=== PATIENT | female | born 1950 | race Caucasian/White ===

== ENCOUNTER 2017-09-17 13:44 | Emergency (ER) | payer MEDICARE, SELFPAY ==
[2017-09-17 14:49] VITALS: BMI 22.1
--- NOTE | 2017-09-17 14:55 | XR_ITS ---
XR ankle LT min 3V, XR foot LT min 3V LEFT ANKLE 3 VIEWS LEFT FOOT 3 VIEWS Ordering Physician: Adryan Boone MD Patient Age: 67 years: Female HISTORY: ITS.REASON: twisted foot on step last night Twisted ankle. Swelling and bruising top of foot and lateral ankle. TECHNIQUE: 3 views left foot COMPARISON :No previous studies. ====== LEFT ANKLE 3 VIEWS No fracture evident at the ankle. The dome of talus is intact. Minor soft tissue swelling is seen overlying the lateral malleolus and extending towards the lateral aspect of the foot ======= sent for LEFT FOOT 3 VIEWS No fracture nor dislocation. Metatarsals and toes intact. The tarsal bones appear intact.Normal osseous relationships Soft tissue swelling is most pronounced at the dorsal aspect of the foot. Base of the fifth metatarsal appears intact with no fracture here. There is a small longitudinally oriented accessory ossification and this site at the lateral view ankle IMPRESSION: No acute fracture evident at the left foot or left ankle.
[2017-09-17 15:21] VITALS: BP 125/63; PULSE 77; RESP 20; TEMP 36.9; O2SAT 98
--- NOTE | 2017-09-17 16:26 | HMH.EDLOEX ---
ED Disposition Clinical Impression: Ankle sprain and strain Disposition: Home, Self-Care Condition on Discharge: Good Instructions: Sprain Referrals: Provider,Referral, [Primary Care Provider] - - Critical Care Critical Care Time: No Attestation: On 09/17/17, the high probability of a clinically significant, sudden or life threatening deterioration of the following system(s) required my full and direct attention, intervention and personal management. The time I documented below is in addition to time spent performing reported procedures but includes the following listed in this critical care notation. Medical Decision Making Vital Signs: 09/17/17 15:21 Temperature 98.4 F Temperature Source Oral Pulse Rate [Right Radial] 77 Respiratory Rate 20 Blood Pressure [Left Arm] 125/63 Blood Pressure Mean [Left Arm] 83 Blood Pressure Source [Left Arm] Automatic Cuff Blood Pressure Position [Left Arm] Sitting 02 Sat by Pulse Oximetry 98 Oxygen Delivery Method Room Air Orders (Tests/Meds): ORDERS Category Date Time Status XR ankle LT min 3V Stat Exams 09/17/17 14:57 Taken XR foot LT min 3V Stat Exams 09/17/17 14:55 Taken - Radiology Data #1 Image(s): Ankle, Foot/Toes Image Reviewed: Yes I reviewed the patient's radiology results Preliminary Findings: Normal/NAD - Morales Inquiry Pt receiving controlled substance: No Morales was queried for this patient: No Lower Extremity Injury HPI - General Chief Complaint: Extremity Injury, Lower Stated Complaint: AO [id number] hurt left ft Time Seen by Provider: 09/17/17 16:26 Mode of Arrival: Ambulatory Source of Information: Patient Limitations: No Limitations - History of Present Illness complaint: ankle injury, foot injury Onset (ago): hour(s) (12) Injury: Left: ankle, foot Type of Injury: inversion Place: home Severity: moderate Severity scale (1-10): 5 Relieving factors: nothing Exacerbating factors: weight bearing Context: fall - Related Data Allergies Allergy/AdvReac Type Severity Reaction Status Date / Time codeine AdvReac Intermediate Verified 09/17/17 14:51 ROS Obtained: Yes All systems reviewed & no additional complaints except - Musculoskeletal Reports joint swelling (edema and decreased range of motion to left foot and ankle), Reports limited joint movement Physical Exam - General General appearance: alert, in no apparent distress - Head Head exam: atraumatic, normocephalic, normal inspection - Eye Eye exam: Present: normal appearance, PERRL, EOMI - ENT ENT exam: Present: normal exam, normal oropharynx, mucous membranes moist, TM's normal bilaterally, normal external ear exam - Neck Neck exam: Present: normal inspection, full ROM, trachea midline - Chest Chest inspection: Present: normal inspection, symmetric chest wall rise. Absent: tenderness - Respiratory Respiratory exam: Present: normal lung sounds bilaterally. Absent: respiratory distress - Cardiovascular Cardiovascular exam: Present: regular rate, normal rhythm. Absent: JVD - Abdominal Exam Abdominal exam: Present: soft, normal bowel sounds. Absent: distention, tenderness, guarding - Extremities Exam Extremities exam: Present: normal inspection, full ROM, normal capillary refill. Absent: calf tenderness - Expanded Lower Extremity Exam Left Lower leg exam: Present: normal inspection Ankle exam: Present: tenderness, swelling - Back Exam Back exam: Present: normal inspection. Absent: tenderness - Neurological Exam Neurological exam: Present: alert, oriented X3 - Psychiatric Psychiatric exam: Present: normal affect, normal mood - Skin Skin exam: Present: warm, dry, intact, normal color - Other Other exam information: pain and edema over lateral foot and ankle without deformity and stable joint
--- NOTE | 2017-09-17 16:29 | ED_ITS ---
ED Disposition Clinical Impression: Ankle sprain and strain Disposition: Home, Self-Care Condition on Discharge: Good Instructions: Sprain Referrals: Provider,Referral, [Primary Care Provider] - - Critical Care Critical Care Time: No Attestation: On 09/17/17, the high probability of a clinically significant, sudden or life threatening deterioration of the following system(s) required my full and direct attention, intervention and personal management. The time I documented below is in addition to time spent performing reported procedures but includes the following listed in this critical care notation. Medical Decision Making Vital Signs: 09/17/17 15:21 Temperature 98.4 F Temperature Source Oral Pulse Rate [Right Radial] 77 Respiratory Rate 20 Blood Pressure [Left Arm] 125/63 Blood Pressure Mean [Left Arm] 83 Blood Pressure Source [Left Arm] Automatic Cuff Blood Pressure Position [Left Arm] Sitting 02 Sat by Pulse Oximetry 98 Oxygen Delivery Method Room Air Orders (Tests/Meds): ORDERS Category Date Time Status XR ankle LT min 3V Stat Exams 09/17/17 14:57 Taken XR foot LT min 3V Stat Exams 09/17/17 14:55 Taken - Radiology Data #1 Image(s): Ankle, Foot/Toes Image Reviewed: Yes I reviewed the patient's radiology results Preliminary Findings: Normal/NAD - Morales Inquiry Pt receiving controlled substance: No Morales was queried for this patient: No Lower Extremity Injury HPI - General Chief Complaint: Extremity Injury, Lower Stated Complaint: AO [id number] hurt left ft Time Seen by Provider: 09/17/17 16:26 Mode of Arrival: Ambulatory Source of Information: Patient Limitations: No Limitations - History of Present Illness complaint: ankle injury, foot injury Onset (ago): hour(s) (12) Injury: Left: ankle, foot Type of Injury: inversion Place: home Severity: moderate Severity scale (1-10): 5 Relieving factors: nothing Exacerbating factors: weight bearing Context: fall - Related Data Allergies Allergy/AdvReac Type Severity Reaction Status Date / Time codeine AdvReac Intermediate Verified 09/17/17 14:51 ROS Obtained: Yes All systems reviewed & no additional complaints except - Musculoskeletal Reports joint swelling (edema and decreased range of motion to left foot and ankle), Reports limited joint movement Physical Exam - General General appearance: alert, in no apparent distress - Head Head exam: atraumatic, normocephalic, normal inspection - Eye Eye exam: Present: normal appearance, PERRL, EOMI - ENT ENT exam: Present: normal exam, normal oropharynx, mucous membranes moist, TM's normal bilaterally, normal external ear exam - Neck Neck exam: Present: normal inspection, full ROM, trachea midline - Chest Chest inspection: Present: normal inspection, symmetric chest wall rise. Absent : tenderness - Respiratory Respiratory exam: Present: normal lung sounds bilaterally. Absent: respiratory distress - Cardiovascular Cardiovascular exam: Present: regular rate, normal rhythm. Absent: JVD - Abdominal Exam Abdominal exam: Present: soft, normal bowel sounds. Absent: distention, tenderness, guarding - Extremities Exam Extremities exam: Present: normal inspection, full ROM, normal capillary refill. A
[2017-09-17 16:58] VITALS: BP 128/62; PULSE 60; RESP 12; TEMP 36.8; O2SAT 98
== END 2017-09-17 17:00 | disposition home or self-care (01) ==
PROVIDERS: Emergency Provider Family Medicine
DX: S93.402A Sprain of unspecified ligament of left ankle, initial encounter (principal)
CPT/HCPCS: 73610; 73630; 99203; 99283

== ENCOUNTER → 2018-05-21 08:31 | Outpatient (CLI) | payer MEDICARE, SELFPAY ==
[2018-05-21 10:26] LABS: Alanine Aminotransferase 25 U/L (12-78); Albumin Level 3.7 gm/dL (3.4-5.0); Albumin/Globulin Ratio 1.2 (1.1-1.8); Alkaline Phosphatase 88 U/L (46-116); Anion Gap 12.7 mEq/L (5-15); Aspartate Amino Transferase 17 U/L (15-37); Bilirubin,Total 0.8 mg/dL (0.2-1.0); Blood Urea Nitrogen 12 mg/dL (7-18); Calcium 8.7 mg/dL (8.5-10.1); Carbon Dioxide 29 mmol/L (21.0-32.0); Chloride 111 mmol/L (98-107); Chol/HDL Ratio 2.1 (1-3.5); Cholesterol 157 mg/dL (140-200); Creatinine,Serum 0.81 mg/dL (0.55-1.02); Estimated Glomerular Filt Rate 70 ml/min (>60); GFR (African American) 85 ML/MIN (>60); Globulin 3.2 gm/dl (1.3-3.2); Glucose 83 mg/dL (74-106); HDL Cholesterol 76 mg/dL (29-89); LDL Cholesterol 71 mg/dL (0-130); Potassium 5.7 mmoL/L (3.5-5.1); Sodium 147 mmol/L (136-145); Thyroid Stimulating Hormone 2.88 uIU/ml (0.358-3.740); Total Protein,Serum 6.9 gm/dL (6.4-8.2); Triglycerides 52 mg/dL (30-200); VLDL Cholesterol 10 mg/dL (0-40)
== END ==
PROVIDERS: PCP Family Medicine; Visit Provider Family Medicine
DX: E78.00 Pure hypercholesterolemia, unspecified (principal)
CPT/HCPCS: 36415; 80053; 80061; 84443

== ENCOUNTER → 2019-06-20 10:44 | Outpatient (CLI) | payer MEDICARE, SELFPAY ==
--- NOTE | 2019-06-20 10:48 | CA_ITS ---
APPROVED REPORT EXAM: Comprehensive 2D, Doppler, and color-flow Echocardiogram Client Services Analyst: Lor Choi CRT Ht: 5 ft 8 in Wt: 150lbs BSA: 1.81 BP: 118/69 mmHg Indications: CVA, HTN, PALP, HLD 2D Dimensions LVOT 1.80 cm (M/F) 1.5-2.5 M-Mode Dimensions RVDd 2.50 cm (0.9-2.6) LA Diam 2.80 cm (1.9-4.0) LVDd 4.00 cm (3.5-5.7) Ao Diam 3.20 cm (2.0-3.7) LVDs 2.40 cm (3.5-5.7) AV Cusp 2.10 cm (1.5-2.6) IVSd 1.10 cm (0.6-1.1) PWd 0.90 cm (0.6-1.1) EF (Teich) 71.10% FS 40.00% EDV (Teich) 70.00 mL ESV (Teich) 20.20 mL LV Diastology E/A Ratio 1.20 MED E' 7.51 (< 7 cm/sec) E'/MED E' Ratio 11.00 (>14) LAT E' 6.34 (<10 cm/sec) E/LAT E' Ratio 13.00 (>14) Aortic Valve AoV Peak Young. 123.00 (50-130 cm/s) AO Peak GR. 6.00 mmHg Mitral Valve MV E Max Young. 82.40 (40-130 cm/s) MV A Velocity 68.10 (40-130 cm/s) E/A Ratio 1.20 Pulmonary Valve AR End VMAX 96.10 cm/s PA Accel Time 176.00 (>120 msec) Tricuspid Valve TR P. Velocity 278.50 cm/s RAP Estimate 10.00 mmHg RVSP 43.00 mmHg Left Ventricle Left atrium is normal size, left ventricle is normal size, there is no concentric left ventricular hypertrophy, visually estimated ejection fraction 55% with no regional wall motion abnormality. Diastolic parameters are within normal range. Right Ventricle Right atrium and right ventricular normal size and contractility. Aortic Valve Aortic valve is minimally thickened and fibrosed, there is no aortic stenosis aortic insufficiency. Mitral Valve Mitral valve is grossly normal, there is no mitral stenosis, there is mild mitral regurgitation. Tricuspid Valve Tricuspid valve is grossly normal, there is mild tricuspid regurgitation. Tricuspid regurgitation jet velocity is inadequate for calculation of the right ventricular systolic pressure. Pulmonic Valve Pulmonic valve is poorly visualized. Great Vessels Aortic root is normal size. Pericardium No significant pericardial effusion noted. Conclusion 1. Normal left ventricular size, preserved left ventricular systolic function, visually estimated ejection fraction 55% with no regional wall motion abnormality. Diastolic parameters are within normal range. 2. Mild mitral and tricuspid regurgitation 3. No significant pericardial effusion noted. Electronically signed by : Fabrice Metzger, 06/20/2019 14:26:09
== END ==
PROVIDERS: PCP Family Medicine; Visit Provider Urology
DX: I27.20 Pulmonary hypertension, unspecified (principal); Z86.73 Personal history of transient ischemic attack (TIA), and cerebral infarction without residual deficits
CPT/HCPCS: 93306

== ENCOUNTER → 2019-07-17 14:16 | Outpatient (CLI) | payer MEDICARE, SELFPAY ==
--- NOTE | 2019-07-17 14:22 | XR_ITS ---
PROCEDURE: XR CHEST 2V CLINICAL HISTORY: BRONCHITIS Cough, pneumonia COMPARISON: CXR CHEST(2 VIEWS-NOT PORTABLE) from 12/20/2012 CXR CHEST(2 VIEWS-NOT PORTABLE) from 02/19/2016 CXR1 CHEST-PORTABLE from 03/12/2017 FINDINGS: The cardiomediastinal silhouette and pulmonary vascularity are within normal limits. Increased markings are present along the right heart border. This is chronic and may be partly due to pectus deformity. There are increased markings in the right middle lobe and inferior aspect of the anterior clear space as seen on the lateral view. This was present on 02/19/2016. The left lung is clear. No acute bony findings IMPRESSION: Chronic changes in the right middle lobe. No change with no acute finding Dictated by: Braulio Odell MD 07/17/2019 15:17 Electronically signed by Braulio Odell MD in [place] 07/17/2019 15:17
== END ==
PROVIDERS: PCP Family Medicine; Visit Provider Physician Assistant
DX: J40 Bronchitis, not specified as acute or chronic (principal)
CPT/HCPCS: 71046

== ENCOUNTER → 2020-05-12 08:04 | Outpatient (CLI) | payer MEDICARE, SELFPAY ==
--- NOTE | 2020-05-12 08:09 | CT_ITS ---
PROCEDURE: CT LUNG SCREENING CLINICAL INDICATION: H/O NICOTINE DEPENDENCE Current smoker 33 pack year smoking history COMPARISON: CT CHW CT CHEST W/ CONTRAST from 02/24/2016 TECHNIQUE: The exam was performed on a GE Light Speed [address] scanner using 2.90 mGy CTDI. A low dose helical CT CHEST was performed on a multi-detector scanner. All CT scans at the facility use one or more dose reduction, viz: automated exposure control, ma/kV adjustment per patient size (including targeted exams where dose is matched to indication, i.e. head), or iterative reconstruction technique. The LDCT was performed in a facility that meets the criteria for the screening program. Data regarding this exam was submitted to ACR which is an approved registry. The order for this exam indicates that it came as a result of a lung cancer screening counseling shard decision-making visit that included all the elements required of such a visit including smoking cessation. The radiologist interpreting this exam meets the CMS criteria for the LDCT lung cancer screening program. The exam is reported using the Lung-RADS classification scale and reported to the ACR registry. NOTE: This study was performed for the specific purposes of lung cancer screening and is not an alternative to diagnostic chest CT. RADIATION DOSE: CTDI vol(CT dose Index-volume) = 2.90mG DLP (Dose Length Product) = 112.29 mGcm FINDINGS: COPD with scattered areas of scarring/fibrotic change similar to the previous exam of 02/24/2016. No new nodules or areas of parenchymal opacity noted. There are old fractures of the right 6th and 7th ribs laterally. OTHER FINDINGS: Coronary artery calcifications IMPRESSION: Lung rads category 2, benign Recommend annual LD CT. Dictated by: Braulio Odell MD 05/24/2020 09:55 Braulio Odell MD in [place] 05/24/2020 09:55
== END ==
PROVIDERS: PCP Family Medicine; Visit Provider Family Medicine
DX: Z87.891 Personal history of nicotine dependence (principal); Z12.2 Encounter for screening for malignant neoplasm of respiratory organs

== ENCOUNTER → 2020-10-05 16:04 | Outpatient (POV) | payer MEDICARE, SELFPAY | PROVIDERS: Visit Provider Dermatology | DX: Z00.00 Encounter for general adult medical examination without abnormal findings (principal) ==

== ENCOUNTER → 2020-11-30 08:13 | Outpatient (POV) | payer MEDICARE, SELFPAY | PROVIDERS: Visit Provider Dermatology | DX: Z00.00 Encounter for general adult medical examination without abnormal findings (principal) ==

== ENCOUNTER → 2021-05-20 07:46 | Outpatient (CLI) | payer MEDICARE, SELFPAY ==
--- NOTE | 2021-05-20 07:49 | MM_ITS ---
PROCEDURE: MM DIG SCREENING MAMM BI W/CAD Digital Breast Tomosynthesis Included CLINICAL INDICATION: SCREENING COMPARISON: [facility] DIG MAMM-SCREEN DAVID from 07/31/2013 [facility] DIG MAMM-SCREEN DAVID from 09/08/2014 [facility] DIG MAMM-SCREEN DAVID from 10/21/2015 TECHNIQUE: Standard CC and MLO images and 3D Tomosynthesis was obtained. R2 CAD reviewed. FINDINGS: The breasts are heterogeneously dense which may obscure small masses. No malignant appearing mass or malignant-appearing microcalcification. Benign-appearing calcification noted on the left. No significant change with no evidence of malignancy IMPRESSION: No change with no evidence of malignancy BI-RAD Category: 2 Benign Finding FOLLOW-UP: 1 YR 1 Year Follow-up (A letter has been sent to the patient regarding results of the study.) Dictated by: Braulio Odell MD 06/01/2021 09:03 Braulio Odell MD in [place] 06/01/2021 09:03
--- NOTE | 2021-05-20 07:49 | CT_ITS ---
PROCEDURE: CT LUNG SCREENING CLINICAL INDICATION: HX OF NICOTINE DEPENDENCE COMPARISON: CT CT LUNG SCREENING from 05/12/2020 TECHNIQUE: The exam was performed on a GE Light Speed [address] scanner using 2.90 mGy CTDI. A low dose helical CT CHEST was performed on a multi-detector scanner. All CT scans at the facility use one or more dose reduction, viz: automated exposure control, ma/kV adjustment per patient size (including targeted exams where dose is matched to indication, i.e. head), or iterative reconstruction technique. The LDCT was performed in a facility that meets the criteria for the screening program. Data regarding this exam was submitted to ACR which is an approved registry. The order for this exam indicates that it came as a result of a lung cancer screening counseling shard decision-making visit that included all the elements required of such a visit including smoking cessation. The radiologist interpreting this exam meets the CMS criteria for the LDCT lung cancer screening program. The exam is reported using the Lung-RADS classification scale and reported to the ACR registry. NOTE: This study was performed for the specific purposes of lung cancer screening and is not an alternative to diagnostic chest CT. RADIATION DOSE: CTDI vol(CT dose Index-volume) = 2.90mG DLP (Dose Length Product) = 116.98 mGcm FINDINGS: COPD with scattered areas of scarring. Stable scattered subpleural opacities. A new small endobronchial opacity is present in the left lower lobe measuring 4 mm and may be due to partial volume averaging artifact. Six-month follow-up suggested. Scarring is present in the left upper lobe medially. There are a few scattered faint areas of ground-glass opacities not readily apparent on the previous exam which could be inflammatory/infectious in nature. Please correlate with patient's clinical parameters. Has the patient had recent Covid19? There is a stable 6 mm nodular opacity in the right upper lobe posteriorly 01/10 There are scattered OTHER FINDINGS: Old right-sided rib fractures. IMPRESSION: Lung-RADS Category 3 Probably Benign Follow-up: [address] Chest without contrast. Scattered small ground-glass opacities nonspecific but could be inflammatory/infectious. Please correlate with clinical parameters. Dictated by: Braulio Odell MD 05/23/2021 08:35 Braulio Odell MD in [place] 05/23/2021 08:35
== END ==
PROVIDERS: PCP Family Medicine; Visit Provider Family Medicine
DX: Z87.891 Personal history of nicotine dependence (principal); Z12.2 Encounter for screening for malignant neoplasm of respiratory organs; Z12.31 Encounter for screening mammogram for malignant neoplasm of breast
CPT/HCPCS: 71271; 77063; 77067

== ENCOUNTER → 2021-05-24 10:50 | Outpatient (CLI) | payer MEDICARE, SELFPAY | PROVIDERS: PCP Family Medicine; Visit Provider Family Medicine | DX: Z20.822 Contact with and (suspected) exposure to COVID-19 (principal); U07.1 COVID-19 | CPT/HCPCS: U0003 ==

== ENCOUNTER 2021-05-27 07:54 | Outpatient (CLI) | payer MEDICARE, SELFPAY ==
[2021-05-27] VITALS (7 sets, daily range): BP systolic 129–151; BP diastolic 72–88; PULSE 63–69; RESP 18; TEMP 36.8–36.9; O2SAT 92–98
== END 2021-05-27 10:00 | disposition home or self-care (01) ==
LOC: INF 07:57
PROVIDERS: PCP Family Medicine; Visit Provider Family Medicine
DX: U07.1 COVID-19 (principal)
CPT/HCPCS: 96365

== ENCOUNTER → 2021-10-12 08:09 | Outpatient (CLI) | payer MEDICARE, SELFPAY | PROVIDERS: PCP Family Medicine; Visit Provider Surgery | DX: Z01.812 Encounter for preprocedural laboratory examination (principal); Z11.52 Encounter for screening for COVID-19; K62.5 Hemorrhage of anus and rectum | CPT/HCPCS: C9803; U0003; U0005 ==

== ENCOUNTER 2021-10-14 09:06 | Day surgery (SDC) | payer MEDICARE, SELFPAY ==
[2021-10-11 13:37] VITALS: BMI 22.1
[2021-10-14 09:22] VITALS: BP 139/64; PULSE 91; RESP 18; TEMP 36.7; O2SAT 97
--- NOTE | 2021-10-14 09:42 | P.PN_ITS ---
[facility] Anesthesia Checklist - Patient Identification Patient Identification: Arm Band - Structural Data Admitted From: Home Planned Operative Procedure/s: Colonoscopy Consent for Planned Operative Procedure(s) Verified: Yes Verified Documents: Surgical Consent, History and Physical - NPO Status Verified Time NPO: 00:00 - Additional verifications Anesthesia Reactions: No - Airway Assessment C-Spine Mobility Assessed: Yes (mp2) TMJ Mobility Assessed: Yes Dentition: Good Dentition - Neurological Assessment Level of Consciousness: Awake, Alert - Anesthesia Plan Anesthesia Risk discussed: Yes Anesthesia Plan: Verified ASA Class: II Anesthesia Type: MAC [facility] History I have reviewed the patient's past medical history: Yes Medical History: Reports:: Cerebrovascular Accident, Hyperlipidemia, Hypertension, Palpitations Denies:: Cancer, Diabetes Mellitus Type 2, Internal Pacemaker, MRSA, Seizures *Have you ever received a pneumonia vaccine?: No *Have you received a flu vaccine this season?: Yes Anesthesia experience/problems:: nac Laterality Cases: Bilateral: Carpal Tunnel Release Other Surgeries: Yes: Cholecystectomy. No: Pacemaker Amputation: No Fractures: No - *Social History Last grade of school completed: High school graduate Smoking Status: Current every day smoker Tobacco Type: cigarettes # Packs/Day (cigarettes): 1 Alcohol Intake: current Alcohol Intake Frequency:: holidays/special occasions only Substance Use Type: denies use *Occupational Status:: employed *Travel in the last 8 weeks: None Family Hx:: No significant family history
[2021-10-14 10:43] VITALS: O2SAT 97
--- NOTE | 2021-10-14 11:23 | HMH.SCOPE ---
- Procedure: Date: 10/14/21 Patient Date of :: 1950 Procedure Performed:: Total colonoscopy to terminal ileum with polypectomy using biopsy forceps Indications:: Patient is a 71-year-old female referred by Dr. Samayoa for colonoscopy. She had a colonoscopy in October [address] Alberto Mcmillan revealing diverticulosis. I had performed colonoscopy 07/06/2015 which revealed diverticulosis, melanosis coli, and a polyp. Recommended 5-year follow-up colonoscopy. Patient states that recently she had a diverticulitis attack . This was at the end of August 2021. This is characterized by abdominal cramping and vomiting. She then had some fecal urgency and had bloody bowel movement for several days. She was treated with antibiotics for diverticulitis. Her symptoms have resolved. Performing Provider:: Darryl Venegas MD Referring Provider:: Prosper Samayoa MD Sedation:: MAC sedation Procedure:: Patient was taken to endoscopy procedure room. She was positioned in lateral decubitus position. Adequate intravenous sedation was achieved with anesthesia titration of propofol. Variable stiffness Olympus colonoscope was inserted via the anus. It was advanced to the cecum without significant difficulty. She did have some floppiness redundancy of the sigmoid colon. The ileocecal valve and appendiceal orifice were clearly identified. Colonoscope was advanced a short distance into the terminal ileum which appeared grossly normal. Colonoscope was slowly withdrawn through the colon with careful surveillance. There was a tiny diminutive subtle polyp in the transverse colon which was removed with cold biopsy forceps. In the descending colon she had moderately large mouth diverticuli. There is no evidence of any acute inflammation. There is minor patchy erythema in the sigmoid colon possibly from resolved diverticulitis. Retroflexion within the rectum revealed no evidence of any pathologic hemorrhoids. Colonoscope was withdrawn. Findings:: Moderate left-sided diverticulosis Diminutive transverse polyp Recommendations:: Likely repeat colonoscopy 5 years Complications:: None immediately apparent Estimated blood obtained (mL): 2
[2021-10-14 11:25] VITALS: BP 93/53; PULSE 84; RESP 16; TEMP 36.2; O2SAT 96
[2021-10-14 11:35] VITALS: BP 92/57; PULSE 88; RESP 16; O2SAT 96
[2021-10-14 11:45] VITALS: BP 97/57; PULSE 86; RESP 16; O2SAT 98
[2021-10-14 11:55] VITALS: BP 110/67; PULSE 82; RESP 16; O2SAT 98
== END 2021-10-14 11:58 | disposition home or self-care (01) ==
LOC: OUTP 09:08
PROVIDERS: PCP Family Medicine; Visit Provider Surgery
PROC: 0DJD8ZZ Inspection of Lower Intestinal Tract, Via Natural or Artificial Opening Endoscopic (ICD-10-PCS; principal; 2021-10-14 11:30)
DX: Z87.19 Personal history of other diseases of the digestive system (principal); K57.30 Diverticulosis of large intestine without perforation or abscess without bleeding; K63.5 Polyp of colon; E78.5 Hyperlipidemia, unspecified; I10 Essential (primary) hypertension; R00.2 Palpitations; Z86.73 Personal history of transient ischemic attack (TIA), and cerebral infarction without residual deficits; Z72.0 Tobacco use; Z88.4 Allergy status to anesthetic agent; Z79.82 Long term (current) use of aspirin; Z79.899 Other long term (current) drug therapy
CPT/HCPCS: 45380; 88305

== ENCOUNTER → 2022-01-30 13:19 | Outpatient (CLI) | payer MEDICARE, SELFPAY ==
--- NOTE | 2022-01-30 13:22 | CT_ITS ---
FINAL REPORT TECHNIQUE: Axial CT images were performed from the lung apices through the upper abdomen. Coronal reformats were submitted. This study was performed with techniques to keep radiation doses as low as reasonably achievable (ALARA). Individualized dose reduction techniques using automated exposure control or adjustment of mA and/or kV according to the patient's size were employed. CLINICAL HISTORY: ABN LOW DOSE LUNG SCREENING COMPARISON: May 20, 2021 FINDINGS: There is no axillary adenopathy. There is no hilar or mediastinal mass or adenopathy. Heart size is normal. There is no pericardial or pleural effusion. Limited images of the upper abdomen are unremarkable. Mild scarring is identified. There is a 4 mm nodular opacity in the posterior right upper lobe, stable, best seen on image 21. The left lower lobe endobronchial nodular opacity is not seen and may have resolved. There is a stable 4 mm pleural based right lower lobe nodule, image 50. There are several calcified granulomas. No new mass or nodule is identified. IMPRESSION: Stable lung nodules as above. Recommend additional follow-up CT scan in 12 months to evaluate for continued stability. Reviewed, Interpreted and Dictated by Darryl Gutierrez III, MD Transcribed by Kavitha Trujillo Authenticated by Darryl Gutierrez III, MD on 01/30/2022 03:00:10 PM [facility]
== END ==
PROVIDERS: PCP Family Medicine; Visit Provider Nurse Practitioner Family
DX: R91.8 Other nonspecific abnormal finding of lung field (principal)
CPT/HCPCS: 71250

== ENCOUNTER → 2022-02-14 08:04 | Outpatient (POV) | payer MEDICARE, SELFPAY | PROVIDERS: Visit Provider Dermatology | DX: Z00.00 Encounter for general adult medical examination without abnormal findings (principal) ==

== ENCOUNTER → 2022-02-23 11:53 | Outpatient (CLI) | payer MEDICARE, SELFPAY ==
[2022-02-23 12:18] LABS: Basophils # 0.1 K/mm3 (0-0.2); Eosinophils % 0.4 % (0.1-12.0); Hematocrit 33.4 % (37.0-47.0); Hemoglobin 11.3 g/dL (12.2-16.2); Lymphocytes # 1.8 K/mm3 (0.7-4.5); Lymphocytes % 37.7 % (10-50); Mean Corpuscular HGB Conc 33.8 g/dL (31.8-35.4); Mean Corpuscular Hemoglobin 31.2 pg (27.0-31.2); Mean Corpuscular Volume 92.3 fl (81-99); Mean Platelet Volume 11.7 fl (7.4-10.4); Monocytes # 0.3 K/mm3 (0.1-1.0); Monocytes % 5.9 % (1.7-9.3); Neutrophils # 2.6 K/mm3 (1.8-7.8); Platelet Count 57 K/mm3 (142-424); Red Blood Count 3.62 M/mm3 (4.20-5.40); Red Cell Distribution Width 19.4 % (11.5-17.5); White Blood Count 4.7 K/mm3 (4.8-10.8)
[2022-02-23 14:17] LABS: Alanine Aminotransferase 16 U/L (12-78); Albumin Level 4.1 g/dl (3.5-5.0); Albumin/Globulin Ratio 1.6 (1.1-1.8); Alkaline Phosphatase 79 U/L (38-126); Anion Gap 11.9 mEq/L (5-15); Aspartate Amino Transferase 26 U/L (14-36); Blood Urea Nitrogen 8 mg/dl (7-17); Calcium 9.5 mg/dl (8.4-10.2); Carbon Dioxide 27 mmol/L (22.0-30.0); Chloride 110 mmol/L (98-107); Estimated Glomerular Filt Rate 98 ml/min (>60); GFR (African American) 119 ML/MIN (>60); Globulin 2.6 g/dL (1.3-3.2); Glucose 97 mg/dl (74-100); Potassium 4.9 mmoL/L (3.5-5.1); Sodium 144 mmol/L (136-145); Total Protein,Serum 6.7 g/dl (6.3-8.2)
[2022-02-25 12:01] LABS: Peripheral Smear Review Scanned Result
== END ==
PROVIDERS: PCP Family Medicine; Visit Provider Internal Medicine Medical Oncology
DX: D69.6 Thrombocytopenia, unspecified (principal)
CPT/HCPCS: 36415; 80053; 85025

== ENCOUNTER → 2022-02-28 09:07 | Outpatient (CLI) | payer MEDICARE, SELFPAY ==
--- NOTE | 2022-02-28 09:14 | CT_ITS ---
FINAL REPORT TECHNIQUE: CT axial images of the abdomen were performed before and after IV contrast administration. This study was performed with techniques to keep radiation doses as low as reasonably achievable (ALARA). Individualized dose reduction techniques using automated exposure control or adjustment of mA and/or kV according to the patient's size were employed. CLINICAL HISTORY: THROMBOCYTOPENI FINDINGS: The lung bases are clear. There is a less than probable 1 cm hepatic cyst. The gallbladder is surgically absent. The spleen is normal measuring about 10 cm in length. The adrenals are normal. The pancreas is unremarkable. There is a less than 1 cm anterior left renal cyst. No renal stones or hydronephrosis is identified. There is a small hiatal hernia. There are moderate vascular calcifications. The appendix is partially visualized and normal. IMPRESSION: No acute intra-abdominal process. Probable less than 1 cm hepatic cyst. Less than 1 cm left renal cyst. Small hiatal hernia. Reviewed, Interpreted and Dictated by Darryl Gutierrez III, MD Transcribed by Betty Barfield Authenticated and [facility]
== END ==
PROVIDERS: PCP Family Medicine; Visit Provider Internal Medicine Medical Oncology
DX: D69.6 Thrombocytopenia, unspecified (principal)
CPT/HCPCS: 74170; Q9967

== ENCOUNTER → 2022-03-02 15:11 | Outpatient (CLI) | payer MEDICARE, SELFPAY | PROVIDERS: PCP Family Medicine; Visit Provider Internal Medicine Medical Oncology | DX: D69.6 Thrombocytopenia, unspecified (principal) | CPT/HCPCS: 36415 ==

== ENCOUNTER → 2022-03-25 10:01 | Outpatient (CLI) | payer MEDICARE, SELFPAY ==
[2022-03-25 10:58] LABS: Basophils % 0.7 % (0.1-2.0); Eosinophils % 0.8 % (0.1-12.0); Hematocrit 31.4 % (37.0-47.0); Lymphocytes % 38.7 % (10-50); Mean Corpuscular HGB Conc 35.1 g/dL (31.8-35.4); Mean Corpuscular Hemoglobin 31.6 pg (27.0-31.2); Mean Corpuscular Volume 90.2 fl (81-99); Mean Platelet Volume 10.6 fl (7.4-10.4); Monocytes # 0.3 K/mm3 (0.1-1.0); Monocytes % 6.1 % (1.7-9.3); Neutrophils # 2.8 K/mm3 (1.8-7.8); Neutrophils % 53.7 % (37.0-80.0); Platelet Count 54 K/mm3 (142-424); Red Blood Count 3.48 M/mm3 (4.20-5.40); Red Cell Distribution Width 18.9 % (11.5-17.5); White Blood Count 5.1 K/mm3 (4.8-10.8)
== END ==
PROVIDERS: PCP Family Medicine; Visit Provider Internal Medicine Medical Oncology
DX: D69.49 Other primary thrombocytopenia (principal)
CPT/HCPCS: 36415; 85025

== ENCOUNTER 2022-06-15 08:12 | Outpatient (CLI) | payer MEDICARE, SELFPAY ==
[2022-06-15 08:16] VITALS: BMI 20.9
--- NOTE | 2022-06-15 08:30 | PC.NURSE ---
CBC and CMP drawn at 0824, pt to oncology appt at this time.
[2022-06-15 08:41] LABS: Basophils # 0.1 K/mm3 (0-0.2); Basophils % 2.6 % (0.1-2.0); Eosinophils % 0.6 % (0.1-12.0); Hematocrit 34.5 % (37.0-47.0); Hemoglobin 11.7 g/dL (12.2-16.2); Lymphocytes # 1.7 K/mm3 (0.7-4.5); Lymphocytes % 36.7 % (10-50); Mean Corpuscular HGB Conc 33.8 g/dL (31.8-35.4); Mean Corpuscular Hemoglobin 32.4 pg (27.0-31.2); Mean Corpuscular Volume 95.9 fl (81-99); Mean Platelet Volume 12.2 fl (7.4-10.4); Monocytes # 0.4 K/mm3 (0.1-1.0); Monocytes % 7.9 % (1.7-9.3); Neutrophils # 2.4 K/mm3 (1.8-7.8); Neutrophils % 52.3 % (37.0-80.0); Red Cell Distribution Width 18.4 % (11.5-17.5); White Blood Count 4.6 K/mm3 (4.8-10.8)
[2022-06-15 08:46] LABS: Chloride 107 mmol/L (98-107)
[2022-06-15 08:47] LABS: Potassium 5.3 mmoL/L (3.5-5.1); Sodium 147 mmol/L (136-145)
[2022-06-15 08:49] LABS: Alanine Aminotransferase 16 U/L (12-78); Alkaline Phosphatase 69 U/L (38-126); Anion Gap 16.3 mEq/L (5-15); Aspartate Amino Transferase 27 U/L (14-36); Bilirubin,Total 1.6 mg/dl (0.2-1.3); Blood Urea Nitrogen 10 mg/dl (7-17); Carbon Dioxide 29 mmol/L (22.0-30.0); Creatinine Clearance Estimated 50 mL/min (50-200); Estimated Glomerular Filt Rate 82 ml/min (>60); GFR (African American) 100 ML/MIN (>60)
[2022-06-15 08:50] LABS: Albumin Level 4.4 g/dl (3.5-5.0); Albumin/Globulin Ratio 1.6 (1.1-1.8); Globulin 2.8 g/dL (1.3-3.2); Glucose 92 mg/dl (74-100); Total Protein,Serum 7.2 g/dl (6.3-8.2)
[2022-06-15 09:03] LABS: Platelet Count 44 K/mm3 (142-424)
--- NOTE | 2022-06-15 09:10 | PC.NURSE ---
06/15/22 0903 Yaritza Whittington called Elicia Gibson RN to report platelet level 44. RN repeated and verified pt name, , and lab value. Result called to Anne Weaver RN for Dr. Simpson, no new orders noted. Pt currently in clinic to see for appt.
--- NOTE | 2022-06-15 09:23 | PC.NURSE ---
Yaritza Chicas from lab called critical lab result of Plt 44. name, , and lab result verified. MD Calvin notified and no new orders at this time.
== END 2022-06-15 08:30 | disposition home or self-care (01) ==
LOC: INF 08:13
PROVIDERS: PCP Family Medicine; Visit Provider Internal Medicine Medical Oncology
DX: D46.9 Myelodysplastic syndrome, unspecified (principal)
CPT/HCPCS: 36415; 80053; 85025

== ENCOUNTER 2022-06-29 08:03 | Outpatient (CLI) | payer MEDICARE, SELFPAY ==
[2022-06-29 08:14] VITALS: BMI 20.9
[2022-06-29 08:35] LABS: Basophils % 0.8 % (0.1-2.0); Eosinophils % 0.8 % (0.1-12.0); Hematocrit 31.9 % (37.0-47.0); Hemoglobin 10.7 g/dL (12.2-16.2); Lymphocytes # 0.8 K/mm3 (0.7-4.5); Lymphocytes % 22.8 % (10-50); Mean Corpuscular HGB Conc 33.4 g/dL (31.8-35.4); Mean Corpuscular Hemoglobin 31.3 pg (27.0-31.2); Mean Corpuscular Volume 93.9 fl (81-99); Mean Platelet Volume 11.3 fl (7.4-10.4); Monocytes # 0.3 K/mm3 (0.1-1.0); Monocytes % 8.1 % (1.7-9.3); Neutrophils # 2.4 K/mm3 (1.8-7.8); Neutrophils % 67.5 % (37.0-80.0); Platelet Count 39 K/mm3 (142-424); Red Cell Distribution Width 18.4 % (11.5-17.5); White Blood Count 3.5 K/mm3 (4.8-10.8)
--- NOTE | 2022-06-29 08:55 | PC.NURSE ---
0820 Patient here for lab draw. CBC collected via R AC x 1 stick with butterfly needle/no problems noted.
== END 2022-06-29 08:25 | disposition home or self-care (01) ==
LOC: INF 08:06
PROVIDERS: PCP Family Medicine; Visit Provider Internal Medicine Medical Oncology
DX: D46.9 Myelodysplastic syndrome, unspecified (principal)
CPT/HCPCS: 36415; 85025

== ENCOUNTER 2022-07-06 08:05 | Outpatient (CLI) | payer MEDICARE, SELFPAY ==
[2022-07-06 08:12] VITALS: BMI 20.9
--- NOTE | 2022-07-06 08:15 | PC.NURSE ---
pt presents this am for labs to be drawn. pt accessed per venipuncture with a butterfly needle by Brandy Louise RN to pt's lt ac. After blood was withdrawn and needle was withdrawn, site secured with 2x2 gauze and coban.
[2022-07-06 08:29] LABS: Basophils % 0.9 % (0.1-2.0); Eosinophils % 0.5 % (0.1-12.0); Hematocrit 30.6 % (37.0-47.0); Hemoglobin 10.6 g/dL (12.2-16.2); Lymphocytes # 1.8 K/mm3 (0.7-4.5); Lymphocytes % 47.5 % (10-50); Mean Corpuscular HGB Conc 34.5 g/dL (31.8-35.4); Mean Corpuscular Hemoglobin 32.6 pg (27.0-31.2); Mean Corpuscular Volume 94.3 fl (81-99); Mean Platelet Volume 12.8 fl (7.4-10.4); Monocytes # 0.2 K/mm3 (0.1-1.0); Monocytes % 5.9 % (1.7-9.3); Neutrophils # 1.7 K/mm3 (1.8-7.8); Neutrophils % 45.2 % (37.0-80.0); Red Blood Count 3.24 M/mm3 (4.20-5.40); Red Cell Distribution Width 18.4 % (11.5-17.5); White Blood Count 3.7 K/mm3 (4.8-10.8)
[2022-07-06 08:53] LABS: Platelet Count 48 K/mm3 (142-424)
--- NOTE | 2022-07-06 08:55 | PC.NURSE ---
kaitlyn encarnacion from lab called critical lab result of plt of 48. Lab result, and name verified. notified, no new orders at this time.
== END 2022-07-06 08:22 | disposition home or self-care (01) ==
LOC: INF 08:06
PROVIDERS: PCP Family Medicine; Visit Provider Internal Medicine Medical Oncology
DX: D46.9 Myelodysplastic syndrome, unspecified (principal)
CPT/HCPCS: 36415; 85025

== ENCOUNTER 2022-07-20 08:09 | Outpatient (CLI) | payer MEDICARE, SELFPAY ==
[2022-07-20 08:15] VITALS: BMI 20.9
[2022-07-20 08:29] LABS: Basophils % 0.9 % (0.1-2.0); Eosinophils # 0.1 K/mm3 (0.0-0.4); Eosinophils % 1.4 % (0.1-12.0); Hematocrit 31.6 % (37.0-47.0); Hemoglobin 10.7 g/dL (12.2-16.2); Lymphocytes # 2.3 K/mm3 (0.7-4.5); Mean Corpuscular HGB Conc 33.9 g/dL (31.8-35.4); Mean Corpuscular Volume 94.6 fl (81-99); Mean Platelet Volume 11.6 fl (7.4-10.4); Monocytes # 0.3 K/mm3 (0.1-1.0); Monocytes % 7.5 % (1.7-9.3); Neutrophils # 1.6 K/mm3 (1.8-7.8); Neutrophils % 36.3 % (37.0-80.0); Platelet Count 51 K/mm3 (142-424); Red Blood Count 3.34 M/mm3 (4.20-5.40); Red Cell Distribution Width 19.8 % (11.5-17.5); White Blood Count 4.3 K/mm3 (4.8-10.8)
[2022-07-20 08:32] LABS: MANUAL DIFFERENTIAL MANUAL DIFFERENTIAL (MANUAL DIFF)
[2022-07-20 08:51] LABS: Lymphocytes % 54 % (10-50); Monocytes % 7 % (2-9); Neutrophils % 39 % (42-76); Nucleated Red Blood Cells 1; Platelet Estimate Marked Decrease; RBC Morphology Normal; Total Cells Counted 100
== END 2022-07-20 08:20 | disposition home or self-care (01) ==
LOC: INF 08:10
PROVIDERS: PCP Family Medicine; Visit Provider Internal Medicine Medical Oncology
DX: D46.9 Myelodysplastic syndrome, unspecified (principal)
CPT/HCPCS: 36415; 85007; 85025

== ENCOUNTER 2022-08-03 08:06 | Outpatient (CLI) | payer MEDICARE, SELFPAY ==
[2022-08-03 08:11] VITALS: BMI 20.8
[2022-08-03 08:39] LABS: Basophils % 0.8 % (0.1-2.0); Eosinophils % 0.5 % (0.1-12.0); Hematocrit 30.1 % (37.0-47.0); Hemoglobin 10.3 g/dL (12.2-16.2); Lymphocytes # 2.1 K/mm3 (0.7-4.5); Lymphocytes % 41.6 % (10-50); Mean Corpuscular HGB Conc 34.1 g/dL (31.8-35.4); Mean Corpuscular Hemoglobin 32.9 pg (27.0-31.2); Mean Corpuscular Volume 96.6 fl (81-99); Mean Platelet Volume 12.1 fl (7.4-10.4); Monocytes # 0.5 K/mm3 (0.1-1.0); Monocytes % 10.3 % (1.7-9.3); Neutrophils # 2.4 K/mm3 (1.8-7.8); Neutrophils % 46.8 % (37.0-80.0); Red Blood Count 3.12 M/mm3 (4.20-5.40); Red Cell Distribution Width 20.6 % (11.5-17.5); White Blood Count 5.1 K/mm3 (4.8-10.8)
[2022-08-03 08:40] LABS: Platelet Count 34 K/mm3 (142-424)
--- NOTE | 2022-08-03 10:16 | PC.NURSE ---
Susana Rivero from lab called critical lab results. Plt of 34. Lab results, name and verified and repeated. Calvin MD notified. no new orders at this time.
== END 2022-08-03 08:20 | disposition home or self-care (01) ==
LOC: INF 08:07
PROVIDERS: PCP Family Medicine; Visit Provider Internal Medicine Medical Oncology
DX: D46.9 Myelodysplastic syndrome, unspecified (principal)
CPT/HCPCS: 36415; 85025

== ENCOUNTER 2022-08-08 08:18 | Outpatient (CLI) | payer MEDICARE, SELFPAY ==
[2022-08-08 08:21] VITALS: BMI 20.8
--- NOTE | 2022-08-08 08:24 | PC.NURSE ---
0824-pt here for lab draw for weekly cbc;collected labs via peripheral stick; will notify pt of labs.
[2022-08-08 08:44] LABS: Basophils % 0.8 % (0.1-2.0); Eosinophils % 0.9 % (0.1-12.0); Hematocrit 31.4 % (37.0-47.0); Hemoglobin 10.7 g/dL (12.2-16.2); Lymphocytes # 2.5 K/mm3 (0.7-4.5); Lymphocytes % 50.6 % (10-50); Mean Corpuscular Hemoglobin 32.5 pg (27.0-31.2); Mean Corpuscular Volume 95.6 fl (81-99); Mean Platelet Volume 11.7 fl (7.4-10.4); Monocytes # 0.5 K/mm3 (0.1-1.0); Monocytes % 9.5 % (1.7-9.3); Neutrophils # 1.9 K/mm3 (1.8-7.8); Neutrophils % 38.1 % (37.0-80.0); Red Blood Count 3.29 M/mm3 (4.20-5.40); Red Cell Distribution Width 19.8 % (11.5-17.5); White Blood Count 4.9 K/mm3 (4.8-10.8)
[2022-08-08 08:49] LABS: Platelet Count 45 K/mm3 (142-424)
[2022-08-08 08:50] LABS: MANUAL DIFFERENTIAL MANUAL DIFFERENTIAL (MANUAL DIFF)
--- NOTE | 2022-08-08 08:50 | PC.NURSE ---
0850-kaitlyn encarnacion called rn at 0850 to report platelet count of 45. rn repeated and verified pt name, , and lab value. result called to and no new orders received.
[2022-08-08 09:33] LABS: Eosinophils % 1 % (0-3); Lymphocytes % 49 % (10-50); Monocytes % 8 % (2-9); Neutrophils % 42 % (42-76); Nucleated Red Blood Cells 2; Ovalocytes 1+; Platelet Estimate Marked Decrease; Total Cells Counted 100
== END 2022-08-08 08:26 | disposition home or self-care (01) ==
LOC: INF 08:19
PROVIDERS: PCP Family Medicine; Visit Provider Internal Medicine Medical Oncology
DX: D46.9 Myelodysplastic syndrome, unspecified (principal)
CPT/HCPCS: 36415; 85007; 85025

== ENCOUNTER 2022-08-17 08:04 | Outpatient (CLI) | payer MEDICARE, SELFPAY ==
[2022-08-17 08:12] VITALS: BMI 20.8
--- NOTE | 2022-08-17 08:14 | PC.NURSE ---
0814-collected cbc via peripheral stick; pt to hematology appointment.
[2022-08-17 08:35] LABS: Basophils # 0.2 K/mm3 (0-0.2); Basophils % 4.1 % (0.1-2.0); Eosinophils % 0.6 % (0.1-12.0); Hematocrit 29.7 % (37.0-47.0); Hemoglobin 9.7 g/dL (12.2-16.2); Lymphocytes % 43.2 % (10-50); Mean Corpuscular HGB Conc 32.6 g/dL (31.8-35.4); Mean Corpuscular Hemoglobin 32.8 pg (27.0-31.2); Mean Corpuscular Volume 100.8 fl (81-99); Mean Platelet Volume 12.5 fl (7.4-10.4); Monocytes # 0.4 K/mm3 (0.1-1.0); Monocytes % 8.7 % (1.7-9.3); Neutrophils % 43.4 % (37.0-80.0); Red Blood Count 2.95 M/mm3 (4.20-5.40); Red Cell Distribution Width 19.9 % (11.5-17.5); White Blood Count 4.6 K/mm3 (4.8-10.8)
--- NOTE | 2022-08-17 08:36 | PC.NURSE ---
0836-Susana Rivero called rn at 0836 to report platelet count 46. Rn repeated and verified pt name, , and lab value. Result called to and no new orders received.
[2022-08-17 08:37] LABS: Platelet Count 46 K/mm3 (142-424)
== END 2022-08-17 08:20 | disposition home or self-care (01) ==
LOC: INF 08:05
PROVIDERS: PCP Family Medicine; Visit Provider Internal Medicine Medical Oncology
DX: D46.9 Myelodysplastic syndrome, unspecified (principal)
CPT/HCPCS: 36415; 85025

== ENCOUNTER 2022-08-31 08:16 | Outpatient (CLI) | payer MEDICARE, SELFPAY ==
[2022-08-31 08:21] VITALS: BMI 20.9
[2022-08-31 08:50] LABS: Basophils % 0.9 % (0.1-2.0); Eosinophils % 0.4 % (0.1-12.0); Hemoglobin 8.8 g/dL (12.2-16.2); Lymphocytes % 51.1 % (10-50); Mean Corpuscular HGB Conc 33.9 g/dL (31.8-35.4); Mean Corpuscular Hemoglobin 32.5 pg (27.0-31.2); Mean Corpuscular Volume 95.8 fl (81-99); Mean Platelet Volume 13.4 fl (7.4-10.4); Monocytes # 0.3 K/mm3 (0.1-1.0); Monocytes % 6.9 % (1.7-9.3); Neutrophils # 1.6 K/mm3 (1.8-7.8); Neutrophils % 40.7 % (37.0-80.0); Red Blood Count 2.72 M/mm3 (4.20-5.40); Red Cell Distribution Width 19.8 % (11.5-17.5); White Blood Count 3.9 K/mm3 (4.8-10.8)
[2022-08-31 08:52] LABS: MANUAL DIFFERENTIAL MANUAL DIFFERENTIAL (MANUAL DIFF); Platelet Count 38 K/mm3 (142-424)
[2022-08-31 09:25] LABS: Lymphocytes % 46 % (10-50); Monocytes % 8 % (2-9); Neutrophils % 46 % (42-76); Nucleated Red Blood Cells 1; Platelet Estimate Marked Decrease; Total Cells Counted 50
[2022-08-31 09:27] LABS: Poikilocytosis 1+; Tear Drop Cells 1+
[2022-08-31 09:29] LABS: Ovalocytes 1+
--- NOTE | 2022-08-31 09:39 | PC.NURSE ---
Ruth Ann Ramey from lab called critical platelet count of 38. pt name, , and lab value repeated and verified. Dr hernandez notified and no new orders given at this time.
== END 2022-08-31 08:25 | disposition home or self-care (01) ==
LOC: INF 08:17
PROVIDERS: PCP Family Medicine; Visit Provider Internal Medicine Medical Oncology
DX: D46.9 Myelodysplastic syndrome, unspecified (principal)
CPT/HCPCS: 36415; 85007; 85025

== ENCOUNTER 2022-09-07 08:17 | Outpatient (CLI) | payer MEDICARE, SELFPAY ==
[2022-09-07 08:25] VITALS: BMI 20.9
--- NOTE | 2022-09-07 08:25 | PC.NURSE ---
0825-collected labs via peripheral stick;pt d/c home
[2022-09-07 08:42] LABS: Basophils % 0.4 % (0.1-2.0); Eosinophils % 0.3 % (0.1-12.0); Hematocrit 25.3 % (37.0-47.0); Hemoglobin 8.3 g/dL (12.2-16.2); Lymphocytes % 48.8 % (10-50); Mean Corpuscular HGB Conc 32.9 g/dL (31.8-35.4); Mean Corpuscular Volume 97.3 fl (81-99); Mean Platelet Volume 12.1 fl (7.4-10.4); Monocytes # 0.3 K/mm3 (0.1-1.0); Monocytes % 6.9 % (1.7-9.3); Neutrophils # 1.8 K/mm3 (1.8-7.8); Neutrophils % 43.5 % (37.0-80.0); Red Cell Distribution Width 20.2 % (11.5-17.5); White Blood Count 4.1 K/mm3 (4.8-10.8)
--- NOTE | 2022-09-07 08:56 | PC.NURSE ---
0856-faby villegas called rn at 0856 to report platelet level 40. rn repeated and verified pt name, , and lab value.result called to shirin monsalve with and no new orders at this time.
[2022-09-07 08:57] LABS: Platelet Count 40 K/mm3 (142-424)
--- NOTE | 2022-09-07 09:04 | PC.NURSE ---
faby villegas from the lab called a critical platelet count of 40. Name, and lab result verified and repeated. Dr Simpson was notified and no new orders given at this time.
== END 2022-09-07 08:30 | disposition home or self-care (01) ==
LOC: INF 08:19
PROVIDERS: PCP Family Medicine; Visit Provider Internal Medicine Medical Oncology
DX: D46.9 Myelodysplastic syndrome, unspecified (principal)
CPT/HCPCS: 36415; 85025

== ENCOUNTER 2022-09-12 16:54 | Inpatient (IN) | payer MEDICARE, SELFPAY ==
--- NOTE | 2022-09-12 17:24 | EXP.UTC ---
Discharge Plan Disposition Patient Disposition: Admitted As Inpatient Condition: Fair Clinical Impressions Clinical Impression: Myelodysplastic syndrome, Community acquired pneumonia, Anemia, Thrombocytopenia Discharge ED Provider: Calos Demarco [facility] General Chief complaint: Shortness of Breath/Dyspnea Stated complaint: SOA Time Seen by Provider: 09/12/22 17:24 Related Data Home Medications Medication Instructions Recorded Confirmed amlodipine 2.5 mg tablet (Norvasc) 2.5 mg PO DAILY Hypertension 05/06/18 09/13/22 aspirin 81 mg tablet,delayed 81 mg PO DAILY HEART HEALTH 05/06/18 09/13/22 release metoprolol tartrate 25 mg tablet 25 mg PO BID Hypertension 05/06/18 09/13/22 pravastatin 40 mg tablet 40 mg PO DAILY Cholesterol 05/06/18 09/13/22 gabapentin 600 mg tablet 1,200 mg PO BID Pain 06/16/19 09/13/22 albuterol sulfate 90 mcg/actuation 1 - 2 puff inhalation Q6HP PRN 09/13/22 09/13/22 aerosol inhaler Shortness Of Breath Allergies Allergy/AdvReac Type Severity Reaction Status Date / Time codeine AdvReac Intermediate Verified 09/13/22 13:04 [facility] Disclaimer: The information contained in this section may have been updated after the patient was seen, as this information can be updated by other users. Medical History COPD (chronic obstructive pulmonary disease) Degenerative disc disease History of CVA (cerebrovascular accident) History of palpitations Hyperlipidemia Hypertensive disorder Myelodysplastic syndrome Raynauds disease Surgical History History of carpal tunnel release History of cholecystectomy History of colonoscopy History of laparoscopy Family History Other No significant family history Social History Smoking Status: Current every day smoker tobacco type: cigarettes packs per day: 1 alcohol intake: current substance use type: denies use current occupational status: employed Travel in the last 8 weeks: None caffeine: Yes ROS Obtained: Yes All systems reviewed & no additional complaints except as documented Constitutional Constitutional: Reports chills and Reports fever(s) Eyes Eyes: Denies eye discharge ENT Ears, Nose, Mouth, and Throat: Reports as per HPI Cardiovascular Cardiovascular: Denies chest pain Respiratory Respiratory: Denies chest congestion and Reports cough Gastrointestinal Gastrointestingal: Reports nausea; Denies abdominal pain, constipation, cramping, diarrhea or vomiting Musculoskeletal Musculoskeletal: Denies arthralgias Integumentary/Breasts Skin/Breast: Denies rash Neurologic Neurologic: Denies paresthesias Physical Exam General General appearance: alert and in no apparent distress Head Head exam: atraumatic, normocephalic and normal inspection Eye Eye exam: Present normal appearance, PERRL and EOMI ENT ENT exam: Present normal exam, normal oropharynx, mucous membranes moist, TM's normal bilaterally and normal external ear exam Neck Neck exam: Present normal inspection, full ROM and trachea midline; Absent meningismus or lymphadenopathy Chest Chest inspection: Present normal inspection and symmetric chest wall rise; Absent tenderness Respiratory Respiratory exam: Present normal lung sounds bilaterally; Absent respiratory distress Cardiovascular Cardiovascular exam: Present regular rate and normal rhythm; Absent JVD Abdominal Exam Abdominal exam: Present soft and normal bowel sounds; Absent distention, tenderness or guarding Extremities Exam Extremities exam: Present normal inspection, full ROM and normal capillary refill; Absent calf tenderness Back Exam Back exam: Present normal inspection; Absent tenderness Neurological Exam Neurological exam: Present alert and oriented X3 Psychiatric Psychiatric exam: Present normal af
--- NOTE | 2022-09-12 17:26 | XR_ITS ---
PROCEDURE INFORMATION: Exam: XR Chest Exam date and time: 09/12/2022 5:33 PM Age: 72 years old Clinical indication: Cough and shortness of breath; Additional info: Cough, congestion, SOA TECHNIQUE: Imaging protocol: Radiologic exam of the chest. Views: 2 views. COMPARISON: CT CHEST WO CON 01/30/2022 1:30 PM FINDINGS: Lungs: Left upper lobe airspace opacity likely representing pneumonia. Pleural spaces: No pneumothorax. No sizable pleural effusion. Heart/Mediastinum: No cardiomegaly. Bones/joints: Unremarkable. IMPRESSION: Left upper lobe airspace opacity likely representing pneumonia. However, to exclude a possible malignancy, recommend a repeat chest radiograph in 6-8 weeks after appropriate therapy.
[2022-09-12 17:28] VITALS: BP 127/65; PULSE 75; RESP 22; TEMP 37.3; O2SAT 89; BMI 18.5
[2022-09-12 17:35] VITALS: O2SAT 89
[2022-09-12 18:16] LABS: Basophils # 0.1 K/mm3 (0-0.2); Basophils % 1.6 % (0.1-2.0); Lymphocytes % 16.5 % (10-50); Mean Corpuscular HGB Conc 34.5 g/dL (31.8-35.4); Mean Corpuscular Hemoglobin 33.4 pg (27.0-31.2); Mean Corpuscular Volume 96.9 fl (81-99); Mean Platelet Volume 14.5 fl (7.4-10.4); Monocytes # 0.3 K/mm3 (0.1-1.0); Monocytes % 5.1 % (1.7-9.3); Neutrophils # 4.8 K/mm3 (1.8-7.8); Neutrophils % 78.5 % (37.0-80.0); Red Blood Count 2.09 M/mm3 (4.20-5.40); White Blood Count 6.1 K/mm3 (4.8-10.8)
[2022-09-12 18:17] LABS: Chloride 97 mmol/L (98-107); Potassium 3.7 mmoL/L (3.5-5.1); Sodium 130 mmol/L (136-145)
[2022-09-12 18:20] LABS: Alanine Aminotransferase 25 U/L (12-78); Albumin Level 3.7 g/dl (3.5-5.0); Albumin/Globulin Ratio 1.1 (1.1-1.8); Alkaline Phosphatase 46 U/L (38-126); Anion Gap 18.7 mEq/L (5-15); Aspartate Amino Transferase 36 U/L (14-36); Bilirubin,Total 5.3 mg/dl (0.2-1.3); Blood Urea Nitrogen 35 mg/dl (7-17); Calcium 9.1 mg/dl (8.4-10.2); Carbon Dioxide 18 mmol/L (22.0-30.0); Creatinine Clearance Estimated 37 mL/min (50-200); Estimated Glomerular Filt Rate 44 ml/min (>60); GFR (African American) 53 ML/MIN (>60); Globulin 3.5 g/dL (1.3-3.2); Glucose 142 mg/dl (74-100); Total Protein,Serum 7.2 g/dl (6.3-8.2)
[2022-09-12 18:31] LABS: Hematocrit 20.2 % (37.0-47.0); Platelet Count 11 K/mm3 (142-424)
--- NOTE | 2022-09-12 18:47 | ECG_ITS ---
APPROVED REPORT Exam: Resting ECG HR:142 bpm ECG Measurements Heart Rate 142 AXES ND 141 P 75 QRSd 79 QRS 70 QT 297 T 64 QTc 379 Conclusion SINUS TACHYCARDIA O/w NORMAL ECG UNCONFIRMED REPORT Electronically signed by : Taco Earl MD 09/12/2022 20:08:05
[2022-09-12 19:00] VITALS: BP 117/54; PULSE 137; RESP 22; TEMP 37; O2SAT 93
--- NOTE | 2022-09-12 19:00 | PC.NURSE ---
PT FROM [facility] AT THIS TIME
--- NOTE | 2022-09-12 19:03 | PC.NURSE ---
RESP NOTIIFED OF JUAN JOSE NEB
[2022-09-12 19:08] LABS: Troponin I < 0.01 ng/ml (0.00-0.034)
[2022-09-12 19:11] LABS: Lactic Acid 3.6 mmol/L (0.7-2.1)
--- NOTE | 2022-09-12 19:12 | PC.NURSE ---
RESP HERE FOR JUAN JOSE PEREZ
--- NOTE | 2022-09-12 19:16 | PC.NURSE ---
RESPIRATORY AT BEDSIDE
[2022-09-12 19:23] LABS: ABG Base Excess -5.8 mmol/L (-2.4-2.3); ABG HCO3 17.1 mmhg (22.0-26.0); ABG Oxygen Saturation 96 % (90-100); ABG PCO2 21.6 mmhg (35.0-45.0); ABG PH 7.52 mmol/L (7.35-7.45); ABG PO2 75.7 mmhg (80-100); ABG TCO2 17.8 mmhg (23-27)
[2022-09-12 19:24] LABS: Allen's Test Acceptable; Oxygen 2LPM %; Source Right Radial
[2022-09-12 19:33] VITALS: PULSE 86
--- NOTE | 2022-09-12 21:00 | HMH.EDSOB ---
Discharge Plan Disposition Patient Disposition: Admitted As Inpatient Chief Complaint: Shortness of Breath/Dyspnea Prescriptions Prescriptions: No Action amlodipine [Norvasc] 2.5 mg tablet 2.5 mg PO DAILY aspirin 81 mg tablet,delayed release (DR/EC) 81 mg PO DAILY metoprolol tartrate 25 mg tablet 50 mg PO BID pravastatin 40 mg tablet 40 mg PO DAILY gabapentin 600 mg tablet 1,200 mg PO BID vitamin B complex Capsule 1 cap PO DAILY Referrals Follow up/Referrals: Prosper Samayoa MD [Primary Care Provider] - See instructions Jeaneth Simpson MD [Staff Physician] - See instructions Clinical Impressions Clinical Impression: Myelodysplastic syndrome, Community acquired pneumonia, Anemia, Thrombocytopenia Discharge ED Provider: Calos Demarco Resp/SOB HPI General Chief Complaint: Shortness of Breath/Dyspnea Stated Complaint: SOA Time Seen by Provider: 09/12/22 17:24 Mode of Arrival: Wheelchair Source of Information: Patient and Medical Record Limitations: No Limitations Description of Symptoms (Recalled from ER Triage Doc. by RN): PT SENT FROM [facility] FOR FURTHER EVALUATION OF SHORTNESS OF BREATH. PT REPORTS TREATED FOR BRONCHITIS. C/O SHORTNESS OF BREATH X 2 WEEKS. REPORTS COUGH. DENIES FEVER OR PAIN History of Present Illness pt with cough with yellow sputum - no blood over the last week - has hx of tob use - pt was seen at [facility] and sent to ed for eval -pt was treated with ceftin a few weeks ago - pt has hx of myelodysplastic syndrome Complaint: shortness of breath and cough Onset (ago): day(s) Severity: moderate Consistency/Duration: intermittent Known history of: COPD Related Data Home oxygen amount: none Home Medications Medication Instructions Recorded Confirmed amlodipine 2.5 mg tablet (Norvasc) 2.5 mg PO DAILY bp 05/06/18 08/17/22 aspirin 81 mg tablet,delayed 81 mg PO DAILY Blood thinner 05/06/18 08/17/22 release metoprolol tartrate 25 mg tablet 50 mg PO BID heart rate 05/06/18 08/17/22 pravastatin 40 mg tablet 40 mg PO DAILY Cholesterol 05/06/18 08/17/22 gabapentin 600 mg tablet 1,200 mg PO BID Pain 06/16/19 08/17/22 vitamin B complex 1 cap PO DAILY 07/20/22 08/17/22 Allergies Allergy/AdvReac Type Severity Reaction Status Date / Time codeine AdvReac Intermediate Verified 09/12/22 17:49 [facility] Disclaimer: The information contained in this section may have been updated after the patient was seen, as this information can be updated by other users. Medical History (Updated 09/12/22 @ 22:31 by Calos Demarco MD) COPD (chronic obstructive pulmonary disease) History of CVA (cerebrovascular accident) History of palpitations Hyperlipidemia Hypertensive disorder Surgical History History of carpal tunnel release History of colonoscopy Family History Other No significant family history Social History (Updated 09/12/22 @ 19:18 by Nadya Menezes RN) Smoking Status: Current every day smoker tobacco type: cigarettes packs per day: 1 alcohol intake: current substance use type: denies use current occupational status: employed Travel in the last 8 weeks: None caffeine: Yes ROS Obtained: Yes All systems reviewed & no additional complaints except as documented Physical Exam General General appearance: alert Head Head exam: normocephalic Eye Eye exam: Present PERRL and EOMI ENT ENT exam: Present mucous membranes moist Neck Neck exam: Present trachea midline Respiratory Respiratory exam: Present other (bilat rhonchi ); Absent respiratory distress Cardiovascular Cardiovascular exam: Present regular rate and systolic murmur Abdominal Exam Abdominal exam: Present soft Extremities Exam Extremities exam: Present full ROM; Absent calf tenderness Neurological Exam Neurological exam: Present alert, oriented X3 and CN II-XII inta
--- NOTE | 2022-09-12 21:09 | CT_ITS ---
PROCEDURE INFORMATION: Exam: CT Chest Without Contrast; Diagnostic Exam date and time: 09/12/2022 9:26 PM Age: 72 years old Clinical indication: Abnormal findings; Abnormal radiologic exam of lung or chest; Additional info: Abn cxr TECHNIQUE: Imaging protocol: Diagnostic computed tomography of the chest without contrast. Radiation optimization: All CT scans at this facility use at least one of these dose optimization techniques: automated exposure control; mA and/or kV adjustment per patient size (includes targeted exams where dose is matched to clinical indication); or iterative reconstruction. COMPARISON: CT CHEST WO CON 01/30/2022 1:30 PM FINDINGS: Lungs: Left upper lobe consolidated pneumonia. Pleural spaces: Unremarkable. No pneumothorax. No pleural effusion. Heart: Unremarkable. No cardiomegaly. No pericardial effusion. Lymph nodes: Unremarkable. No enlarged lymph nodes. Vasculature: Unremarkable. No aortic aneurysm. Bones/joints: Unremarkable. No acute fracture. Soft tissues: Unremarkable. IMPRESSION: Left upper lobe consolidated pneumonia.
--- NOTE | 2022-09-12 22:08 | PC.NURSE ---
Dr. Demarco s/balbina Gottlieb
--- NOTE | 2022-09-12 22:16 | PC.NURSE ---
spoke with regarding patients care. Per , patient is being type and crossed from 3 units.
[2022-09-12 22:31] LABS: Coronavirus 19, PCR Not Detected (NotDetected); Influenza A, PCR Not Detected (NotDetected); Influenza B, PCR Not Detected (NotDetected)
[2022-09-12 22:55] LABS: Reflex Lactic Add Lactic Reflex
[2022-09-12 23:16] LABS: Lactic Acid Follow Up (RFLX 1) 2.7 mmol/L (0.7-2.1)
--- NOTE | 2022-09-12 23:49 | PC.NURSE ---
Patients sister requested patients temperature to be rechecked. Patients temp is 98.9 orally. Patient was given a blanket and states she is comfortable right now.
[2022-09-13] VITALS (46 sets, daily range): BP systolic 101–138; BP diastolic 5–69; PULSE 94–117; RESP 16–20; TEMP 36.7–37.9; O2SAT 90–98; BMI 20.1
[2022-09-13 01:05] LABS: Reflex Lactic (2 hrs) Add Lactic Reflex
--- NOTE | 2022-09-13 01:48 | PC.NURSE ---
PLACED ON BEDPAN, GIVEN CALL LIGHT TO NOTIFY WHEN COMPLETE
[2022-09-13 02:04] LABS: Lactic Acid Follow up (RFLX 2) 1.6 mmol/L (0.7-2.1)
--- NOTE | 2022-09-13 03:45 | PC.NURSE ---
placed on bedpan, pt voided 500ml dark urine. Also placed 20g PIV to RAC d/t pt accidentally pulling out her LAC PIV. Pt tolerated well.
[2022-09-13 05:28] LABS: Microscopic, Urine URINE MICROSCOPIC (MICROSCOPIC)
[2022-09-13 05:32] LABS: Appearance,Urine CLEAR (Clear); Bilirubin,Urine Negative (Negative); Blood, Urine TRACE-L (Negative); Color,Urine ORANGE (Yellow); Glucose,Urine (UA) Negative (Negative); Ketones,Urine Negative (Negative); Leukocyte Esterase,Urine Negative (Negative); Nitrate,Urine POSITIVE (Negative); PH,Urine 5.5 (5.0-8.5); Protein,Urine 1+ (Negative); Urobilinogen,Urine 0.2 EU/dl (0.2)
[2022-09-13 05:50] LABS: Bacteria,Urine 2+ /lpf; RBC,Urine Occasional #/hpf (0-3)
--- NOTE | 2022-09-13 07:01 | PC.NURSE ---
pt used bedpan. Also pulled AM labs
--- NOTE | 2022-09-13 07:47 | PC.NURSE ---
lab at bedside
[2022-09-13 07:58] LABS: Basophils % 0.9 % (0.1-2.0); Eosinophils % 0.1 % (0.1-12.0); Lymphocytes # 0.6 K/mm3 (0.7-4.5); Mean Corpuscular HGB Conc 34.4 g/dL (31.8-35.4); Mean Corpuscular Hemoglobin 33.2 pg (27.0-31.2); Mean Corpuscular Volume 96.6 fl (81-99); Mean Platelet Volume 19.6 fl (7.4-10.4); Monocytes # 0.1 K/mm3 (0.1-1.0); Monocytes % 4.3 % (1.7-9.3); Neutrophils # 1.5 K/mm3 (1.8-7.8); Neutrophils % 68.6 % (37.0-80.0); Red Blood Count 1.44 M/mm3 (4.20-5.40); Red Cell Distribution Width 19.8 % (11.5-17.5); White Blood Count 2.1 K/mm3 (4.8-10.8)
[2022-09-13 08:04] LABS: Hematocrit 13.9 % (37.0-47.0); Platelet Count 6 K/mm3 (142-424)
[2022-09-13 08:12] LABS: Chloride 105 mmol/L (98-107); Potassium 3.5 mmoL/L (3.5-5.1); Sodium 133 mmol/L (136-145)
--- NOTE | 2022-09-13 08:14 | PC.NURSE ---
0804 CRITICAL LABS RECEIVED FROM [facility] IN LAB [facility]&H 4.8/13.9, PLATELETS 6. PT NAME AND R/V. 0810 DR. QUAN NOTIFIED, ORDERS RECEIVED TO TRANSFUSE 3 UNITS PRBCS AND PLATELETS
[2022-09-13 08:15] LABS: Anion Gap 10.5 mEq/L (5-15); Blood Urea Nitrogen 35 mg/dl (7-17); Calcium 7.2 mg/dl (8.4-10.2); Carbon Dioxide 21 mmol/L (22.0-30.0); Creatinine Clearance Estimated 48 mL/min (50-200); Estimated Glomerular Filt Rate 82 ml/min (>60); GFR (African American) 100 ML/MIN (>60); Glucose 105 mg/dl (74-100)
--- NOTE | 2022-09-13 08:20 | PC.NURSE ---
Dr. Samayoa at
--- NOTE | 2022-09-13 08:27 | PC.NURSE ---
0820 CONSENT SIGNED FOR BLOOD 0825 DR. QUAN AT BEDSIDE
--- NOTE | 2022-09-13 08:43 | PC.NURSE ---
ELIE Newby at BS
[2022-09-13 09:27] LABS: Hemoglobin 4.8 g/dL (12.2-16.2)
--- NOTE | 2022-09-13 11:06 | PC.NURSE ---
pt on bedpan at this time
--- NOTE | 2022-09-13 11:15 | PC.NURSE ---
pt off of bedpan, and voided. no other needs at this time
--- NOTE | 2022-09-13 11:16 | PC.NURSE ---
REPORT GIVEN TO Dominguez SHEPARD RN
--- NOTE | 2022-09-13 11:23 | HMH.PHAINT1 ---
Pharmacy Intervention Comments: MEDICATION RECONCILIATION COMPLETED ON PATIENT USING EXTERNAL FILL HISTORY FROM PHARMACY. -KRISTEN AVILA, OJD
--- NOTE | 2022-09-13 12:05 | PC.NURSE ---
Pt being transported to floor for admission. CR
--- NOTE | 2022-09-13 12:08 | PC.NURSE ---
patient arrived by stretcher from ED
--- NOTE | 2022-09-13 12:34 | EXP.HP ---
History of Present Illness *Admission Date: 09/13/22 *Reason for visit:: shortness of breath, cough *History of present illness: Ms. Demarco is a 72-year-old female with a history of myelodysplastic syndrome. This is followed by Dr. Simpson and she last saw her in the office at the beginning of August. She had had a bone marrow biopsy and they were following her CBC every 2 weeks with the plan of repeating a bone marrow biopsy again in 6 months. Ms. Demarco did begin feeling poorly the first part of August with cough and congestion. She was seen in the office and diagnosed with a viral infection and given an inhaler and some cough medicine. She followed up a few days later not feeling better and was given some Ceftin and Tessalon. She states she did begin to get a little bit better after that visit, but then, this past , began feeling poorly again with cough congestion and shortness of breath. She presented to the urgent treatment center and was sent to the ER. Her chest x-ray showed a left upper lobe pneumonia versus mass. She then had a CT which confirmed a left upper lobe consolidated pneumonia. Her lactic acid was elevated. Her hemoglobin initially was 7 and her platelets were 11. She was admitted for further evaluation and treatment. [facility] Disclaimer: The information contained in this section may have been updated after the patient was seen, as this information can be updated by other users. Medical History (Updated 09/13/22 @ 12:51 by ELIE Newby) COPD (chronic obstructive pulmonary disease) Degenerative disc disease History of CVA (cerebrovascular accident) History of palpitations Hyperlipidemia Hypertensive disorder Myelodysplastic syndrome Raynauds disease Surgical History (Updated 09/13/22 @ 12:51 by ELIE Newby) History of carpal tunnel release History of cholecystectomy History of colonoscopy History of laparoscopy Family History No significant family history Social History Smoking Status: Current every day smoker tobacco type: cigarettes packs per day: 1 alcohol intake: current substance use type: denies use current occupational status: employed Travel in the last 8 weeks: None caffeine: Yes Review of Systems Constitutional Constitutional: Denies body ache(s), Denies chills, Reports fatigue, Denies fever(s), Denies headache(s) and Reports weakness Eyes Eyes: Denies blurry vision and Denies diplopia ENT Ears, Nose, Mouth, and Throat: Denies headache(s), Reports nasal congestion, Denies sore throat and Denies vertigo *Cardiovascular Cardiovascular: Denies chest pain and Reports dyspnea *Respiratory Respiratory: Reports cough, Reports dyspnea and Reports wheezing *Gastrointestinal Gastrointestinal: Denies abdominal pain, Denies nausea and Denies vomiting *Genitourinary Genitourinary: Denies difficulty voiding and Denies dysuria *Musculoskeletal Musculoskeletal: Denies arthralgias and Denies myalgias *Neurologic Neurologic: Denies headache(s), Denies vertigo and Reports weakness Endocrine Endocrine: Reports fatigue Allergic/Immunologic Allergic/Immunologic: Reports wheezing Meds Home Medications and Allergies Home Medications Medication Instructions Recorded Confirmed Type amlodipine 2.5 mg tablet (Norvasc) 2.5 mg PO DAILY Hypertension 05/06/18 09/13/22 History aspirin 81 mg tablet,delayed 81 mg PO DAILY HEART HEALTH 05/06/18 09/13/22 History release metoprolol tartrate 25 mg tablet 25 mg PO BID Hypertension 05/06/18 09/13/22 History pravastatin 40 mg tablet 40 mg PO DAILY Cholesterol 05/06/18 09/13/22 History gabapentin 600 mg tablet 1,200 mg PO BID Pain 06/16/19 09/13/22 History albuterol sulfate 90 mcg/actuation 1 - 2 puff inhalation Q6HP PRN 09/13/22 09/13/22 History aerosol inhaler Shortness Of Breath New Prescriptions to Start Prescriptions:
--- NOTE | 2022-09-13 14:00 | PC.NURSE ---
Told Rt about needing sputum on pt
--- NOTE | 2022-09-13 17:30 | PC.NURSE ---
Spoke with Dr. Samayoa he stated that he wanted the pt to get 2 bags of blood and then post one hour cbc on pt
--- NOTE | 2022-09-13 21:07 | PC.NURSE ---
Pt is A/Ox4. She has received platelets, and 2 units of blood during my shift. She has tolerated them well. She has tolerated her diet well. She has been between 1-2 L NC. She has had a few diarrhea episodes in a brief due to coughing. Sent down a sputum on pt. She has no complaints or needs at this time
[2022-09-14] VITALS (15 sets, daily range): BP systolic 121–135; BP diastolic 50–76; PULSE 94–116; RESP 18–22; TEMP 36.4–37.2; O2SAT 91–100; BMI 19.7
[2022-09-14 03:08] LABS: Hematocrit 25.8 % (37.0-47.0)
[2022-09-14 03:18] LABS: Hemoglobin 9.1 g/dL (12.2-16.2)
--- NOTE | 2022-09-14 04:09 | PC.NURSE ---
Pt remains on 2L NC, O2 sats remain >90%. H&H now stable. Sclera appear jaundice. Abdomen slightly firm, non-tender. Pt has had no complaints this shift. She is A&OX4. 20GIV in RAC patent with NS infusing @100 ml/hr. Pt had 1 light brown incontinent loose stool and 2 incontinent voids this shift.
[2022-09-14 07:24] LABS: Chloride 109 mmol/L (98-107); Potassium 3.1 mmoL/L (3.5-5.1); Sodium 138 mmol/L (136-145)
[2022-09-14 07:27] LABS: Anion Gap 8.1 mEq/L (5-15); Blood Urea Nitrogen 22 mg/dl (7-17); Calcium 7.7 mg/dl (8.4-10.2); Carbon Dioxide 24 mmol/L (22.0-30.0); Creatinine Clearance Estimated 47 mL/min (50-200); Estimated Glomerular Filt Rate 121 ml/min (>60); GFR (African American) 147 ML/MIN (>60); Glucose 116 mg/dl (74-100)
[2022-09-14 07:30] LABS: Eosinophils % 0.1 % (0.1-12.0); Hematocrit 24.8 % (37.0-47.0); Hemoglobin 8.7 g/dL (12.2-16.2); Lymphocytes # 0.5 K/mm3 (0.7-4.5); Lymphocytes % 34.8 % (10-50); Mean Corpuscular HGB Conc 35.2 g/dL (31.8-35.4); Mean Corpuscular Hemoglobin 32.1 pg (27.0-31.2); Mean Corpuscular Volume 91.2 fl (81-99); Mean Platelet Volume 11.4 fl (7.4-10.4); Monocytes % 2.8 % (1.7-9.3); Neutrophils # 0.8 K/mm3 (1.8-7.8); Neutrophils % 62.3 % (37.0-80.0); Red Blood Count 2.72 M/mm3 (4.20-5.40); Red Cell Distribution Width 17.2 % (11.5-17.5); White Blood Count 1.3 K/mm3 (4.8-10.8)
[2022-09-14 07:43] LABS: Platelet Count 8 K/mm3 (142-424)
--- NOTE | 2022-09-14 08:13 | EXP.ACUTE.PN ---
Subjective *Date: 09/14/22 *Time: 08:30 Interval history: Patient is feeling better this morning. She states her cough is still present, but has improved. She still has some pain in the left side of her chest. She remains very weak. She is trying to eat this morning and tried to rest last night. Medical Exam Vital signs and Labs for Last 24 Hours: Vital Signs Temp Pulse Pulse Pulse Resp BP BP 09/14/22 05:20 100 H 09/14/22 05:20 102 H 09/14/22 05:20 09/14/22 03:48 98.7 F 105 H 18 132/62 09/14/22 02:09 98.3 F 105 H 18 121/61 09/13/22 22:40 99 H 09/13/22 22:40 99 H 09/13/22 22:45 100.3 F H 104 H 20 129/59 L 09/13/22 21:55 99 F 105 H 18 123/58 L 09/13/22 20:55 98.1 F 113 H 18 132/64 09/13/22 20:51 98.6 F 111 H 18 132/60 09/13/22 20:30 98.5 F 111 H 18 138/65 09/13/22 20:15 98.7 F 110 H 19 131/65 09/13/22 20:10 98.9 F 117 H 19 122/69 09/13/22 20:00 98.7 F 116 H 18 127/52 L 09/13/22 20:40 98.5 F 111 H 18 138/64 09/13/22 20:25 98.7 F 110 H 18 131/65 09/13/22 20:10 98.9 F 117 H 18 122/69 09/13/22 20:05 98.7 F 116 H 18 127/52 L 09/13/22 19:55 98.5 F 115 H 18 129/62 09/13/22 18:22 98.9 F 110 H 18 132/54 L 09/13/22 17:22 98.5 F 106 H 18 124/64 09/13/22 16:50 98.4 F 105 H 18 114/60 09/13/22 19:50 98.3 F 114 H 18 129/60 09/13/22 18:05 106 H 09/13/22 18:05 107 H 09/13/22 18:05 09/13/22 15:50 98.6 F 107 H 18 110/55 L 09/13/22 15:35 98.8 F 108 H 18 122/60 09/13/22 15:20 98.9 F 109 H 18 113/52 L 09/13/22 15:05 99.2 F 107 H 18 107/5 L 09/13/22 15:00 99.0 F 107 H 18 106/54 L 09/13/22 14:55 99.1 F 103 H 19 107/58 L 09/13/22 14:00 105 H 09/13/22 13:14 98.9 F 103 H 20 119/60 09/13/22 13:10 99.4 F 107 H 18 115/52 L 09/13/22 13:05 99.2 F 105 H 18 106/57 L 09/13/22 13:00 99.8 F H 107 H 20 110/51 L 09/13/22 14:50 107 H 18 110/52 L 09/13/22 14:40 99.2 F 110 H 18 110/55 L 09/13/22 12:55 98.8 F 94 H 20 111/52 L 09/13/22 12:45 98.4 F 109 H 20 124/58 L 09/13/22 12:54 98.8 F 110 H 20 124/58 L 09/13/22 12:37 116 H 09/13/22 12:37 112 H 09/13/22 12:37 09/13/22 12:05 98.6 F 110 H 18 126/64 09/13/22 11:50 98.6 F 109 H 16 126/64 09/13/22 10:50 98.5 F 111 H 17 109/54 L 09/13/22 10:35 98.6 F 110 H 17 110/53 L 09/13/22 10:20 98.5 F 112 H 17 115/56 L 09/13/22 10:05 98.6 F 109 H 16 103/53 L 09/13/22 10:00 98.5 F 110 H 18 102/50 L 09/13/22 09:55 98.5 F 114 H 17 101/54 L 09/13/22 09:50 98.6 F 112 H 17 111/58 L 09/13/22 09:45 98.6 F 113 H 18 103/54 L Pulse Ox 09/14/22 05:20 09/14/22 05:20 09/14/22 05:20 97 09/14/22 03:48 94 L 09/14/22 02:09 96 09/13/22 22:40 09/13/22 22:40 09/13/22 22:45 96 09/13/22 21:55 95 09/13/22 20:55 90 L 09/13/22 20:51 93 L 09/13/22 20:30 94 L 09/13/22 20:15 92 L 09/13/22 20:10 91 L 09/13/22 20:00 92 L 09/13/22 20:40 94 L 09/13/22 20:25 92 L 09/13/22 20:10 91 L 09/13/22 20:05 92 L 09/13/22 19:55 92 L 09/13/22 18:22 93 L 09/13/22 17:22 94 L 09/13/22 16:50 95 09/13/22 19:50 92 L 09/13/22 18:05 09/13/22 18:05 09/13/22 18:05 94 L 09/13/22 15:50 97 09/13/22 15:35 96 09/13/22 15:20 96 09/13/22 15:05 97 09/13/22 15:00 96 09/13/22 14:55 95 09/13/22 14:00 95 09/13/22 13:14 95 09/13/22 13:10 95 09/13/22 13:05 94 L 09/13/22 13:00 94 L 09/13/22 14:50 96 09/13/22 14:40 96 09/13/22 12:55 96 09/13/22 12:45 96 09/13/22 12:54 94 L 09/13/22 12:37 09/13/22 12:37 09/13/22 12:37 92 L 09/13/22 12:05 09/13/22 11:50 97 09/13/22 10:50 98 09/13/22 10:35 97 09/13/22 10:20 95 09/13/22 10:05 98 09/13/22
--- NOTE | 2022-09-14 15:54 | PC.NURSE ---
spoke with [facility]. they stated they could not give and exact estimate or place patient was on on the wait list, but that they did have a high volume waiting
--- NOTE | 2022-09-14 16:57 | PC.NURSE ---
Platelets given. Patient tolerated well. VS stable and patient on room air. Patient up to chair for most of shift. Pt alert and oriented but some speech inappropriate at random times. Speech is clear but phrases are sometimes inappropriate. No other changes noted.
[2022-09-14 17:56] LABS: Basophils % 1.1 % (0.1-2.0); Eosinophils % 0.6 % (0.1-12.0); Hematocrit 24.5 % (37.0-47.0); Hemoglobin 8.3 g/dL (12.2-16.2); Lymphocytes # 0.4 K/mm3 (0.7-4.5); Lymphocytes % 40.8 % (10-50); Mean Corpuscular HGB Conc 34.1 g/dL (31.8-35.4); Mean Corpuscular Hemoglobin 31.5 pg (27.0-31.2); Mean Corpuscular Volume 92.5 fl (81-99); Mean Platelet Volume 8.3 fl (7.4-10.4); Monocytes % 3.5 % (1.7-9.3); Neutrophils # 0.5 K/mm3 (1.8-7.8); Neutrophils % 55.1 % (37.0-80.0); Red Blood Count 2.65 M/mm3 (4.20-5.40); Red Cell Distribution Width 16.7 % (11.5-17.5)
[2022-09-14 18:06] LABS: White Blood Count 0.9 K/mm3 (4.8-10.8)
[2022-09-14 18:07] LABS: Platelet Count 15 K/mm3 (142-424)
[2022-09-14 18:08] LABS: MANUAL DIFFERENTIAL MANUAL DIFFERENTIAL (MANUAL DIFF)
--- NOTE | 2022-09-14 19:00 | PC.NURSE ---
Spoke to Dr. Montiel about critical lab values WBC 0.9 and platelets 15. No new orders
[2022-09-14 19:09] LABS: Lymphocytes % 65 % (10-50); Neutrophils % 35 % (42-76); Platelet Estimate Marked Decrease; RBC Morphology Normal; Total Cells Counted 20
--- NOTE | 2022-09-14 23:56 | PC.NURSE ---
pt left floor at this time with ems staff
--- NOTE | 2022-09-18 22:12 | EXP.DC.SUM ---
General Admission date:: 09/12/22 Discharge date: 09/14/22 HPI HPI HPI: Ms. Demarco is a 72-year-old female with a history of myelodysplastic syndrome. This is followed by Dr. Simpson and she last saw her in the office at the beginning of August. She had had a bone marrow biopsy and they were following her CBC every 2 weeks with the plan of repeating a bone marrow biopsy again in 6 months. Ms. Demarco did begin feeling poorly the first part of August with cough and congestion. She was seen in the office and diagnosed with a viral infection and given an inhaler and some cough medicine. She followed up a few days later not feeling better and was given some Ceftin and Tessalon. She states she did begin to get a little bit better after that visit, but then, this past , began feeling poorly again with cough congestion and shortness of breath. She presented to the urgent treatment center and was sent to the ER. Her chest x-ray showed a left upper lobe pneumonia versus mass. She then had a CT which confirmed a left upper lobe consolidated pneumonia. Her lactic acid was elevated. Her hemoglobin initially was 7 and her platelets were 11. She was admitted for further evaluation and treatment. Hospital Course Hospital Course Hospital Course: The patient was admitted and started on Zithromax and Rocephin for community-acquired pneumonia. Her hemoglobin decreased to 4.8 and her platelet count decreased to 6. She had a blood transfusion as well as a platelet infusion. Dr. Samayoa spoke to heme-onc at and they accepted the patient on transfer once they have a bed available. By 09/14/2022 she was feeling slightly better. She still remained weak. Her H&H improved but her platelets improved very little. She was given another platelet infusion. A bed was found for her at and she was transferred for further evaluation and treatment. Exam Data for Last 24 hours Vital signs and Labs for Last 24 Hours: Temp Pulse Resp BP Pulse Ox 98.0 F 110 H 22 133/76 95 09/14/22 16:48 09/14/22 17:40 09/14/22 16:48 09/14/22 16:48 09/14/22 17:40 Microbiology Reports for the Last 24 Hours: Microbiology 09/12/22 18:51 Blood Blood Culture - Final NO GROWTH AFTER 5 DAYS 09/12/22 18:51 Blood Blood Culture - Final NO GROWTH AFTER 5 DAYS Narrative: Constitutional Constitutional: no acute distress *Routine HEENT Exam Head: Present normocephalic and atraumatic Eye: Present EOMI and PERRL ENT: Present mucous membranes dry *Routine Neck Exam Neck: Present supple and full ROM *Routine Respiratory Exam Respiratory: Present rales and wheezes *Routine Cardiovascular Exam Cardiovascular: Present RRR *Routine Abdominal Exam Abdominal: Present soft and normoactive bowel sounds; Absent tenderness *Routine Rectal Exam Rectal:: deferred *Routine Genitalia Exam Genitalia:: deferred *Routine Extremities Exam Extremities: Absent cyanosis, clubbing or edema *Routine Skin Exam Skin: Present intact; Absent erythema *Routine Neurological Exam Neurological: Present alert and oriented X3 DS: Diagnosis Discharge Diagnosis (1) Community acquired pneumonia: Status: Acute (2) Anemia: Status: Acute (3) Thrombocytopenia: Status: Acute (4) History of CVA (cerebrovascular accident): Status: Chronic (5) Hyperlipidemia: Status: Chronic (6) Hypertensive disorder: Status: Chronic (7) Myelodysplastic syndrome: Status: Acute (8) Tobacco dependence syndrome: Status: Chronic Meds Home Medications and Allergies Home Medications Medication Instructions Recorded Confirmed Type amlodipine 2.5 mg tablet (Norvasc) 2.5 mg PO DAILY Hypertension 05/06/18 09/13/22 History aspirin 81 mg tablet,delayed 81 mg PO DAILY HEART HEALTH 05/06/18 09/13/22 History release metoprolol tartrate 25 mg tablet 25 mg PO BID Hypertension 05/06/18
== END 2022-09-14 23:56 | disposition short-term general hospital (02) | DRG 195 ==
LOC: UTC 16:56 → ER 18:56 → 2ND 22:50
PROVIDERS: Emergency Medicine; Nurse Practitioner Family; Admitting Provider Family Medicine; Emergency Provider Emergency Medicine; PCP Family Medicine; Visit Provider Family Medicine
DX: J18.9 Pneumonia, unspecified organism (principal); Z86.73 Personal history of transient ischemic attack (TIA), and cerebral infarction without residual deficits; E78.5 Hyperlipidemia, unspecified; I10 Essential (primary) hypertension; D46.9 Myelodysplastic syndrome, unspecified; J44.9 Chronic obstructive pulmonary disease, unspecified; F17.210 Nicotine dependence, cigarettes, uncomplicated
CPT/HCPCS: 36415; 36430; 71046; 71250; 80048; 80053; 81001; 82803; 83605; 84484; 85007; 85014; 85018; 85025; 86850; 87040; 87070; 87086; 87205; 93005; 94640; 99285; C9803; J0456; J0696; P9016; P9034; U0003; U0005

== ENCOUNTER 2022-09-25 08:22 | Outpatient (CLI) | payer MEDICARE, SELFPAY ==
[2022-09-25 08:30] VITALS: BMI 20.9
--- NOTE | 2022-09-25 08:52 | PC.NURSE ---
0852-sara,religious activities director here to collect labs will wait for results.
[2022-09-25 09:03] LABS: Basophils % 0.5 % (0.1-2.0); Eosinophils % 0.2 % (0.1-12.0); Hematocrit 27.9 % (37.0-47.0); Hemoglobin 9.4 g/dL (12.2-16.2); Lymphocytes # 1.3 K/mm3 (0.7-4.5); Lymphocytes % 84.9 % (10-50); Mean Corpuscular HGB Conc 33.7 g/dL (31.8-35.4); Mean Corpuscular Hemoglobin 30.8 pg (27.0-31.2); Mean Corpuscular Volume 91.2 fl (81-99); Mean Platelet Volume 11.6 fl (7.4-10.4); Monocytes # 0.1 K/mm3 (0.1-1.0); Monocytes % 3.9 % (1.7-9.3); Neutrophils # 0.2 K/mm3 (1.8-7.8); Red Blood Count 3.06 M/mm3 (4.20-5.40); White Blood Count 1.6 K/mm3 (4.8-10.8)
[2022-09-25 09:06] LABS: Neutrophils % 10.4 % (37.0-80.0)
--- NOTE | 2022-09-25 09:06 | PC.NURSE ---
905-Yaritza Whittington mlt called rn at 09 to report platelet level 11. Rn repeated and verified pt name, , and lab value. Result called to rn in BMT clinic no new orders at this time just follow standing orders for transfusion is plt <10
[2022-09-25 09:10] LABS: Platelet Count 11 K/mm3 (142-424)
[2022-09-25 09:11] LABS: MANUAL DIFFERENTIAL MANUAL DIFFERENTIAL (MANUAL DIFF)
[2022-09-25 09:13] LABS: Chloride 105 mmol/L (98-107); Potassium 4.7 mmoL/L (3.5-5.1); Sodium 138 mmol/L (136-145)
[2022-09-25 09:16] LABS: Alanine Aminotransferase 18 U/L (12-78); Albumin Level 3.6 g/dl (3.5-5.0); Albumin/Globulin Ratio 0.9 (1.1-1.8); Alkaline Phosphatase 64 U/L (38-126); Anion Gap 10.7 mEq/L (5-15); Aspartate Amino Transferase 28 U/L (14-36); Bilirubin,Total 1.4 mg/dl (0.2-1.3); Blood Urea Nitrogen 12 mg/dl (7-17); Carbon Dioxide 27 mmol/L (22.0-30.0); Creatinine Clearance Estimated 50 mL/min (50-200); Estimated Glomerular Filt Rate 98 ml/min (>60); GFR (African American) 119 ML/MIN (>60); Globulin 3.9 g/dL (1.3-3.2); Total Protein,Serum 7.5 g/dl (6.3-8.2)
[2022-09-25 09:17] LABS: Calcium 8.6 mg/dl (8.4-10.2); Glucose 82 mg/dl (74-100)
[2022-09-25 09:39] LABS: Lymphocytes % 77 % (10-50); Monocytes % 7 % (2-9); Neutrophils % 12 % (42-76); Platelet Estimate Marked Decrease; Total Cells Counted 100
[2022-09-25 09:40] LABS: RBC Morphology Normal
== END 2022-09-25 09:30 | disposition home or self-care (01) ==
LOC: INF 08:23
PROVIDERS: PCP Family Medicine
DX: D46.9 Myelodysplastic syndrome, unspecified (principal)
CPT/HCPCS: 36415; 80053; 85007; 85025

== ENCOUNTER 2022-09-27 08:42 | Outpatient (CLI) | payer MEDICARE, SELFPAY ==
[2022-09-27] VITALS (8 sets, daily range): BP systolic 85–97; BP diastolic 41–58; PULSE 81–91; RESP 18; TEMP 36.3–36.5; O2SAT 95–98; BMI 20.9
--- NOTE | 2022-09-27 09:08 | PC.NURSE ---
0908-sara virtual reality specialist is here to collected labs
[2022-09-27 09:21] LABS: Basophils % 0.8 % (0.1-2.0); Eosinophils % 0.1 % (0.1-12.0); Hemoglobin 9.3 g/dL (12.2-16.2); Lymphocytes # 1.4 K/mm3 (0.7-4.5); Lymphocytes % 83.2 % (10-50); Mean Corpuscular HGB Conc 33.2 g/dL (31.8-35.4); Mean Corpuscular Hemoglobin 30.6 pg (27.0-31.2); Mean Corpuscular Volume 92.2 fl (81-99); Mean Platelet Volume 10.5 fl (7.4-10.4); Monocytes # 0.1 K/mm3 (0.1-1.0); Neutrophils # 0.2 K/mm3 (1.8-7.8); Red Blood Count 3.04 M/mm3 (4.20-5.40); White Blood Count 1.7 K/mm3 (4.8-10.8)
[2022-09-27 09:23] LABS: Neutrophils % 11.9 % (37.0-80.0)
[2022-09-27 09:24] LABS: MANUAL DIFFERENTIAL MANUAL DIFFERENTIAL (MANUAL DIFF); Platelet Count 8 K/mm3 (142-424)
--- NOTE | 2022-09-27 09:25 | PC.NURSE ---
Yaritza Whittington called RN at 0923 to report platelet level 8. RN repeated and verified pt name, , and lab value. Result called to [facility], standing orders noted for platelet transfusion.
[2022-09-27 09:28] LABS: Alanine Aminotransferase 14 U/L (12-78); Albumin Level 3.7 g/dl (3.5-5.0); Albumin/Globulin Ratio 1.1 (1.1-1.8); Alkaline Phosphatase 60 U/L (38-126); Aspartate Amino Transferase 21 U/L (14-36); Bilirubin,Total 1.1 mg/dl (0.2-1.3); Blood Urea Nitrogen 14 mg/dl (7-17); Calcium 8.3 mg/dl (8.4-10.2); Carbon Dioxide 26 mmol/L (22.0-30.0); Chloride 106 mmol/L (98-107); Creatinine Clearance Estimated 50 mL/min (50-200); Estimated Glomerular Filt Rate 82 ml/min (>60); GFR (African American) 100 ML/MIN (>60); Globulin 3.5 g/dL (1.3-3.2); Glucose 113 mg/dl (74-100); Sodium 138 mmol/L (136-145); Total Protein,Serum 7.2 g/dl (6.3-8.2)
[2022-09-27 09:56] LABS: Lymphocytes % 84 % (10-50); Monocytes % 4 % (2-9); Neutrophils % 12 % (42-76); Platelet Estimate Marked Decrease; RBC Morphology Normal; Total Cells Counted 100
--- NOTE | 2022-09-27 14:37 | PC.NURSE ---
1437-during platelet transfusion pt begins to have pain in right upper arm iv site;stop transfusion and flush with ns, iv site is painful and hard;iv infiltrated and d/c; called rosana carpio for ultrasound guided iv.
--- NOTE | 2022-09-27 14:42 | PC.NURSE ---
1442-still trying to achieve iv access;platelets on hole
--- NOTE | 2022-09-27 14:53 | PC.NURSE ---
1453-c.shirin somers started left upper arm 20g iv with ultrasound;platelets restarted
== END 2022-09-27 16:00 | disposition home or self-care (01) ==
LOC: INF 08:46
PROVIDERS: PCP Family Medicine; Visit Provider Internal Medicine Medical Oncology
DX: D46.9 Myelodysplastic syndrome, unspecified (principal)
CPT/HCPCS: 36415; 36430; 80053; 85007; 85025; 86900; 86901; P9034

== ENCOUNTER 2022-09-28 08:53 | Outpatient (CLI) | payer MEDICARE, SELFPAY ==
[2022-09-28] VITALS (8 sets, daily range): BP systolic 96–111; BP diastolic 49–68; PULSE 88–101; RESP 18–19; TEMP 36.5–36.8; O2SAT 95–99; BMI 20.9
--- NOTE | 2022-09-28 09:06 | PC.NURSE ---
0906-r,morris parts analyst here to collect labs;pt to oncology appointment
[2022-09-28 09:28] LABS: Basophils % 0.8 % (0.1-2.0); Eosinophils % 0.2 % (0.1-12.0); Hemoglobin 8.6 g/dL (12.2-16.2); Lymphocytes # 1.3 K/mm3 (0.7-4.5); Lymphocytes % 79.2 % (10-50); Mean Corpuscular HGB Conc 33.2 g/dL (31.8-35.4); Mean Corpuscular Hemoglobin 31.3 pg (27.0-31.2); Mean Corpuscular Volume 94.4 fl (81-99); Mean Platelet Volume 14.1 fl (7.4-10.4); Monocytes # 0.1 K/mm3 (0.1-1.0); Monocytes % 4.2 % (1.7-9.3); Neutrophils # 0.3 K/mm3 (1.8-7.8); Neutrophils % 15.6 % (37.0-80.0); Red Blood Count 2.75 M/mm3 (4.20-5.40); Red Cell Distribution Width 15.4 % (11.5-17.5); White Blood Count 1.6 K/mm3 (4.8-10.8)
[2022-09-28 09:30] LABS: MANUAL DIFFERENTIAL MANUAL DIFFERENTIAL (MANUAL DIFF); Platelet Count 12 K/mm3 (142-424)
--- NOTE | 2022-09-28 09:34 | PC.NURSE ---
jose mckeon from lab called critical lab result of plt 12. name, , and lab value read back and verified. MD Calvin notified, no new order at this time.
--- NOTE | 2022-09-28 10:04 | PC.NURSE ---
1004-called lab to order 1 unit of platelets from [facility].
[2022-09-28 10:30] LABS: Eosinophils % 1 % (0-3); Lymphocytes % 71 % (10-50); Monocytes % 9 % (2-9); Neutrophils % 19 % (42-76); Total Cells Counted 100
[2022-09-28 10:31] LABS: Platelet Estimate Marked Decrease; RBC Morphology Normal
== END 2022-09-28 15:15 | disposition home or self-care (01) ==
LOC: INF 08:56
PROVIDERS: Internal Medicine Medical Oncology; PCP Family Medicine; Visit Provider Family Medicine
DX: D46.9 Myelodysplastic syndrome, unspecified (principal)
CPT/HCPCS: 36415; 36430; 85007; 85025; P9034

== ENCOUNTER 2022-10-02 08:20 | Outpatient (CLI) | payer MEDICARE, SELFPAY ==
[2022-10-02 08:26] VITALS: BMI 20.1
[2022-10-02 09:02] LABS: Basophils % 0.8 % (0.1-2.0); Eosinophils % 0.3 % (0.1-12.0); Hematocrit 22.3 % (37.0-47.0); Hemoglobin 7.7 g/dL (12.2-16.2); Lymphocytes % 79.5 % (10-50); Mean Corpuscular HGB Conc 34.7 g/dL (31.8-35.4); Mean Corpuscular Volume 89.3 fl (81-99); Mean Platelet Volume 11.5 fl (7.4-10.4); Monocytes # 0.1 K/mm3 (0.1-1.0); Monocytes % 5.8 % (1.7-9.3); Neutrophils # 0.2 K/mm3 (1.8-7.8); Red Blood Count 2.49 M/mm3 (4.20-5.40); Red Cell Distribution Width 15.8 % (11.5-17.5); White Blood Count 1.3 K/mm3 (4.8-10.8)
[2022-10-02 09:05] LABS: Neutrophils % 13.7 % (37.0-80.0)
[2022-10-02 09:06] LABS: Platelet Count 19 K/mm3 (142-424)
[2022-10-02 09:07] LABS: MANUAL DIFFERENTIAL MANUAL DIFFERENTIAL (MANUAL DIFF)
[2022-10-02 09:08] LABS: Chloride 107 mmol/L (98-107); Sodium 140 mmol/L (136-145)
[2022-10-02 09:09] LABS: Potassium 3.8 mmoL/L (3.5-5.1)
[2022-10-02 09:11] LABS: Alanine Aminotransferase 12 U/L (12-78); Albumin Level 3.4 g/dl (3.5-5.0); Alkaline Phosphatase 53 U/L (38-126); Anion Gap 10.8 mEq/L (5-15); Aspartate Amino Transferase 19 U/L (14-36); Bilirubin,Total 0.9 mg/dl (0.2-1.3); Blood Urea Nitrogen 11 mg/dl (7-17); Calcium 8.2 mg/dl (8.4-10.2); Carbon Dioxide 26 mmol/L (22.0-30.0); Creatinine Clearance Estimated 48 mL/min (50-200); Estimated Glomerular Filt Rate 98 ml/min (>60); GFR (African American) 119 ML/MIN (>60); Globulin 3.4 g/dL (1.3-3.2); Glucose 105 mg/dl (74-100); Total Protein,Serum 6.8 g/dl (6.3-8.2)
[2022-10-02 09:30] LABS: Anisocytosis 2+; Hypochromasia 2+; Lymphocytes % 80 % (10-50); Monocytes % 8 % (2-9); Neutrophils % 12 % (42-76); Total Cells Counted 25
[2022-10-02 09:31] LABS: Platelet Estimate Marked Decrease
--- NOTE | 2022-10-02 09:42 | PC.NURSE ---
10/02/22904 Dottie Elizabeth called [facility] at 0905 to report platelet count of 19. RN repeated and verified pt name, , and lab value. Result called to Dr. Jeaneth Simpson, order noted to proceed with picc line placement today and to start treatment infusion with decitabine. aware of all lab results.
--- NOTE | 2022-10-02 10:20 | XR_ITS ---
FINAL REPORT CLINICAL HISTORY: PICC line placement FINDINGS: A portable view of the chest was obtained. Comparison is made to a prior exam dated August 2022. A new right-sided PICC line terminates in the SVC. Cardiac and mediastinal silhouettes are within normal limits. There is worsening left upper lobe opacity. Central obstructing lesion cannot be excluded. The lungs are otherwise clear.. There is no pleural effusion or pneumothorax. IMPRESSION: Right-sided PICC line terminates in the SVC. Worsening left upper lobe opacity. Reviewed, Interpreted and Dictated by Frieda Rocha MD Transcribed by Willie Malin Authenticated and [facility]
--- NOTE | 2022-10-02 10:35 | PC.NURSE ---
pt returned from procedure room after having picc line successfully placed per Julia Soto. Awaiting final radiology report to determine proper placement.
[2022-10-02 11:10] VITALS: BP 91/49; PULSE 81; RESP 18; TEMP 36.4; O2SAT 98
[2022-10-02 12:05] VITALS: BP 95/51; PULSE 84; RESP 18; TEMP 36.3; O2SAT 98
[2022-10-02 12:35] VITALS: BP 90/52; PULSE 80; RESP 18; O2SAT 97
[2022-10-02 13:10] VITALS: BP 91/54; PULSE 78; RESP 18; O2SAT 97
== END 2022-10-02 13:30 | disposition home or self-care (01) ==
LOC: INF 08:21
PROVIDERS: PCP Family Medicine; Visit Provider Internal Medicine Medical Oncology
DX: Z45.2 Encounter for adjustment and management of vascular access device (principal); D46.9 Myelodysplastic syndrome, unspecified
CPT/HCPCS: 36569; 71045; 80053; 85007; 85025; 96413; C1751; J0894

== ENCOUNTER 2022-10-03 08:44 | Outpatient (CLI) | payer MEDICARE, SELFPAY ==
[2022-10-03 08:53] VITALS: BP 90/47; PULSE 81; RESP 18; TEMP 36.2; O2SAT 100
[2022-10-03 09:35] VITALS: BP 88/47; PULSE 76; RESP 18; O2SAT 99
[2022-10-03 10:00] VITALS: BP 81/41; PULSE 76; RESP 18; O2SAT 100
[2022-10-03 10:31] VITALS: BP 83/48; PULSE 73; RESP 18; TEMP 36.4; O2SAT 100
[2022-10-03 10:40] VITALS: BP 87/53; PULSE 74; RESP 18; O2SAT 100
[2022-10-03 11:45] VITALS: BP 85/48; PULSE 78; RESP 18; O2SAT 100
--- NOTE | 2022-10-03 11:57 | PC.NURSE ---
Anne RN spoke with MD Danita about pt hypotension. Pt reports taking metoprolol 25mg BID and amlodipine 2.5 daily. Danita ordered pt to stop taking BP meds for now and monitor and log daily BP. Pt verbalized understanding.
== END 2022-10-03 11:45 | disposition home or self-care (01) ==
LOC: INF 08:45
PROVIDERS: PCP Family Medicine; Visit Provider Internal Medicine Medical Oncology
DX: D46.9 Myelodysplastic syndrome, unspecified (principal)
CPT/HCPCS: 96360; 96413; J0894

== ENCOUNTER 2022-10-04 08:40 | Outpatient (CLI) | payer MEDICARE, SELFPAY ==
[2022-10-04 09:02] LABS: Basophils % 0.5 % (0.1-2.0); Eosinophils % 0.5 % (0.1-12.0); Hematocrit 21.1 % (37.0-47.0); Hemoglobin 7.3 g/dL (12.2-16.2); Lymphocytes % 80.4 % (10-50); Mean Corpuscular HGB Conc 34.4 g/dL (31.8-35.4); Mean Corpuscular Hemoglobin 30.3 pg (27.0-31.2); Mean Corpuscular Volume 88.1 fl (81-99); Mean Platelet Volume 11.8 fl (7.4-10.4); Monocytes # 0.1 K/mm3 (0.1-1.0); Monocytes % 4.6 % (1.7-9.3); Neutrophils # 0.2 K/mm3 (1.8-7.8); Red Cell Distribution Width 15.6 % (11.5-17.5); White Blood Count 1.2 K/mm3 (4.8-10.8)
[2022-10-04 09:04] LABS: Platelet Count 20 K/mm3 (142-424)
--- NOTE | 2022-10-04 09:04 | PC.NURSE ---
09-Susana Ellington called rn at 0904 to report platelet level 20. Rn repeated and verified pt name, , and lab value. result called to and no new orders received, follow standing orders.
[2022-10-04 09:05] LABS: MANUAL DIFFERENTIAL MANUAL DIFFERENTIAL (MANUAL DIFF)
[2022-10-04 09:08] LABS: Alanine Aminotransferase 11 U/L (12-78); Albumin Level 3.3 g/dl (3.5-5.0); Alkaline Phosphatase 50 U/L (38-126); Aspartate Amino Transferase 21 U/L (14-36); Bilirubin,Total 0.9 mg/dl (0.2-1.3); Blood Urea Nitrogen 10 mg/dl (7-17); Calcium 8.1 mg/dl (8.4-10.2); Carbon Dioxide 25 mmol/L (22.0-30.0); Chloride 109 mmol/L (98-107); Creatinine Clearance Estimated 48 mL/min (50-200); Estimated Glomerular Filt Rate 98 ml/min (>60); GFR (African American) 119 ML/MIN (>60); Globulin 3.2 g/dL (1.3-3.2); Glucose 103 mg/dl (74-100); Sodium 138 mmol/L (136-145); Total Protein,Serum 6.5 g/dl (6.3-8.2)
[2022-10-04 09:43] VITALS: BP 92/53; PULSE 90; RESP 18; O2SAT 95
[2022-10-04 10:03] VITALS: BP 95/64; PULSE 90; RESP 18
[2022-10-04 10:26] LABS: Lymphocytes % 80 % (10-50); Monocytes % 5 % (2-9); Neutrophils % 15 % (42-76); Platelet Estimate Marked Decrease; RBC Morphology Normal; Total Cells Counted 100
[2022-10-04 11:00] VITALS: BP 93/46; PULSE 90; RESP 18; TEMP 36.6; O2SAT 95
== END 2022-10-04 11:00 | disposition home or self-care (01) ==
LOC: INF 08:40
PROVIDERS: PCP Family Medicine; Visit Provider Internal Medicine Medical Oncology
DX: Z51.11 Encounter for antineoplastic chemotherapy (principal); D46.9 Myelodysplastic syndrome, unspecified
CPT/HCPCS: 80053; 85007; 85025; 96413; J0894

== ENCOUNTER 2022-10-05 08:51 | Outpatient (CLI) | payer MEDICARE, SELFPAY ==
[2022-10-05 09:00] VITALS: BP 88/58; PULSE 79; RESP 18; TEMP 36.1; O2SAT 100
[2022-10-05 09:29] VITALS: BP 89/50; PULSE 70; RESP 18; O2SAT 99
[2022-10-05 09:59] VITALS: BP 88/49; PULSE 74; RESP 18; O2SAT 99
[2022-10-05 10:35] VITALS: BP 88/56; PULSE 72; RESP 18; O2SAT 100
== END 2022-10-05 10:40 | disposition home or self-care (01) ==
LOC: INF 08:52
PROVIDERS: PCP Family Medicine; Visit Provider Internal Medicine Medical Oncology
DX: D46.9 Myelodysplastic syndrome, unspecified (principal)
CPT/HCPCS: 96413; J0894

== ENCOUNTER 2022-10-06 08:39 | Outpatient (CLI) | payer MEDICARE, SELFPAY ==
[2022-10-06] VITALS (16 sets, daily range): BP systolic 96–112; BP diastolic 43–70; PULSE 68–88; RESP 18; TEMP 36–36.1; O2SAT 98–100
[2022-10-06 09:15] LABS: Basophils % 0.3 % (0.1-2.0); Lymphocytes % 86.8 % (10-50); Mean Corpuscular HGB Conc 35.1 g/dL (31.8-35.4); Mean Corpuscular Hemoglobin 30.8 pg (27.0-31.2); Mean Corpuscular Volume 87.6 fl (81-99); Mean Platelet Volume 11.3 fl (7.4-10.4); Neutrophils # 0.1 K/mm3 (1.8-7.8); Red Blood Count 2.24 M/mm3 (4.20-5.40); Red Cell Distribution Width 15.5 % (11.5-17.5); White Blood Count 1.1 K/mm3 (4.8-10.8)
[2022-10-06 09:19] LABS: Chloride 107 mmol/L (98-107); Potassium 3.9 mmoL/L (3.5-5.1); Sodium 137 mmol/L (136-145)
[2022-10-06 09:21] LABS: Alanine Aminotransferase 14 U/L (12-78); Aspartate Amino Transferase 19 U/L (14-36); Blood Urea Nitrogen 12 mg/dl (7-17); Creatinine Clearance Estimated 48 mL/min (50-200); Estimated Glomerular Filt Rate 82 ml/min (>60); GFR (African American) 100 ML/MIN (>60)
[2022-10-06 09:22] LABS: Albumin Level 3.4 g/dl (3.5-5.0); Albumin/Globulin Ratio 1.1 (1.1-1.8); Alkaline Phosphatase 53 U/L (38-126); Anion Gap 9.9 mEq/L (5-15); Bilirubin,Total 0.9 mg/dl (0.2-1.3); Calcium 8.1 mg/dl (8.4-10.2); Carbon Dioxide 24 mmol/L (22.0-30.0); Globulin 3.2 g/dL (1.3-3.2); Glucose 102 mg/dl (74-100); Total Protein,Serum 6.6 g/dl (6.3-8.2)
[2022-10-06 09:32] LABS: Hematocrit 19.6 % (37.0-47.0); Hemoglobin 6.9 g/dL (12.2-16.2); Neutrophils % 10.8 % (37.0-80.0); Platelet Count 20 K/mm3 (142-424)
--- NOTE | 2022-10-06 09:32 | PC.NURSE ---
0932-Susana Ellington called rn at 0932 to report hgb 6.9,hct 19.6, and plt 20. Rn repeated and verified pt name, , and lab value.Result called to and no new orders, follow standing orders for blood products.
[2022-10-06 09:34] LABS: MANUAL DIFFERENTIAL MANUAL DIFFERENTIAL (MANUAL DIFF)
[2022-10-06 10:36] LABS: Lymphocytes % 83 % (10-50); Monocytes % 4 % (2-9); Neutrophils % 13 % (42-76); Total Cells Counted 100
[2022-10-06 10:37] LABS: Platelet Estimate Marked Decrease; RBC Morphology Normal
== END 2022-10-06 15:06 | disposition home or self-care (01) ==
LOC: INF 08:40
PROVIDERS: PCP Family Medicine; Visit Provider Internal Medicine Medical Oncology
DX: D46.9 Myelodysplastic syndrome, unspecified (principal)
CPT/HCPCS: 36430; 80053; 85007; 85025; 86850; 96413; J0894; P9016

== ENCOUNTER 2022-10-09 08:37 | Outpatient (CLI) | payer MEDICARE, SELFPAY ==
[2022-10-09 08:52] LABS: Basophils % 0.3 % (0.1-2.0); Eosinophils % 0.1 % (0.1-12.0); Hematocrit 21.7 % (37.0-47.0); Hemoglobin 7.7 g/dL (12.2-16.2); Lymphocytes # 0.9 K/mm3 (0.7-4.5); Lymphocytes % 85.8 % (10-50); Mean Corpuscular HGB Conc 35.5 g/dL (31.8-35.4); Mean Corpuscular Hemoglobin 30.4 pg (27.0-31.2); Mean Corpuscular Volume 85.7 fl (81-99); Mean Platelet Volume 12.2 fl (7.4-10.4); Monocytes % 2.5 % (1.7-9.3); Neutrophils # 0.1 K/mm3 (1.8-7.8); Red Blood Count 2.53 M/mm3 (4.20-5.40); Red Cell Distribution Width 15.1 % (11.5-17.5); White Blood Count 1.1 K/mm3 (4.8-10.8)
[2022-10-09 08:54] LABS: Neutrophils % 11.3 % (37.0-80.0)
[2022-10-09 08:55] LABS: Chloride 108 mmol/L (98-107); Platelet Count 12 K/mm3 (142-424)
[2022-10-09 08:56] LABS: MANUAL DIFFERENTIAL MANUAL DIFFERENTIAL (MANUAL DIFF); Potassium 4.2 mmoL/L (3.5-5.1); Sodium 140 mmol/L (136-145)
[2022-10-09 08:58] LABS: Alanine Aminotransferase 12 U/L (12-78); Alkaline Phosphatase 52 U/L (38-126); Anion Gap 11.2 mEq/L (5-15); Aspartate Amino Transferase 17 U/L (14-36); Bilirubin,Total 0.7 mg/dl (0.2-1.3); Blood Urea Nitrogen 13 mg/dl (7-17); Carbon Dioxide 25 mmol/L (22.0-30.0); Creatinine Clearance Estimated 48 mL/min (50-200); Estimated Glomerular Filt Rate 98 ml/min (>60); GFR (African American) 119 ML/MIN (>60)
[2022-10-09 08:59] LABS: Albumin Level 3.3 g/dl (3.5-5.0); Globulin 3.2 g/dL (1.3-3.2); Glucose 123 mg/dl (74-100); Total Protein,Serum 6.5 g/dl (6.3-8.2)
--- NOTE | 2022-10-09 09:01 | PC.NURSE ---
jose mckeon from lab called critical lab results of plt 12. lab, name, and read back and verified. pt has standing orders in place for transfusion. pt does not meet criteria at this time. MD Calvin notified, no new orders at this time.
[2022-10-09 09:49] LABS: Lymphocytes % 84 % (10-50); Monocytes % 4 % (2-9); Neutrophils % 12 % (42-76); Platelet Estimate Marked Decrease; RBC Morphology Normal; Total Cells Counted 25
== END 2022-10-09 08:59 | disposition home or self-care (01) ==
LOC: INF 08:38
PROVIDERS: PCP Family Medicine; Visit Provider Internal Medicine Medical Oncology
DX: D46.9 Myelodysplastic syndrome, unspecified (principal)
CPT/HCPCS: 36592; 80053; 85007; 85025

== ENCOUNTER 2022-10-11 08:46 | Outpatient (CLI) | payer MEDICARE, SELFPAY ==
[2022-10-11] VITALS (8 sets, daily range): BP systolic 95–108; BP diastolic 52–82; PULSE 72–84; RESP 18; TEMP 36.2–36.7; O2SAT 100
[2022-10-11 09:02] LABS: Basophils % 0.3 % (0.1-2.0); Eosinophils % 0.2 % (0.1-12.0); Hemoglobin 7.3 g/dL (12.2-16.2); Lymphocytes # 1.1 K/mm3 (0.7-4.5); Lymphocytes % 90.9 % (10-50); Mean Corpuscular HGB Conc 35.5 g/dL (31.8-35.4); Mean Corpuscular Hemoglobin 30.5 pg (27.0-31.2); Mean Platelet Volume 11.1 fl (7.4-10.4); Monocytes % 1.7 % (1.7-9.3); Neutrophils # 0.1 K/mm3 (1.8-7.8); Red Blood Count 2.38 M/mm3 (4.20-5.40); Red Cell Distribution Width 14.9 % (11.5-17.5); White Blood Count 1.2 K/mm3 (4.8-10.8)
[2022-10-11 09:03] LABS: Hematocrit 20.5 % (37.0-47.0); Platelet Count 7 K/mm3 (142-424)
[2022-10-11 09:04] LABS: MANUAL DIFFERENTIAL MANUAL DIFFERENTIAL (MANUAL DIFF)
[2022-10-11 09:12] LABS: Alanine Aminotransferase 12 U/L (12-78); Albumin Level 3.4 g/dl (3.5-5.0); Albumin/Globulin Ratio 1.1 (1.1-1.8); Alkaline Phosphatase 54 U/L (38-126); Anion Gap 9.1 mEq/L (5-15); Aspartate Amino Transferase 18 U/L (14-36); Bilirubin,Total 0.7 mg/dl (0.2-1.3); Blood Urea Nitrogen 14 mg/dl (7-17); Carbon Dioxide 26 mmol/L (22.0-30.0); Chloride 108 mmol/L (98-107); Creatinine Clearance Estimated 48 mL/min (50-200); Estimated Glomerular Filt Rate 98 ml/min (>60); GFR (African American) 119 ML/MIN (>60); Globulin 3.1 g/dL (1.3-3.2); Glucose 118 mg/dl (74-100); Potassium 4.1 mmoL/L (3.5-5.1); Sodium 139 mmol/L (136-145); Total Protein,Serum 6.5 g/dl (6.3-8.2)
--- NOTE | 2022-10-11 09:23 | PC.NURSE ---
jose mckeon from lab called critical lab results of plt 7, Hct 20.5 to this RN. Lab result, name and read back and verified. PT has standing orders to infuse platelets for a value less than 10. MD Calvin notified, no new orders at this time.
--- NOTE | 2022-10-11 09:27 | PC.NURSE ---
pt was typed and crossed and will return once platelets have arrived to [facility].
[2022-10-11 09:44] LABS: Lymphocytes % 92 % (10-50); Monocytes % 4 % (2-9); Neutrophils % 4 % (42-76); Platelet Estimate Marked Decrease; RBC Morphology Normal; Total Cells Counted 25
[2022-10-11 10:04] LABS: Neutrophils % 6.9 % (37.0-80.0)
== END 2022-10-11 13:10 | disposition home or self-care (01) ==
LOC: INF 08:47
PROVIDERS: PCP Family Medicine; Visit Provider Internal Medicine Medical Oncology
DX: D46.9 Myelodysplastic syndrome, unspecified (principal)
CPT/HCPCS: 36430; 80053; 85007; 85025; 86850; 86900; 86901; P9034

== ENCOUNTER 2022-10-13 09:05 | Outpatient (CLI) | payer MEDICARE, SELFPAY ==
[2022-10-13] VITALS (11 sets, daily range): BP systolic 95–130; BP diastolic 53–66; PULSE 76–82; RESP 18; TEMP 35.9–36.4; O2SAT 99–100
--- NOTE | 2022-10-13 09:26 | PC.NURSE ---
0926-pt to receive 1 unit prbcs today for hgb 6.8
[2022-10-13 09:28] LABS: Basophils % 0.8 % (0.1-2.0); Eosinophils % 0.3 % (0.1-12.0); Lymphocytes % 87.3 % (10-50); Mean Corpuscular HGB Conc 35.5 g/dL (31.8-35.4); Mean Corpuscular Volume 87.3 fl (81-99); Mean Platelet Volume 9.8 fl (7.4-10.4); Monocytes % 2.7 % (1.7-9.3); Neutrophils # 0.1 K/mm3 (1.8-7.8); Red Blood Count 2.19 M/mm3 (4.20-5.40); Red Cell Distribution Width 15.2 % (11.5-17.5); White Blood Count 1.1 K/mm3 (4.8-10.8)
[2022-10-13 09:29] LABS: Neutrophils % 8.9 % (37.0-80.0)
--- NOTE | 2022-10-13 09:29 | PC.NURSE ---
0929-Susana Ellington called rn at 0929 to report hgb level 6.8. rn repeated and verified pt name,,and lab value. report called to shirin monsalve for no new orders at this time; follow standing order.
[2022-10-13 09:30] LABS: Hematocrit 19.1 % (37.0-47.0); Hemoglobin 6.8 g/dL (12.2-16.2); Platelet Count 11 K/mm3 (142-424)
[2022-10-13 09:31] LABS: MANUAL DIFFERENTIAL MANUAL DIFFERENTIAL (MANUAL DIFF)
[2022-10-13 09:36] LABS: Alanine Aminotransferase 15 U/L (12-78); Albumin Level 3.5 g/dl (3.5-5.0); Albumin/Globulin Ratio 1.1 (1.1-1.8); Alkaline Phosphatase 55 U/L (38-126); Aspartate Amino Transferase 18 U/L (14-36); Bilirubin,Total 0.7 mg/dl (0.2-1.3); Blood Urea Nitrogen 11 mg/dl (7-17); Carbon Dioxide 24 mmol/L (22.0-30.0); Chloride 108 mmol/L (98-107); Creatinine Clearance Estimated 2 mL/min (50-200); Estimated Glomerular Filt Rate 82 ml/min (>60); GFR (African American) 100 ML/MIN (>60); Globulin 3.1 g/dL (1.3-3.2); Glucose 128 mg/dl (74-100); Sodium 138 mmol/L (136-145); Total Protein,Serum 6.6 g/dl (6.3-8.2)
[2022-10-13 09:44] LABS: Anisocytosis 1+; Lymphocytes % 92 % (10-50); Neutrophils % 8 % (42-76); Ovalocytes 1+; Platelet Estimate Marked Decrease; Total Cells Counted 25
[2022-10-13 09:56] LABS: Anion Gap 9.8 mEq/L (5-15); Potassium 3.8 mmoL/L (3.5-5.1)
== END 2022-10-13 13:30 | disposition home or self-care (01) ==
LOC: INF 09:06
PROVIDERS: PCP Family Medicine; Visit Provider Internal Medicine Medical Oncology
DX: D46.9 Myelodysplastic syndrome, unspecified (principal)
CPT/HCPCS: 36430; 80053; 85007; 85025; P9016

== ENCOUNTER 2022-10-16 08:50 | Outpatient (CLI) | payer MEDICARE, SELFPAY ==
[2022-10-16] VITALS (16 sets, daily range): BP systolic 91–116; BP diastolic 35–64; PULSE 76–82; RESP 18; TEMP 36.3–36.6; O2SAT 98–100
[2022-10-16 09:16] LABS: Basophils % 0.5 % (0.1-2.0); Chloride 109 mmol/L (98-107); Lymphocytes # 0.8 K/mm3 (0.7-4.5); Lymphocytes % 81.6 % (10-50); Mean Corpuscular Hemoglobin 29.3 pg (27.0-31.2); Mean Corpuscular Volume 83.8 fl (81-99); Mean Platelet Volume 9.2 fl (7.4-10.4); Monocytes # 0.1 K/mm3 (0.1-1.0); Monocytes % 5.3 % (1.7-9.3); Neutrophils # 0.1 K/mm3 (1.8-7.8); Potassium 3.6 mmoL/L (3.5-5.1); Red Blood Count 2.37 M/mm3 (4.20-5.40); Red Cell Distribution Width 15.2 % (11.5-17.5); Sodium 139 mmol/L (136-145)
[2022-10-16 09:18] LABS: Alanine Aminotransferase 14 U/L (12-78); Alkaline Phosphatase 59 U/L (38-126); Aspartate Amino Transferase 19 U/L (14-36); Blood Urea Nitrogen 9 mg/dl (7-17); Creatinine Clearance Estimated 48 mL/min (50-200); Estimated Glomerular Filt Rate 121 ml/min (>60); GFR (African American) 147 ML/MIN (>60)
[2022-10-16 09:19] LABS: Albumin Level 3.3 g/dl (3.5-5.0); Albumin/Globulin Ratio 1.1 (1.1-1.8); Anion Gap 9.6 mEq/L (5-15); Carbon Dioxide 24 mmol/L (22.0-30.0); Globulin 3.1 g/dL (1.3-3.2); Glucose 120 mg/dl (74-100); Total Protein,Serum 6.4 g/dl (6.3-8.2)
[2022-10-16 09:21] LABS: Neutrophils % 12.6 % (37.0-80.0)
[2022-10-16 09:30] LABS: Hematocrit 19.8 % (37.0-47.0); Hemoglobin 6.9 g/dL (12.2-16.2); Platelet Count 3 K/mm3 (142-424)
[2022-10-16 09:32] LABS: MANUAL DIFFERENTIAL MANUAL DIFFERENTIAL (MANUAL DIFF)
[2022-10-16 10:38] LABS: Lymphocytes % 88 % (10-50); Monocytes % 8 % (2-9); Neutrophils % 4 % (42-76); Total Cells Counted 25
[2022-10-16 10:39] LABS: Platelet Estimate Marked Decrease; RBC Morphology Normal
--- NOTE | 2022-10-16 12:50 | PC.NURSE ---
Yaritza Chicas from lab called critical labs to this Rn at 0920. WBC 1.0, Hgb 6.9, Hct 19.8, plt 3. name, and lab results read back and verified. Pt has standing orders in place to transfuse Plt and PRBC. Calvin MD notified and no new orders at this time.
--- NOTE | 2022-10-16 15:15 | PC.NURSE ---
when pt arrived this AM, she had complaints of blisters throughout her mouth that she explained popped up overnight. Upon inspection, pt had what appeared to be blood blisters on her cheeks and one spot on her tongue. she stated that they were not painful but she was concerned. Dr. Simpson was contacted and instructed pt to use biotene mouth rinse.
== END 2022-10-16 14:30 | disposition home or self-care (01) ==
LOC: INF 08:51
PROVIDERS: PCP Family Medicine; Visit Provider Internal Medicine Medical Oncology
DX: D46.9 Myelodysplastic syndrome, unspecified (principal)
CPT/HCPCS: 36430; 80053; 85007; 85025; 86850; P9016; P9034

== ENCOUNTER 2022-10-18 08:57 | Outpatient (CLI) | payer MEDICARE, SELFPAY ==
[2022-10-18] VITALS (8 sets, daily range): BP systolic 100–122; BP diastolic 47–68; PULSE 81–91; RESP 18–20; TEMP 35.9–36.3; O2SAT 97–100
--- NOTE | 2022-10-18 09:06 | PC.NURSE ---
09-collected labs via [facility] line
[2022-10-18 09:16] LABS: Basophils % 0.9 % (0.1-2.0); Eosinophils % 0.2 % (0.1-12.0); Hematocrit 24.4 % (37.0-47.0); Hemoglobin 8.4 g/dL (12.2-16.2); Lymphocytes # 1.1 K/mm3 (0.7-4.5); Lymphocytes % 84.3 % (10-50); Mean Corpuscular HGB Conc 34.2 g/dL (31.8-35.4); Mean Corpuscular Hemoglobin 29.5 pg (27.0-31.2); Mean Corpuscular Volume 86.2 fl (81-99); Mean Platelet Volume 12.6 fl (7.4-10.4); Monocytes # 0.1 K/mm3 (0.1-1.0); Monocytes % 4.1 % (1.7-9.3); Neutrophils # 0.1 K/mm3 (1.8-7.8); Red Blood Count 2.83 M/mm3 (4.20-5.40); Red Cell Distribution Width 14.9 % (11.5-17.5); White Blood Count 1.3 K/mm3 (4.8-10.8)
[2022-10-18 09:18] LABS: MANUAL DIFFERENTIAL MANUAL DIFFERENTIAL (MANUAL DIFF); Neutrophils % 10.4 % (37.0-80.0); Platelet Count 5 K/mm3 (142-424)
--- NOTE | 2022-10-18 09:18 | PC.NURSE ---
0918-Susana Frances called rn at 0918 to report platelet level 5.rn repeated and verifed pt name,,and lab value. result called to ; follow standing orders for platelet transfusion of 1 unit.
[2022-10-18 09:23] LABS: Alanine Aminotransferase 13 U/L (12-78); Albumin Level 3.6 g/dl (3.5-5.0); Albumin/Globulin Ratio 1.1 (1.1-1.8); Alkaline Phosphatase 61 U/L (38-126); Anion Gap 10.6 mEq/L (5-15); Aspartate Amino Transferase 20 U/L (14-36); Bilirubin,Total 1.1 mg/dl (0.2-1.3); Blood Urea Nitrogen 10 mg/dl (7-17); Calcium 8.2 mg/dl (8.4-10.2); Carbon Dioxide 24 mmol/L (22.0-30.0); Chloride 109 mmol/L (98-107); Creatinine Clearance Estimated 48 mL/min (50-200); Estimated Glomerular Filt Rate 98 ml/min (>60); GFR (African American) 119 ML/MIN (>60); Globulin 3.2 g/dL (1.3-3.2); Glucose 95 mg/dl (74-100); Potassium 3.6 mmoL/L (3.5-5.1); Sodium 140 mmol/L (136-145); Total Protein,Serum 6.8 g/dl (6.3-8.2)
--- NOTE | 2022-10-18 09:55 | PC.NURSE ---
0955-pt to come back to infusion department when platelets arrive for transfusion
[2022-10-18 09:58] LABS: Lymphocytes % 88 % (10-50); Monocytes % 1 % (2-9); Neutrophils % 11 % (42-76); Total Cells Counted 100
[2022-10-18 09:59] LABS: Platelet Estimate Marked Decrease; RBC Morphology Normal
--- NOTE | 2022-10-18 12:15 | PC.NURSE ---
1215-pt return to unit for platelet transfusion
== END 2022-10-18 13:41 | disposition home or self-care (01) ==
LOC: INF 08:58
PROVIDERS: PCP Family Medicine; Visit Provider Internal Medicine Medical Oncology
DX: D46.9 Myelodysplastic syndrome, unspecified (principal)
CPT/HCPCS: 36430; 80053; 85007; 85025; P9034

== ENCOUNTER 2022-10-19 15:45 | Observation (INO) | payer MEDICARE, SELFPAY ==
[2022-10-19] VITALS (7 sets, daily range): BP systolic 105–122; BP diastolic 48–64; PULSE 84–172; RESP 16–20; TEMP 36.4–36.6; O2SAT 100; BMI 20.2
--- NOTE | 2022-10-19 15:55 | HMH.PHAINT1 ---
Pharmacy Intervention Comments: MEDICATION RECONCILIATION COMPLETED ON PATIENT USING EXTERNAL FILL HISTORY FROM PHARMACY. -KRISTEN AVILA, OJD
--- NOTE | 2022-10-19 16:21 | ECG_ITS ---
APPROVED REPORT Exam: Resting ECG HR:168 bpm ECG Measurements Heart Rate 168 AXES QRSd 82 QRS 60 QT 236 T 57 QTc 328 Conclusion SUPRAVENTRICULAR TACHYCARDIA NONSPECIFIC ST & T-WAVE ABNORMALITY CRITICAL TEST RESULT UNCONFIRMED REPORT Electronically signed by : Taco Earl MD 10/20/2022 20:57:02
--- NOTE | 2022-10-19 16:26 | EXP.HP ---
History of Present Illness *Admission Date: 10/19/22 *Reason for visit:: tachycardia *History of present illness: Ms. Demarco is a 72-year-old female with myelodysplastic syndrome followed by Dr. Simpson who was recently discharged from after an admission for low hemoglobin and platelets. She has been getting platelet transfusions at [facility] and was actually scheduled for one tomorrow. She states for the past 2 weeks she has had increased lower extremity edema and, this is why she presented to the office today. When she got to the office, she felt like her heart was racing and upon exam, she had a heart rate of 167 bpm. She states she used to take metoprolol, but this was discontinued after her admission and discharge at . She was therefore directly admitted for further evaluation and treatment of her tachycardia. [facility] Disclaimer: The information contained in this section may have been updated after the patient was seen, as this information can be updated by other users. Medical History Ankle sprain and strain COPD (chronic obstructive pulmonary disease) Degenerative disc disease History of CVA (cerebrovascular accident) History of palpitations Hyperlipidemia Hypertensive disorder Myelodysplastic syndrome Raynauds disease Surgical History History of carpal tunnel release History of cholecystectomy History of colonoscopy History of laparoscopy Family History No significant family history Social History (Updated 10/19/22 @ 18:11 by Uma Beck RN) Smoking Status: Current every day smoker tobacco type: cigarettes packs per day: 1 alcohol intake: current substance use type: denies use current occupational status: employed Travel in the last 8 weeks: None caffeine: Yes Review of Systems Constitutional Constitutional: Denies fatigue, Denies headache(s) and Denies weakness Eyes Eyes: Denies blurry vision and Denies diplopia ENT Ears, Nose, Mouth, and Throat: Denies headache(s), Denies nasal congestion, Denies sore throat and Denies vertigo *Cardiovascular Cardiovascular: Denies chest pain, Denies dyspnea, Reports leg edema and Reports palpitations *Respiratory Respiratory: Denies cough and Denies dyspnea *Gastrointestinal Gastrointestinal: Denies abdominal pain, Denies loose stools, Denies nausea and Denies vomiting *Genitourinary Genitourinary: Denies dysuria *Musculoskeletal Musculoskeletal: Denies arthralgias and Denies myalgias *Neurologic Neurologic: Denies headache(s), Denies vertigo and Denies weakness Endocrine Endocrine: Denies fatigue and Reports palpitations Meds Home Medications and Allergies Home Medications Medication Instructions Recorded Confirmed Type amlodipine 2.5 mg tablet (Norvasc) 2.5 mg PO DAILY Hypertension 05/06/18 10/19/22 History aspirin 81 mg tablet,delayed 81 mg PO DAILY HEART HEALTH 05/06/18 10/19/22 History release metoprolol tartrate 25 mg tablet 25 mg PO BID Hypertension 05/06/18 10/19/22 History pravastatin 40 mg tablet 40 mg PO HS Cholesterol 05/06/18 10/19/22 History gabapentin 600 mg tablet 1,200 mg PO BID Pain 06/16/19 10/19/22 History albuterol sulfate 90 mcg/actuation 1 - 2 puff inhalation Q6HP PRN 09/13/22 10/19/22 History aerosol inhaler Shortness Of Breath acyclovir 800 mg tablet 800 mg PO BID viral 09/28/22 10/19/22 History infection/preventative levofloxacin 500 mg tablet 500 mg PO DAILY Infection 09/28/22 10/19/22 History melatonin 5 mg capsule 10 mg PO HS sleep 09/28/22 10/19/22 History ondansetron HCl 8 mg tablet 8 mg PO Q6HP PRN Nausea And 10/19/22 10/19/22 History Vomiting New Prescriptions to Start Prescriptions: Allergies Allergy/AdvReac Type Severity Reaction Status Date / Time codeine AdvReac Intermediate Verified 10/19/22 16:05 Exam Cons
[2022-10-19 16:58] LABS: Basophils % 1.7 % (0.1-2.0); Chloride 109 mmol/L (98-107); Eosinophils % 0.1 % (0.1-12.0); Hematocrit 21.6 % (37.0-47.0); Hemoglobin 7.5 g/dL (12.2-16.2); Lymphocytes # 0.9 K/mm3 (0.7-4.5); Lymphocytes % 82.5 % (10-50); Mean Corpuscular HGB Conc 34.6 g/dL (31.8-35.4); Mean Corpuscular Hemoglobin 29.7 pg (27.0-31.2); Mean Corpuscular Volume 85.9 fl (81-99); Mean Platelet Volume 8.7 fl (7.4-10.4); Monocytes % 3.6 % (1.7-9.3); Neutrophils # 0.1 K/mm3 (1.8-7.8); Red Blood Count 2.51 M/mm3 (4.20-5.40); Red Cell Distribution Width 15.1 % (11.5-17.5); White Blood Count 1.1 K/mm3 (4.8-10.8)
[2022-10-19 16:59] LABS: Neutrophils % 12.1 % (37.0-80.0); Potassium 3.6 mmoL/L (3.5-5.1); Sodium 141 mmol/L (136-145)
[2022-10-19 17:01] LABS: Blood Urea Nitrogen 12 mg/dl (7-17); Creatinine Clearance Estimated 48 mL/min (50-200); Estimated Glomerular Filt Rate 98 ml/min (>60); GFR (African American) 119 ML/MIN (>60); Platelet Count 8 K/mm3 (142-424)
[2022-10-19 17:02] LABS: Anion Gap 12.6 mEq/L (5-15); Calcium 8.2 mg/dl (8.4-10.2); Carbon Dioxide 23 mmol/L (22.0-30.0); Glucose 192 mg/dl (74-100); MANUAL DIFFERENTIAL MANUAL DIFFERENTIAL (MANUAL DIFF); Magnesium 1.7 mg/dl (1.6-2.3); Phosphorous 3.8 mg/dl (2.5-4.5)
[2022-10-19 17:54] LABS: Coronavirus 19, PCR Not Detected (NotDetected); Influenza A, PCR Not Detected (NotDetected); Influenza B, PCR Not Detected (NotDetected)
[2022-10-19 19:14] LABS: Troponin I < 0.01 ng/ml (0.00-0.034)
[2022-10-19 20:21] LABS: Lymphocytes % 96 % (10-50); Neutrophils % 4 % (42-76); Total Cells Counted 25
[2022-10-19 20:23] LABS: Anisocytosis 1+; Platelet Estimate Marked Decrease
[2022-10-19 23:23] LABS: Troponin I < 0.01 ng/ml (0.00-0.034)
[2022-10-20] VITALS (26 sets, daily range): BP systolic 100–131; BP diastolic 45–68; PULSE 76–94; RESP 14–24; TEMP 36.4–37.4; O2SAT 91–100; BMI 20.9
[2022-10-20 03:37] LABS: Basophils % 0.6 % (0.1-2.0); Eosinophils % 0.1 % (0.1-12.0); Lymphocytes # 0.9 K/mm3 (0.7-4.5); Mean Corpuscular HGB Conc 33.6 g/dL (31.8-35.4); Mean Corpuscular Hemoglobin 29.7 pg (27.0-31.2); Mean Corpuscular Volume 88.5 fl (81-99); Mean Platelet Volume 9.8 fl (7.4-10.4); Monocytes % 2.3 % (1.7-9.3); Neutrophils # 0.1 K/mm3 (1.8-7.8); Red Blood Count 2.18 M/mm3 (4.20-5.40); Red Cell Distribution Width 15.4 % (11.5-17.5); White Blood Count 1.1 K/mm3 (4.8-10.8)
[2022-10-20 03:40] LABS: Neutrophils % 13.1 % (37.0-80.0)
[2022-10-20 03:41] LABS: Hemoglobin 6.5 g/dL (12.2-16.2)
[2022-10-20 03:42] LABS: Hematocrit 19.3 % (37.0-47.0); MANUAL DIFFERENTIAL MANUAL DIFFERENTIAL (MANUAL DIFF); Platelet Count 11 K/mm3 (142-424)
[2022-10-20 05:40] LABS: Lymphocytes % 100 % (10-50); Total Cells Counted 25
[2022-10-20 05:43] LABS: Anisocytosis 1+; Platelet Estimate Marked Decrease
--- NOTE | 2022-10-20 07:33 | PC.NURSE ---
Pt tolerated platelets well. No c/o voiced to staff t/o night. Call light within reach.
--- NOTE | 2022-10-20 08:42 | EXP.ACUTE.PN ---
Subjective *Date: 10/20/22 *Time: 09:03 Interval history: Patient is feeling much better today. Has stayed in NSR. Denies any pain. Slept well. Got platelets last night and getting blood now. Medical Exam Vital signs and Labs for Last 24 Hours: Vital Signs Temp Pulse Pulse Pulse Resp BP BP 10/20/22 08:00 97.5 F L 76 24 111/60 10/20/22 08:30 98.2 F 89 16 111/55 L 10/20/22 08:25 99.2 F 90 16 108/57 L 10/20/22 08:20 99.4 F 87 18 108/58 L 10/20/22 08:15 99.0 F 90 18 113/59 L 10/20/22 08:08 98.1 F 84 18 108/65 L 10/20/22 06:00 84 24 113/58 L 10/20/22 04:00 90 10/20/22 00:00 80 10/19/22 20:00 90 10/20/22 04:00 98.0 F 24 113/68 10/20/22 03:10 98.1 F 83 22 113/64 10/20/22 02:10 97.9 F 83 20 106/56 L 10/20/22 02:05 97.7 F 84 22 111/62 10/20/22 01:50 97.9 F 80 22 107/59 L 10/20/22 01:35 97.7 F 81 22 123/45 L 10/20/22 01:30 98.2 F 83 16 119/62 10/20/22 01:25 98.6 F 82 16 104/64 L 10/20/22 01:21 98.6 F 82 16 104/60 L 10/20/22 01:15 98.8 F 84 14 100/55 L 10/20/22 00:00 98.8 F 87 24 102/47 L 10/19/22 22:00 84 16 117/48 L 10/19/22 20:00 97.8 F 98 H 20 107/48 L 10/19/22 20:00 10/19/22 16:24 170 H 10/19/22 18:00 94 H 18 105/60 L 10/19/22 16:40 96 H 20 122/64 10/19/22 16:30 172 H 10/19/22 16:29 97.6 F 172 H 20 112/64 Pulse Ox 10/20/22 08:00 100 10/20/22 08:30 100 10/20/22 08:25 100 10/20/22 08:20 100 10/20/22 08:15 100 10/20/22 08:08 96 10/20/22 06:00 91 L 10/20/22 04:00 10/20/22 00:00 10/19/22 20:00 10/20/22 04:00 99 10/20/22 03:10 100 10/20/22 02:10 100 10/20/22 02:05 100 10/20/22 01:50 100 10/20/22 01:35 100 10/20/22 01:30 100 10/20/22 01:25 100 10/20/22 01:21 100 10/20/22 01:15 100 10/20/22 00:00 100 10/19/22 22:00 100 10/19/22 20:00 100 10/19/22 20:00 100 10/19/22 16:24 10/19/22 18:00 100 10/19/22 16:40 100 10/19/22 16:30 100 10/19/22 16:29 100 Intake and Output 10/19/22 10/20/22 10/20/22 19:59 03:59 11:59 Intake Total 480 / 1175 215 / 1175 480 / 1175 Output Total 0 / 300 0 / 300 300 / 300 Balance 480 / 875 215 / 875 180 / 875 Intake: Intake, Oral Amount 480 / 960 480 / 960 Intake (Blood Product) Amt 215 / 215 0 / 215 Pheresis Platelets Unit 215 / 215 [id number] Red Blood Cells Unit 0 / 0 [id number] Output: Output, Urine Amount 0 / 300 0 / 300 300 / 300 Other: Number of Unmeasured Voids 1 1 1 Weight 133 lb 3 oz 138 lb 1.6 oz Patient Weight 10/20/22 11:59 Weight 138 lb 1.6 oz Laboratory Results - last 24 hr 10/19/22 16:30: WBC 1.1 L*, RBC 2.51 L, Hgb 7.5 L, Hct 21.6 L, MCV 85.9, MCH 29.7, MCHC 34.6, RDW 15.1, Plt Count 8 L* D, MPV 8.7, Neut % (Auto) 12.1 L, Lymph % (Auto) 82.5 H, [place] % (Auto) 3.6, Eos % (Auto) 0.1, Baso % (Auto) 1.7, Neut # (Auto) 0.1 L*, Lymph # (Auto) 0.9, [place] # (Auto) 0.0 L, Eos # (Auto) 0.0, Baso # (Auto) 0.0, Total Counted 25, Neutrophils % (Manual) 4 L, Lymphocytes % (Manual) 96 H, Platelet Estimate Marked decrease, Anisocytosis 1+ 10/19/22 16:30: Sodium 141, Potassium 3.6, Chloride 109 H, Carbon Dioxide 23, Anion Gap 12.6, BUN 12, Creatinine 0.60, Estimated Creat Clear 48, Estimated GFR 98, Est GFR ( Amer) 119, Glucose 192 H, Calcium 8.2 L, Phosphorus 3.8, Magnesium 1.7 10/19/22 16:30: Troponin I < 0.01 10/19/22 16:30: SARS-CoV-2 (PCR) Not detected, Influenza A Untype (PCR) Not detected, Influenza Type B (PCR) Not detected 10/19/22 18:50: Blood Type O Positive, Antibody Screen Negative, Crossmatch (AHG) See Detail 10/19/22 22:50: Troponin I < 0.01 10/20/22 03:22: WBC 1.1 L*, RBC 2.18 L, Hgb 6.5 L*, Hct 19.3 L*, MCV 88.5, MCH 29.7, MCHC 33.6, RDW 15.4, Plt Count 11 L* D, MPV 9.8, Neut % (Auto) 13.1 L, Lymph % (Auto) 84.0 H, [place] % (Auto) 2.
--- NOTE | 2022-10-20 09:13 | EXP.CARD.CON ---
History of Present Illness History of Present Illness Consult date: 10/20/22 Requesting physician: Prosper Samayoa Chief complaint: SVT Additional Medical History:: 1. Myelodysplastic syndrome, diagnosed 2021, recurrent blood transfusions and platelet infusions 2. Ex-smoker 3. SVT, 10/19/2022 converted due to vagal maneuver after having COVID swab nasally 4. Remote history of CVA with right upper extremity discomfort and mild cognitive impairment 5. Hyperlipidemia History of present illness: Ms. Demarco is a 72-year-old female with myelodysplastic syndrome followed by Dr. Simpson who was recently discharged from after an admission for low hemoglobin and platelets.? She has been getting platelet transfusions at [facility] and was actually scheduled for one tomorrow.? She states for the past 2 weeks she has had increased lower extremity edema and, this is why she presented to the office today.? When she got to the office, she felt like her heart was racing and upon exam, she had a heart rate of 167 bpm.? She states she used to take metoprolol, but this was discontinued after her admission and discharge at .? She was therefore directly admitted for further evaluation and treatment of her tachycardia. The above per Yanet Young PA-C for Dr. Samayoa. After admission to the hospital yesterday and EKG confirming SVT, patient did have a COVID swab performed which prompted the patient to vagal down due to cough and subsequently converted her back to a sinus rhythm. She has had some intermittent palpitations over the last couple of weeks. No prior history of coronary artery disease. Patient was restarted on low-dose metoprolol last evening and has maintained sinus rhythm overnight. Hemoglobin noted to be 6.5 and patient is receiving a unit of blood this morning with platelet count of 8000 last evening for which she received a platelet transfusion up to 11,000 this morning. Patient is seen 2-3 times per week for follow-up and for transfusions as needed. Troponins this admission are normal. Echocardiogram has been performed with results pending cardiology consulted for evaluation [facility] Disclaimer: The information contained in this section may have been updated after the patient was seen, as this information can be updated by other users. Medical History Ankle sprain and strain COPD (chronic obstructive pulmonary disease) Degenerative disc disease History of CVA (cerebrovascular accident) History of palpitations Hyperlipidemia Hypertensive disorder Myelodysplastic syndrome Raynauds disease Surgical History History of carpal tunnel release History of cholecystectomy History of colonoscopy History of laparoscopy Family History No significant family history Social History (Updated 10/19/22 @ 18:11 by Uma Beck RN) Smoking Status: Current every day smoker tobacco type: cigarettes packs per day: 1 alcohol intake: current substance use type: denies use current occupational status: employed Travel in the last 8 weeks: None caffeine: Yes Review of Systems Constitutional Constitutional: Denies headache(s) and Denies weakness ENT Ears, Nose, Mouth, and Throat: Denies headache(s) and Denies vertigo *Neurologic Neurologic: Denies headache(s), Denies vertigo and Denies weakness Exam Data for Last 24 hours Vital signs and Labs for Last 24 Hours: Temp Pulse Resp BP Pulse Ox 98.2 F 89 16 111/55 L 100 10/20/22 08:30 10/20/22 08:30 10/20/22 08:30 10/20/22 08:30 10/20/22 08:30 Laboratory Results - last 24 hr 10/19/22 16:30: WBC 1.1 L*, RBC 2.51 L, Hgb 7.5 L, Hct 21.6 L, MCV 85.9, MCH 29.7, MCHC 34.6, RDW 15.1, Plt Count 8 L* D, MPV 8.7, Neut % (Auto) 12.1 L, Lymph % (Auto) 82.5 H, [place] % (Auto) 3.6, Eos % (Auto) 0.1, Baso % (Auto
--- NOTE | 2022-10-20 09:48 | ECG_ITS ---
APPROVED REPORT Exam: Resting ECG HR:87 bpm ECG Measurements Heart Rate 87 AXES [place] 135 P 46 QRSd 86 QRS 65 QT 366 T 68 QTc 411 Conclusion SINUS RHYTHM NORMAL ECG UNCONFIRMED REPORT Electronically signed by : Taco Earl MD 10/20/2022 20:54:12
[2022-10-20 12:00] LABS: Hematocrit 24.3 % (37.0-47.0)
[2022-10-20 12:28] LABS: Hemoglobin 8.5 g/dL (12.2-16.2)
[2022-10-20 12:53] LABS: Platelet Count 9 K/mm3 (142-424)
--- NOTE | 2022-10-20 18:16 | CA_ITS ---
APPROVED REPORT EXAM: Comprehensive 2D, Doppler, and color-flow Echocardiogram Director Of Development: Lor Choi CRT Ht: 5 ft 8 in Wt: 133lbs BSA: 1.72 BP: 113/68 mmHg Indications: Chest Pain, Palpitations, Hyperlipidemia, anemia, myelodysplastic syndrome, smoker, covid 2020, cva 2D Dimensions LVOT 1.93 cm (M/F) 1.5-2.5 LA Volume 27.40 mL LA Volume Index 15.60 mL/m2 (M/F) 16-34 M-Mode Dimensions RVDd 2.48 cm (0.9-2.6) LA Diam 2.77 cm (1.9-4.0) LVDd 3.65 cm (3.5-5.7) Ao Diam 3.72 cm (2.0-3.7) LVDs 2.21 cm (3.5-5.7) IVSd 1.51 cm (0.6-1.1) PWd 1.21 cm (0.6-1.1) EF (Teich) 70.90% FS 39.50% EDV (Teich) 56.30 mL TAPSE 2.29 (<1.7) ESV (Teich) 16.40 mL LV Diastology E Decel Time 150.00 (160-240 msec) E/A Ratio 1.14 MED E' 9.30 (< 7 cm/sec) MED A' 12.70 cm/s E'/MED E' Ratio 9.05 (>14) LAT E' 14.00 (<10 cm/sec) LAT A' 18.00 cm/s E/LAT E' Ratio 6.01 (>14) Aortic Valve AO Peak GR. 5.90 mmHg Mitral Valve MV E Max Young. 84.00 (40-130 cm/s) MV A Velocity 74.00 (40-130 cm/s) E/A Ratio 1.14 MV Decel. Time 150.00 (160-240 ms) MV PHT 44.00 ms Pulmonary Valve PV Peak Velocity 148.00 (50-150 cm/s) Tricuspid Valve TR P. Velocity 249.00 cm/s RAP Estimate 10.00 mmHg RVSP 34.80 mmHg Left Ventricle Left atrium normal size left ventricle is normal size, estimated ejection fraction 55% with no regional wall motion abnormality, diastolic parameters are within normal range. Right Ventricle Right atrium and right ventricle are normal size and contractility. Aortic Valve Aortic valve is minimally thickened and fibrosed there is no aortic stenosis aortic insufficiency. Mitral Valve Mitral valve is grossly normal, there is trace mitral regurgitation. Tricuspid Valve Tricuspid grossly normal, there is trace tricuspid regurgitation, tricuspid regurgitation jet velocity is inadequate for calculation of the right ventricular systolic pressure. Pulmonic Valve Pulmonic valve is poorly visualized. Great Vessels Aortic root is normal size. Inferior vena cava is poorly visualized. Pericardium No significant pericardial effusion noted. Conclusion 1. Normal left ventricular size, estimated ejection fraction 55% with no regional wall motion abnormality, diastolic parameters are within normal range. 2. Trace mitral and tricuspid regurgitation. 3. No significant pericardial failure. 4. Inferior vena cava is poorly visualized. Electronically signed by : Fabrice Metzger MD 10/20/2022 16:05:46
--- NOTE | 2022-10-23 13:41 | CARE MANAGER ---
Spoke with patient who states she feels better, but just wants to know why her feet are swelling. Patient states cardiology saw her while in the hospital, but she didn't have a follow up appointment with them. Spoke with respiratory they didn't have order for holter monitor, so I left message for ELIE Saleem regarding this. Transferred patient to cardiology so she could make follow up appointment. CHUN Lopez
--- NOTE | 2022-10-23 15:20 | EXP.DC.SUM ---
General Admission date:: 10/19/22 Discharge date: 10/20/22 HPI HPI HPI: Ms. Demarco is a 72-year-old female with myelodysplastic syndrome followed by Dr. Simpson who was recently discharged from after an admission for low hemoglobin and platelets. She has been getting platelet transfusions at [facility] and was actually scheduled for one tomorrow. She states for the past 2 weeks she has had increased lower extremity edema and, this is why she presented to the office today. When she got to the office, she felt like her heart was racing and upon exam, she had a heart rate of 167 bpm. She states she used to take metoprolol, but this was discontinued after her admission and discharge at . She was therefore directly admitted for further evaluation and treatment of her tachycardia. Hospital Course Hospital Course Hospital Course: On admission EKG showed SVT with a rate of 170 which converted to sinus rhythm with a rate of 90 after a vagal maneuver. She was seen by cardiology with the following plan: Plan 1.? SVT converted to sinus rhythm after vagal maneuver.? Resume and continue low-dose metoprolol as blood pressure allows.? Echocardiogram pending.? Last thyroid panel was in 2018.? We will repeat prior to discharge.? Recommend 48-hour Holter monitor at discharge.? Follow-up in our office in 2 weeks.? Consider referral to electrophysiology for SVT ablation if medical therapy unable to control. 2.? Hypertension, controlled 3.? Hyperlipidemia continue lovastatin 4.? MDS with pancytopenia, followed by Dr. Simpson Clinically stable for discharge home from cardiology standpoint. 48-hour Holter monitor discharge Follow-up in our office in 2 weeks Home medication recommendations Metoprolol tartrate 25 mg twice daily if blood pressure allows or 1/2 tablet twice daily Pravastatin 40 mg daily Aspirin 81 mg daily The following day patient did feel much better. She has stayed in normal sinus rhythm. She denied any pain. She received both platelets and blood After which Hemoglobin improved from 6.5 to 8.5 with hematocrit of 24.3. Platelet count remained low at 11 and then the following day was 9. On 10/20/2022 after infusion of packed red blood cells patient was discharged home.She was to follow-up with Dr. Samayoa on 10/26/2022. Exam Data for Last 24 hours Vital signs and Labs for Last 24 Hours: Temp Pulse Resp BP Pulse Ox 97.7 F 94 H 18 103/60 L 97 10/20/22 12:00 10/20/22 12:00 10/20/22 12:00 10/20/22 12:00 10/20/22 12:00 I & O for Last 24 hours: Intake & Output 10/21/22 10/22/22 10/23/22 10/24/22 11:59 11:59 11:59 11:59 Intake Total 600 / 600 Output Total 800 / 800 Balance -200 / -200 Weight 138 lb 1.561 oz Narrative: Medical Exam Vital signs and Labs for Last 24 Hours: Vital Signs ? Temp Pulse Pulse Pulse Resp BP BP ?10/20/22 08:00 ?97.5 F L ? ?76 ? ?24 ? ?111/60 ?10/20/22 08:30 ?98.2 F ?89 ? ? ?16 ?111/55 L ? ?10/20/22 08:25 ?99.2 F ?90 ? ? ?16 ?108/57 L ? ?10/20/22 08:20 ?99.4 F ?87 ? ? ?18 ?108/58 L ? ?10/20/22 08:15 ?99.0 F ?90 ? ? ?18 ?113/59 L ? ?10/20/22 08:08 ?98.1 F ?84 ? ? ?18 ?108/65 L ? ?10/20/22 06:00 ? ? ?84 ? ?24 ? ?113/58 L ?10/20/22 04:00 ? ?90 ?10/20/22 00:00 ? ?80 ?10/19/22 20:00 ? ?90 ?10/20/22 04:00 ?98.0 F ?24 ? ?113/68 ?10/20/22 03:10 ?98.1 F ?83 ? ? ?22 ?113/64 ? ?10/20/22 02:10 ?97.9 F ?83 ? ? ?20 ?106/56 L ? ?10/20/22 02:05 ?97.7 F ?84 ? ? ?22 ?111/62 ? ?10/20/22 01:50 ?97.9 F ?80 ? ? ?22 ?107/59 L ? ?02/03/23 01:35 ?97.7 F ?81 ? ? ?22 ?123/45 L ? ?10/20/22 01:30 ?98.2 F ?83 ? ? ?16 ?119/62 ? ?10/20/22 01:25 ?98.6 F ?82 ? ? ?16 ?104/64 L ? ?10/20/22 01:21 ?98.6 F ?82 ? ? ?16 ?104/60 L ? ?10/20/22 01:15 ?98.8 F ?84 ? ? ?14 ?100/55 L ? ?10/20/22 00:00 ?98.8 F ? ?87 ? ?24 ? ?102/47 L ?10/19/22 22:00 ? ? ?84 ? ?16 ? ?117/48 L ?10/19/22 20:00 ?97.8 F ? ?98 H ? ?20 ? ?107/48 L ?10/19/22 20:00 ?10/19/22 16:24 ? ?170
== END 2022-10-20 16:11 | disposition home or self-care (01) ==
PROVIDERS: Admitting Provider Family Medicine; PCP Family Medicine; Visit Provider Family Medicine
DX: I47.1 Supraventricular tachycardia; D46.9 Myelodysplastic syndrome, unspecified; E78.2 Mixed hyperlipidemia; I10 Essential (primary) hypertension; F17.210 Nicotine dependence, cigarettes, uncomplicated; Z79.899 Other long term (current) drug therapy; I69.351 Hemiplegia and hemiparesis following cerebral infarction affecting right dominant side; I69.319 Unspecified symptoms and signs involving cognitive functions following cerebral infarction
CPT/HCPCS: G0378; 36430; 80048; 80053; 83735; 84100; 84484; 85007; 85014; 85018; 85025; 85049; 86850; 86900; 86901; 93005; 93306; C9803; P9016; P9034; U0003; U0005

== ENCOUNTER 2022-10-23 08:58 | Outpatient (CLI) | payer MEDICARE, SELFPAY ==
[2022-10-23] VITALS (7 sets, daily range): BP systolic 110–151; BP diastolic 42–76; PULSE 85–93; RESP 18–20; TEMP 36.2–36.4; O2SAT 97
--- NOTE | 2022-10-23 09:17 | PC.NURSE ---
picc line accessed and blood drawn for labs as ordered per md, specimen sent to lab for analysis. will await results of labs to determine poc.
[2022-10-23 09:20] LABS: Basophils % 0.6 % (0.1-2.0); Eosinophils % 0.3 % (0.1-12.0); Hematocrit 22.4 % (37.0-47.0); Hemoglobin 7.6 g/dL (12.2-16.2); Lymphocytes # 0.9 K/mm3 (0.7-4.5); Lymphocytes % 83.2 % (10-50); Mean Corpuscular Hemoglobin 30.1 pg (27.0-31.2); Mean Corpuscular Volume 88.6 fl (81-99); Mean Platelet Volume 7.6 fl (7.4-10.4); Monocytes % 2.6 % (1.7-9.3); Neutrophils # 0.2 K/mm3 (1.8-7.8); Neutrophils % 13.3 % (37.0-80.0); Red Blood Count 2.52 M/mm3 (4.20-5.40); Red Cell Distribution Width 15.3 % (11.5-17.5); White Blood Count 1.1 K/mm3 (4.8-10.8)
[2022-10-23 09:21] LABS: Platelet Count 4 K/mm3 (142-424)
[2022-10-23 09:22] LABS: MANUAL DIFFERENTIAL MANUAL DIFFERENTIAL (MANUAL DIFF)
--- NOTE | 2022-10-23 09:27 | PC.NURSE ---
Susana Frances called RN at 1150 to report platelet level of 4. RN repeated and verified pt name, and lab value. Result called to Dr. Simpson and no new orders noted. Pt has standing order to transfuse platelets.
[2022-10-23 09:28] LABS: Chloride 110 mmol/L (98-107); Sodium 141 mmol/L (136-145)
[2022-10-23 09:29] LABS: Potassium 3.9 mmoL/L (3.5-5.1)
[2022-10-23 09:31] LABS: Alanine Aminotransferase 13 U/L (12-78); Albumin Level 3.5 g/dl (3.5-5.0); Albumin/Globulin Ratio 1.1 (1.1-1.8); Alkaline Phosphatase 52 U/L (38-126); Anion Gap 10.9 mEq/L (5-15); Aspartate Amino Transferase 17 U/L (14-36); Bilirubin,Total 1.3 mg/dl (0.2-1.3); Blood Urea Nitrogen 12 mg/dl (7-17); Carbon Dioxide 24 mmol/L (22.0-30.0); Creatinine Clearance Estimated 48 mL/min (50-200); Estimated Glomerular Filt Rate 98 ml/min (>60); GFR (African American) 119 ML/MIN (>60); Globulin 3.1 g/dL (1.3-3.2); Total Protein,Serum 6.6 g/dl (6.3-8.2)
[2022-10-23 09:32] LABS: Calcium 8.2 mg/dl (8.4-10.2); Glucose 108 mg/dl (74-100)
--- NOTE | 2022-10-23 09:36 | PC.NURSE ---
lab staff here to witness blood draw for type and crossmatch from pts picc for platelet transfusion. pt ok to d/c at this time and will call pt to return once platelets are ready for transfusion. platelets have to be delivered from [facility] in [place].
[2022-10-23 09:55] LABS: Lymphocytes % 92 % (10-50); Neutrophils % 8 % (42-76); Platelet Estimate Marked Decrease; RBC Morphology Normal; Total Cells Counted 25
== END 2022-10-23 15:15 | disposition home or self-care (01) ==
LOC: INF 08:59
PROVIDERS: PCP Family Medicine; Visit Provider Internal Medicine Medical Oncology
DX: Z45.2 Encounter for adjustment and management of vascular access device (principal); D46.9 Myelodysplastic syndrome, unspecified; I47.1 Supraventricular tachycardia
CPT/HCPCS: 36430; 80053; 85007; 85025; 86900; 86901; 93225; P9034

== ENCOUNTER 2022-10-25 09:19 | Outpatient (CLI) | payer MEDICARE, SELFPAY ==
[2022-10-25 09:40] LABS: Basophils % 0.8 % (0.1-2.0); Eosinophils % 0.1 % (0.1-12.0); Hemoglobin 7.2 g/dL (12.2-16.2); Mean Corpuscular HGB Conc 34.7 g/dL (31.8-35.4); Mean Corpuscular Hemoglobin 30.9 pg (27.0-31.2); Mean Corpuscular Volume 88.9 fl (81-99); Mean Platelet Volume 12.6 fl (7.4-10.4); Monocytes % 2.7 % (1.7-9.3); Neutrophils # 0.1 K/mm3 (1.8-7.8); Red Blood Count 2.33 M/mm3 (4.20-5.40); Red Cell Distribution Width 15.6 % (11.5-17.5); White Blood Count 1.2 K/mm3 (4.8-10.8)
[2022-10-25 09:45] LABS: Neutrophils % 11.4 % (37.0-80.0)
--- NOTE | 2022-10-25 09:45 | PC.NURSE ---
0945-Susana Ellington called rn at 0945 to report plt level 15 and hct 20.7. RN repeated and verified pt namen, , and lab value. Result called to and no new orders today; Follow standing orders.
[2022-10-25 09:46] LABS: Hematocrit 20.7 % (37.0-47.0); Platelet Count 15 K/mm3 (142-424)
[2022-10-25 09:47] LABS: MANUAL DIFFERENTIAL MANUAL DIFFERENTIAL (MANUAL DIFF)
[2022-10-25 09:48] LABS: Alanine Aminotransferase 11 U/L (12-78); Albumin Level 3.6 g/dl (3.5-5.0); Albumin/Globulin Ratio 1.2 (1.1-1.8); Alkaline Phosphatase 55 U/L (38-126); Anion Gap 9.8 mEq/L (5-15); Aspartate Amino Transferase 17 U/L (14-36); Bilirubin,Total 1.1 mg/dl (0.2-1.3); Blood Urea Nitrogen 8 mg/dl (7-17); Calcium 8.2 mg/dl (8.4-10.2); Carbon Dioxide 25 mmol/L (22.0-30.0); Chloride 109 mmol/L (98-107); Creatinine Clearance Estimated 48 mL/min (50-200); Estimated Glomerular Filt Rate 98 ml/min (>60); GFR (African American) 119 ML/MIN (>60); Glucose 99 mg/dl (74-100); Potassium 3.8 mmoL/L (3.5-5.1); Sodium 140 mmol/L (136-145); Total Protein,Serum 6.6 g/dl (6.3-8.2)
--- NOTE | 2022-10-25 10:29 | PC.NURSE ---
jose mckeon from lab called critical lab results to this RN at 0945. Plt 15, Hct 20.7. labs, name and verified and read back. Pt has standing orders to infuse blood products prn. pt does not meet criteria at this time. MD Calvin notified and no new orders.
[2022-10-25 11:22] LABS: Lymphocytes % 76 % (10-50); Monocytes % 4 % (2-9); Neutrophils % 16 % (42-76); RBC Morphology Normal; Total Cells Counted 25
[2022-10-25 11:23] LABS: Platelet Estimate Marked Decrease
== END 2022-10-25 09:48 | disposition home or self-care (01) ==
LOC: INF 09:20
PROVIDERS: PCP Family Medicine; Visit Provider Internal Medicine Medical Oncology
DX: D46.9 Myelodysplastic syndrome, unspecified (principal)
CPT/HCPCS: 36592; 80053; 85007; 85025

== ENCOUNTER → 2022-10-26 11:16 | Outpatient (CLI) | payer MEDICARE, SELFPAY ==
--- NOTE | 2022-10-26 11:21 | XR_ITS ---
FINAL REPORT CLINICAL HISTORY: FAST HEART RYTHEM,SWELLING FEET,? FLUID ON HEART COMPARISON: 10/02/2022 FINDINGS: 2 views of the chest were obtained . The heart is normal in size. There is a right PICC with the tip in the SVC. The mediastinum is within normal limits. Abnormal opacity seen in the left upper lobe has improved. There is left upper lobe consolidation. There are mild chronic changes at the lung bases. There is no pneumothorax. Osseous structures are unremarkable. IMPRESSION: Interval improvement of left upper lobe opacity likely due to resolving pneumonia. Recommend follow-up. Reviewed, Interpreted and Dictated by Harrison Burton MD Transcribed by Liz Hoang Authenticated and [facility]
== END ==
PROVIDERS: PCP Family Medicine; Visit Provider Internal Medicine Medical Oncology
DX: D46.9 Myelodysplastic syndrome, unspecified (principal)
CPT/HCPCS: 71046

== ENCOUNTER 2022-10-27 09:23 | Outpatient (CLI) | payer MEDICARE, SELFPAY ==
[2022-10-27] VITALS (10 sets, daily range): BP systolic 108–131; BP diastolic 56–75; PULSE 73–80; RESP 18; TEMP 36.3–36.6; O2SAT 95–96; BMI 20.1
[2022-10-27 09:51] LABS: Basophils % 0.5 % (0.1-2.0); Eosinophils % 0.5 % (0.1-12.0); Hematocrit 21.5 % (37.0-47.0); Hemoglobin 7.3 g/dL (12.2-16.2); Lymphocytes # 1.1 K/mm3 (0.7-4.5); Lymphocytes % 78.9 % (10-50); Mean Corpuscular HGB Conc 33.9 g/dL (31.8-35.4); Mean Corpuscular Volume 88.5 fl (81-99); Mean Platelet Volume 12.5 fl (7.4-10.4); Monocytes # 0.1 K/mm3 (0.1-1.0); Monocytes % 4.7 % (1.7-9.3); Neutrophils # 0.2 K/mm3 (1.8-7.8); Neutrophils % 15.4 % (37.0-80.0); Red Blood Count 2.43 M/mm3 (4.20-5.40); Red Cell Distribution Width 15.9 % (11.5-17.5); White Blood Count 1.3 K/mm3 (4.8-10.8)
[2022-10-27 09:52] LABS: Platelet Count 27 K/mm3 (142-424)
[2022-10-27 09:54] LABS: MANUAL DIFFERENTIAL MANUAL DIFFERENTIAL (MANUAL DIFF)
[2022-10-27 09:58] LABS: Alanine Aminotransferase 11 U/L (12-78); Albumin Level 3.6 g/dl (3.5-5.0); Albumin/Globulin Ratio 1.1 (1.1-1.8); Alkaline Phosphatase 60 U/L (38-126); Aspartate Amino Transferase 17 U/L (14-36); Bilirubin,Total 1.4 mg/dl (0.2-1.3); Blood Urea Nitrogen 9 mg/dl (7-17); Calcium 8.5 mg/dl (8.4-10.2); Carbon Dioxide 25 mmol/L (22.0-30.0); Chloride 110 mmol/L (98-107); Creatinine Clearance Estimated 48 mL/min (50-200); Estimated Glomerular Filt Rate 98 ml/min (>60); GFR (African American) 119 ML/MIN (>60); Globulin 3.2 g/dL (1.3-3.2); Glucose 92 mg/dl (74-100); Sodium 141 mmol/L (136-145); Total Protein,Serum 6.8 g/dl (6.3-8.2)
[2022-10-27 10:02] LABS: Anion Gap 9.8 mEq/L (5-15); Potassium 3.8 mmoL/L (3.5-5.1)
[2022-10-27 10:10] LABS: Lymphocytes % 84 % (10-50); Monocytes % 16 % (2-9); Total Cells Counted 25
[2022-10-27 10:11] LABS: Anisocytosis 1+; Ovalocytes 1+; Platelet Estimate Marked Decrease
--- NOTE | 2022-10-27 10:37 | PC.NURSE ---
Susana mckeon from lab called critical lab results at 0952 to this RN. Plt of 27. pt has standing orders to infuse platelets for level <10. pt does not meet criteria at this time. MD Calvin notified, no new orders at this time.
== END 2022-10-27 13:50 | disposition home or self-care (01) ==
LOC: INF 09:26
PROVIDERS: PCP Family Medicine; Visit Provider Internal Medicine Medical Oncology
DX: D46.9 Myelodysplastic syndrome, unspecified (principal); Z45.2 Encounter for adjustment and management of vascular access device
CPT/HCPCS: 36430; 80053; 85007; 85025; 86850; P9016

== ENCOUNTER 2022-10-30 08:48 | Outpatient (CLI) | payer MEDICARE, SELFPAY ==
[2022-10-30 09:34] LABS: Alanine Aminotransferase 11 U/L (12-78); Albumin Level 3.5 g/dl (3.5-5.0); Albumin/Globulin Ratio 1.2 (1.1-1.8); Alkaline Phosphatase 55 U/L (38-126); Anion Gap 8.7 mEq/L (5-15); Aspartate Amino Transferase 16 U/L (14-36); Bilirubin,Total 1.1 mg/dl (0.2-1.3); Blood Urea Nitrogen 7 mg/dl (7-17); Calcium 8.3 mg/dl (8.4-10.2); Carbon Dioxide 26 mmol/L (22.0-30.0); Chloride 109 mmol/L (98-107); Creatinine Clearance Estimated 48 mL/min (50-200); Estimated Glomerular Filt Rate 98 ml/min (>60); GFR (African American) 119 ML/MIN (>60); Glucose 109 mg/dl (74-100); Potassium 3.7 mmoL/L (3.5-5.1); Sodium 140 mmol/L (136-145); Total Protein,Serum 6.5 g/dl (6.3-8.2)
[2022-10-30 09:37] LABS: Basophils % 0.7 % (0.1-2.0); Eosinophils % 0.3 % (0.1-12.0); Hematocrit 24.9 % (37.0-47.0); Hemoglobin 8.4 g/dL (12.2-16.2); Lymphocytes # 0.9 K/mm3 (0.7-4.5); Lymphocytes % 80.9 % (10-50); Mean Corpuscular HGB Conc 33.8 g/dL (31.8-35.4); Mean Corpuscular Hemoglobin 29.9 pg (27.0-31.2); Mean Corpuscular Volume 88.3 fl (81-99); Mean Platelet Volume 11.8 fl (7.4-10.4); Monocytes # 0.1 K/mm3 (0.1-1.0); Monocytes % 4.6 % (1.7-9.3); Neutrophils # 0.2 K/mm3 (1.8-7.8); Red Blood Count 2.82 M/mm3 (4.20-5.40); Red Cell Distribution Width 15.7 % (11.5-17.5); White Blood Count 1.1 K/mm3 (4.8-10.8)
[2022-10-30 09:39] LABS: Platelet Count 37 K/mm3 (142-424)
[2022-10-30 09:41] LABS: MANUAL DIFFERENTIAL MANUAL DIFFERENTIAL (MANUAL DIFF)
[2022-10-30 09:44] VITALS: BP 103/67; PULSE 88; RESP 18; TEMP 36.3; O2SAT 96
--- NOTE | 2022-10-30 10:02 | PC.NURSE ---
Yaritza Whittington called RN at 0938 to report platelet count 37. RN repeated and verified pt name, , and lab value. Result called to Dr. Simpson, no new orders noted.
[2022-10-30 10:13] VITALS: BP 116/62; PULSE 81; RESP 18; O2SAT 97
[2022-10-30 10:28] LABS: Eosinophils % 4 % (0-3); Lymphocytes % 76 % (10-50); Monocytes % 8 % (2-9); Neutrophils % 12 % (42-76); Platelet Estimate Marked Decrease; RBC Morphology Normal; Total Cells Counted 25
[2022-10-30 10:31] LABS: Neutrophils % 13.6 % (37.0-80.0)
[2022-10-30 10:43] VITALS: BP 113/70; PULSE 80; RESP 18; O2SAT 97
[2022-10-30 11:20] VITALS: BP 111/61; PULSE 80; RESP 18; O2SAT 98
== END 2022-10-30 11:26 | disposition home or self-care (01) ==
LOC: INF 08:49
PROVIDERS: PCP Family Medicine; Visit Provider Internal Medicine Medical Oncology
DX: D46.9 Myelodysplastic syndrome, unspecified (principal)
CPT/HCPCS: 80053; 85007; 85025; 96413; J0894

== ENCOUNTER 2022-10-31 09:11 | Outpatient (CLI) | payer MEDICARE, SELFPAY ==
[2022-10-31 09:18] VITALS: BP 103/55; PULSE 95; RESP 18; TEMP 36.2; O2SAT 97
[2022-10-31 09:48] VITALS: BP 104/66; PULSE 86; RESP 18; O2SAT 97
[2022-10-31 10:18] VITALS: BP 122/67; PULSE 81; RESP 18; O2SAT 98
[2022-10-31 11:06] VITALS: BP 122/67; PULSE 81; RESP 18; O2SAT 97
== END 2022-10-31 11:05 | disposition home or self-care (01) ==
LOC: INF 09:12
PROVIDERS: PCP Family Medicine; Visit Provider Internal Medicine Medical Oncology
DX: D46.9 Myelodysplastic syndrome, unspecified (principal)
CPT/HCPCS: 96413; J0894

== ENCOUNTER 2022-11-01 09:19 | Outpatient (CLI) | payer MEDICARE, SELFPAY ==
[2022-11-01 09:37] LABS: Basophils % 0.5 % (0.1-2.0); Hematocrit 24.1 % (37.0-47.0); Hemoglobin 8.1 g/dL (12.2-16.2); Lymphocytes # 0.8 K/mm3 (0.7-4.5); Lymphocytes % 79.8 % (10-50); Mean Corpuscular HGB Conc 33.4 g/dL (31.8-35.4); Mean Corpuscular Hemoglobin 29.5 pg (27.0-31.2); Mean Corpuscular Volume 88.3 fl (81-99); Mean Platelet Volume 11.7 fl (7.4-10.4); Monocytes % 3.6 % (1.7-9.3); Neutrophils # 0.2 K/mm3 (1.8-7.8); Neutrophils % 16.1 % (37.0-80.0); Red Blood Count 2.73 M/mm3 (4.20-5.40); Red Cell Distribution Width 15.9 % (11.5-17.5)
[2022-11-01 09:39] LABS: Chloride 111 mmol/L (98-107); Platelet Count 27 K/mm3 (142-424); Potassium 3.6 mmoL/L (3.5-5.1); Sodium 140 mmol/L (136-145)
[2022-11-01 09:40] LABS: MANUAL DIFFERENTIAL MANUAL DIFFERENTIAL (MANUAL DIFF)
[2022-11-01 09:42] LABS: Alanine Aminotransferase 9 U/L (12-78); Albumin Level 3.4 g/dl (3.5-5.0); Albumin/Globulin Ratio 1.1 (1.1-1.8); Alkaline Phosphatase 56 U/L (38-126); Anion Gap 8.6 mEq/L (5-15); Aspartate Amino Transferase 15 U/L (14-36); Bilirubin,Total 1.2 mg/dl (0.2-1.3); Blood Urea Nitrogen 12 mg/dl (7-17); Carbon Dioxide 24 mmol/L (22.0-30.0); Creatinine Clearance Estimated 48 mL/min (50-200); Estimated Glomerular Filt Rate 82 ml/min (>60); GFR (African American) 100 ML/MIN (>60); Globulin 3.1 g/dL (1.3-3.2); Glucose 116 mg/dl (74-100); Total Protein,Serum 6.5 g/dl (6.3-8.2)
--- NOTE | 2022-11-01 10:11 | PC.NURSE ---
Yaritza Chicas from lab called critical lab results of plt 27, WBC 1.0 at 0938. Lab results, name and read back and verified. Pt has standing orders for transfusions. pt does not meet criteria at this time. MD Calvin notified, no new orders.
[2022-11-01 10:28] LABS: Lymphocytes % 88 % (10-50); Neutrophils % 12 % (42-76); Platelet Estimate Marked Decrease; RBC Morphology Normal; Total Cells Counted 25
[2022-11-01 10:30] VITALS: BP 97/55; PULSE 68; RESP 18; TEMP 36.3; O2SAT 99
[2022-11-01 11:00] VITALS: BP 110/62; PULSE 76; RESP 18; O2SAT 99
[2022-11-01 11:30] VITALS: BP 111/56; PULSE 72; RESP 18; O2SAT 99
[2022-11-01 11:45] VITALS: BP 102/56; PULSE 70; O2SAT 99
== END 2022-11-01 11:45 | disposition home or self-care (01) ==
LOC: INF 09:20
PROVIDERS: PCP Family Medicine; Visit Provider Internal Medicine Medical Oncology
DX: D46.9 Myelodysplastic syndrome, unspecified (principal)
CPT/HCPCS: 80053; 85007; 85025; 96413; J0894

== ENCOUNTER 2022-11-02 08:58 | Outpatient (CLI) | payer MEDICARE, SELFPAY ==
[2022-11-02 09:37] VITALS: BP 106/69; PULSE 89; RESP 18; O2SAT 95
[2022-11-02 10:00] VITALS: BP 106/60; PULSE 86; RESP 18
[2022-11-02 10:49] VITALS: BP 108/59; PULSE 85; RESP 18
== END 2022-11-02 10:49 | disposition home or self-care (01) ==
LOC: INF 09:00
PROVIDERS: PCP Family Medicine; Visit Provider Internal Medicine Medical Oncology
DX: D46.9 Myelodysplastic syndrome, unspecified (principal)
CPT/HCPCS: 96413; J0894

== ENCOUNTER 2022-11-03 09:01 | Outpatient (CLI) | payer MEDICARE, SELFPAY ==
[2022-11-03] VITALS (13 sets, daily range): BP systolic 95–121; BP diastolic 42–68; PULSE 74–85; RESP 18; TEMP 36.4–36.6; O2SAT 98–99
[2022-11-03 09:20] LABS: Basophils % 0.4 % (0.1-2.0); Eosinophils % 1.2 % (0.1-12.0); Hematocrit 22.6 % (37.0-47.0); Hemoglobin 7.5 g/dL (12.2-16.2); Lymphocytes # 0.7 K/mm3 (0.7-4.5); Mean Corpuscular HGB Conc 33.3 g/dL (31.8-35.4); Mean Corpuscular Hemoglobin 29.1 pg (27.0-31.2); Mean Corpuscular Volume 87.4 fl (81-99); Mean Platelet Volume 12.3 fl (7.4-10.4); Monocytes % 2.8 % (1.7-9.3); Neutrophils # 0.1 K/mm3 (1.8-7.8); Neutrophils % 16.7 % (37.0-80.0); Red Blood Count 2.59 M/mm3 (4.20-5.40); Red Cell Distribution Width 15.8 % (11.5-17.5)
[2022-11-03 09:24] LABS: Chloride 111 mmol/L (98-107); Potassium 3.9 mmoL/L (3.5-5.1); Sodium 140 mmol/L (136-145)
[2022-11-03 09:26] LABS: Alanine Aminotransferase 11 U/L (12-78); Aspartate Amino Transferase 15 U/L (14-36); Blood Urea Nitrogen 12 mg/dl (7-17); Creatinine Clearance Estimated 48 mL/min (50-200); Estimated Glomerular Filt Rate 98 ml/min (>60); GFR (African American) 119 ML/MIN (>60)
[2022-11-03 09:27] LABS: Albumin Level 3.4 g/dl (3.5-5.0); Albumin/Globulin Ratio 1.1 (1.1-1.8); Alkaline Phosphatase 56 U/L (38-126); Anion Gap 7.9 mEq/L (5-15); Bilirubin,Total 1.1 mg/dl (0.2-1.3); Calcium 7.9 mg/dl (8.4-10.2); Carbon Dioxide 25 mmol/L (22.0-30.0); Globulin 3.2 g/dL (1.3-3.2); Glucose 92 mg/dl (74-100); Total Protein,Serum 6.6 g/dl (6.3-8.2)
[2022-11-03 09:29] LABS: Platelet Count 35 K/mm3 (142-424); White Blood Count 0.8 K/mm3 (4.8-10.8)
[2022-11-03 09:31] LABS: MANUAL DIFFERENTIAL MANUAL DIFFERENTIAL (MANUAL DIFF)
[2022-11-03 09:48] LABS: Eosinophils % 4 % (0-3); Lymphocytes % 84 % (10-50); Monocytes % 4 % (2-9); Neutrophils % 8 % (42-76); Platelet Estimate Marked Decrease; Total Cells Counted 25
[2022-11-03 09:49] LABS: RBC Morphology Normal
--- NOTE | 2022-11-03 14:46 | PC.NURSE ---
at 0928, yamil nava from lab called critical lab results of WBC 0.8, plt 35. lab results, name and read back and verified. pt has standing orders to transfuse blood products. pt will recieve 1 unit PRBC per MD orders. MD Calvin notified and no new orders.
== END 2022-11-03 14:31 | disposition home or self-care (01) ==
LOC: INF 09:03
PROVIDERS: PCP Family Medicine; Visit Provider Internal Medicine Medical Oncology
DX: D46.9 Myelodysplastic syndrome, unspecified (principal)
CPT/HCPCS: 36430; 80053; 85007; 85025; 86850; 96413; J0894; P9016

== ENCOUNTER 2022-11-06 09:00 | Outpatient (CLI) | payer MEDICARE, SELFPAY ==
--- NOTE | 2022-11-06 09:10 | PC.NURSE ---
0910-yamil bateman called rn at 0910 to report wbc 0.5 and platelet count 25. Rn repeated and verified pt name, , and lab value. Result called to and no new orders received at this time.
[2022-11-06 09:24] LABS: Chloride 111 mmol/L (98-107); Potassium 3.9 mmoL/L (3.5-5.1); Sodium 139 mmol/L (136-145)
[2022-11-06 09:27] LABS: Alanine Aminotransferase 10 U/L (12-78); Albumin Level 3.4 g/dl (3.5-5.0); Albumin/Globulin Ratio 1.1 (1.1-1.8); Alkaline Phosphatase 60 U/L (38-126); Anion Gap 7.9 mEq/L (5-15); Aspartate Amino Transferase 16 U/L (14-36); Bilirubin,Total 1.1 mg/dl (0.2-1.3); Blood Urea Nitrogen 13 mg/dl (7-17); Carbon Dioxide 24 mmol/L (22.0-30.0); Creatinine Clearance Estimated 48 mL/min (50-200); Estimated Glomerular Filt Rate 98 ml/min (>60); GFR (African American) 119 ML/MIN (>60); Globulin 3.1 g/dL (1.3-3.2); Total Protein,Serum 6.5 g/dl (6.3-8.2)
[2022-11-06 09:28] LABS: Glucose 98 mg/dl (74-100)
[2022-11-06 09:35] LABS: Basophils % 0.5 % (0.1-2.0); Eosinophils % 1.7 % (0.1-12.0); Hematocrit 23.2 % (37.0-47.0); Lymphocytes # 0.4 K/mm3 (0.7-4.5); Lymphocytes % 78.7 % (10-50); Mean Corpuscular HGB Conc 34.6 g/dL (31.8-35.4); Mean Corpuscular Hemoglobin 29.4 pg (27.0-31.2); Mean Platelet Volume 12.6 fl (7.4-10.4); Monocytes % 1.3 % (1.7-9.3); Neutrophils # 0.1 K/mm3 (1.8-7.8); Neutrophils % 17.8 % (37.0-80.0); Red Blood Count 2.73 M/mm3 (4.20-5.40); Red Cell Distribution Width 15.6 % (11.5-17.5)
[2022-11-06 09:39] LABS: White Blood Count 0.5 K/mm3 (4.8-10.8)
[2022-11-06 09:41] LABS: MANUAL DIFFERENTIAL MANUAL DIFFERENTIAL (MANUAL DIFF)
--- NOTE | 2022-11-06 09:47 | PC.NURSE ---
0938-Yaritza bateman called rn at 0938 to report wbc 0.5 and platelet count 25. RN repeated and verified pt name, , and lab values.result called to , no new orders received.
[2022-11-06 11:03] LABS: Lymphocytes % 84 % (10-50); Monocytes % 8 % (2-9); Neutrophils % 8 % (42-76); Platelet Estimate Marked Decrease; Total Cells Counted 25
[2022-11-06 11:04] LABS: RBC Morphology Normal
[2022-11-06 11:05] LABS: Platelet Count 25 K/mm3 (142-424)
== END 2022-11-06 09:41 | disposition home or self-care (01) ==
LOC: INF 09:01
PROVIDERS: PCP Family Medicine; Visit Provider Internal Medicine Medical Oncology
DX: D46.9 Myelodysplastic syndrome, unspecified (principal)
CPT/HCPCS: 36592; 80053; 85007; 85025

== ENCOUNTER 2022-11-08 08:35 | Outpatient (CLI) | payer MEDICARE, SELFPAY ==
[2022-11-08] VITALS (10 sets, daily range): BP systolic 103–119; BP diastolic 47–64; PULSE 80–87; RESP 16; TEMP 36.7–37.1; O2SAT 98
[2022-11-08 09:01] LABS: Hematocrit 21.6 % (37.0-47.0); Hemoglobin 7.1 g/dL (12.2-16.2); Lymphocytes # 0.4 K/mm3 (0.7-4.5); Lymphocytes % 90.7 % (10-50); Mean Corpuscular Hemoglobin 28.5 pg (27.0-31.2); Mean Corpuscular Volume 86.5 fl (81-99); Mean Platelet Volume 11.6 fl (7.4-10.4); Red Blood Count 2.49 M/mm3 (4.20-5.40); Red Cell Distribution Width 15.8 % (11.5-17.5)
[2022-11-08 09:03] LABS: Chloride 108 mmol/L (98-107)
[2022-11-08 09:04] LABS: Potassium 3.8 mmoL/L (3.5-5.1); Sodium 136 mmol/L (136-145)
[2022-11-08 09:06] LABS: Alanine Aminotransferase 10 U/L (12-78); Alkaline Phosphatase 57 U/L (38-126); Anion Gap 6.8 mEq/L (5-15); Aspartate Amino Transferase 16 U/L (14-36); Bilirubin,Total 0.8 mg/dl (0.2-1.3); Blood Urea Nitrogen 10 mg/dl (7-17); Carbon Dioxide 25 mmol/L (22.0-30.0); Creatinine Clearance Estimated 48 mL/min (50-200); Estimated Glomerular Filt Rate 121 ml/min (>60); GFR (African American) 147 ML/MIN (>60); Neutrophils % 7.3 % (37.0-80.0)
[2022-11-08 09:07] LABS: Albumin Level 3.2 g/dl (3.5-5.0); Albumin/Globulin Ratio 1.1 (1.1-1.8); Calcium 7.6 mg/dl (8.4-10.2); Glucose 112 mg/dl (74-100); Platelet Count 11 K/mm3 (142-424); Total Protein,Serum 6.2 g/dl (6.3-8.2); White Blood Count 0.4 K/mm3 (4.8-10.8)
[2022-11-08 09:08] LABS: MANUAL DIFFERENTIAL MANUAL DIFFERENTIAL (MANUAL DIFF)
--- NOTE | 2022-11-08 10:06 | PC.NURSE ---
0930-BLOOD DRAWN FROM PICC LINE TO TYPE AND CROSSMATCH FOR 1 UNIT PRBC'SLeo VALDERRAMA FROM LAB PRESENT.
--- NOTE | 2022-11-08 11:22 | PC.NURSE ---
1116-BLOOD TRANSFUSING AT 100 ML/HR AT THIS TIME.
--- NOTE | 2022-11-08 11:54 | PC.NURSE ---
1146-INCREASED RATE TO 150ML/HR AT THIS TIME.
[2022-11-08 11:58] LABS: Lymphocytes % 88 % (10-50); Monocytes % 4 % (2-9); Neutrophils % 8 % (42-76); Platelet Estimate Marked Decrease; RBC Morphology Normal; Total Cells Counted 25
--- NOTE | 2022-11-08 12:18 | PC.NURSE ---
1216-INCREASED RATE TO 200 ML/HR AT THIS TIME.
== END 2022-11-08 14:10 | disposition home or self-care (01) ==
LOC: INF 08:36
PROVIDERS: PCP Family Medicine; Visit Provider Internal Medicine Medical Oncology
DX: D46.9 Myelodysplastic syndrome, unspecified (principal)
CPT/HCPCS: 36430; 80053; 85007; 85025; 86850; P9016

== ENCOUNTER 2022-11-10 09:24 | Outpatient (CLI) | payer MEDICARE, SELFPAY ==
[2022-11-10] VITALS (8 sets, daily range): BP systolic 110–127; BP diastolic 60–83; PULSE 88–95; RESP 18; TEMP 36.6–36.8; O2SAT 98–99
[2022-11-10 09:42] LABS: Basophils % 0.2 % (0.1-2.0); Eosinophils % 0.2 % (0.1-12.0); Hematocrit 23.9 % (37.0-47.0); Lymphocytes # 0.7 K/mm3 (0.7-4.5); Lymphocytes % 93.5 % (10-50); Mean Corpuscular HGB Conc 33.3 g/dL (31.8-35.4); Mean Corpuscular Hemoglobin 28.9 pg (27.0-31.2); Mean Corpuscular Volume 86.8 fl (81-99); Monocytes % 1.1 % (1.7-9.3); Red Blood Count 2.75 M/mm3 (4.20-5.40); Red Cell Distribution Width 15.7 % (11.5-17.5)
[2022-11-10 09:51] LABS: Alanine Aminotransferase 11 U/L (12-78); Albumin Level 3.4 g/dl (3.5-5.0); Albumin/Globulin Ratio 1.1 (1.1-1.8); Alkaline Phosphatase 64 U/L (38-126); Anion Gap 4.9 mEq/L (5-15); Aspartate Amino Transferase 16 U/L (14-36); Blood Urea Nitrogen 11 mg/dl (7-17); Calcium 8.1 mg/dl (8.4-10.2); Carbon Dioxide 25 mmol/L (22.0-30.0); Chloride 110 mmol/L (98-107); Creatinine Clearance Estimated 48 mL/min (50-200); Estimated Glomerular Filt Rate 98 ml/min (>60); GFR (African American) 119 ML/MIN (>60); Globulin 3.2 g/dL (1.3-3.2); Glucose 103 mg/dl (74-100); Potassium 3.9 mmoL/L (3.5-5.1); Sodium 136 mmol/L (136-145); Total Protein,Serum 6.6 g/dl (6.3-8.2)
[2022-11-10 09:52] LABS: MANUAL DIFFERENTIAL MANUAL DIFFERENTIAL (MANUAL DIFF); Platelet Count 4 K/mm3 (142-424); White Blood Count 0.7 K/mm3 (4.8-10.8)
--- NOTE | 2022-11-10 10:37 | PC.NURSE ---
at 0950, yamil nava called critical lab results of WBC 0.7, plt 4. name, and lab result verified and read back. pt has standing orders for transfusions. pt will recieve 1 unit of platelets. notified, no new orders at this time.
[2022-11-10 11:04] LABS: Lymphocytes % 100 % (10-50); Total Cells Counted 25
[2022-11-10 11:05] LABS: Platelet Estimate Marked Decrease; RBC Morphology Normal
== END 2022-11-10 15:53 | disposition home or self-care (01) ==
LOC: INF 09:25
PROVIDERS: PCP Family Medicine; Visit Provider Internal Medicine Medical Oncology
DX: D46.9 Myelodysplastic syndrome, unspecified (principal)
CPT/HCPCS: 36430; 80053; 85007; 85025; 86900; 86901; P9034

== ENCOUNTER 2022-11-13 09:20 | Outpatient (CLI) | payer MEDICARE, SELFPAY ==
[2022-11-13] VITALS (16 sets, daily range): BP systolic 94–133; BP diastolic 43–70; PULSE 80–90; RESP 18–19; TEMP 35.8–36.7; O2SAT 96–98
--- NOTE | 2022-11-13 09:55 | PC.NURSE ---
0955-notified shirin monsalve for about pt feeling very dizzy and like she is going to pass out; have pt call pcp
[2022-11-13 09:56] LABS: Basophils % 0.1 % (0.1-2.0); Chloride 108 mmol/L (98-107); Eosinophils % 0.2 % (0.1-12.0); Lymphocytes # 0.9 K/mm3 (0.7-4.5); Lymphocytes % 92.4 % (10-50); Mean Corpuscular HGB Conc 34.7 g/dL (31.8-35.4); Mean Corpuscular Hemoglobin 29.2 pg (27.0-31.2); Mean Corpuscular Volume 84.2 fl (81-99); Mean Platelet Volume 9.5 fl (7.4-10.4); Monocytes % 3.1 % (1.7-9.3); Neutrophils % 4.1 % (37.0-80.0); Red Blood Count 2.39 M/mm3 (4.20-5.40); Red Cell Distribution Width 15.4 % (11.5-17.5)
[2022-11-13 09:57] LABS: Hematocrit 20.1 % (37.0-47.0); Platelet Count 8 K/mm3 (142-424); Sodium 138 mmol/L (136-145)
[2022-11-13 09:59] LABS: Alanine Aminotransferase 13 U/L (12-78); Aspartate Amino Transferase 17 U/L (14-36); Blood Urea Nitrogen 16 mg/dl (7-17); Creatinine Clearance Estimated 48 mL/min (50-200); Estimated Glomerular Filt Rate 98 ml/min (>60); GFR (African American) 119 ML/MIN (>60); MANUAL DIFFERENTIAL MANUAL DIFFERENTIAL (MANUAL DIFF)
[2022-11-13 10:00] LABS: Albumin Level 3.5 g/dl (3.5-5.0); Albumin/Globulin Ratio 1.1 (1.1-1.8); Alkaline Phosphatase 67 U/L (38-126); Calcium 8.2 mg/dl (8.4-10.2); Carbon Dioxide 23 mmol/L (22.0-30.0); Globulin 3.2 g/dL (1.3-3.2); Glucose 107 mg/dl (74-100); Total Protein,Serum 6.7 g/dl (6.3-8.2)
--- NOTE | 2022-11-13 10:10 | PC.NURSE ---
1010-alla from lab here to witness type and screen to be drawn from picc line.
--- NOTE | 2022-11-13 10:17 | PC.NURSE ---
at 0956, Susana mckeon from lab called critical lab results of WBC 1.0, Plt 8, Hct 20.1. name, and lab results verified and read back by this RN. Pt has standing orders in place to transfuse plt and PRBC. MD Calvin notified and no new orders given.
[2022-11-13 10:22] LABS: Lymphocytes % 96 % (10-50); Neutrophils % 4 % (42-76); Platelet Estimate Marked Decrease; RBC Morphology Normal; Total Cells Counted 25
--- NOTE | 2022-11-13 12:00 | PC.NURSE ---
1200-notifed of pt dizziness and feeling as she was going to pass out;notified of labs; no new orders at this time; give pt blood products see how she feels;notify md if pt still feels bad; half metoprolol to 12.5mg bid
--- NOTE | 2022-11-13 14:01 | PC.NURSE ---
1401-pt tolerated prbc and platelet transfusion well; states she is not dizzy any more or feeling like she is going to pass out; pt states she will call pcp tomorrow if she starts to feel bad
== END 2022-11-13 14:01 | disposition home or self-care (01) ==
LOC: INF 09:23
PROVIDERS: PCP Family Medicine; Visit Provider Internal Medicine Medical Oncology
DX: Z45.2 Encounter for adjustment and management of vascular access device (principal); D46.9 Myelodysplastic syndrome, unspecified
CPT/HCPCS: 36430; 36592; 80053; 85007; 85025; 86850; P9016; P9034

== ENCOUNTER 2022-11-15 09:24 | Outpatient (CLI) | payer MEDICARE, SELFPAY ==
[2022-11-15] VITALS (17 sets, daily range): BP systolic 93–115; BP diastolic 51–75; PULSE 72–88; RESP 18; TEMP 36.4–36.5; O2SAT 97–98; BMI 18.8
[2022-11-15 09:59] LABS: Basophils % 0.4 % (0.1-2.0); Eosinophils % 0.1 % (0.1-12.0); Hemoglobin 7.1 g/dL (12.2-16.2); Lymphocytes # 0.8 K/mm3 (0.7-4.5); Lymphocytes % 93.3 % (10-50); Mean Corpuscular HGB Conc 34.5 g/dL (31.8-35.4); Mean Corpuscular Hemoglobin 29.3 pg (27.0-31.2); Mean Platelet Volume 9.7 fl (7.4-10.4); Monocytes % 2.4 % (1.7-9.3); Red Blood Count 2.44 M/mm3 (4.20-5.40); Red Cell Distribution Width 15.5 % (11.5-17.5)
[2022-11-15 10:00] LABS: Chloride 107 mmol/L (98-107); Potassium 4.2 mmoL/L (3.5-5.1); Sodium 137 mmol/L (136-145)
[2022-11-15 10:03] LABS: Alanine Aminotransferase 12 U/L (12-78); Albumin Level 3.5 g/dl (3.5-5.0); Albumin/Globulin Ratio 1.1 (1.1-1.8); Alkaline Phosphatase 70 U/L (38-126); Anion Gap 11.2 mEq/L (5-15); Aspartate Amino Transferase 17 U/L (14-36); Bilirubin,Total 0.9 mg/dl (0.2-1.3); Blood Urea Nitrogen 13 mg/dl (7-17); Carbon Dioxide 23 mmol/L (22.0-30.0); Creatinine Clearance Estimated 45 mL/min (50-200); Estimated Glomerular Filt Rate 98 ml/min (>60); GFR (African American) 119 ML/MIN (>60); Globulin 3.2 g/dL (1.3-3.2); Total Protein,Serum 6.7 g/dl (6.3-8.2)
[2022-11-15 10:04] LABS: Calcium 7.8 mg/dl (8.4-10.2); Glucose 108 mg/dl (74-100)
[2022-11-15 10:10] LABS: Hematocrit 20.7 % (37.0-47.0); Neutrophils % 3.7 % (37.0-80.0); Platelet Count 4 K/mm3 (142-424); White Blood Count 0.9 K/mm3 (4.8-10.8)
[2022-11-15 10:12] LABS: MANUAL DIFFERENTIAL MANUAL DIFFERENTIAL (MANUAL DIFF)
[2022-11-15 10:39] LABS: Lymphocytes % 80 % (10-50); Monocytes % 13 % (2-9); Neutrophils % 7 % (42-76); Total Cells Counted 15
[2022-11-15 10:40] LABS: Platelet Estimate Marked Decrease; RBC Morphology Normal
--- NOTE | 2022-11-15 12:03 | PC.NURSE ---
at 1010, jose mckeon from lab called critical lab results of plt 4, wbc 0.9, hct 20.7. name, and lab results were verified and read back by RN. pt has standing orders in place to transfuse PRBC and Plt. Calvin MD notified and no new order given.
== END 2022-11-15 15:04 | disposition home or self-care (01) ==
LOC: INF 09:26
PROVIDERS: PCP Family Medicine; Visit Provider Internal Medicine Medical Oncology
DX: D46.9 Myelodysplastic syndrome, unspecified (principal)
CPT/HCPCS: 36430; 80053; 85007; 85025; P9016; P9034

== ENCOUNTER 2022-11-17 09:14 | Outpatient (CLI) | payer MEDICARE, SELFPAY ==
[2022-11-17] VITALS (8 sets, daily range): BP systolic 102–122; BP diastolic 58–67; PULSE 81–90; RESP 18; TEMP 36.2–36.3; O2SAT 98–99; BMI 19.3
[2022-11-17 09:43] LABS: Alanine Aminotransferase 12 U/L (12-78); Albumin Level 3.6 g/dl (3.5-5.0); Albumin/Globulin Ratio 1.1 (1.1-1.8); Alkaline Phosphatase 70 U/L (38-126); Anion Gap 9.8 mEq/L (5-15); Aspartate Amino Transferase 17 U/L (14-36); Bilirubin,Total 1.2 mg/dl (0.2-1.3); Blood Urea Nitrogen 13 mg/dl (7-17); Calcium 8.1 mg/dl (8.4-10.2); Carbon Dioxide 23 mmol/L (22.0-30.0); Chloride 107 mmol/L (98-107); Creatinine Clearance Estimated 46 mL/min (50-200); Estimated Glomerular Filt Rate 98 ml/min (>60); GFR (African American) 119 ML/MIN (>60); Globulin 3.2 g/dL (1.3-3.2); Glucose 109 mg/dl (74-100); Potassium 3.8 mmoL/L (3.5-5.1); Sodium 136 mmol/L (136-145); Total Protein,Serum 6.8 g/dl (6.3-8.2)
[2022-11-17 09:45] LABS: Basophils % 0.1 % (0.1-2.0); Eosinophils % 0.4 % (0.1-12.0); Hematocrit 22.6 % (37.0-47.0); Hemoglobin 7.9 g/dL (12.2-16.2); Lymphocytes # 0.9 K/mm3 (0.7-4.5); Lymphocytes % 92.9 % (10-50); Mean Corpuscular HGB Conc 34.9 g/dL (31.8-35.4); Mean Corpuscular Hemoglobin 29.3 pg (27.0-31.2); Mean Corpuscular Volume 84.1 fl (81-99); Mean Platelet Volume 9.2 fl (7.4-10.4); Monocytes % 1.8 % (1.7-9.3); Neutrophils # 0.1 K/mm3 (1.8-7.8); Red Blood Count 2.68 M/mm3 (4.20-5.40); Red Cell Distribution Width 15.7 % (11.5-17.5)
[2022-11-17 09:49] LABS: Neutrophils % 4.9 % (37.0-80.0)
[2022-11-17 09:50] LABS: MANUAL DIFFERENTIAL MANUAL DIFFERENTIAL (MANUAL DIFF); Platelet Count 4 K/mm3 (142-424); White Blood Count 0.9 K/mm3 (4.8-10.8)
[2022-11-17 10:30] LABS: Lymphocytes % 80 % (10-50); Monocytes % 8 % (2-9); Neutrophils % 12 % (42-76); Total Cells Counted 25
[2022-11-17 10:31] LABS: Anisocytosis 1+; Hypochromasia 1+; Microcytosis 1+; Platelet Estimate Marked Decrease
--- NOTE | 2022-11-17 11:28 | PC.NURSE ---
at 0948, Dottie Elizbaeth from lab called [facility] labs of WBC 0.9, Plt 4. name, and lab results verified and read back. Pt has standing orders for transfusions. Pt will receive 1 unit platelets today. Calvin TREVIÑO notified and no new orders given.
== END 2022-11-17 14:28 | disposition home or self-care (01) ==
LOC: INF 09:15
PROVIDERS: PCP Family Medicine; Visit Provider Internal Medicine Medical Oncology
DX: D46.9 Myelodysplastic syndrome, unspecified (principal)
CPT/HCPCS: 36430; 80053; 85007; 85025; 86900; 86901; P9034

== ENCOUNTER 2022-11-20 09:19 | Outpatient (CLI) | payer MEDICARE, SELFPAY ==
[2022-11-20] VITALS (16 sets, daily range): BP systolic 105–128; BP diastolic 56–68; PULSE 78–92; RESP 18–20; TEMP 36.4–36.7; O2SAT 97–99; BMI 19.3
[2022-11-20 09:44] LABS: Basophils % 0.4 % (0.1-2.0); Chloride 106 mmol/L (98-107); Eosinophils % 0.4 % (0.1-12.0); Lymphocytes # 0.9 K/mm3 (0.7-4.5); Lymphocytes % 94.8 % (10-50); Mean Corpuscular HGB Conc 34.2 g/dL (31.8-35.4); Mean Corpuscular Hemoglobin 28.4 pg (27.0-31.2); Mean Corpuscular Volume 83.2 fl (81-99); Mean Platelet Volume 9.6 fl (7.4-10.4); Red Blood Count 2.42 M/mm3 (4.20-5.40); Red Cell Distribution Width 15.8 % (11.5-17.5); Sodium 137 mmol/L (136-145)
[2022-11-20 09:47] LABS: Alanine Aminotransferase 12 U/L (12-78); Albumin Level 3.6 g/dl (3.5-5.0); Albumin/Globulin Ratio 1.2 (1.1-1.8); Alkaline Phosphatase 69 U/L (38-126); Aspartate Amino Transferase 16 U/L (14-36); Bilirubin,Total 1.1 mg/dl (0.2-1.3); Blood Urea Nitrogen 13 mg/dl (7-17); Calcium 7.9 mg/dl (8.4-10.2); Carbon Dioxide 25 mmol/L (22.0-30.0); Creatinine Clearance Estimated 46 mL/min (50-200); Estimated Glomerular Filt Rate 98 ml/min (>60); GFR (African American) 119 ML/MIN (>60); Globulin 3.1 g/dL (1.3-3.2); Glucose 104 mg/dl (74-100); Total Protein,Serum 6.7 g/dl (6.3-8.2)
[2022-11-20 09:51] LABS: Neutrophils % 3.4 % (37.0-80.0)
[2022-11-20 09:53] LABS: Hematocrit 20.1 % (37.0-47.0); Hemoglobin 6.9 g/dL (12.2-16.2); Platelet Count 4 K/mm3 (142-424)
[2022-11-20 09:54] LABS: MANUAL DIFFERENTIAL MANUAL DIFFERENTIAL (MANUAL DIFF)
--- NOTE | 2022-11-20 10:02 | PC.NURSE ---
Yaritza Whittington called RN at 0951 to report wbc-1.0, hgb-6.9, hct-20.1, plt-4. RN repeated and verified pt name, , and lab values. Results called to Dr. Jeaneth Simpson, no new orders noted. pt has standing orders for blood and platelet transfusion.
[2022-11-20 10:50] LABS: Lymphocytes % 100 % (10-50); Total Cells Counted 25
[2022-11-20 10:51] LABS: Platelet Estimate Marked Decrease; RBC Morphology Normal
== END 2022-11-20 15:18 | disposition home or self-care (01) ==
LOC: INF 09:20
PROVIDERS: PCP Family Medicine; Visit Provider Internal Medicine Medical Oncology
DX: D46.9 Myelodysplastic syndrome, unspecified (principal)
CPT/HCPCS: 36430; 80053; 85007; 85025; 86850; P9016; P9034

== ENCOUNTER 2022-11-22 09:22 | Outpatient (CLI) | payer MEDICARE, SELFPAY ==
[2022-11-22 09:30] VITALS: BMI 19.3
[2022-11-22 09:44] LABS: Basophils % 0.6 % (0.1-2.0); Eosinophils % 0.5 % (0.1-12.0); Hematocrit 23.8 % (37.0-47.0); Hemoglobin 7.9 g/dL (12.2-16.2); Lymphocytes # 0.8 K/mm3 (0.7-4.5); Lymphocytes % 90.3 % (10-50); Mean Corpuscular HGB Conc 33.3 g/dL (31.8-35.4); Mean Corpuscular Hemoglobin 29.4 pg (27.0-31.2); Mean Corpuscular Volume 88.2 fl (81-99); Mean Platelet Volume 15.3 fl (7.4-10.4); Monocytes % 3.2 % (1.7-9.3); Neutrophils # 0.1 K/mm3 (1.8-7.8); Red Cell Distribution Width 17.1 % (11.5-17.5)
[2022-11-22 09:48] LABS: Chloride 106 mmol/L (98-107); Potassium 3.8 mmoL/L (3.5-5.1); Sodium 138 mmol/L (136-145)
[2022-11-22 09:50] LABS: Alanine Aminotransferase 11 U/L (12-78); Aspartate Amino Transferase 17 U/L (14-36); Blood Urea Nitrogen 12 mg/dl (7-17); Creatinine Clearance Estimated 46 mL/min (50-200); Estimated Glomerular Filt Rate 98 ml/min (>60); GFR (African American) 119 ML/MIN (>60)
[2022-11-22 09:51] LABS: Albumin Level 3.4 g/dl (3.5-5.0); Albumin/Globulin Ratio 1.1 (1.1-1.8); Alkaline Phosphatase 63 U/L (38-126); Anion Gap 11.8 mEq/L (5-15); Bilirubin,Total 1.1 mg/dl (0.2-1.3); Calcium 7.9 mg/dl (8.4-10.2); Carbon Dioxide 24 mmol/L (22.0-30.0); Globulin 3.1 g/dL (1.3-3.2); Glucose 122 mg/dl (74-100); Total Protein,Serum 6.5 g/dl (6.3-8.2)
[2022-11-22 09:55] LABS: White Blood Count 0.9 K/mm3 (4.8-10.8)
[2022-11-22 09:56] LABS: MANUAL DIFFERENTIAL MANUAL DIFFERENTIAL (MANUAL DIFF); Platelet Count 11 K/mm3 (142-424)
--- NOTE | 2022-11-22 10:10 | PC.NURSE ---
at 0954, Yaritza Chicas from lab called RN with critical results. WBC 0.9, Plt 11. Pt has standing orders for transfusions and does not meet criteria at this time. MD Calvin notified and no new orders given.
[2022-11-22 10:52] LABS: Lymphocytes % 92 % (10-50); Monocytes % 4 % (2-9); Neutrophils % 4 % (42-76); Platelet Estimate Marked Decrease; RBC Morphology Normal; Total Cells Counted 25
[2022-11-22 11:16] LABS: Neutrophils % 5.5 % (37.0-80.0)
== END 2022-11-22 10:07 | disposition home or self-care (01) ==
LOC: INF 09:22
PROVIDERS: PCP Family Medicine; Visit Provider Internal Medicine Medical Oncology
DX: D46.9 Myelodysplastic syndrome, unspecified (principal)
CPT/HCPCS: 36592; 80053; 85007; 85025

== ENCOUNTER 2022-11-24 09:05 | Outpatient (CLI) | payer MEDICARE, SELFPAY ==
[2022-11-24] VITALS (17 sets, daily range): BP systolic 96–130; BP diastolic 50–70; PULSE 73–82; RESP 18; TEMP 36.7–36.9; O2SAT 96–98; BMI 19.4
[2022-11-24 09:33] LABS: Basophils % 0.7 % (0.1-2.0); Eosinophils % 0.3 % (0.1-12.0); Hemoglobin 7.7 g/dL (12.2-16.2); Lymphocytes # 0.8 K/mm3 (0.7-4.5); Lymphocytes % 89.9 % (10-50); Mean Corpuscular HGB Conc 33.3 g/dL (31.8-35.4); Mean Corpuscular Hemoglobin 29.1 pg (27.0-31.2); Mean Corpuscular Volume 87.5 fl (81-99); Mean Platelet Volume 8.2 fl (7.4-10.4); Monocytes % 2.6 % (1.7-9.3); Neutrophils # 0.1 K/mm3 (1.8-7.8); Red Blood Count 2.63 M/mm3 (4.20-5.40); Red Cell Distribution Width 15.9 % (11.5-17.5)
[2022-11-24 09:35] LABS: Neutrophils % 6.5 % (37.0-80.0)
[2022-11-24 09:46] LABS: White Blood Count 0.9 K/mm3 (4.8-10.8)
[2022-11-24 09:47] LABS: Chloride 107 mmol/L (98-107); Platelet Count 8 K/mm3 (142-424); Potassium 4.1 mmoL/L (3.5-5.1); Sodium 136 mmol/L (136-145)
[2022-11-24 09:48] LABS: MANUAL DIFFERENTIAL MANUAL DIFFERENTIAL (MANUAL DIFF)
[2022-11-24 09:49] LABS: Blood Urea Nitrogen 13 mg/dl (7-17); Creatinine Clearance Estimated 47 mL/min (50-200); Estimated Glomerular Filt Rate 82 ml/min (>60); GFR (African American) 100 ML/MIN (>60)
[2022-11-24 09:50] LABS: Alanine Aminotransferase 9 U/L (12-78); Albumin Level 3.5 g/dl (3.5-5.0); Albumin/Globulin Ratio 1.1 (1.1-1.8); Alkaline Phosphatase 68 U/L (38-126); Anion Gap 10.1 mEq/L (5-15); Aspartate Amino Transferase 15 U/L (14-36); Bilirubin,Total 1.2 mg/dl (0.2-1.3); Calcium 8.3 mg/dl (8.4-10.2); Carbon Dioxide 23 mmol/L (22.0-30.0); Globulin 3.2 g/dL (1.3-3.2); Glucose 83 mg/dl (74-100); Total Protein,Serum 6.7 g/dl (6.3-8.2)
[2022-11-24 10:16] LABS: Lymphocytes % 96 % (10-50); Neutrophils % 4 % (42-76); Total Cells Counted 25
[2022-11-24 10:17] LABS: Platelet Estimate Marked Decrease; RBC Morphology Normal
== END 2022-11-24 14:15 | disposition home or self-care (01) ==
LOC: INF 09:07
PROVIDERS: PCP Family Medicine; Visit Provider Internal Medicine Medical Oncology
DX: D46.9 Myelodysplastic syndrome, unspecified (principal)
CPT/HCPCS: 36430; 80053; 85007; 85025; 86850; P9016; P9034

== ENCOUNTER 2022-11-27 08:59 | Outpatient (CLI) | payer MEDICARE, SELFPAY ==
[2022-11-27 09:08] VITALS: BMI 19.3
[2022-11-27 09:23] LABS: Basophils % 0.7 % (0.1-2.0); Eosinophils % 0.3 % (0.1-12.0); Hematocrit 23.6 % (37.0-47.0); Lymphocytes # 0.8 K/mm3 (0.7-4.5); Lymphocytes % 85.3 % (10-50); Mean Corpuscular HGB Conc 33.9 g/dL (31.8-35.4); Mean Corpuscular Hemoglobin 28.7 pg (27.0-31.2); Mean Corpuscular Volume 84.7 fl (81-99); Mean Platelet Volume 9.2 fl (7.4-10.4); Monocytes # 0.1 K/mm3 (0.1-1.0); Monocytes % 5.2 % (1.7-9.3); Neutrophils # 0.1 K/mm3 (1.8-7.8); Red Blood Count 2.79 M/mm3 (4.20-5.40); Red Cell Distribution Width 15.8 % (11.5-17.5)
[2022-11-27 09:24] LABS: Neutrophils % 8.5 % (37.0-80.0)
--- NOTE | 2022-11-27 09:24 | PC.NURSE ---
923-Yaritza Whittington called rn at 09 to report platelet level 10 and wbc 0.9.Rn repeated and verified pt name, , and lab value. Result called to and no new orders received at this time.
[2022-11-27 09:25] LABS: Platelet Count 10 K/mm3 (142-424); White Blood Count 0.9 K/mm3 (4.8-10.8)
[2022-11-27 09:26] LABS: Chloride 107 mmol/L (98-107); Potassium 3.9 mmoL/L (3.5-5.1); Sodium 137 mmol/L (136-145)
[2022-11-27 09:27] LABS: MANUAL DIFFERENTIAL MANUAL DIFFERENTIAL (MANUAL DIFF)
[2022-11-27 09:28] LABS: Alanine Aminotransferase 9 U/L (12-78); Aspartate Amino Transferase 15 U/L (14-36); Blood Urea Nitrogen 11 mg/dl (7-17); Creatinine Clearance Estimated 46 mL/min (50-200); Estimated Glomerular Filt Rate 98 ml/min (>60); GFR (African American) 119 ML/MIN (>60)
[2022-11-27 09:29] LABS: Albumin Level 3.6 g/dl (3.5-5.0); Albumin/Globulin Ratio 1.2 (1.1-1.8); Alkaline Phosphatase 64 U/L (38-126); Anion Gap 9.9 mEq/L (5-15); Carbon Dioxide 24 mmol/L (22.0-30.0); Glucose 109 mg/dl (74-100); Total Protein,Serum 6.6 g/dl (6.3-8.2)
[2022-11-27 10:10] VITALS: BP 104/58; PULSE 78; RESP 18; TEMP 36.4; O2SAT 97
[2022-11-27 10:31] LABS: Lymphocytes % 96 % (10-50); Neutrophils % 4 % (42-76); Platelet Estimate Marked Decrease; RBC Morphology Normal; Total Cells Counted 25
[2022-11-27 11:40] VITALS: BP 97/53; PULSE 80; RESP 18
--- NOTE | 2022-11-27 13:38 | DIET.NUTRFU ---
RD saw patient today during infusion, consulted by Dr. Simpson for weight loss. She is down 10#, but feels she is now maintaining. Currently drinking ensure but not consistently. She gags over larger meals, encouraged her to practice 6 small meals/day. Carry couple snacks in purse to eat throughout day. Provided her with multiple handouts on increasing calorie intake, milkshake recipes, snack suggestions and enhancing her food for extra calories. Also provider contact information for any further concern.
== END 2022-11-27 11:40 | disposition home or self-care (01) ==
LOC: INF 09:03
PROVIDERS: PCP Family Medicine; Visit Provider Internal Medicine Medical Oncology
DX: Z45.2 Encounter for adjustment and management of vascular access device; D46.9 Myelodysplastic syndrome, unspecified
CPT/HCPCS: 80053; 85007; 85025; 96413; J0894

== ENCOUNTER 2022-11-28 09:11 | Outpatient (CLI) | payer MEDICARE, SELFPAY ==
[2022-11-28 09:14] VITALS: BMI 19.4
[2022-11-28 09:27] LABS: Basophils % 0.4 % (0.1-2.0); Eosinophils % 0.1 % (0.1-12.0); Hematocrit 23.1 % (37.0-47.0); Hemoglobin 7.6 g/dL (12.2-16.2); Lymphocytes # 0.7 K/mm3 (0.7-4.5); Lymphocytes % 84.8 % (10-50); Mean Corpuscular Hemoglobin 28.3 pg (27.0-31.2); Mean Corpuscular Volume 85.6 fl (81-99); Mean Platelet Volume 10.7 fl (7.4-10.4); Monocytes % 4.3 % (1.7-9.3); Neutrophils # 0.1 K/mm3 (1.8-7.8); Red Cell Distribution Width 16.1 % (11.5-17.5)
[2022-11-28 09:30] LABS: Neutrophils % 10.2 % (37.0-80.0)
[2022-11-28 09:31] LABS: White Blood Count 0.9 K/mm3 (4.8-10.8)
[2022-11-28 09:33] LABS: MANUAL DIFFERENTIAL MANUAL DIFFERENTIAL (MANUAL DIFF)
[2022-11-28 10:05] LABS: Lymphocytes % 88 % (10-50); Neutrophils % 12 % (42-76); Platelet Estimate Marked Decrease; RBC Morphology Normal; Total Cells Counted 25
[2022-11-28 10:07] LABS: Platelet Count 17 K/mm3 (142-424)
[2022-11-28 10:09] VITALS: BP 90/48; PULSE 86; RESP 18; O2SAT 95
[2022-11-28 10:40] VITALS: BP 99/58; PULSE 84; RESP 18; O2SAT 96
--- NOTE | 2022-11-28 10:49 | PC.NURSE ---
at 0911, yamil nava from lab called critical lab results to this RN. Plt 17, WBC 0.9. name, and lab result was verified and read back by RN. Pt has standing orders in place for transfusions. Pt does not meet criteria at this time. MD Calvin notified and no new orders.
[2022-11-28 11:10] VITALS: BP 103/54; PULSE 81; RESP 18; O2SAT 96
== END 2022-11-28 11:22 | disposition home or self-care (01) ==
LOC: INF 09:12
PROVIDERS: PCP Family Medicine; Visit Provider Internal Medicine Medical Oncology
DX: D46.9 Myelodysplastic syndrome, unspecified (principal)
CPT/HCPCS: 85007; 85025; 96413; J0894

== ENCOUNTER 2022-11-29 08:59 | Outpatient (CLI) | payer MEDICARE, SELFPAY ==
[2022-11-29] VITALS (14 sets, daily range): BP systolic 92–110; BP diastolic 48–63; PULSE 74–87; RESP 18; TEMP 36.2–36.6; O2SAT 97–98; BMI 19.3
[2022-11-29 09:20] LABS: Basophils % 0.3 % (0.1-2.0); Eosinophils % 0.5 % (0.1-12.0); Hemoglobin 7.2 g/dL (12.2-16.2); Lymphocytes # 0.7 K/mm3 (0.7-4.5); Lymphocytes % 84.9 % (10-50); Mean Corpuscular HGB Conc 32.9 g/dL (31.8-35.4); Mean Corpuscular Hemoglobin 27.9 pg (27.0-31.2); Mean Corpuscular Volume 84.9 fl (81-99); Mean Platelet Volume 12.9 fl (7.4-10.4); Monocytes % 4.2 % (1.7-9.3); Neutrophils # 0.1 K/mm3 (1.8-7.8); Red Blood Count 2.59 M/mm3 (4.20-5.40); Red Cell Distribution Width 15.9 % (11.5-17.5)
[2022-11-29 09:28] LABS: Alanine Aminotransferase 9 U/L (12-78); Albumin Level 3.4 g/dl (3.5-5.0); Albumin/Globulin Ratio 1.2 (1.1-1.8); Alkaline Phosphatase 59 U/L (38-126); Anion Gap 10.1 mEq/L (5-15); Aspartate Amino Transferase 14 U/L (14-36); Blood Urea Nitrogen 11 mg/dl (7-17); Calcium 7.9 mg/dl (8.4-10.2); Carbon Dioxide 24 mmol/L (22.0-30.0); Chloride 105 mmol/L (98-107); Creatinine Clearance Estimated 46 mL/min (50-200); Estimated Glomerular Filt Rate 98 ml/min (>60); GFR (African American) 119 ML/MIN (>60); Globulin 2.9 g/dL (1.3-3.2); Glucose 107 mg/dl (74-100); Potassium 4.1 mmoL/L (3.5-5.1); Sodium 135 mmol/L (136-145); Total Protein,Serum 6.3 g/dl (6.3-8.2)
[2022-11-29 09:30] LABS: Neutrophils % 10.1 % (37.0-80.0)
[2022-11-29 09:31] LABS: Platelet Count 16 K/mm3 (142-424); White Blood Count 0.8 K/mm3 (4.8-10.8)
[2022-11-29 09:32] LABS: MANUAL DIFFERENTIAL MANUAL DIFFERENTIAL (MANUAL DIFF)
[2022-11-29 11:27] LABS: Lymphocytes % 84 % (10-50); Neutrophils % 16 % (42-76); Platelet Estimate Marked Decrease; RBC Morphology Normal; Total Cells Counted 25
== END 2022-11-29 14:15 | disposition home or self-care (01) ==
LOC: INF 09:00
PROVIDERS: PCP Family Medicine; Visit Provider Internal Medicine Medical Oncology
DX: D46.9 Myelodysplastic syndrome, unspecified (principal)
CPT/HCPCS: 36430; 80053; 85007; 85025; 86850; 96413; J0894; P9016

== ENCOUNTER 2022-11-30 08:33 | Outpatient (CLI) | payer MEDICARE, SELFPAY ==
--- NOTE | 2022-11-30 08:38 | MM_ITS ---
PROCEDURE INFORMATION: Exam: MG Bilateral Screening 3D Mammography Exam date and time: 11/30/2022 8:47 AM Age: 72 years old Clinical indication: Screening mammogram TECHNIQUE: Imaging protocol: Bilateral Screening tomosynthesis and 2D mammography including computer-aided detection (CAD) when performed. COMPARISON: 1. MG MM DIG SCREENING MAMM BI W/CAD 05/20/2021 8:06 AM 2. MG DMSB DIG MAMM-SCREEN DAVID 10/21/2015 10:08 AM 3. MG DMSB DIG MAMM-SCREEN DAVID 09/08/2014 8:49 AM 4. MG DMSB DIG MAMM-SCREEN DAVID 07/31/2013 8:28 AM FINDINGS: MAMMOGRAPHY: Breast composition: The breast is heterogeneously dense, which may obscure small masses. Mass: None. Architectural distortion: No new or suspicious architectural distortion. Calcifications: No new or suspicious calcifications are present Asymmetric density: No new or suspicious asymmetric density is present Skin thickening: None. Axillary adenopathy: None. IMPRESSION: No mammographic evidence of malignancy. Recommend annual screening mammography unless otherwise clinically indicated. ASSESSMENT: BI-RADS category 1: Negative
--- NOTE | 2022-11-30 08:39 | XR_ITS ---
FINAL REPORT TECHNIQUE: Bone densitometry calculations of the lumbar spine and left hip were obtained. CLINICAL HISTORY: post menopausal FINDINGS: DEXA BONE DENSITY AXIAL SKELETON Using L1-4, the bone mineral density of the spine is 1.100 g/cm2, corresponding to T-score of 0.5. Please note these values may be falsely elevated secondary to hypertrophic change. Using the left hip, the bone mineral density of the femoral neck is 0.665 g/cm2, corresponding to a T-score of -1.7. NOTE: T-score: Standard deviation compared with peak bone mass of young adult mean. *Following the recommendations of the International Society of Bone densitometry, classification of hip BMD is based on the lower of two T-scores; total hip or femoral neck. IMPRESSION: Diminished bone mineral density of the lumbar spine and left hip consistent with osteopenia. FRAX 10 year fracture risk is 1.9% for a hip fracture and 9.4% for a major osteoporotic fracture. Reviewed, Interpreted and Dictated by Darryl Gutierrez III, MD Transcribed by Betty Barfield Authenticated and [facility]
[2022-11-30 09:17] VITALS: BMI 19.4
[2022-11-30 10:00] VITALS: BP 90/52; PULSE 88; RESP 18; O2SAT 99
[2022-11-30 10:30] VITALS: BP 95/58; PULSE 73; RESP 18; O2SAT 99
[2022-11-30 11:18] VITALS: BP 97/62; PULSE 86; RESP 18; TEMP 36.4; O2SAT 99
== END 2022-11-30 11:18 | disposition home or self-care (01) ==
LOC: RAD 08:33 → INF 09:15
PROVIDERS: PCP Family Medicine; Visit Provider Family Medicine
DX: Z12.31 Encounter for screening mammogram for malignant neoplasm of breast (principal); M81.0 Age-related osteoporosis without current pathological fracture
CPT/HCPCS: 77063; 77067; 77080; 96413; J0894

== ENCOUNTER → 2022-11-30 15:52 | Outpatient (CLI) | payer MEDICARE, SELFPAY ==
[2022-11-30 15:59] LABS: Adenovirus,PCR Not Detected (NotDetected); Bordetella Pertussis Not Detected (NotDetected); Chlamydophila Pneumoniae, PCR Not Detected (NotDetected); Coronavirus 19, PCR Not Detected (NotDetected); Coronavirus 229E Not Detected (NotDetected); Coronavirus NL63 Not Detected (NotDetected); Coronavirus OC43 Not Detected (NotDetected); Coronovirus HKU1,PCR Not Detected (NotDetected); Human Metapneumovirus Not Detected (NotDetected); Influenza A, PCR Not Detected (NotDetected); Influenza AH1, 2009 Not Detected (NotDetected); Influenza AH1, PCR Not Detected (NotDetected); Influenza AH3,PCR Not Detected (NotDetected); Influenza B, PCR Not Detected (NotDetected); Mycoplasma Pneumoniae, PCR Not Detected (NotDetected); Parainfluenza 1, PCR Not Detected (NotDetected); Parainfluenza 2, PCR Not Detected (NotDetected); Parainfluenza 3, PCR Not Detected (NotDetected); Parainfluenza 4, PCR Not Detected (NotDetected); Rhinovirus/Enterovirus Not Detected (NotDetected)
[2022-11-30 19:56] LABS: Respiratory Syncytial Virus Detected (NotDetected)
== END ==
PROVIDERS: PCP Family Medicine; Visit Provider Family Medicine
DX: R06.02 Shortness of breath (principal); B97.4 Respiratory syncytial virus as the cause of diseases classified elsewhere; D46.9 Myelodysplastic syndrome, unspecified; Z12.31 Encounter for screening mammogram for malignant neoplasm of breast; Z78.0 Asymptomatic menopausal state
CPT/HCPCS: 77063; 77067; 77080; 87581; 87632; 87798; 96413; C9803; J0894; U0003; U0005

== ENCOUNTER 2022-12-01 09:07 | Outpatient (CLI) | payer MEDICARE, SELFPAY ==
[2022-12-01 09:14] VITALS: BMI 19.4
[2022-12-01 09:38] LABS: Basophils % 0.8 % (0.1-2.0); Eosinophils % 0.4 % (0.1-12.0); Hematocrit 24.4 % (37.0-47.0); Hemoglobin 8.3 g/dL (12.2-16.2); Lymphocytes # 0.5 K/mm3 (0.7-4.5); Lymphocytes % 82.9 % (10-50); Mean Corpuscular HGB Conc 34.1 g/dL (31.8-35.4); Mean Corpuscular Hemoglobin 28.1 pg (27.0-31.2); Mean Corpuscular Volume 82.2 fl (81-99); Mean Platelet Volume 9.4 fl (7.4-10.4); Monocytes % 3.2 % (1.7-9.3); Neutrophils # 0.1 K/mm3 (1.8-7.8); Red Blood Count 2.97 M/mm3 (4.20-5.40); Red Cell Distribution Width 15.6 % (11.5-17.5)
[2022-12-01 09:42] LABS: Neutrophils % 12.7 % (37.0-80.0)
[2022-12-01 09:43] LABS: Alanine Aminotransferase 9 U/L (12-78); Albumin Level 3.5 g/dl (3.5-5.0); Albumin/Globulin Ratio 1.1 (1.1-1.8); Alkaline Phosphatase 64 U/L (38-126); Anion Gap 12.3 mEq/L (5-15); Aspartate Amino Transferase 16 U/L (14-36); Blood Urea Nitrogen 13 mg/dl (7-17); Carbon Dioxide 23 mmol/L (22.0-30.0); Chloride 103 mmol/L (98-107); Creatinine Clearance Estimated 47 mL/min (50-200); Estimated Glomerular Filt Rate 98 ml/min (>60); GFR (African American) 119 ML/MIN (>60); Globulin 3.1 g/dL (1.3-3.2); Glucose 98 mg/dl (74-100); Potassium 4.3 mmoL/L (3.5-5.1); Sodium 134 mmol/L (136-145); Total Protein,Serum 6.6 g/dl (6.3-8.2); White Blood Count 0.6 K/mm3 (4.8-10.8)
[2022-12-01 09:44] LABS: Platelet Count 12 K/mm3 (142-424)
[2022-12-01 09:45] LABS: MANUAL DIFFERENTIAL MANUAL DIFFERENTIAL (MANUAL DIFF)
[2022-12-01 10:08] VITALS: BP 99/54; PULSE 90; RESP 18; TEMP 36.1; O2SAT 95
[2022-12-01 10:09] LABS: Anisocytosis 1+; Lymphocytes % 87 % (10-50); Neutrophils % 13 % (42-76); Ovalocytes 1+; Platelet Estimate Marked Decrease; Total Cells Counted 15
--- NOTE | 2022-12-01 10:16 | PC.NURSE ---
at 0942, Susana Frances called critical lab results to RN of WBC 0.6, Plt 12. Lab results, name and read back and verified by RN. pt has standing orders for transfusions and does not meet criteria at this time. Calvin MD notified and no new orders.
[2022-12-01 10:30] VITALS: BP 94/55; PULSE 90; RESP 18; TEMP 36.1; O2SAT 96
[2022-12-01 11:15] VITALS: BP 101/59; PULSE 88; RESP 18; O2SAT 96
== END 2022-12-01 11:15 | disposition home or self-care (01) ==
LOC: INF 09:08
PROVIDERS: PCP Family Medicine; Visit Provider Internal Medicine Medical Oncology
DX: D46.9 Myelodysplastic syndrome, unspecified (principal)
CPT/HCPCS: 80053; 85007; 85025; 96413; J0894

== ENCOUNTER 2022-12-04 09:16 | Outpatient (CLI) | payer MEDICARE, SELFPAY ==
[2022-12-04] VITALS (16 sets, daily range): BP systolic 93–110; BP diastolic 42–64; PULSE 77–92; RESP 14–18; TEMP 36.8–37.7; O2SAT 95–97; BMI 18.5
[2022-12-04 09:40] LABS: Hematocrit 22.1 % (37.0-47.0); Hemoglobin 7.5 g/dL (12.2-16.2); Lymphocytes # 0.4 K/mm3 (0.7-4.5); Lymphocytes % 87.5 % (10-50); Mean Corpuscular HGB Conc 33.8 g/dL (31.8-35.4); Mean Corpuscular Hemoglobin 27.7 pg (27.0-31.2); Mean Platelet Volume 9.4 fl (7.4-10.4); Monocytes % 1.1 % (1.7-9.3); Neutrophils # 0.1 K/mm3 (1.8-7.8); Red Cell Distribution Width 15.5 % (11.5-17.5)
[2022-12-04 09:44] LABS: Chloride 100 mmol/L (98-107); Potassium 4.5 mmoL/L (3.5-5.1); Sodium 131 mmol/L (136-145)
[2022-12-04 09:47] LABS: Alanine Aminotransferase 11 U/L (12-78); Albumin Level 3.6 g/dl (3.5-5.0); Albumin/Globulin Ratio 1.1 (1.1-1.8); Alkaline Phosphatase 63 U/L (38-126); Anion Gap 14.5 mEq/L (5-15); Aspartate Amino Transferase 17 U/L (14-36); Blood Urea Nitrogen 17 mg/dl (7-17); Calcium 8.1 mg/dl (8.4-10.2); Carbon Dioxide 21 mmol/L (22.0-30.0); Creatinine Clearance Estimated 44 mL/min (50-200); Estimated Glomerular Filt Rate 82 ml/min (>60); GFR (African American) 100 ML/MIN (>60); Globulin 3.3 g/dL (1.3-3.2); Glucose 103 mg/dl (74-100); Total Protein,Serum 6.9 g/dl (6.3-8.2)
[2022-12-04 09:59] LABS: Neutrophils % 11.4 % (37.0-80.0)
[2022-12-04 10:00] LABS: White Blood Count 0.5 K/mm3 (4.8-10.8)
[2022-12-04 10:01] LABS: MANUAL DIFFERENTIAL MANUAL DIFFERENTIAL (MANUAL DIFF)
--- NOTE | 2022-12-04 10:38 | PC.NURSE ---
at 0959, Yaritza Chicas from lab called critical lab results to this RN. plt of 8, WBC 0.5. lab results, name, and read back and verified by RN. pt has standing orders for transfusion of platelets. Calvin TREVIÑO notified and no new orders.
--- NOTE | 2022-12-04 11:37 | PC.NURSE ---
1124 Patient medicated with Tylenol 650mg po for temp 99.8. Patient with congestion/low grade fever/reports has been taking tylenol all weekend/recently diagnosed with RSV. Chest congestion/nasal congestion noted. Scattered rhonchi throughout with some improvement with cough. Reports clear sputum at times. Also reports some N/V and diarrhea over past 2 days, none presently. Frequent cough. States MD aware of cough on prior visit but has worsened. Order obtained for chest xray/ patient has appt to see Dr. Samayoa at 1600 today. Will go ahead and obtain chest xray.
--- NOTE | 2022-12-04 11:41 | XR_ITS ---
FINAL REPORT CLINICAL HISTORY: increased cough/congestion/low grade fever COMPARISON: October 26, 2022 FINDINGS: A right-sided PICC line terminates in the SVC. The heart size is normal. The mediastinum is within normal limits. There is scarring in the right lung base. There is no acute cardiopulmonary process. There is no pleural effusion. There is no pneumothorax. The bony thorax is intact. IMPRESSION: No acute cardiopulmonary process. Reviewed, Interpreted and Dictated by Harrison Burton MD Transcribed by Willie Malin Authenticated and [facility]
[2022-12-04 11:46] LABS: Lymphocytes % 96 % (10-50); Neutrophils % 4 % (42-76); Platelet Estimate Marked Decrease; RBC Morphology Normal; Total Cells Counted 25
[2022-12-04 12:01] LABS: Platelet Count 8 K/mm3 (142-424)
== END 2022-12-04 15:38 | disposition home or self-care (01) ==
LOC: INF 09:17
PROVIDERS: PCP Family Medicine; Visit Provider Internal Medicine Medical Oncology
DX: D46.9 Myelodysplastic syndrome, unspecified (principal)
CPT/HCPCS: 36430; 71045; 80053; 85007; 85025; 86850; P9016; P9034

== ENCOUNTER 2022-12-06 09:35 | Outpatient (CLI) | payer MEDICARE, SELFPAY ==
[2022-12-06] VITALS (17 sets, daily range): BP systolic 99–125; BP diastolic 53–69; PULSE 83–97; RESP 18; TEMP 37.1–37.3; O2SAT 95–96; BMI 19.4
[2022-12-06 09:59] LABS: Basophils % 0.2 % (0.1-2.0); Eosinophils % 0.8 % (0.1-12.0); Hematocrit 21.4 % (37.0-47.0); Hemoglobin 7.4 g/dL (12.2-16.2); Lymphocytes # 0.5 K/mm3 (0.7-4.5); Lymphocytes % 92.7 % (10-50); Mean Corpuscular HGB Conc 34.4 g/dL (31.8-35.4); Mean Corpuscular Hemoglobin 28.2 pg (27.0-31.2); Mean Corpuscular Volume 81.8 fl (81-99); Mean Platelet Volume 10.3 fl (7.4-10.4); Monocytes % 0.5 % (1.7-9.3); Red Blood Count 2.62 M/mm3 (4.20-5.40); Red Cell Distribution Width 15.3 % (11.5-17.5)
[2022-12-06 10:00] LABS: Chloride 103 mmol/L (98-107); Neutrophils % 5.7 % (37.0-80.0); Platelet Count 3 K/mm3 (142-424); Potassium 4.4 mmoL/L (3.5-5.1); Sodium 133 mmol/L (136-145); White Blood Count 0.5 K/mm3 (4.8-10.8)
[2022-12-06 10:01] LABS: MANUAL DIFFERENTIAL MANUAL DIFFERENTIAL (MANUAL DIFF)
[2022-12-06 10:02] LABS: Alanine Aminotransferase 11 U/L (12-78); Alkaline Phosphatase 54 U/L (38-126); Aspartate Amino Transferase 17 U/L (14-36); Bilirubin,Total 0.8 mg/dl (0.2-1.3); Blood Urea Nitrogen 18 mg/dl (7-17); Creatinine Clearance Estimated 47 mL/min (50-200); Estimated Glomerular Filt Rate 98 ml/min (>60); GFR (African American) 119 ML/MIN (>60)
[2022-12-06 10:03] LABS: Albumin Level 3.4 g/dl (3.5-5.0); Albumin/Globulin Ratio 1.1 (1.1-1.8); Anion Gap 9.4 mEq/L (5-15); Calcium 7.9 mg/dl (8.4-10.2); Carbon Dioxide 25 mmol/L (22.0-30.0); Globulin 3.2 g/dL (1.3-3.2); Glucose 119 mg/dl (74-100); Total Protein,Serum 6.6 g/dl (6.3-8.2)
--- NOTE | 2022-12-06 10:08 | PC.NURSE ---
jose mckeon from lab called critical lab results of wbc 0.5, plt 3 to RN. name, and lab results verified and read back by RN. pt has standing orders in place for transfusion and will receive 1 unit platelets. MD Calvin notified and no new orders.
[2022-12-06 11:14] LABS: Lymphocytes % 100 % (10-50); Platelet Estimate Marked Decrease; RBC Morphology Normal; Total Cells Counted 25
== END 2022-12-06 15:54 | disposition home or self-care (01) ==
LOC: INF 09:35
PROVIDERS: PCP Family Medicine; Visit Provider Internal Medicine Medical Oncology
DX: D46.9 Myelodysplastic syndrome, unspecified (principal)
CPT/HCPCS: 36430; 80053; 85007; 85025; P9016; P9034

== ENCOUNTER 2022-12-08 08:54 | Outpatient (CLI) | payer MEDICARE, SELFPAY ==
[2022-12-08] VITALS (7 sets, daily range): BP systolic 87–106; BP diastolic 52–68; PULSE 74–91; RESP 20; TEMP 36.6–37; O2SAT 95–98; BMI 19.4
[2022-12-08 09:15] LABS: Basophils % 0.7 % (0.1-2.0); Eosinophils % 0.2 % (0.1-12.0); Hematocrit 24.8 % (37.0-47.0); Hemoglobin 8.6 g/dL (12.2-16.2); Lymphocytes # 0.7 K/mm3 (0.7-4.5); Lymphocytes % 96.8 % (10-50); Mean Corpuscular HGB Conc 34.6 g/dL (31.8-35.4); Mean Corpuscular Hemoglobin 28.5 pg (27.0-31.2); Mean Corpuscular Volume 82.4 fl (81-99); Mean Platelet Volume 7.4 fl (7.4-10.4); Monocytes % 0.8 % (1.7-9.3); Red Blood Count 3.01 M/mm3 (4.20-5.40); Red Cell Distribution Width 15.1 % (11.5-17.5)
[2022-12-08 09:22] LABS: Alanine Aminotransferase 13 U/L (12-78); Albumin Level 3.6 g/dl (3.5-5.0); Albumin/Globulin Ratio 1.1 (1.1-1.8); Alkaline Phosphatase 66 U/L (38-126); Anion Gap 12.5 mEq/L (5-15); Aspartate Amino Transferase 18 U/L (14-36); Bilirubin,Total 1.1 mg/dl (0.2-1.3); Blood Urea Nitrogen 17 mg/dl (7-17); Calcium 8.1 mg/dl (8.4-10.2); Carbon Dioxide 22 mmol/L (22.0-30.0); Chloride 100 mmol/L (98-107); Creatinine Clearance Estimated 47 mL/min (50-200); Estimated Glomerular Filt Rate 98 ml/min (>60); GFR (African American) 119 ML/MIN (>60); Globulin 3.3 g/dL (1.3-3.2); Glucose 100 mg/dl (74-100); Potassium 4.5 mmoL/L (3.5-5.1); Sodium 130 mmol/L (136-145); Total Protein,Serum 6.9 g/dl (6.3-8.2)
[2022-12-08 09:26] LABS: Neutrophils % 1.5 % (37.0-80.0)
[2022-12-08 09:27] LABS: Platelet Count 5 K/mm3 (142-424); White Blood Count 0.7 K/mm3 (4.8-10.8)
[2022-12-08 09:29] LABS: MANUAL DIFFERENTIAL MANUAL DIFFERENTIAL (MANUAL DIFF)
[2022-12-08 09:55] LABS: Lymphocytes % 96 % (10-50); Neutrophils % 4 % (42-76); Platelet Estimate Marked Decrease; RBC Morphology Normal; Total Cells Counted 25
--- NOTE | 2022-12-08 10:11 | PC.NURSE ---
Yaritza Whittington called RN at 0926 to report platelet count-5. RN repeated and verified pt name, , and lab value. Result called to Dr. Simpson, pt has standing orders.
--- NOTE | 2022-12-08 10:15 | PC.NURSE ---
0938-pt to get platelet infusion today, type and crossmatch drawn for lab with lab staff present to witness. platelets ordered by lab for infusion from [facility] in [place]
== END 2022-12-08 13:37 | disposition home or self-care (01) ==
LOC: INF 08:55
PROVIDERS: PCP Family Medicine; Visit Provider Internal Medicine Medical Oncology
DX: D46.9 Myelodysplastic syndrome, unspecified (principal)
CPT/HCPCS: 36430; 80053; 85007; 85025; 86900; 86901; P9034

== ENCOUNTER 2022-12-11 08:53 | Outpatient (CLI) | payer MEDICARE, SELFPAY ==
[2022-12-11] VITALS (18 sets, daily range): BP systolic 104–155; BP diastolic 49–73; PULSE 68–91; RESP 18–19; TEMP 36.9–37.3; O2SAT 95–96; BMI 19.1
--- NOTE | 2022-12-11 09:04 | PC.NURSE ---
0904- Kimberly bateman called rn 0904 to report wbc 0.8 and platelet 3. Rn repeated and verified pt name, , and lab value. Result called to dr. hernandez, no new orders at this time, follow standing order for blood products.
[2022-12-11 09:12] LABS: Basophils % 0.9 % (0.1-2.0); Eosinophils % 0.4 % (0.1-12.0); Hematocrit 21.8 % (37.0-47.0); Hemoglobin 7.6 g/dL (12.2-16.2); Lymphocytes # 0.7 K/mm3 (0.7-4.5); Lymphocytes % 93.9 % (10-50); Mean Corpuscular HGB Conc 34.9 g/dL (31.8-35.4); Mean Corpuscular Hemoglobin 28.7 pg (27.0-31.2); Mean Corpuscular Volume 82.3 fl (81-99); Mean Platelet Volume 9.6 fl (7.4-10.4); Monocytes % 1.5 % (1.7-9.3); Red Blood Count 2.65 M/mm3 (4.20-5.40); Red Cell Distribution Width 14.8 % (11.5-17.5)
[2022-12-11 09:24] LABS: Neutrophils % 3.2 % (37.0-80.0)
[2022-12-11 09:25] LABS: Platelet Count 3 K/mm3 (142-424); White Blood Count 0.8 K/mm3 (4.8-10.8)
[2022-12-11 09:27] LABS: MANUAL DIFFERENTIAL MANUAL DIFFERENTIAL (MANUAL DIFF)
[2022-12-11 09:30] LABS: Chloride 103 mmol/L (98-107); Sodium 134 mmol/L (136-145)
[2022-12-11 09:33] LABS: Alanine Aminotransferase 14 U/L (12-78); Albumin Level 3.4 g/dl (3.5-5.0); Alkaline Phosphatase 63 U/L (38-126); Aspartate Amino Transferase 22 U/L (14-36); Bilirubin,Total 0.8 mg/dl (0.2-1.3); Blood Urea Nitrogen 15 mg/dl (7-17); Carbon Dioxide 23 mmol/L (22.0-30.0); Creatinine Clearance Estimated 46 mL/min (50-200); Estimated Glomerular Filt Rate 98 ml/min (>60); GFR (African American) 119 ML/MIN (>60); Globulin 3.5 g/dL (1.3-3.2); Total Protein,Serum 6.9 g/dl (6.3-8.2)
[2022-12-11 09:34] LABS: Calcium 8.1 mg/dl (8.4-10.2); Glucose 127 mg/dl (74-100)
[2022-12-11 09:58] LABS: Lymphocytes % 96 % (10-50); Neutrophils % 4 % (42-76); Platelet Estimate Marked Decrease; RBC Morphology Normal; Total Cells Counted 25
== END 2022-12-11 15:52 | disposition home or self-care (01) ==
LOC: INF 08:54
PROVIDERS: PCP Family Medicine; Visit Provider Internal Medicine Medical Oncology
DX: D46.9 Myelodysplastic syndrome, unspecified (principal)
CPT/HCPCS: 36430; 80053; 85007; 85025; 86850; P9016; P9034

== ENCOUNTER 2022-12-13 08:59 | Outpatient (CLI) | payer MEDICARE, SELFPAY ==
[2022-12-13 09:02] VITALS: BMI 19.1
[2022-12-13 09:18] LABS: Basophils % 0.3 % (0.1-2.0); Eosinophils % 0.2 % (0.1-12.0); Hemoglobin 8.4 g/dL (12.2-16.2); Lymphocytes # 0.7 K/mm3 (0.7-4.5); Lymphocytes % 92.8 % (10-50); Mean Corpuscular HGB Conc 32.1 g/dL (31.8-35.4); Mean Corpuscular Hemoglobin 27.7 pg (27.0-31.2); Mean Corpuscular Volume 86.2 fl (81-99); Mean Platelet Volume 7.3 fl (7.4-10.4); Monocytes % 1.4 % (1.7-9.3); Red Blood Count 3.02 M/mm3 (4.20-5.40); Red Cell Distribution Width 14.6 % (11.5-17.5)
[2022-12-13 09:20] LABS: Neutrophils % 5.3 % (37.0-80.0); Platelet Count 5 K/mm3 (142-424); White Blood Count 0.8 K/mm3 (4.8-10.8)
[2022-12-13 09:21] LABS: MANUAL DIFFERENTIAL MANUAL DIFFERENTIAL (MANUAL DIFF)
[2022-12-13 09:27] LABS: Alanine Aminotransferase 15 U/L (12-78); Albumin Level 3.5 g/dl (3.5-5.0); Alkaline Phosphatase 63 U/L (38-126); Anion Gap 14.1 mEq/L (5-15); Aspartate Amino Transferase 18 U/L (14-36); Bilirubin,Total 0.9 mg/dl (0.2-1.3); Blood Urea Nitrogen 11 mg/dl (7-17); Calcium 7.9 mg/dl (8.4-10.2); Carbon Dioxide 21 mmol/L (22.0-30.0); Chloride 101 mmol/L (98-107); Creatinine Clearance Estimated 46 mL/min (50-200); Estimated Glomerular Filt Rate 98 ml/min (>60); GFR (African American) 119 ML/MIN (>60); Globulin 3.6 g/dL (1.3-3.2); Glucose 127 mg/dl (74-100); Potassium 4.1 mmoL/L (3.5-5.1); Sodium 132 mmol/L (136-145); Total Protein,Serum 7.1 g/dl (6.3-8.2)
[2022-12-13 09:47] LABS: Lymphocytes % 90 % (10-50); Neutrophils % 10 % (42-76); Ovalocytes 1+; Platelet Estimate Marked Decrease; Poikilocytosis 1+; Total Cells Counted 10
[2022-12-13 09:48] LABS: Hypochromasia 1+
[2022-12-13 11:55] VITALS: BP 118/65; PULSE 86; RESP 18; TEMP 37.3; O2SAT 98
[2022-12-13 11:57] VITALS: BP 94/65; PULSE 102; RESP 18; TEMP 37.3; O2SAT 98
[2022-12-13 12:02] VITALS: BP 113/65; PULSE 97; RESP 18; TEMP 37.5; O2SAT 97
[2022-12-13 12:07] VITALS: BP 112/65; PULSE 98; RESP 18; TEMP 37.6; O2SAT 97
[2022-12-13 12:12] VITALS: BP 112/58; PULSE 97; RESP 18; TEMP 37.5; O2SAT 97
[2022-12-13 12:15] VITALS: BP 109/57; PULSE 91; RESP 18; TEMP 37.6; O2SAT 97
--- NOTE | 2022-12-13 14:19 | PC.NURSE ---
Susana Ellington from lab called critical lab results at 0920 to RN. lab result, name and repeated and verified by RN. pt has standing orders in place for transfusion and will receive 1 unit platelets today. MD Calvin notified and no new orders.
== END 2022-12-13 12:20 | disposition home or self-care (01) ==
LOC: INF 08:59
PROVIDERS: PCP Family Medicine; Visit Provider Internal Medicine Medical Oncology
DX: D46.9 Myelodysplastic syndrome, unspecified (principal)
CPT/HCPCS: 36430; 80053; 85007; 85025; P9034

== ENCOUNTER 2022-12-15 09:19 | Outpatient (CLI) | payer MEDICARE, SELFPAY ==
[2022-12-15] VITALS (18 sets, daily range): BP systolic 83–137; BP diastolic 41–71; PULSE 86–99; RESP 18–19; TEMP 36.9–37.5; O2SAT 95–96; BMI 19.1
[2022-12-15 09:41] LABS: Basophils % 0.7 % (0.1-2.0); Eosinophils % 0.8 % (0.1-12.0); Hematocrit 21.3 % (37.0-47.0); Hemoglobin 7.1 g/dL (12.2-16.2); Lymphocytes # 0.5 K/mm3 (0.7-4.5); Lymphocytes % 92.9 % (10-50); Mean Corpuscular HGB Conc 33.3 g/dL (31.8-35.4); Mean Corpuscular Hemoglobin 29.2 pg (27.0-31.2); Mean Corpuscular Volume 87.6 fl (81-99); Mean Platelet Volume 8.6 fl (7.4-10.4); Monocytes % 0.8 % (1.7-9.3); Red Blood Count 2.44 M/mm3 (4.20-5.40); Red Cell Distribution Width 15.1 % (11.5-17.5)
[2022-12-15 09:42] LABS: Neutrophils % 4.8 % (37.0-80.0)
--- NOTE | 2022-12-15 09:42 | PC.NURSE ---
0942-Yaritza bateman called rn at 0910 to report wbc 0.5 and plt 9. Rn repeated and verified pt name, , lab value. result called to dr. hernandez no new orders at this time just follow standing orders for blood products.
[2022-12-15 09:44] LABS: Platelet Count 9 K/mm3 (142-424); White Blood Count 0.5 K/mm3 (4.8-10.8)
[2022-12-15 09:46] LABS: MANUAL DIFFERENTIAL MANUAL DIFFERENTIAL (MANUAL DIFF)
[2022-12-15 09:47] LABS: Chloride 103 mmol/L (98-107); Potassium 4.3 mmoL/L (3.5-5.1); Sodium 133 mmol/L (136-145)
[2022-12-15 09:49] LABS: Blood Urea Nitrogen 15 mg/dl (7-17); Creatinine Clearance Estimated 46 mL/min (50-200); Estimated Glomerular Filt Rate 98 ml/min (>60); GFR (African American) 119 ML/MIN (>60)
[2022-12-15 09:50] LABS: Alanine Aminotransferase 16 U/L (12-78); Albumin Level 3.4 g/dl (3.5-5.0); Alkaline Phosphatase 57 U/L (38-126); Anion Gap 13.3 mEq/L (5-15); Aspartate Amino Transferase 18 U/L (14-36); Bilirubin,Total 0.9 mg/dl (0.2-1.3); Carbon Dioxide 21 mmol/L (22.0-30.0); Globulin 3.4 g/dL (1.3-3.2); Total Protein,Serum 6.8 g/dl (6.3-8.2)
--- NOTE | 2022-12-15 09:50 | PC.NURSE ---
0950-collected blood via right upper arm picc line for type and screen with alyssa watch and clock maker and repairer here to witness the draw.
[2022-12-15 09:51] LABS: Glucose 147 mg/dl (74-100)
[2022-12-15 10:40] LABS: Lymphocytes % 100 % (10-50); Platelet Estimate Marked Decrease; RBC Morphology Normal; Total Cells Counted 25
== END 2022-12-15 15:40 | disposition home or self-care (01) ==
LOC: INF 09:19
PROVIDERS: PCP Family Medicine; Visit Provider Internal Medicine Medical Oncology
DX: D46.9 Myelodysplastic syndrome, unspecified (principal)
CPT/HCPCS: 36430; 80053; 85007; 85025; 86850; P9016; P9034

== ENCOUNTER 2022-12-18 09:37 | Outpatient (CLI) | payer MEDICARE, SELFPAY ==
[2022-12-18] VITALS (18 sets, daily range): BP systolic 97–127; BP diastolic 53–70; PULSE 87–96; RESP 18; TEMP 37.4–37.5; O2SAT 95–99; BMI 19.3
[2022-12-18 10:09] LABS: Basophils % 0.6 % (0.1-2.0); Eosinophils % 1.3 % (0.1-12.0); Hematocrit 22.9 % (37.0-47.0); Hemoglobin 7.7 g/dL (12.2-16.2); Lymphocytes # 0.4 K/mm3 (0.7-4.5); Lymphocytes % 89.7 % (10-50); Mean Corpuscular HGB Conc 33.5 g/dL (31.8-35.4); Mean Corpuscular Hemoglobin 28.6 pg (27.0-31.2); Mean Corpuscular Volume 85.5 fl (81-99); Monocytes % 1.9 % (1.7-9.3); Red Blood Count 2.68 M/mm3 (4.20-5.40); Red Cell Distribution Width 15.1 % (11.5-17.5)
[2022-12-18 10:11] LABS: Neutrophils % 6.5 % (37.0-80.0)
[2022-12-18 10:13] LABS: Platelet Count 5 K/mm3 (142-424); White Blood Count 0.4 K/mm3 (4.8-10.8)
[2022-12-18 10:15] LABS: MANUAL DIFFERENTIAL MANUAL DIFFERENTIAL (MANUAL DIFF)
[2022-12-18 10:18] LABS: Alanine Aminotransferase 15 U/L (12-78); Albumin Level 3.5 g/dl (3.5-5.0); Alkaline Phosphatase 60 U/L (38-126); Anion Gap 13.2 mEq/L (5-15); Aspartate Amino Transferase 18 U/L (14-36); Bilirubin,Total 1.3 mg/dl (0.2-1.3); Blood Urea Nitrogen 16 mg/dl (7-17); Carbon Dioxide 21 mmol/L (22.0-30.0); Chloride 100 mmol/L (98-107); Creatinine Clearance Estimated 46 mL/min (50-200); Estimated Glomerular Filt Rate 98 ml/min (>60); GFR (African American) 119 ML/MIN (>60); Globulin 3.5 g/dL (1.3-3.2); Glucose 109 mg/dl (74-100); Potassium 4.2 mmoL/L (3.5-5.1); Sodium 130 mmol/L (136-145)
--- NOTE | 2022-12-18 10:43 | PC.NURSE ---
Yaritza Whittington called critical labs at 1011 to RN. WBC 0.4, Plt 5, RN repeated and verified name, and lab values. Pt has standing orders for transfusions and will recieve 1 unit PRBC and platelets. MD Calvin notified and no new orders.
[2022-12-18 12:40] LABS: Lymphocytes % 96 % (10-50); Neutrophils % 4 % (42-76); Platelet Estimate Marked Decrease; RBC Morphology Normal; Total Cells Counted 25
== END 2022-12-18 14:54 | disposition home or self-care (01) ==
LOC: INF 09:38
PROVIDERS: PCP Family Medicine; Visit Provider Internal Medicine Medical Oncology
DX: D46.9 Myelodysplastic syndrome, unspecified (principal)
CPT/HCPCS: 36430; 80053; 85007; 85025; 86850; P9016; P9034

== ENCOUNTER 2022-12-20 09:50 | Outpatient (CLI) | payer MEDICARE, SELFPAY ==
[2022-12-20] VITALS (11 sets, daily range): BP systolic 106–115; BP diastolic 48–59; PULSE 92–98; RESP 18–20; TEMP 37.5–37.9; O2SAT 97–98; BMI 18.5
[2022-12-20 10:19] LABS: Eosinophils % 0.2 % (0.1-12.0); Hematocrit 23.8 % (37.0-47.0); Hemoglobin 8.2 g/dL (12.2-16.2); Lymphocytes # 0.5 K/mm3 (0.7-4.5); Lymphocytes % 92.2 % (10-50); Mean Corpuscular HGB Conc 34.3 g/dL (31.8-35.4); Mean Corpuscular Hemoglobin 28.6 pg (27.0-31.2); Mean Corpuscular Volume 83.4 fl (81-99); Mean Platelet Volume 8.4 fl (7.4-10.4); Monocytes % 1.5 % (1.7-9.3); Red Blood Count 2.85 M/mm3 (4.20-5.40); Red Cell Distribution Width 15.1 % (11.5-17.5)
[2022-12-20 10:22] LABS: Neutrophils % 5.1 % (37.0-80.0); Platelet Count 4 K/mm3 (142-424); White Blood Count 0.5 K/mm3 (4.8-10.8)
[2022-12-20 10:23] LABS: MANUAL DIFFERENTIAL MANUAL DIFFERENTIAL (MANUAL DIFF)
--- NOTE | 2022-12-20 10:27 | PC.NURSE ---
Susana Frances called RN at 1022 to report platelet count 4, wbc-0.5. RN repeated and verified pt name, , and lab value. Result called to Dr. Jeaneth Simpson, no new orders noted. pt has standing orders for platelet transfusion.
[2022-12-20 10:31] LABS: Chloride 99 mmol/L (98-107); Potassium 4.1 mmoL/L (3.5-5.1); Sodium 129 mmol/L (136-145)
[2022-12-20 10:33] LABS: Blood Urea Nitrogen 17 mg/dl (7-17); Creatinine Clearance Estimated 44 mL/min (50-200); Estimated Glomerular Filt Rate 98 ml/min (>60); GFR (African American) 119 ML/MIN (>60)
[2022-12-20 10:34] LABS: Alanine Aminotransferase 14 U/L (12-78); Albumin Level 3.3 g/dl (3.5-5.0); Alkaline Phosphatase 56 U/L (38-126); Anion Gap 10.1 mEq/L (5-15); Aspartate Amino Transferase 18 U/L (14-36); Bilirubin,Total 1.2 mg/dl (0.2-1.3); Calcium 8.1 mg/dl (8.4-10.2); Carbon Dioxide 24 mmol/L (22.0-30.0); Globulin 3.4 g/dL (1.3-3.2); Glucose 99 mg/dl (74-100); Total Protein,Serum 6.7 g/dl (6.3-8.2)
[2022-12-20 10:45] LABS: Hypochromasia 1+; Lymphocytes % 100 % (10-50); Ovalocytes 1+; Platelet Estimate Marked Decrease; Total Cells Counted 10
== END 2022-12-20 14:10 | disposition home or self-care (01) ==
LOC: INF 09:50
PROVIDERS: Visit Provider Internal Medicine Medical Oncology
DX: D46.9 Myelodysplastic syndrome, unspecified (principal); Z45.2 Encounter for adjustment and management of vascular access device
CPT/HCPCS: 36430; 80053; 85007; 85025; 96360; P9034

== ENCOUNTER 2022-12-22 10:21 | Outpatient (CLI) | payer MEDICARE, SELFPAY ==
[2022-12-22 10:21] VITALS: BMI 18.3
[2022-12-22 10:40] VITALS: BP 118/64; PULSE 63; RESP 24; TEMP 38.2; O2SAT 95
[2022-12-22 10:44] LABS: Basophils % 2.3 % (0.1-2.0); Eosinophils % 0.7 % (0.1-12.0); Hematocrit 21.3 % (37.0-47.0); Hemoglobin 7.4 g/dL (12.2-16.2); Lymphocytes # 0.3 K/mm3 (0.7-4.5); Lymphocytes % 80.8 % (10-50); Mean Corpuscular HGB Conc 34.8 g/dL (31.8-35.4); Mean Corpuscular Hemoglobin 28.9 pg (27.0-31.2); Mean Platelet Volume 8.3 fl (7.4-10.4); Neutrophils # 0.1 K/mm3 (1.8-7.8); Red Blood Count 2.56 M/mm3 (4.20-5.40); Red Cell Distribution Width 15.1 % (11.5-17.5)
[2022-12-22 10:47] LABS: Neutrophils % 14.3 % (37.0-80.0)
[2022-12-22 11:31] LABS: Platelet Count 7 K/mm3 (142-424); White Blood Count 0.4 K/mm3 (4.8-10.8)
[2022-12-22 11:32] LABS: MANUAL DIFFERENTIAL MANUAL DIFFERENTIAL (MANUAL DIFF)
[2022-12-22 13:25] VITALS: BP 124/63; PULSE 63; RESP 20; TEMP 38.2; O2SAT 95
[2022-12-22 13:25] LABS: Lymphocytes % 96 % (10-50); Neutrophils % 4 % (42-76); Platelet Estimate Marked Decrease; RBC Morphology Normal; Total Cells Counted 25
--- NOTE | 2022-12-22 14:30 | PC.NURSE ---
Addendum entered by Anne Weaver RN 12/22/22 15:09: DISCHARGED AT 1325 Original Note: PT ARRIVED AT 1025 TODAY FOR LAB CHECK; LABS WERE CHECKED AND BASED ON LABS PT NEEDED BOTH PLATELETS AND PRBC. PT WAS TYPED AND CROSSED AND WHILE BLOOD WAS BEING PREPARED VITALS WERE TAKEN AND PT HAS A LOW GRADE TEMP. SPOKE WITH MD AND GIVEN THE FACT THAT PT WBC IS 0.4 SHE THOUGHT IT WAS BEST FOR THE PATIENT TO GO TO ER AT . I HAD SPOKEN WITH EARLIER THIS AM ABOUT AN APPT ON 12/26 FOR THE PATIENT WITH HEMATOLOGY THERE AND THERE RECOMMENDATION WAS TO SEND HER TO ER WELL IF FOR ANY REASON PT BECAME UNSTABLE BEFORE THEN. PT EXTREMELY WEAK, MOUTH SORE PRESENT, AND HAVING DIARRHEA. PT NOT ABLE TO DRINK AND EAT MUCH DUE TO MOUTH SORE. PT WAS AGREEABLE TO GO TO ER TODAY.
--- NOTE | 2022-12-22 15:09 | PC.NURSE ---
London WYNN FROM LAB CALLED AND REPORT CRITICAL RESULTS AT 1046. WBC 0.4, PLT 7 AND HG 7.4. PT NAME, AND CRITICAL VALUES WERE REPEATED AND VERIFIED. STANDING ORDERS FOR TRANSFUSION; AWARE OF RESULTS
== END 2022-12-22 13:25 | disposition home or self-care (01) ==
LOC: INF 10:22
PROVIDERS: PCP Family Medicine; Visit Provider Internal Medicine Medical Oncology
DX: D46.9 Myelodysplastic syndrome, unspecified (principal)
CPT/HCPCS: 36592; 85007; 85025; 86850

== ENCOUNTER 2023-01-01 10:50 | Outpatient (CLI) | payer MEDICARE, SELFPAY ==
[2023-01-01] VITALS (7 sets, daily range): BP systolic 95–115; BP diastolic 51–57; PULSE 95–108; RESP 18–19; TEMP 37.1–37.4; O2SAT 95–96; BMI 19.4
--- NOTE | 2023-01-01 11:04 | PC.NURSE ---
1104-collected labs via right upper arm picc line
[2023-01-01 11:09] LABS: Basophils % 0.8 % (0.1-2.0); Eosinophils % 1.1 % (0.1-12.0); Hematocrit 23.7 % (37.0-47.0); Hemoglobin 8.2 g/dL (12.2-16.2); Lymphocytes # 0.4 K/mm3 (0.7-4.5); Lymphocytes % 82.1 % (10-50); Mean Corpuscular HGB Conc 34.7 g/dL (31.8-35.4); Mean Corpuscular Hemoglobin 28.4 pg (27.0-31.2); Mean Corpuscular Volume 81.8 fl (81-99); Mean Platelet Volume 16.8 fl (7.4-10.4); Monocytes % 3.6 % (1.7-9.3); Neutrophils # 0.1 K/mm3 (1.8-7.8); Red Blood Count 2.89 M/mm3 (4.20-5.40); Red Cell Distribution Width 15.5 % (11.5-17.5)
[2023-01-01 11:10] LABS: Neutrophils % 12.3 % (37.0-80.0)
[2023-01-01 11:13] LABS: White Blood Count 0.5 K/mm3 (4.8-10.8)
[2023-01-01 11:14] LABS: Chloride 101 mmol/L (98-107); Platelet Count 4 K/mm3 (142-424); Potassium 3.4 mmoL/L (3.5-5.1); Sodium 133 mmol/L (136-145)
--- NOTE | 2023-01-01 11:15 | PC.NURSE ---
at 1110, Aga Ac from lab called critical lab to this RN. WBC 0.5, Plt 4. name, and lab results verified and read back by RN. pt has standing orders in place for blood product transfusions and will receive one unit of platelets per MD order. MD Calvin notified and no new orders given.
[2023-01-01 11:16] LABS: Blood Urea Nitrogen 25 mg/dl (7-17); Creatinine Clearance Estimated 47 mL/min (50-200); Estimated Glomerular Filt Rate 121 ml/min (>60); GFR (African American) 147 ML/MIN (>60); MANUAL DIFFERENTIAL MANUAL DIFFERENTIAL (MANUAL DIFF)
--- NOTE | 2023-01-01 11:16 | PC.NURSE ---
1116-alyssa from lab here to witness type and screen.
[2023-01-01 11:17] LABS: Alanine Aminotransferase 20 U/L (12-78); Albumin Level 3.1 g/dl (3.5-5.0); Albumin/Globulin Ratio 0.9 (1.1-1.8); Alkaline Phosphatase 57 U/L (38-126); Anion Gap 12.4 mEq/L (5-15); Aspartate Amino Transferase 27 U/L (14-36); Bilirubin,Total 1.4 mg/dl (0.2-1.3); Carbon Dioxide 23 mmol/L (22.0-30.0); Globulin 3.5 g/dL (1.3-3.2); Glucose 111 mg/dl (74-100); Total Protein,Serum 6.6 g/dl (6.3-8.2)
[2023-01-01 11:36] LABS: Lymphocytes % 90 % (10-50); Neutrophils % 10 % (42-76); Platelet Estimate Marked Decrease; RBC Morphology Normal; Total Cells Counted 10
== END 2023-01-01 16:00 | disposition home or self-care (01) ==
LOC: INF 10:51
PROVIDERS: Visit Provider Internal Medicine Medical Oncology
DX: Z45.2 Encounter for adjustment and management of vascular access device (principal); D46.9 Myelodysplastic syndrome, unspecified
CPT/HCPCS: 36430; 80053; 85007; 85025; 86900; 86901; P9034

== ENCOUNTER 2023-01-03 10:45 | Outpatient (CLI) | payer MEDICARE, SELFPAY ==
[2023-01-03] VITALS (8 sets, daily range): BP systolic 103–122; BP diastolic 52–68; PULSE 85–99; RESP 16–18; TEMP 36.6–37; O2SAT 93–97; BMI 18.3
[2023-01-03 11:02] LABS: Basophils % 0.9 % (0.1-2.0); Hematocrit 24.4 % (37.0-47.0); Hemoglobin 8.5 g/dL (12.2-16.2); Lymphocytes # 0.4 K/mm3 (0.7-4.5); Lymphocytes % 87.1 % (10-50); Mean Corpuscular HGB Conc 34.8 g/dL (31.8-35.4); Mean Corpuscular Volume 80.4 fl (81-99); Mean Platelet Volume 7.9 fl (7.4-10.4); Red Blood Count 3.03 M/mm3 (4.20-5.40)
[2023-01-03 11:06] LABS: MANUAL DIFFERENTIAL MANUAL DIFFERENTIAL (MANUAL DIFF); White Blood Count 0.4 K/mm3 (4.8-10.8)
[2023-01-03 12:06] LABS: Lymphocytes % 92 % (10-50); Monocytes % 4 % (2-9); Neutrophils % 4 % (42-76); Platelet Estimate Marked Decrease; Total Cells Counted 25
[2023-01-03 12:57] LABS: Platelet Count 3 K/mm3 (142-424)
[2023-01-03 12:58] LABS: RBC Morphology Normal
== END 2023-01-03 14:45 | disposition home or self-care (01) ==
LOC: INF 10:46
PROVIDERS: Visit Provider Internal Medicine Medical Oncology
DX: D46.9 Myelodysplastic syndrome, unspecified (principal)
CPT/HCPCS: 36430; 85007; 85025; P9034

== ENCOUNTER 2023-01-05 08:46 | Outpatient (CLI) | payer MEDICARE, SELFPAY ==
[2023-01-05] VITALS (7 sets, daily range): BP systolic 99–106; BP diastolic 45–49; PULSE 90–94; RESP 16; TEMP 37.1–37.2; O2SAT 97–98; BMI 18.2
[2023-01-05 09:01] LABS: Basophils % 0.4 % (0.1-2.0); Eosinophils % 1.5 % (0.1-12.0); Hemoglobin 8.1 g/dL (12.2-16.2); Lymphocytes # 0.5 K/mm3 (0.7-4.5); Lymphocytes % 84.5 % (10-50); Mean Corpuscular HGB Conc 35.4 g/dL (31.8-35.4); Mean Corpuscular Hemoglobin 28.6 pg (27.0-31.2); Mean Corpuscular Volume 80.9 fl (81-99); Mean Platelet Volume 10.3 fl (7.4-10.4); Monocytes % 4.7 % (1.7-9.3); Neutrophils # 0.1 K/mm3 (1.8-7.8); Red Blood Count 2.85 M/mm3 (4.20-5.40); Red Cell Distribution Width 15.2 % (11.5-17.5)
[2023-01-05 09:03] LABS: Neutrophils % 8.9 % (37.0-80.0); White Blood Count 0.6 K/mm3 (4.8-10.8)
[2023-01-05 09:04] LABS: MANUAL DIFFERENTIAL MANUAL DIFFERENTIAL (MANUAL DIFF); Platelet Count 5 K/mm3 (142-424)
--- NOTE | 2023-01-05 09:24 | PC.NURSE ---
Susana Frances called RN at 0903 to report platelet level 5. RN repeated and verified pt name, , and lab value. Result called to Dr. [facility]. pt has standing order orders for platelets less than 10.
[2023-01-05 10:12] LABS: Lymphocytes % 90 % (10-50); Neutrophils % 10 % (42-76); Total Cells Counted 10
[2023-01-05 10:14] LABS: Platelet Estimate Marked Decrease; RBC Morphology Normal
== END 2023-01-05 13:20 | disposition home or self-care (01) ==
LOC: INF 08:48
PROVIDERS: PCP Family Medicine; Visit Provider Internal Medicine Medical Oncology
DX: D46.9 Myelodysplastic syndrome, unspecified (principal)
CPT/HCPCS: 36430; 85007; 85025; 86900; 86901; P9034

== ENCOUNTER 2023-01-08 09:23 | Outpatient (CLI) | payer MEDICARE, SELFPAY ==
[2023-01-08] VITALS (19 sets, daily range): BP systolic 96–114; BP diastolic 51–59; PULSE 73–94; RESP 20; TEMP 36.6–36.8; O2SAT 97–98; BMI 17.3
[2023-01-08 09:55] LABS: Basophils % 0.7 % (0.1-2.0); Eosinophils % 0.2 % (0.1-12.0); Lymphocytes # 0.4 K/mm3 (0.7-4.5); Lymphocytes % 87.2 % (10-50); Mean Corpuscular HGB Conc 35.3 g/dL (31.8-35.4); Mean Corpuscular Hemoglobin 28.7 pg (27.0-31.2); Mean Corpuscular Volume 81.5 fl (81-99); Mean Platelet Volume 12.9 fl (7.4-10.4); Monocytes % 1.6 % (1.7-9.3); Neutrophils # 0.1 K/mm3 (1.8-7.8); Red Blood Count 2.42 M/mm3 (4.20-5.40); Red Cell Distribution Width 15.1 % (11.5-17.5)
[2023-01-08 09:56] LABS: Hematocrit 19.7 % (37.0-47.0); Neutrophils % 10.3 % (37.0-80.0); Platelet Count 4 K/mm3 (142-424); White Blood Count 0.5 K/mm3 (4.8-10.8)
[2023-01-08 09:58] LABS: MANUAL DIFFERENTIAL MANUAL DIFFERENTIAL (MANUAL DIFF)
[2023-01-08 10:02] LABS: Chloride 101 mmol/L (98-107); Potassium 3.3 mmoL/L (3.5-5.1); Sodium 133 mmol/L (136-145)
[2023-01-08 10:05] LABS: Alanine Aminotransferase 13 U/L (12-78); Albumin/Globulin Ratio 0.9 (1.1-1.8); Alkaline Phosphatase 58 U/L (38-126); Anion Gap 10.3 mEq/L (5-15); Aspartate Amino Transferase 18 U/L (14-36); Bilirubin,Total 1.2 mg/dl (0.2-1.3); Blood Urea Nitrogen 16 mg/dl (7-17); Carbon Dioxide 25 mmol/L (22.0-30.0); Creatinine Clearance Estimated 42 mL/min (50-200); Estimated Glomerular Filt Rate 121 ml/min (>60); GFR (African American) 147 ML/MIN (>60); Globulin 3.4 g/dL (1.3-3.2); Total Protein,Serum 6.4 g/dl (6.3-8.2)
[2023-01-08 10:06] LABS: Calcium 7.9 mg/dl (8.4-10.2); Glucose 116 mg/dl (74-100)
[2023-01-08 10:14] LABS: Lymphocytes % 60 % (10-50); Monocytes % 20 % (2-9); Neutrophils % 20 % (42-76); Platelet Estimate Normal; RBC Morphology Normal; Total Cells Counted 10
--- NOTE | 2023-01-08 10:21 | PC.NURSE ---
Susana Frances called RN to report wbc-0.5, hgb-7.0, hct-19.7, plt-4. RN repeated and verified pt name, , and lab values. Result called to Dr. Jeaneth Simpson, standing orders in place for transfusion.
== END 2023-01-08 15:43 | disposition home or self-care (01) ==
LOC: INF 09:24
PROVIDERS: Visit Provider Internal Medicine Medical Oncology
DX: D46.9 Myelodysplastic syndrome, unspecified (principal); Z45.2 Encounter for adjustment and management of vascular access device
CPT/HCPCS: 36430; 80053; 85007; 85025; 86850; 96413; J9025; P9016; P9034

== ENCOUNTER 2023-01-09 09:42 | Outpatient (CLI) | payer MEDICARE, SELFPAY ==
[2023-01-09 10:36] VITALS: BP 102/45; PULSE 98; RESP 19; TEMP 37.3; O2SAT 98
[2023-01-09 11:35] VITALS: BP 102/46; PULSE 88; RESP 18; TEMP 37.2; O2SAT 98
--- NOTE | 2023-01-09 13:42 | SW/DCPLANNER ---
Patient information/order has been faxed to [facility] for home O2. Patient does qualify for home O2 after overnight pulse ox was completed on this patient.
== END 2023-01-09 11:35 | disposition home or self-care (01) ==
LOC: INF 09:43
PROVIDERS: Visit Provider Internal Medicine Medical Oncology
DX: D46.9 Myelodysplastic syndrome, unspecified (principal)
CPT/HCPCS: 96413; J9025

== ENCOUNTER 2023-01-10 09:02 | Outpatient (CLI) | payer MEDICARE, SELFPAY ==
[2023-01-10] VITALS (11 sets, daily range): BP systolic 97–107; BP diastolic 49–62; PULSE 92–109; RESP 18–20; TEMP 36.9–37; O2SAT 97–100; BMI 17.3
[2023-01-10 09:21] LABS: Basophils % 0.9 % (0.1-2.0); Eosinophils % 0.5 % (0.1-12.0); Hematocrit 21.3 % (37.0-47.0); Hemoglobin 7.4 g/dL (12.2-16.2); Lymphocytes # 0.3 K/mm3 (0.7-4.5); Lymphocytes % 77.3 % (10-50); Mean Corpuscular HGB Conc 34.5 g/dL (31.8-35.4); Mean Corpuscular Hemoglobin 28.7 pg (27.0-31.2); Mean Corpuscular Volume 83.3 fl (81-99); Mean Platelet Volume 8.8 fl (7.4-10.4); Monocytes % 3.4 % (1.7-9.3); Neutrophils # 0.1 K/mm3 (1.8-7.8); Neutrophils % 17.8 % (37.0-80.0); Red Blood Count 2.56 M/mm3 (4.20-5.40); Red Cell Distribution Width 15.3 % (11.5-17.5)
[2023-01-10 09:23] LABS: Platelet Count 2 K/mm3 (142-424); White Blood Count 0.4 K/mm3 (4.8-10.8)
[2023-01-10 09:24] LABS: MANUAL DIFFERENTIAL MANUAL DIFFERENTIAL (MANUAL DIFF)
--- NOTE | 2023-01-10 09:51 | PC.NURSE ---
01/10/23 0940 Susana Frances called RN at 0940 to report wbc-0.4, plt-2. RN repeated and verified pt name, , and lab value. Result called to Dr. Jeaneth Simpson- no new orders noted. pt has standing orders for platelet transfusion.
[2023-01-10 11:11] LABS: Lymphocytes % 70 % (10-50); Monocytes % 10 % (2-9); Neutrophils % 20 % (42-76); Total Cells Counted 10
[2023-01-10 11:12] LABS: Platelet Estimate Marked Decrease; RBC Morphology Normal
== END 2023-01-10 13:15 | disposition home or self-care (01) ==
LOC: INF 09:03
PROVIDERS: PCP Family Medicine; Visit Provider Internal Medicine Medical Oncology
DX: D46.9 Myelodysplastic syndrome, unspecified (principal)
CPT/HCPCS: 36430; 85007; 85025; 96413; J9025; P9034

== ENCOUNTER 2023-01-11 09:46 | Outpatient (CLI) | payer MEDICARE, SELFPAY ==
[2023-01-11 10:30] VITALS: BP 94/51; PULSE 101; RESP 16; O2SAT 95
[2023-01-11 10:45] VITALS: BP 89/55; PULSE 97; RESP 16
[2023-01-11 11:00] VITALS: BP 84/54; PULSE 99; RESP 16
[2023-01-11 11:15] VITALS: BP 85/52; PULSE 98; RESP 16
== END 2023-01-11 11:45 | disposition home or self-care (01) ==
LOC: INF 09:47
PROVIDERS: PCP Family Medicine; Visit Provider Internal Medicine Medical Oncology
DX: D46.9 Myelodysplastic syndrome, unspecified (principal)
CPT/HCPCS: 96413; J9025

== ENCOUNTER 2023-01-12 09:34 | Outpatient (CLI) | payer MEDICARE, SELFPAY ==
[2023-01-12] VITALS (20 sets, daily range): BP systolic 88–105; BP diastolic 39–59; PULSE 80–88; RESP 18; TEMP 36.8–37.2; O2SAT 96–98; BMI 17.3
[2023-01-12 10:05] LABS: Eosinophils % 0.7 % (0.1-12.0); Lymphocytes # 0.3 K/mm3 (0.7-4.5); Lymphocytes % 84.2 % (10-50); Mean Corpuscular HGB Conc 35.2 g/dL (31.8-35.4); Mean Corpuscular Hemoglobin 28.7 pg (27.0-31.2); Mean Corpuscular Volume 81.4 fl (81-99); Mean Platelet Volume 14.8 fl (7.4-10.4); Monocytes % 4.4 % (1.7-9.3); Red Blood Count 2.34 M/mm3 (4.20-5.40)
[2023-01-12 10:25] LABS: Neutrophils % 9.8 % (37.0-80.0)
[2023-01-12 10:26] LABS: Hematocrit 19.1 % (37.0-47.0); Hemoglobin 6.7 g/dL (12.2-16.2); White Blood Count 0.4 K/mm3 (4.8-10.8)
[2023-01-12 10:27] LABS: Platelet Count 5 K/mm3 (142-424)
[2023-01-12 10:29] LABS: MANUAL DIFFERENTIAL MANUAL DIFFERENTIAL (MANUAL DIFF)
--- NOTE | 2023-01-12 11:33 | PC.NURSE ---
Yaritza Chicas called Rn at 1024 to report critical lab results of WBC 0.4, Hgb 6.7, Hct 19.1, Plt 5. Lab results, name and and verified and repeated by RN. Pt has standing orders in place for transfusions and will receive 1 unit PRBC and 1 unit platelets. MD Calvin notified and no new orders received.
[2023-01-12 11:36] LABS: Lymphocytes % 100 % (10-50); Platelet Estimate Marked Decrease; RBC Morphology Normal; Total Cells Counted 15
== END 2023-01-12 15:34 | disposition home or self-care (01) ==
PROVIDERS: PCP Family Medicine; Visit Provider Internal Medicine Medical Oncology
DX: D46.9 Myelodysplastic syndrome, unspecified (principal)
CPT/HCPCS: 36430; 85007; 85025; 86850; 96413; J9025; P9016; P9034

== ENCOUNTER 2023-01-13 09:29 | Outpatient (CLI) | payer MEDICARE, SELFPAY ==
[2023-01-13 09:40] VITALS: BP 82/44; PULSE 87; RESP 20; TEMP 36.9; O2SAT 95
[2023-01-13 10:10] VITALS: BP 86/43; PULSE 88; RESP 20; TEMP 36.9; O2SAT 95
[2023-01-13 11:00] VITALS: BP 82/45; PULSE 88; RESP 20; O2SAT 96
== END 2023-01-13 11:09 | disposition home or self-care (01) ==
LOC: INF 09:30
PROVIDERS: PCP Family Medicine; Visit Provider Internal Medicine Medical Oncology
DX: D46.9 Myelodysplastic syndrome, unspecified (principal)
CPT/HCPCS: 96413; J9025

== ENCOUNTER 2023-01-14 09:25 | Outpatient (CLI) | payer MEDICARE, SELFPAY ==
[2023-01-14 09:45] VITALS: BP 91/56; PULSE 93; RESP 20; TEMP 37.1; O2SAT 97
[2023-01-14 10:15] VITALS: BP 86/46; PULSE 90; RESP 20; TEMP 36.9; O2SAT 95
[2023-01-14 10:51] VITALS: BP 92/48; PULSE 68; RESP 20; TEMP 36.9; O2SAT 95
== END 2023-01-14 11:12 | disposition home or self-care (01) ==
LOC: INF 09:25
PROVIDERS: PCP Family Medicine; Visit Provider Internal Medicine Medical Oncology
DX: D46.9 Myelodysplastic syndrome, unspecified (principal)
CPT/HCPCS: 96413; J9025

== ENCOUNTER 2023-01-15 09:45 | Outpatient (CLI) | payer MEDICARE, SELFPAY ==
[2023-01-15] VITALS (20 sets, daily range): BP systolic 90–132; BP diastolic 46–66; PULSE 73–89; RESP 18–19; TEMP 36.9–37.7; O2SAT 93–99; BMI 17.3
[2023-01-15 10:09] LABS: Basophils % 0.3 % (0.1-2.0); Eosinophils % 0.6 % (0.1-12.0); Lymphocytes # 0.3 K/mm3 (0.7-4.5); Lymphocytes % 85.3 % (10-50); Mean Corpuscular HGB Conc 35.7 g/dL (31.8-35.4); Mean Corpuscular Hemoglobin 28.6 pg (27.0-31.2); Mean Corpuscular Volume 79.9 fl (81-99); Mean Platelet Volume 9.8 fl (7.4-10.4); Monocytes % 1.2 % (1.7-9.3); Neutrophils # 0.1 K/mm3 (1.8-7.8); Red Blood Count 2.39 M/mm3 (4.20-5.40)
[2023-01-15 10:11] LABS: Neutrophils % 12.6 % (37.0-80.0)
--- NOTE | 2023-01-15 10:11 | PC.NURSE ---
1011-Yaritza Whittington mineralogy professor called rn at 1011 to report wbc 0.4, hgb 6.8, hct 19.1, plt 1. Rn repeated and verified pt name, , and lab value. Result called to no new orders today just follow standing orders for blood products
[2023-01-15 10:13] LABS: Chloride 99 mmol/L (98-107); Hematocrit 19.1 % (37.0-47.0); Hemoglobin 6.8 g/dL (12.2-16.2); Platelet Count 1 K/mm3 (142-424); Sodium 132 mmol/L (136-145); White Blood Count 0.4 K/mm3 (4.8-10.8)
[2023-01-15 10:15] LABS: MANUAL DIFFERENTIAL MANUAL DIFFERENTIAL (MANUAL DIFF)
[2023-01-15 10:16] LABS: Alanine Aminotransferase 12 U/L (12-78); Albumin Level 2.6 g/dl (3.5-5.0); Albumin/Globulin Ratio 0.9 (1.1-1.8); Alkaline Phosphatase 54 U/L (38-126); Anion Gap 6.9 mEq/L (5-15); Aspartate Amino Transferase 17 U/L (14-36); Blood Urea Nitrogen 12 mg/dl (7-17); Calcium 7.6 mg/dl (8.4-10.2); Carbon Dioxide 29 mmol/L (22.0-30.0); Creatinine Clearance Estimated 42 mL/min (50-200); Estimated Glomerular Filt Rate 121 ml/min (>60); GFR (African American) 147 ML/MIN (>60); Globulin 2.9 g/dL (1.3-3.2); Glucose 103 mg/dl (74-100); Total Protein,Serum 5.5 g/dl (6.3-8.2)
--- NOTE | 2023-01-15 10:20 | PC.NURSE ---
1020-Kellie brown, hole digger operator here to witness type and screen being drawn by pt's picc line per george sandsrn
[2023-01-15 10:21] LABS: Potassium 2.9 mmoL/L (3.5-5.1)
--- NOTE | 2023-01-15 10:21 | PC.NURSE ---
1021-Susana Ellington ict programmer, called rn at 1021 to report potassium 2.9. Rn repeated and verified pt name, , and lab, value.Result called to , new order for potassium chloride 20 mEq iv x one run.
--- NOTE | 2023-01-15 10:55 | PC.NURSE ---
1055-instilled cath raghu 2.2ml via picc line to increase blood return per .
--- NOTE | 2023-01-15 11:25 | PC.NURSE ---
1125-after 30mins checked picc line;pt picc not sluggish and gives positive blood return at this time.
[2023-01-15 12:36] LABS: Lymphocytes % 100 % (10-50); Total Cells Counted 10
[2023-01-15 12:38] LABS: Differential Comment 21
[2023-01-15 12:40] LABS: Hypochromasia 1+; Platelet Estimate Marked Decrease
[2023-01-15 12:41] LABS: Microcytosis 1+
== END 2023-01-15 15:48 | disposition home or self-care (01) ==
LOC: INF 09:45
PROVIDERS: PCP Family Medicine; Visit Provider Internal Medicine Medical Oncology
DX: D46.9 Myelodysplastic syndrome, unspecified (principal)
CPT/HCPCS: 36430; 36593; 80053; 85007; 85025; 86850; 96365; 96375; P9016; P9034

== ENCOUNTER 2023-01-17 09:42 | Outpatient (CLI) | payer MEDICARE, SELFPAY ==
[2023-01-17] VITALS (8 sets, daily range): BP systolic 97–111; BP diastolic 53–63; PULSE 78–87; RESP 18; TEMP 36.8–37.1; O2SAT 94–95; BMI 17.3
--- NOTE | 2023-01-17 09:55 | PC.NURSE ---
0955-collected labs via right upper arm picc line;will wait for results.
[2023-01-17 10:07] LABS: Basophils % 1.1 % (0.1-2.0); Hemoglobin 7.5 g/dL (12.2-16.2); Lymphocytes # 0.4 K/mm3 (0.7-4.5); Lymphocytes % 88.9 % (10-50); Mean Corpuscular HGB Conc 36.1 g/dL (31.8-35.4); Mean Corpuscular Hemoglobin 29.4 pg (27.0-31.2); Mean Corpuscular Volume 81.4 fl (81-99); Mean Platelet Volume 9.6 fl (7.4-10.4); Monocytes % 1.7 % (1.7-9.3); Red Blood Count 2.55 M/mm3 (4.20-5.40); Red Cell Distribution Width 15.2 % (11.5-17.5)
--- NOTE | 2023-01-17 10:12 | PC.NURSE ---
1012-Susana Ellington called rn at 1012 to report wbc 0.4, hct 20.8, hgb 7.5, plt 3. RN repeated and verified pt name, , and lab value. Result called to , no new orders at this time; only follow standing orders for blood products.
[2023-01-17 10:13] LABS: Hematocrit 20.8 % (37.0-47.0); Neutrophils % 8.2 % (37.0-80.0); Platelet Count 3 K/mm3 (142-424); White Blood Count 0.4 K/mm3 (4.8-10.8)
[2023-01-17 10:15] LABS: MANUAL DIFFERENTIAL MANUAL DIFFERENTIAL (MANUAL DIFF)
[2023-01-17 10:30] LABS: Lymphocytes % 90 % (10-50); Neutrophils % 10 % (42-76); Ovalocytes 1+; Platelet Estimate Marked Decrease; RBC Morphology Normal; Total Cells Counted 10
--- NOTE | 2023-01-17 13:50 | PC.NURSE ---
1350-K.Rakel nitroglycerin distributor called to notify rn that pt's platelets were ready.
== END 2023-01-17 14:50 | disposition home or self-care (01) ==
PROVIDERS: PCP Family Medicine; Visit Provider Internal Medicine Medical Oncology
DX: D46.9 Myelodysplastic syndrome, unspecified (principal)
CPT/HCPCS: 36430; 85007; 85025; P9034

== ENCOUNTER 2023-01-19 09:34 | Outpatient (CLI) | payer MEDICARE, SELFPAY ==
[2023-01-19] VITALS (16 sets, daily range): BP systolic 97–115; BP diastolic 48–69; PULSE 78–88; RESP 18; TEMP 36.7–36.8; O2SAT 96; BMI 17.4
--- NOTE | 2023-01-19 09:48 | PC.NURSE ---
0948-collected labs via right upper arm picc line;flushed with ns;will wait on labs'
[2023-01-19 10:06] LABS: Basophils % 0.6 % (0.1-2.0); Eosinophils % 0.2 % (0.1-12.0); Lymphocytes # 0.5 K/mm3 (0.7-4.5); Lymphocytes % 89.1 % (10-50); Mean Corpuscular HGB Conc 34.5 g/dL (31.8-35.4); Mean Corpuscular Hemoglobin 28.2 pg (27.0-31.2); Mean Corpuscular Volume 81.7 fl (81-99); Mean Platelet Volume 8.7 fl (7.4-10.4); Monocytes % 1.4 % (1.7-9.3); Red Blood Count 2.25 M/mm3 (4.20-5.40); Red Cell Distribution Width 14.6 % (11.5-17.5)
[2023-01-19 10:10] LABS: Neutrophils % 8.6 % (37.0-80.0)
--- NOTE | 2023-01-19 10:10 | PC.NURSE ---
1010-Yaritza bateman called rn at 1010 to report wbc 0.5, hgb 6.3,hct 18.4, plt 2. Rn repeated and verified pt name,, and lab value.Result called to , no new orders just follow standing orders for blood products.
[2023-01-19 10:11] LABS: White Blood Count 0.5 K/mm3 (4.8-10.8)
[2023-01-19 10:12] LABS: Hematocrit 18.4 % (37.0-47.0); Hemoglobin 6.3 g/dL (12.2-16.2); MANUAL DIFFERENTIAL MANUAL DIFFERENTIAL (MANUAL DIFF); Platelet Count 2 K/mm3 (142-424)
[2023-01-19 11:55] LABS: Lymphocytes % 100 % (10-50); Platelet Estimate Marked Decrease; RBC Morphology Normal; Total Cells Counted 10
== END 2023-01-19 15:50 | disposition home or self-care (01) ==
PROVIDERS: PCP Family Medicine; Visit Provider Internal Medicine Medical Oncology
DX: D46.9 Myelodysplastic syndrome, unspecified (principal)
CPT/HCPCS: 36430; 85007; 85025; 86850; P9016; P9034

== ENCOUNTER 2023-01-22 09:45 | Outpatient (CLI) | payer MEDICARE, SELFPAY ==
[2023-01-22] VITALS (7 sets, daily range): BP systolic 89–111; BP diastolic 39–59; PULSE 74–89; RESP 18–20; TEMP 36.7–37.2; O2SAT 96–97; BMI 17.3
[2023-01-22 10:29] LABS: Basophils % 0.3 % (0.1-2.0); Hematocrit 21.4 % (37.0-47.0); Hemoglobin 7.6 g/dL (12.2-16.2); Lymphocytes # 0.7 K/mm3 (0.7-4.5); Lymphocytes % 90.4 % (10-50); Mean Corpuscular HGB Conc 35.7 g/dL (31.8-35.4); Mean Corpuscular Hemoglobin 29.5 pg (27.0-31.2); Mean Corpuscular Volume 82.7 fl (81-99); Mean Platelet Volume 11.1 fl (7.4-10.4); Monocytes % 1.9 % (1.7-9.3); Neutrophils # 0.1 K/mm3 (1.8-7.8); Red Blood Count 2.59 M/mm3 (4.20-5.40); Red Cell Distribution Width 15.1 % (11.5-17.5)
[2023-01-22 10:36] LABS: Chloride 94 mmol/L (98-107); Potassium 3.1 mmoL/L (3.5-5.1); Sodium 134 mmol/L (136-145)
[2023-01-22 10:38] LABS: Alanine Aminotransferase 16 U/L (12-78); Aspartate Amino Transferase 18 U/L (14-36); Blood Urea Nitrogen 14 mg/dl (7-17); Creatinine Clearance Estimated 42 mL/min (50-200); Estimated Glomerular Filt Rate 121 ml/min (>60); GFR (African American) 147 ML/MIN (>60)
[2023-01-22 10:39] LABS: Albumin/Globulin Ratio 0.9 (1.1-1.8); Alkaline Phosphatase 62 U/L (38-126); Anion Gap 15.1 mEq/L (5-15); Bilirubin,Total 1.6 mg/dl (0.2-1.3); Carbon Dioxide 28 mmol/L (22.0-30.0); Globulin 3.3 g/dL (1.3-3.2); Glucose 90 mg/dl (74-100); Total Protein,Serum 6.3 g/dl (6.3-8.2)
[2023-01-22 10:40] LABS: Neutrophils % 7.4 % (37.0-80.0)
[2023-01-22 10:41] LABS: White Blood Count 0.8 K/mm3 (4.8-10.8)
[2023-01-22 10:42] LABS: Platelet Count 4 K/mm3 (142-424)
[2023-01-22 10:44] LABS: MANUAL DIFFERENTIAL MANUAL DIFFERENTIAL (MANUAL DIFF)
--- NOTE | 2023-01-22 10:57 | PC.NURSE ---
lab staff at bs to witness RN draw back blood from iv site for type and screen/platelets.
--- NOTE | 2023-01-22 10:59 | PC.NURSE ---
01/22/23 1040 Yaritza Whittington called Amirah Duncan RN to report pt wbc-0.8, plt-4. RN repeated and verified pt name, , and lab value. Result called to Dr. Simpson, no new orders noted. pt has standing md orders for platelet transfusion.
[2023-01-22 12:55] LABS: Lymphocytes % 90 % (10-50); Neutrophils % 10 % (42-76); Total Cells Counted 10
[2023-01-22 12:56] LABS: Platelet Estimate Marked Decrease; RBC Morphology Normal
--- NOTE | 2023-01-22 15:53 | XR_ITS ---
PROCEDURE INFORMATION: Exam: XR Chest Exam date and time: 01/22/2023 3:53 PM Age: 72 years old Clinical indication: Device placement; Picc; Additional info: Picc line placement TECHNIQUE: Imaging protocol: Radiologic exam of the chest. Views: 1 view. COMPARISON: CR XR CHEST PORTABLE 12/04/2022 11:40 AM FINDINGS: Tubes, catheters and devices: There is a left PICC line with its tip terminating in the cavoatrial junction. Lungs: Chronic prominence of the interstitial pulmonary markings noted. Pleural spaces: Unremarkable. No pleural effusion. No pneumothorax. Heart/Mediastinum: Unremarkable. No cardiomegaly. Bones/joints: Unremarkable. IMPRESSION: There is a left PICC line with its tip terminating in the cavoatrial junction.
--- NOTE | 2023-01-22 15:58 | PC.NURSE ---
assisted bs with picc line placement per Anne Ventura RN. picc line placement complete and rad staff at bs to perform cxr to confirm placement.
--- NOTE | 2023-01-22 16:13 | PC.NURSE ---
30 min completion v/s taken post platelet transfusion per protocol.
== END 2023-01-22 16:44 | disposition home or self-care (01) ==
LOC: INF 09:46
PROVIDERS: PCP Family Medicine; Visit Provider Internal Medicine Medical Oncology
DX: D46.9 Myelodysplastic syndrome, unspecified (principal)
CPT/HCPCS: 36410; 36430; 36569; 71045; 80053; 85007; 85025; 86850; 86900; 86901; C1751; P9034

== ENCOUNTER 2023-01-24 11:00 | Outpatient (CLI) | payer MEDICARE, SELFPAY ==
[2023-01-24 11:06] VITALS: BMI 17.3
[2023-01-24 11:37] LABS: Lymphocytes # 0.5 K/mm3 (0.7-4.5); Lymphocytes % 90.4 % (10-50); Mean Corpuscular HGB Conc 36.1 g/dL (31.8-35.4); Mean Corpuscular Hemoglobin 29.4 pg (27.0-31.2); Mean Corpuscular Volume 81.5 fl (81-99); Mean Platelet Volume 10.9 fl (7.4-10.4); Monocytes % 3.4 % (1.7-9.3); Red Blood Count 1.88 M/mm3 (4.20-5.40); Red Cell Distribution Width 14.8 % (11.5-17.5)
[2023-01-24 11:39] LABS: Neutrophils % 6.2 % (37.0-80.0)
[2023-01-24 11:40] LABS: Hematocrit 15.3 % (37.0-47.0); Platelet Count 3 K/mm3 (142-424); White Blood Count 0.5 K/mm3 (4.8-10.8)
[2023-01-24 11:41] LABS: MANUAL DIFFERENTIAL MANUAL DIFFERENTIAL (MANUAL DIFF)
[2023-01-24 12:20] VITALS: BP 103/46; PULSE 97; RESP 20; TEMP 36.7; O2SAT 97
[2023-01-24 12:34] VITALS: BP 122/47; PULSE 95; RESP 20; TEMP 36.7
[2023-01-24 12:39] VITALS: BP 97/52; PULSE 96; RESP 18; TEMP 37.2
[2023-01-24 12:44] VITALS: BP 95/49; PULSE 93; RESP 18; TEMP 37
[2023-01-24 12:49] VITALS: BP 73/59; PULSE 92; RESP 18; TEMP 36.5; O2SAT 96
[2023-01-24 12:56] LABS: Anisocytosis 1+; Lymphocytes % 90 % (10-50); Monocytes % 10 % (2-9); Ovalocytes 1+; Platelet Estimate Marked Decrease; Total Cells Counted 10
[2023-01-24 13:19] VITALS: BP 99/51; PULSE 90; RESP 18; TEMP 36.7
[2023-01-24 13:46] LABS: Hemoglobin 5.5 g/dL (12.2-16.2)
--- NOTE | 2023-01-24 14:23 | PC.NURSE ---
1145 - PT CAME IN TODAY STATING SHE HAD GOTTEN DIZZY AND FELL IN HER BEDROOM AROUND 0400 THIS MORNING. LACERATED AN AREA ABOVE LEFT EYE THAT SHE SAID BLED FOR QUITE SOME TIME AFTER SHE FELL AND HAD SKIN TEAR TO LEFT SHOULDER. PT STATED HER SHOULDER AND HEAD WERE SORE WHERE LACERATION AND SKIN TEAR WERE, BUT HAVING NO OTHER PAIN. DENIES VISION CHANGES, HEADACHES, NAUSEA, VOMITING. AREAS CLEANED WITH NS, APPLIED NEOSPORIN, AND PLACED BAND AID OVER SITES. NOTIFIED DR CASH OF PT'S FALL AND INJURIES. SHE STATED THAT PT SHOULD GO TO THE ED AND BE FURTHER EVALUATED. PLATELETS GIVEN IN INFUSION PER STANDING ORDER. REPORT CALLED TO KWASI PHAM RN IN ED. PT TAKEN TO ED AT 1340. PT TO RECEIVE 1 UNIT PRBC'S IN ED PER STANDING ORDER.
== END 2023-01-24 13:40 | disposition home or self-care (01) ==
LOC: INF 11:01
PROVIDERS: PCP Family Medicine; Visit Provider Internal Medicine Medical Oncology
DX: D46.9 Myelodysplastic syndrome, unspecified (principal)
CPT/HCPCS: 36430; 85007; 85025; P9034

== ENCOUNTER 2023-01-24 13:38 | Observation (INO) | payer MEDICARE, SELFPAY ==
[2023-01-24] VITALS (32 sets, daily range): BP systolic 91–121; BP diastolic 44–61; PULSE 71–94; RESP 16–28; TEMP 36.3–38.6; O2SAT 88–100; BMI 18.2; BMI 18.6
--- NOTE | 2023-01-24 13:53 | XR_ITS ---
FINAL REPORT CLINICAL HISTORY: acute left shoulder pain, fall COMPARISON: None FINDINGS: Two views show no evidence of acute displaced fracture or dislocation of the visualized bony architecture. There is mild AC joint arthrosis. Left upper extremity PICC line is in place. IMPRESSION: Unremarkable exam. Reviewed, Interpreted and Dictated by Brittany Ba MD Transcribed by Kavitha Trujillo Authenticated and [facility]
--- NOTE | 2023-01-24 13:53 | CT_ITS ---
FINAL REPORT TECHNIQUE: Noncontrast exam CLINICAL HISTORY: trauma fall COMPARISON: None FINDINGS: Moderate size area of encephalomalacia left frontal parietal lobe. Mild generalized atrophy. Ventricles are normal. There is no hemorrhage. No mass effect is seen. Bone windows show no evidence of fracture. IMPRESSION: No acute findings Reviewed, Interpreted and Dictated by Brittany Ba MD Transcribed by Kavitha Trujillo Authenticated and . [facility]
--- NOTE | 2023-01-24 13:53 | CT_ITS ---
FINAL REPORT TECHNIQUE: Thin section axial CT with sagittal reconstruction without contrast CLINICAL HISTORY: neck trauma fall COMPARISON: None FINDINGS: No fracture is seen. Alignment is normal. No obvious bony spinal canal stenosis is present. No gross disk abnormalities are seen. Advanced degenerative changes at C5-6. IMPRESSION: No fracture or malalignment Reviewed, Interpreted and Dictated by Brittany Ba MD Transcribed by Kavitha Trujillo Authenticated and [facility]
--- NOTE | 2023-01-24 14:13 | HMH.EDGENADL ---
Discharge Plan Disposition Patient Disposition: Admitted As Inpatient Chief Complaint: Fall Clinical Impressions Clinical Impression: Anemia, Myelodysplastic syndrome, Thrombocytopenia Discharge ED Provider: Akin Lopez General Adult HPI General Chief complaint: Fall Stated complaint: [id number] fell at home 4 am, hit head Time Seen by Provider: 01/24/23 14:00 History of Present Illness HPI narrative: 72-year-old female history of myelodysplastic syndrome presents after getting chemo today. She had fallen this morning and hit her forehead she has a laceration to the left side of her forehead. No dizziness currently. She had labs drawn in clinic and had a hemoglobin of 5.5 platelet 3 and was sent down for CT scan. No numbness weakness or tingling in arms or legs. No vision changes. Related Data Home Medications Medication Instructions Recorded Confirmed pravastatin 40 mg tablet 40 mg PO HS Cholesterol 05/06/18 01/24/23 gabapentin 600 mg tablet 1,200 mg PO BID Pain 06/16/19 01/24/23 albuterol sulfate 90 mcg/actuation 1 - 2 puff inhalation Q6HP PRN 09/13/22 01/24/23 aerosol inhaler Shortness Of Breath acyclovir 800 mg tablet 800 mg PO BID viral 09/28/22 01/24/23 infection/preventative melatonin 5 mg capsule 10 mg PO HS sleep 09/28/22 01/24/23 ondansetron HCl 8 mg tablet 8 mg PO Q6HP PRN Nausea And 10/19/22 01/24/23 Vomiting fluconazole 200 mg tablet 400 mg PO DAILY yeast 11/09/22 01/24/23 metoprolol tartrate 25 mg tablet 25 mg PO BID Hypertension 11/15/22 01/24/23 Allergies Allergy/AdvReac Type Severity Reaction Status Date / Time codeine AdvReac Intermediate Verified 01/05/23 09:07 [facility] Disclaimer: The information contained in this section may have been updated after the patient was seen, as this information can be updated by other users. Medical History Ankle sprain and strain COPD (chronic obstructive pulmonary disease) Degenerative disc disease History of CVA (cerebrovascular accident) History of palpitations Hyperlipidemia Hypertensive disorder Myelodysplastic syndrome Raynauds disease Surgical History History of carpal tunnel release History of cholecystectomy History of colonoscopy History of laparoscopy Family History Other No significant family history Social History Smoking Status: Never smoker alcohol intake: current substance use type: denies use current occupational status: employed Travel in the last 8 weeks: None caffeine: Yes ROS Obtained: Yes All systems reviewed & no additional complaints except as documented Constitutional Constitutional: Denies fatigue Eyes Eyes: Denies dry eyes ENT Ears, Nose, Mouth, and Throat: Denies dry mouth Cardiovascular Cardiovascular: Denies dyspnea Respiratory Respiratory: Denies dyspnea Gastrointestinal Gastrointestingal: Denies coffee ground emesis Genitourinary Female Genitourinary: Denies hematuria Musculoskeletal Musculoskeletal: Denies joint swelling Integumentary/Breasts Skin/Breast: Denies rash Neurologic Neurologic: Denies confusion Endocrine Endocrine: Denies fatigue Hematologic/Lymphatic Henatologic/Lymphatic: Denies easy bleeding Allergic/Immunologic Allergic/Immunologic: Denies urticaria Physical Exam General General appearance: alert and in no apparent distress Eye Eye exam: Present PERRL and EOMI ENT ENT exam: Present normal exam and normal oropharynx Neck Neck exam: Present normal inspection Chest Chest inspection: Present symmetric chest wall rise Respiratory Respiratory exam: Present normal lung sounds bilaterally; Absent respiratory distress Cardiovascular Cardiovascular exam: Present regular rate and normal rhythm Abdominal Exam Abdominal exam: Present soft; Absent diste
[2023-01-24 14:56] LABS: Alanine Aminotransferase 11 U/L (12-78); Albumin Level 2.5 g/dl (3.5-5.0); Albumin/Globulin Ratio 0.9 (1.1-1.8); Alkaline Phosphatase 54 U/L (38-126); Anion Gap 12.6 mEq/L (5-15); Aspartate Amino Transferase 15 U/L (14-36); Bilirubin,Total 1.4 mg/dl (0.2-1.3); Blood Urea Nitrogen 14 mg/dl (7-17); Calcium 7.2 mg/dl (8.4-10.2); Carbon Dioxide 27 mmol/L (22.0-30.0); Chloride 95 mmol/L (98-107); Creatinine Clearance Estimated 44 mL/min (50-200); Estimated Glomerular Filt Rate 121 ml/min (>60); GFR (African American) 147 ML/MIN (>60); Globulin 2.8 g/dL (1.3-3.2); Glucose 100 mg/dl (74-100); Sodium 132 mmol/L (136-145); Total Protein,Serum 5.3 g/dl (6.3-8.2)
[2023-01-24 14:58] LABS: Potassium 2.6 mmoL/L (3.5-5.1)
--- NOTE | 2023-01-24 15:28 | PC.NURSE ---
on 45min blood vital recheck, pt had a >2 degree increase with temperature. blood infused was stopped and disconnected from pt, vitals reassessed and blood blank was notified. NS infusing KVO and ER MD notified. lab to come to the bedside to reverify blood.
[2023-01-24 15:40] LABS: Magnesium 1.7 mg/dl (1.6-2.3)
[2023-01-24 16:02] LABS: Basophils % 0.7 % (0.1-2.0); Eosinophils % 0.2 % (0.1-12.0); Lymphocytes # 0.5 K/mm3 (0.7-4.5); Mean Corpuscular HGB Conc 35.7 g/dL (31.8-35.4); Mean Corpuscular Hemoglobin 29.5 pg (27.0-31.2); Mean Corpuscular Volume 82.7 fl (81-99); Monocytes % 3.5 % (1.7-9.3); Red Blood Count 1.63 M/mm3 (4.20-5.40); Red Cell Distribution Width 15.2 % (11.5-17.5)
[2023-01-24 16:05] LABS: Neutrophils % 7.5 % (37.0-80.0)
--- NOTE | 2023-01-24 16:05 | PC.NURSE ---
received critical results from pt CBC from lab at from blood drawn at 1430-prior to blood transfusion starting. Results given to PERLA TREVIÑO
--- NOTE | 2023-01-24 16:06 | PC.NURSE ---
pt moved to ED room 1 d/t needing to be placed on patient monitor. Sister at BS. Call button within reach. Temp re-checked again : 101.1, Madina MCCOLLUM aware
[2023-01-24 16:08] LABS: Hematocrit 13.5 % (37.0-47.0); Platelet Count 20 K/mm3 (142-424); White Blood Count 0.5 K/mm3 (4.8-10.8)
[2023-01-24 16:09] LABS: Hemoglobin 4.8 g/dL (12.2-16.2)
[2023-01-24 17:09] LABS: Hematocrit 14.6 % (37.0-47.0)
[2023-01-24 17:10] LABS: Hemoglobin 5.4 g/dL (12.2-16.2)
--- NOTE | 2023-01-24 17:15 | PC.NURSE ---
waiting restaurant crew person back from lab staff r/t questions about doing another transfusion on pt.
--- NOTE | 2023-01-24 17:22 | PC.NURSE ---
Dr modi spoke with Dr Samayoa
--- NOTE | 2023-01-24 17:23 | PC.NURSE ---
notified housekeeper home of admission
--- NOTE | 2023-01-24 17:32 | PC.NURSE ---
home medication reconciled and reordered by verbals orders by ER MD Dr. Lopez. All medication confirmed with him before reconcilled and reordered
[2023-01-24 18:08] LABS: Coronavirus 19, PCR Not Detected (NotDetected); Influenza A, PCR Not Detected (NotDetected); Influenza B, PCR Not Detected (NotDetected)
--- NOTE | 2023-01-24 18:27 | PC.NURSE ---
called report to prince alexandra rn
--- NOTE | 2023-01-24 18:45 | PC.NURSE ---
contacted rad to check on status of covid swab, states swab is going on analyzer now results should be back in approx 25 minutes
--- NOTE | 2023-01-24 19:21 | PC.NURSE ---
lab called to notify nursing staff that patients blood is ready. Called 2nd floor to let them know that the patients covid is back and they are ready to come upstairs. Also notified 2nd floor that the patients blood is ready.
--- NOTE | 2023-01-24 19:41 | PC.NURSE ---
pt arrived via pako @ 810
--- NOTE | 2023-01-24 20:03 | PC.NURSE ---
lab called to notify that blood was ready. this RN notified lab that i was not going to give blood at this time due to a documented transfusion reaction from blood given in the ER. spoke with charge nurse and laborer beam house. both told me to wait to give the blood at this time.
--- NOTE | 2023-01-24 20:25 | PC.NURSE ---
spoke with MD Samayoa to verify that we are still to give blood transfusion after transfusion reaction. MD Samayoa said that the blood that was to be given was going to be a special blood with special antibodies. called lab to verify that blood that was ready was the blood with special antibiotics. I was told by lab that the pt. did not have any antibodies to test and that the blood that was ready is the blood from the first type and cross. house speaking to lab now
--- NOTE | 2023-01-24 21:58 | PC.NURSE ---
Brandy Quinn from Lab came and discussed blood that was to be given to pt. Pt did not have any antibodies and Brandy explained that sending blood to [place] [facility] would be an unnecessary and costly decision. Brandy spoke with and there had seemed to be a miscommunication between ER MD, nursing staff, and lab staff pertaining to antibodies being present. New unit of blood was type and screened and cross matched x2 prior to being released. ordered to pre-medicate pt and to infuse 1 unit of PRBC.
--- NOTE | 2023-01-24 23:00 | PC.NURSE ---
MD Samayoa spoke with lab about blood transfusion and called and stated to give the unit of blood that was ready in lab and premedicate pt. with acetaminophen and benadryl
--- NOTE | 2023-01-24 23:24 | PC.NURSE ---
this RN ended blood in TAR that was ended in ER. unable to start new unit transfusion without ending the unit that was finished in ER
[2023-01-25] VITALS (16 sets, daily range): BP systolic 96–110; BP diastolic 47–59; PULSE 68–80; RESP 18–22; TEMP 36.3–36.8; O2SAT 94–99; BMI 18.6
[2023-01-25 03:03] LABS: Hematocrit 18.7 % (37.0-47.0); Hemoglobin 6.7 g/dL (12.2-16.2)
[2023-01-25 06:54] LABS: Lymphocytes # 0.4 K/mm3 (0.7-4.5); Lymphocytes % 84.7 % (10-50); Mean Corpuscular HGB Conc 35.1 g/dL (31.8-35.4); Mean Corpuscular Hemoglobin 28.7 pg (27.0-31.2); Mean Corpuscular Volume 81.9 fl (81-99); Monocytes % 3.8 % (1.7-9.3); Neutrophils # 0.1 K/mm3 (1.8-7.8); Red Blood Count 2.69 M/mm3 (4.20-5.40); Red Cell Distribution Width 14.7 % (11.5-17.5)
[2023-01-25 06:56] LABS: Neutrophils % 11.5 % (37.0-80.0); Platelet Count 10 K/mm3 (142-424)
[2023-01-25 06:58] LABS: White Blood Count 0.5 K/mm3 (4.8-10.8)
[2023-01-25 07:00] LABS: MANUAL DIFFERENTIAL MANUAL DIFFERENTIAL (MANUAL DIFF)
[2023-01-25 07:11] LABS: Anion Gap 11.1 mEq/L (5-15); Blood Urea Nitrogen 10 mg/dl (7-17); Calcium 7.2 mg/dl (8.4-10.2); Carbon Dioxide 27 mmol/L (22.0-30.0); Chloride 103 mmol/L (98-107); Creatinine Clearance Estimated 45 mL/min (50-200); Estimated Glomerular Filt Rate 157 ml/min (>60); GFR (African American) 190 ML/MIN (>60); Glucose 87 mg/dl (74-100); Potassium 3.1 mmoL/L (3.5-5.1); Sodium 138 mmol/L (136-145)
--- NOTE | 2023-01-25 07:28 | HMH.PHAINT1 ---
Pharmacy Intervention Comments: Verified home medication list using list from outside pharmacy
[2023-01-25 07:57] LABS: Lymphocytes % 100 % (10-50); Platelet Estimate Marked Decrease; RBC Morphology Normal; Total Cells Counted 10
[2023-01-25 08:08] LABS: Hemoglobin 7.7 g/dL (12.2-16.2)
--- NOTE | 2023-01-25 08:12 | EXP.HP ---
History of Present Illness *Admission Date: 01/24/23 *History of present illness: Ms. Demarco is a 72-year-old female with a history of myelodysplastic syndrome who fell yesterday around 4am. She states she hit the left side of her forehead and her left shoulder. She states she was unable to get up out of the floor by herself and had to call for her , who helped her up. She had some bleeding from her forehead. She presented to the infusion lab for platelets yesterday and labs revealed a hemoglobin of 5.5 and a platelet count of 3. She was sent down to the ER for a CT scan. She denies any headache or dizziness but states she just felt off all day yesterday and very weak. She states her last blood transfusion was on Sunday. She was admitted for further evaluation and treatment and was given more blood. She does feel better this am. Her head and left shoulder are sore. [facility] Disclaimer: The information contained in this section may have been updated after the patient was seen, as this information can be updated by other users. Medical History (Updated 01/25/23 @ 09:04 by Prosper Samayoa MD) Ankle sprain and strain COPD (chronic obstructive pulmonary disease) Degenerative disc disease History of CVA (cerebrovascular accident) History of palpitations Hyperlipidemia Hypertensive disorder Myelodysplastic syndrome Nocturnal hypoxia Raynauds disease Supraventricular tachycardia Surgical History History of carpal tunnel release History of cholecystectomy History of colonoscopy History of laparoscopy Family History No significant family history Social History Smoking Status: Never smoker alcohol intake: current substance use type: denies use current occupational status: employed Travel in the last 8 weeks: None caffeine: Yes Review of Systems Constitutional Constitutional: Reports fatigue, Denies headache(s) and Reports weakness Eyes Eyes: Denies blurry vision and Denies diplopia ENT Ears, Nose, Mouth, and Throat: Denies headache(s), Denies nasal congestion, Denies sore throat and Denies vertigo *Cardiovascular Cardiovascular: Denies chest pain, Denies dyspnea and Reports leg edema *Respiratory Respiratory: Denies cough and Denies dyspnea *Gastrointestinal Gastrointestinal: Denies abdominal pain, Denies loose stools, Denies nausea and Denies vomiting *Genitourinary Genitourinary: Denies dysuria *Musculoskeletal Musculoskeletal: Reports arthralgias (left shoulder) and Denies myalgias *Neurologic Neurologic: Denies confusion, Denies headache(s), Denies vertigo and Reports weakness Psychiatric Psychiatric: Denies confusion Endocrine Endocrine: Reports fatigue Meds Home Medications and Allergies Home Medications Medication Instructions Recorded Confirmed Type pravastatin 40 mg tablet 40 mg PO HS Cholesterol 05/06/18 01/24/23 History gabapentin 600 mg tablet 1,200 mg PO BID Pain 06/16/19 01/24/23 History albuterol sulfate 90 mcg/actuation 2 puff inhalation Q6HP PRN 09/13/22 01/25/23 History aerosol inhaler Shortness Of Breath acyclovir 800 mg tablet 800 mg PO BID viral 09/28/22 01/24/23 History infection/preventative melatonin 5 mg capsule 10 mg PO HS sleep 09/28/22 01/24/23 History ondansetron HCl 8 mg tablet 8 mg PO Q6HP PRN Nausea And 10/19/22 01/24/23 History Vomiting fluconazole 200 mg tablet 400 mg PO DAILY preventative 11/09/22 01/24/23 History metoprolol tartrate 25 mg tablet 12.5 mg PO BID High blood pressure 11/15/22 01/25/23 History levofloxacin 500 mg tablet 500 mg PO DAILY preventative 01/25/23 01/25/23 History New Prescriptions to Start Prescriptions: Allergies Allergy/AdvReac Type Severity Reaction Status Date / Time codeine AdvReac Intermediate Verified 01/05/23 09:07 Exam Data for Last 24 hours
--- NOTE | 2023-01-25 09:03 | DIET.NUTRFU ---
RD reviewed chart and interviewed patient, she has lost 14# since 11/28. She reports a 35# weight loss, she said she was able to gain some and then lost all of it again. She is receiving chemo tx and have sore on the roof of mouth. Uses a salt water rinse at home. Currently on diflucan for ABT tx. She denies any N/V or constipation/diarrhea. She is often not hungry. She drinks boost clear BID at home and tolerates cottage cheese. Took her lunch order and provided a boost clear at time of interview. Based on low BMI and wt loss with lack of appetite she triggers for severe PCM, provider aware
--- NOTE | 2023-01-25 10:45 | HMH.PTEV ---
Physical Therapy Evaluation Rehab PT IP Evaluation Start: 01/25/23 08:54 Freq: ONCE Status: Active Protocol: Document 01/25/23 10:00 PHOELLEN (Rec: 01/25/23 10:44 PHORNE [id number]) Subjective/History History History 72 yowf adm to [facility] with significant anemia and S/P ground level fall at home. She has myelodysplastic syndrome, COPD, prior CVA. She reports she lives with her , 1- 2 steps to enter the home, and she is generally independent with all mobility at baseline. Subjective Subjective She reports pain in her L SHLD after her fall with multiple contusions and skin tear. Agrees to mobility assessment. Rehab PT IP Eval Objective Appearance Patient Behavior Appropriate Patient Orientation Person,Place,Time Difficulty following instructions none Speech Pattern Clear Ambulation Patient Able to Ambulate Yes Ambulation Observation IP General Gait Pattern Observation No Deviations/Normal Ambulation Distance (feet) 50 Ambulation Assistive Device None Ambulation Ability Supervision/Stand by Balance Ability to Arise Able, uses arms to help Sitting Balance Steady, safe Standing Balance Steady, wide stance Dynamic Sitting Balance Ability Good Dynamic Standing Balance Ability Good Transfers Bed Transfer Ability Independent Chair Transfer Ability Supervision/Stand by Sit to Stand Bed Transfer Ability Supervision/Stand by Sit to Stand Chair Transfer Ability Supervision/Stand by ROM All Extremities PT ROM Status WFL MMT All Extremities PT MMT WFL Rehab PT IP prob,goals,plan Problems Date of Evaluation: 01/25/23 Discharge Plan PT Discharge Plan Pt is appropriate to return home once medically stable for d/c. No current needs for inpatient therapy and she was already under the care of home health prior to adm, recommend they continue. G -code Required No Eval Complexity Eval Charge Codes 69962 - Moderate Complexity PHYSICIAN CERTIFICATION: I certify the specified therapy services for Alice Demarco are required, authorized, and reviewed every 30 days.
--- NOTE | 2023-01-25 12:40 | SW/DCPLANNER ---
Patient is currently established / [facility]. Patient information will be faxed to [facility] to resume home health services at time of discharge.
--- NOTE | 2023-01-25 14:09 | HMH.PHAINT1 ---
Pharmacy Intervention Comments: DISCHARGE MEDICATION COUNSELING COMPLETED. PATIENT WAS NOT STARTING OR STOPPING ANY NEW MEDS AND HAD NO QUESTIONS.
--- NOTE | 2023-01-25 15:37 | EXP.DC.SUM ---
General Admission date:: 01/24/23 Discharge date: 01/25/23 HPI HPI HPI: Ms. Demarco is a 72-year-old female with a history of myelodysplastic syndrome who fell yesterday around 4am. She states she hit the left side of her forehead and her left shoulder. She states she was unable to get up out of the floor by herself and had to call for her , who helped her up. She had some bleeding from her forehead. She presented to the infusion lab for platelets yesterday and labs revealed a hemoglobin of 5.5 and a platelet count of 3. She was sent down to the ER for a CT scan. She denies any headache or dizziness but states she just felt off all day yesterday and very weak. She states her last blood transfusion was on Sunday. She was admitted for further evaluation and treatment and was given more blood. She does feel better this am. Her head and left shoulder are sore. Hospital Course Hospital Course Hospital Course: The patient was admitted and had a cervical spine CT, head CT, and shoulder x-ray. There was nothing acute on any of her images. She had a febrile, nonhemolytic transfusion reaction to red blood cells in the emergency room, but did fine with 2 subsequent units of packed red blood cells last night. Her hemoglobin improved. She was seen by PT and was able to walk in the hallway. She was stable to be discharged home and will follow up tomorrow morning for labs. She has an appointment with Dr. Simpson next week. Exam Data for Last 24 hours Vital signs and Labs for Last 24 Hours: Temp Pulse Resp BP Pulse Ox 97.6 F 76 18 109/57 L 99 01/25/23 08:00 01/25/23 08:00 01/25/23 08:00 01/25/23 08:00 01/25/23 08:00 Laboratory Results - last 24 hr 01/24/23 14:35: WBC 0.5 L*, RBC 1.63 L*, Hgb 4.8 L*, Hct 13.5 L*, MCV 82.7, MCH 29.5, MCHC 35.7 H, RDW 15.2, Plt Count 20 L* D, MPV 9.0, Neut % (Auto) 7.5 L, Lymph % (Auto) 88.0 H, Quay % (Auto) 3.5, Eos % (Auto) 0.2, Baso % (Auto) 0.7, Neut # (Auto) 0.0 L*, Lymph # (Auto) 0.5 L, Quay # (Auto) 0.0 L, Eos # (Auto) 0.0, Baso # (Auto) 0.0 01/24/23 14:35: Magnesium 1.7 01/24/23 15:38: Hgb 5.4 L*, Hct 14.6 L* 01/24/23 17:40: Blood Type O Positive, Antibody Screen Negative, Crossmatch (AHG) See Detail 01/24/23 18:02: SARS-CoV-2 (PCR) Not detected, Influenza A Untype (PCR) Not detected, Influenza Type B (PCR) Not detected 01/24/23 23:44: Direct Antiglob Test Negative, Hemolysis Bld Bag Check No, Pre-Trans Blood Type O positive, Pre-Trans Vis Hemolysis No, Pre-Trans Antibody Scrn Negative, Post-Trans Blood Type O positive, Post-Tx Visible Hemolys No, Post-Trans Antibody Scrn Negative, Reaction Path Interpret Other 01/25/23 02:47: Hgb 6.7 L* D, Hct 18.7 L* 01/25/23 06:28: WBC 0.5 L*, RBC 2.69 L D, Hgb 7.7 L D, Hct 22.0 L, MCV 81.9, MCH 28.7, MCHC 35.1, RDW 14.7, Plt Count 10 L* D, MPV 8.0, Neut % (Auto) 11.5 L, Lymph % (Auto) 84.7 H, Quay % (Auto) 3.8, Eos % (Auto) 0.0 L, Baso % (Auto) 0.0 L, Neut # (Auto) 0.1 L*, Lymph # (Auto) 0.4 L, Quay # (Auto) 0.0 L, Eos # (Auto) 0.0, Baso # (Auto) 0.0, Total Counted 10, Lymphocytes % (Manual) 100 H, Platelet Estimate Marked decrease, RBC Morphology Normal 01/25/23 06:28: Sodium 138, Potassium 3.1 L, Chloride 103, Carbon Dioxide 27, Anion Gap 11.1, BUN 10 D, Creatinine 0.40 L, Estimated Creat Clear 45, Estimated GFR 157, Est GFR ( Amer) 190 D, Glucose 87, Calcium 7.2 L I & O for Last 24 hours: Intake & Output 01/23/23 01/24/23 01/25/23 01/26/23 11:59 11:59 11:59 11:59 Intake Total 550 / 550 120 / 120 Output Total 100 / 100 Balance 450 / 450 120 / 120 Weight 123 lb 2.051 oz Narrative: Constitutional Constitutional: no acute distress *Routine HEENT Exam Head: Present other (laceration above the left eye, there is ecchymosis along the left forehead and around the left eye) Eye: Present EOMI and PERRL ENT: Present mucous membranes moist *Routine Neck Exam Neck: Present supple and full ROM *Routine Respiratory Exam Respirat
--- NOTE | 2023-01-26 12:27 | CARE MANAGER ---
Spoke with patient related to hospital discharge. Patient is doing well and denies any questions or concerns. She is aware of follow up appointment. CHUN Lopez
== END 2023-01-25 14:28 | disposition home health service (06) ==
LOC: ER 14:09 → 2ND 17:34
PROVIDERS: Admitting Provider Family Medicine; Emergency Provider Emergency Medicine; PCP Family Medicine; Visit Provider Family Medicine
DX: D46.9 Myelodysplastic syndrome, unspecified; I27.20 Pulmonary hypertension, unspecified; I10 Essential (primary) hypertension; E78.2 Mixed hyperlipidemia; E43 Unspecified severe protein-calorie malnutrition; E87.6 Hypokalemia; T80.92XA Unspecified transfusion reaction, initial encounter; D69.6 Thrombocytopenia, unspecified; Z20.822 Contact with and (suspected) exposure to COVID-19; Z68.1 Body mass index [BMI] 19.9 or less, adult; Z79.899 Other long term (current) drug therapy
CPT/HCPCS: G0378; 36410; 36430; 36569; 70450; 71045; 72125; 73030; 80048; 80053; 83735; 85007; 85014; 85018; 85025; 86078; 86850; 86900; 86901; 97162; 99285; C1751; C9803; P9016; P9034; U0003; U0005

== ENCOUNTER 2023-01-26 09:48 | Outpatient (CLI) | payer MEDICARE, SELFPAY ==
[2023-01-26] VITALS (8 sets, daily range): BP systolic 108–130; BP diastolic 58–72; PULSE 73–81; RESP 18; TEMP 36.4–36.8; O2SAT 97–98; BMI 17.3
--- NOTE | 2023-01-26 09:57 | PC.NURSE ---
0957-used left upper arm picc line to collect labs;flushed with ns;obtained blood return;collected labs;flushed with ns;will wait on results.
[2023-01-26 10:09] LABS: Basophils % 0.9 % (0.1-2.0); Eosinophils % 0.5 % (0.1-12.0); Hematocrit 25.2 % (37.0-47.0); Hemoglobin 8.9 g/dL (12.2-16.2); Lymphocytes # 0.6 K/mm3 (0.7-4.5); Lymphocytes % 79.8 % (10-50); Mean Corpuscular HGB Conc 35.4 g/dL (31.8-35.4); Mean Corpuscular Hemoglobin 29.2 pg (27.0-31.2); Mean Corpuscular Volume 82.4 fl (81-99); Mean Platelet Volume 10.3 fl (7.4-10.4); Monocytes % 5.1 % (1.7-9.3); Neutrophils # 0.1 K/mm3 (1.8-7.8); Red Blood Count 3.06 M/mm3 (4.20-5.40); Red Cell Distribution Width 15.1 % (11.5-17.5)
--- NOTE | 2023-01-26 10:12 | PC.NURSE ---
1012-Yaritza Whittington called rn at 1012 to report wbc 0.7 and plt count 3. Rn repeated and verified pt name,,and lab value. Result called to ;now new orders at this time;follow standing order for blood products.
[2023-01-26 10:13] LABS: Neutrophils % 13.7 % (37.0-80.0)
[2023-01-26 10:19] LABS: Platelet Count 3 K/mm3 (142-424); White Blood Count 0.7 K/mm3 (4.8-10.8)
[2023-01-26 10:21] LABS: MANUAL DIFFERENTIAL MANUAL DIFFERENTIAL (MANUAL DIFF)
--- NOTE | 2023-01-26 10:40 | PC.NURSE ---
1040-spoke with yamil in lab; she has called [email or web address] and they are going to garbage pick up man platelets from [facility].
[2023-01-26 11:55] LABS: Lymphocytes % 100 % (10-50); Platelet Estimate Marked Decrease; RBC Morphology Normal; Total Cells Counted 10
--- NOTE | 2023-01-26 12:05 | PC.NURSE ---
1205-rn notified by yamil in lab that platelets had arrived and will be ready in 15 mins.
== END 2023-01-26 13:45 | disposition home or self-care (01) ==
PROVIDERS: PCP Family Medicine; Visit Provider Internal Medicine Medical Oncology
DX: D46.9 Myelodysplastic syndrome, unspecified (principal)
CPT/HCPCS: 36430; 85007; 85025; P9034

== ENCOUNTER 2023-01-29 09:57 | Outpatient (CLI) | payer MEDICARE, SELFPAY ==
[2023-01-29] VITALS (22 sets, daily range): BP systolic 102–128; BP diastolic 56–75; PULSE 80–90; RESP 14–18; TEMP 36.6–37.7; O2SAT 98–100; BMI 17.3
[2023-01-29 10:28] LABS: Basophils % 0.6 % (0.1-2.0); Hemoglobin 7.1 g/dL (12.2-16.2); Lymphocytes # 0.5 K/mm3 (0.7-4.5); Lymphocytes % 82.2 % (10-50); Mean Corpuscular Hemoglobin 29.1 pg (27.0-31.2); Mean Corpuscular Volume 80.8 fl (81-99); Mean Platelet Volume 11.9 fl (7.4-10.4); Monocytes % 3.8 % (1.7-9.3); Neutrophils # 0.1 K/mm3 (1.8-7.8); Red Blood Count 2.45 M/mm3 (4.20-5.40); Red Cell Distribution Width 14.6 % (11.5-17.5)
[2023-01-29 10:29] LABS: Neutrophils % 13.5 % (37.0-80.0)
[2023-01-29 10:30] LABS: Hematocrit 19.8 % (37.0-47.0); Platelet Count 6 K/mm3 (142-424); White Blood Count 0.7 K/mm3 (4.8-10.8)
[2023-01-29 10:31] LABS: MANUAL DIFFERENTIAL MANUAL DIFFERENTIAL (MANUAL DIFF)
[2023-01-29 10:38] LABS: Chloride 98 mmol/L (98-107)
[2023-01-29 10:39] LABS: Sodium 135 mmol/L (136-145)
[2023-01-29 10:41] LABS: Alanine Aminotransferase 15 U/L (12-78); Albumin Level 2.7 g/dl (3.5-5.0); Alkaline Phosphatase 51 U/L (38-126); Aspartate Amino Transferase 21 U/L (14-36); Bilirubin,Total 1.2 mg/dl (0.2-1.3); Blood Urea Nitrogen 11 mg/dl (7-17); Creatinine Clearance Estimated 42 mL/min (50-200); Estimated Glomerular Filt Rate 121 ml/min (>60); GFR (African American) 147 ML/MIN (>60)
[2023-01-29 10:42] LABS: Albumin/Globulin Ratio 0.9 (1.1-1.8); Anion Gap 11.8 mEq/L (5-15); Calcium 7.6 mg/dl (8.4-10.2); Carbon Dioxide 28 mmol/L (22.0-30.0); Globulin 3.1 g/dL (1.3-3.2); Glucose 108 mg/dl (74-100); Total Protein,Serum 5.8 g/dl (6.3-8.2)
[2023-01-29 10:45] LABS: Potassium 2.8 mmoL/L (3.5-5.1)
[2023-01-29 12:00] LABS: Lymphocytes % 70 % (10-50); Microcytosis 1+; Monocytes % 10 % (2-9); Neutrophils % 20 % (42-76); Platelet Estimate Marked Decrease; Total Cells Counted 10
--- NOTE | 2023-01-29 12:04 | PC.NURSE ---
1035 Aga called Jesica Carson RN at 1030 to report Hgb 7.1, Hct 19.8, WBC 0.7, platelets 6. M. CHUN Carson repeated and verified patient name, date of brith and lab value. Results called to Dr. Simpson and order given to type and cross and transfuse one unit PRBC today for Hgb 7.1, Hct 19.8 with patient complaints of fatigue, weakness and shortness of breath.
--- NOTE | 2023-01-29 12:08 | PC.NURSE ---
1052 Susana Frances called Mike Bentley RN at 1045 to report potassium 2.8. RN repeated and verified patient name, date of , and lab value, Result called to Dr. Simpson and order obtained to give potassium 20meq po and 20meq IV x1.
--- NOTE | 2023-01-29 16:55 | PC.NURSE ---
Addendum entered by Jesica Carson RN 01/29/23 16:57: 30 minute post transfusion vital signs for platelets Original Note: 1620 30 minute post transfusion vital signs BP 118/68, pulse 84, resp 18, O2 sat 100%, temp 98.2. Patient discharged home with no s/s transfusion reaction or problems noted.
== END 2023-01-29 16:20 | disposition home or self-care (01) ==
LOC: INF 09:57
PROVIDERS: PCP Family Medicine; Visit Provider Internal Medicine Medical Oncology
DX: D46.9 Myelodysplastic syndrome, unspecified (principal)
CPT/HCPCS: 36430; 80053; 85007; 85025; 86850; 96367; P9016; P9034

== ENCOUNTER 2023-01-31 09:46 | Outpatient (CLI) | payer MEDICARE, SELFPAY ==
[2023-01-31 09:52] VITALS: BMI 17.3
[2023-01-31 10:08] LABS: Basophils % 0.2 % (0.1-2.0); Eosinophils % 0.3 % (0.1-12.0); Hematocrit 22.5 % (37.0-47.0); Hemoglobin 8.1 g/dL (12.2-16.2); Lymphocytes # 0.7 K/mm3 (0.7-4.5); Lymphocytes % 84.7 % (10-50); Mean Corpuscular HGB Conc 35.8 g/dL (31.8-35.4); Mean Corpuscular Volume 81.1 fl (81-99); Mean Platelet Volume 10.9 fl (7.4-10.4); Monocytes % 4.9 % (1.7-9.3); Neutrophils # 0.1 K/mm3 (1.8-7.8); Red Blood Count 2.78 M/mm3 (4.20-5.40); Red Cell Distribution Width 14.4 % (11.5-17.5)
[2023-01-31 10:24] LABS: White Blood Count 0.8 K/mm3 (4.8-10.8)
[2023-01-31 10:25] LABS: MANUAL DIFFERENTIAL MANUAL DIFFERENTIAL (MANUAL DIFF); Platelet Count 13 K/mm3 (142-424)
[2023-01-31 11:06] LABS: Lymphocytes % 80 % (10-50); Neutrophils % 20 % (42-76); Platelet Estimate Marked Decrease; RBC Morphology Normal; Total Cells Counted 10
== END 2023-01-31 10:45 | disposition home or self-care (01) ==
LOC: INF 09:47
PROVIDERS: PCP Family Medicine; Visit Provider Internal Medicine Medical Oncology
DX: D46.9 Myelodysplastic syndrome, unspecified (principal)
CPT/HCPCS: 36592; 85007; 85025

== ENCOUNTER 2023-02-01 12:17 | Outpatient (CLI) | payer MEDICARE, SELFPAY ==
[2023-02-01 12:30] VITALS: BP 83/50; PULSE 83; RESP 18; TEMP 36.8; O2SAT 99
[2023-02-01 13:00] VITALS: BP 100/51; PULSE 78; RESP 18; O2SAT 99
[2023-02-01 13:30] VITALS: BP 114/55; PULSE 70; RESP 18; O2SAT 99
== END 2023-02-01 13:40 | disposition home or self-care (01) ==
LOC: INF 12:17
PROVIDERS: PCP Family Medicine; Visit Provider Internal Medicine Medical Oncology
DX: D46.9 Myelodysplastic syndrome, unspecified (principal); E86.0 Dehydration
CPT/HCPCS: 96360

== ENCOUNTER 2023-02-02 09:39 | Outpatient (CLI) | payer MEDICARE, SELFPAY ==
[2023-02-02] VITALS (13 sets, daily range): BP systolic 89–134; BP diastolic 58–68; PULSE 80–151; RESP 18–20; TEMP 36.7–36.9; O2SAT 95–99; BMI 17.4
[2023-02-02 10:00] LABS: Basophils % 0.4 % (0.1-2.0); Eosinophils % 0.1 % (0.1-12.0); Hemoglobin 7.1 g/dL (12.2-16.2); Lymphocytes # 0.8 K/mm3 (0.7-4.5); Lymphocytes % 82.6 % (10-50); Mean Corpuscular HGB Conc 35.3 g/dL (31.8-35.4); Mean Corpuscular Hemoglobin 29.1 pg (27.0-31.2); Mean Corpuscular Volume 82.4 fl (81-99); Mean Platelet Volume 11.5 fl (7.4-10.4); Monocytes # 0.1 K/mm3 (0.1-1.0); Monocytes % 6.4 % (1.7-9.3); Neutrophils # 0.1 K/mm3 (1.8-7.8); Neutrophils % 10.4 % (37.0-80.0); Red Blood Count 2.44 M/mm3 (4.20-5.40); Red Cell Distribution Width 14.6 % (11.5-17.5)
--- NOTE | 2023-02-02 10:00 | PC.NURSE ---
Miah HENSON CALLED RN AT 1000 TO REPORT CRITICAL LABS; WBC 0.9, HCT 20.1 AND PLT 11. RN REPEATED AND VERIFIED PT NAME, AND LAB VALUES. RESULTS CALLED TO AND NEW ORDERS WERE WRITTEN TO TRANSFUSE A UNIT OF BLOOD FOR SYMPTOMATIC ANEMIA
[2023-02-02 10:01] LABS: Hematocrit 20.1 % (37.0-47.0); Platelet Count 11 K/mm3 (142-424); White Blood Count 0.9 K/mm3 (4.8-10.8)
[2023-02-02 10:03] LABS: MANUAL DIFFERENTIAL MANUAL DIFFERENTIAL (MANUAL DIFF)
--- NOTE | 2023-02-02 10:05 | PC.NURSE ---
MD CALLED PER PT HGB OF 7.1. PT HAS COMPLAINTS OF SEVERE WEAKNESS, LIGHTHEADED AND SHORTNESS OF BREATH; MD ORDERED ONE UNIT OF PRBC FOR SYMPTOMATIC ANEMIA
[2023-02-02 10:14] LABS: Chloride 101 mmol/L (98-107); Sodium 136 mmol/L (136-145)
[2023-02-02 10:16] LABS: Alanine Aminotransferase 15 U/L (12-78); Aspartate Amino Transferase 19 U/L (14-36); Blood Urea Nitrogen 10 mg/dl (7-17); Creatinine Clearance Estimated 42 mL/min (50-200); Estimated Glomerular Filt Rate 121 ml/min (>60); GFR (African American) 147 ML/MIN (>60)
[2023-02-02 10:17] LABS: Albumin Level 2.7 g/dl (3.5-5.0); Albumin/Globulin Ratio 0.9 (1.1-1.8); Alkaline Phosphatase 52 U/L (38-126); Anion Gap 13.7 mEq/L (5-15); Calcium 7.7 mg/dl (8.4-10.2); Carbon Dioxide 24 mmol/L (22.0-30.0); Globulin 3.1 g/dL (1.3-3.2); Glucose 87 mg/dl (74-100); Total Protein,Serum 5.8 g/dl (6.3-8.2)
[2023-02-02 10:19] LABS: Lymphocytes % 60 % (10-50); Monocytes % 10 % (2-9); Neutrophils % 30 % (42-76); Total Cells Counted 10
[2023-02-02 10:20] LABS: Anisocytosis 1+; Ovalocytes 1+; Platelet Estimate Marked Decrease; Potassium 2.7 mmoL/L (3.5-5.1)
--- NOTE | 2023-02-02 12:00 | PC.NURSE ---
WAS STARTING [facility] INFUSION; HOOKED PATIENT UP TO HEART MONITOR AND PT HR WAS 150. PT STATED THAT SHE FELT A LITTLE LIGHTHEADED BUT NO OTHER SYMPTOMS; MD WAS CALLED AT 1105 AND SUGGESTED TO TAKE PATIENT TO ER TO BE EVALUATED; ONCE IN THE ER THE PATIENT WAS ACCESSED BY THE ER MD AND PLACED ON THE MONITOR AND PT WAS IN NSR. MD STATED THAT HE FELT COMFORTABLY SENDING PT BACK TO INFUSION. HE STATED THAT HE WOULD BE DOING THE SAME COURSE OF TREATMENT FOR PATIENT THERE AND FELT SHE WOULD BE STABLE BACK IN INFUSION; HE SUGGESTED TO CHECK A MAG LEVEL ONCE BACK AND TO REPLACE IF LESS THAT 2. PT WAS TRANSFERRED BACK TO INFUSION; HR MONITOR REAPPLIED AND HR NSR AT 90. [facility] STILL INFUSING; PRBC ARE READY IN LAB AND WILL INFUSE WHEN K IS DONE.
--- NOTE | 2023-02-02 12:25 | PC.NURSE ---
London WYNN CALLED RN AT 1019 TO REPORT K OF 2.7; RN REPEATED AND VERIFIED PT NAME , , AND LAB VALUE; RESULTS CALLED TO MD AND NEW ORDERS FOR [facility] 20MEQ IV ORDERED
[2023-02-02 12:43] LABS: Magnesium 1.6 mg/dl (1.6-2.3)
== END 2023-02-02 15:29 | disposition home or self-care (01) ==
LOC: INF 09:39
PROVIDERS: PCP Family Medicine; Visit Provider Internal Medicine Medical Oncology
DX: D46.9 Myelodysplastic syndrome, unspecified (principal)
CPT/HCPCS: 36430; 80053; 83735; 85007; 85025; 86850; 96365; 96367; P9016

== ENCOUNTER 2023-02-02 11:22 | Emergency (ER) | payer MEDICARE, SELFPAY ==
[2023-02-02 11:23] VITALS: BP 94/53; PULSE 95; RESP 18; O2SAT 96; BMI 21.4
--- NOTE | 2023-02-02 11:26 | PC.NURSE ---
Dr. Lorenzo at BS
--- NOTE | 2023-02-02 11:30 | HMH.EDGENADL ---
Discharge Plan Disposition Patient Disposition: Home, Self-Care Prescriptions Prescriptions: No Action pravastatin 40 mg tablet 40 mg PO HS gabapentin 600 mg tablet 1,200 mg PO BID acyclovir 800 mg tablet 800 mg PO BID melatonin 5 mg capsule 10 mg PO HS fluconazole 200 mg tablet 400 mg PO DAILY Label Comments: TAKE 2 TABLETS BY MOUTH ONCE DAILY ondansetron HCl 8 mg tablet 8 mg PO Q6HP PRN (Reason: Nausea And Vomiting) Label Comments: TAKE 1 TABLET BY MOUTH EVERY 6 HOURS NEEDED FOR NAUSEA AND VOMITING albuterol sulfate 90 mcg/actuation HFA aerosol inhaler 2 puff INHALATION Q6HP PRN (Reason: Shortness Of Breath) Label Comments: INHALE 1 TO 2 PUFFS BY MOUTH EVERY 6 HOURS metoprolol tartrate 25 mg tablet 12.5 mg PO BID levofloxacin 500 mg tablet 500 mg PO DAILY Label Comments: TAKE ONE TABLET BY MOUTH ONCE DAILY Clinical Impressions Clinical Impression: Tachycardia, Anemia, Hypokalemia, Encounter for medical screening examination Discharge ED Provider: Larry Lorenzo General Adult HPI General Stated complaint: Weakness Time Seen by Provider: 02/02/23 11:30 History of Present Illness HPI narrative: Patient is a 72-year-old female brought down from infusion after she was found to be tachycardic. She has a history of AML is very well-known to the infusion services has standing orders from Dr. Simpson with oncology she had a hemoglobin of 7.1 and a potassium of 2.7 and they were prepared to replace these but when they went to check the patient's vital signs she was tachycardic at 150 they said they observe her for 30 minutes and that this was the case patient had no symptoms during this time before or after she has a history of atrial fibrillation says she not feeling palpitations that she felt good. She currently states she has no symptoms. No melena no chest pain no shortness of breath she feels good and at her baseline. Related Data Home Medications Medication Instructions Recorded Confirmed pravastatin 40 mg tablet 40 mg PO HS Cholesterol 05/06/18 02/01/23 gabapentin 600 mg tablet 1,200 mg PO BID Pain 06/16/19 02/01/23 albuterol sulfate 90 mcg/actuation 2 puff inhalation Q6HP PRN 09/13/22 02/01/23 aerosol inhaler Shortness Of Breath acyclovir 800 mg tablet 800 mg PO BID viral 09/28/22 02/01/23 infection/preventative melatonin 5 mg capsule 10 mg PO HS sleep 09/28/22 02/01/23 ondansetron HCl 8 mg tablet 8 mg PO Q6HP PRN Nausea And 10/19/22 02/01/23 Vomiting fluconazole 200 mg tablet 400 mg PO DAILY preventative 11/09/22 02/01/23 metoprolol tartrate 25 mg tablet 12.5 mg PO BID High blood pressure 11/15/22 02/01/23 levofloxacin 500 mg tablet 500 mg PO DAILY preventative 01/25/23 02/01/23 Allergies Allergy/AdvReac Type Severity Reaction Status Date / Time codeine AdvReac Intermediate Verified 02/01/23 11:31 [facility] Disclaimer: The information contained in this section may have been updated after the patient was seen, as this information can be updated by other users. Medical History Ankle sprain and strain COPD (chronic obstructive pulmonary disease) Degenerative disc disease History of CVA (cerebrovascular accident) History of palpitations Hyperlipidemia Hypertensive disorder Myelodysplastic syndrome Nocturnal hypoxia Raynauds disease Supraventricular tachycardia Surgical History History of carpal tunnel release History of cholecystectomy History of colonoscopy History of laparoscopy Family History Other No significant family history Social History (Updated 02/01/23 @ 12:34 by Taran Pérez RN) Smoking Status: Never smoker alcohol intake: current substance use type: denies use current occupational status: employed Travel in the [facility] [employer]
--- NOTE | 2023-02-02 11:35 | PC.NURSE ---
pt brought down from infusion clinic for high heart rate. assessed pt at bedside. pt has no complaints. upon assessment pt heart rate 95 and regular. pt sent back to infusion clinic to finish potassium replacement and blood administration.
[2023-02-02 12:02] VITALS: BP 94/53; PULSE 95; RESP 18; TEMP -17.7; TEMP 0; O2SAT 96
--- NOTE | 2023-02-02 12:07 | PC.NURSE ---
pt was assessed by at bs, richard franks MD is ok for pt to go back to infusion for her transfusion of blood and K+ that was ordered. Infusion nurse at bs and okay to take pt for further administration of blood and K+ with continued monitoring. Instructed to come back to the ER if pt condition changes.
== END 2023-02-02 12:09 | disposition home or self-care (01) ==
PROVIDERS: Emergency Provider Student in an Organized Health Care Education/Training Program
DX: R53.1 Weakness (principal); R00.0 Tachycardia, unspecified; E87.6 Hypokalemia; D46.9 Myelodysplastic syndrome, unspecified
CPT/HCPCS: 36430; 80053; 83735; 85007; 85025; 86850; 96365; 96367; 99283; P9016

== ENCOUNTER 2023-02-03 08:51 | Outpatient (CLI) | payer MEDICARE, SELFPAY ==
[2023-02-03 09:50] VITALS: BP 117/61; PULSE 75; RESP 16; TEMP 36.6; O2SAT 97
[2023-02-03 10:05] VITALS: BP 118/63; PULSE 74; RESP 16
[2023-02-03 10:20] VITALS: BP 120/60; PULSE 77; RESP 16
[2023-02-03 10:30] VITALS: BP 114/58; PULSE 80; RESP 16; TEMP 37; O2SAT 97
== END 2023-02-03 10:45 | disposition home or self-care (01) ==
PROVIDERS: PCP Family Medicine; Visit Provider Internal Medicine Medical Oncology
DX: D46.9 Myelodysplastic syndrome, unspecified (principal)
CPT/HCPCS: 96413; J9025

== ENCOUNTER 2023-02-04 09:38 | Outpatient (CLI) | payer MEDICARE, SELFPAY ==
[2023-02-04 09:45] VITALS: BP 90/47; PULSE 91; RESP 18; O2SAT 94
[2023-02-04 10:17] VITALS: BP 96/55; PULSE 90; RESP 18; TEMP 37.2; O2SAT 94
[2023-02-04 10:34] VITALS: BP 100/53; PULSE 90; RESP 18; TEMP 36.7; O2SAT 95
[2023-02-04 10:55] VITALS: BP 110/55; PULSE 90; RESP 18; O2SAT 94
== END 2023-02-04 11:08 | disposition home or self-care (01) ==
LOC: INF 09:40
PROVIDERS: PCP Family Medicine; Visit Provider Internal Medicine Medical Oncology
DX: D46.9 Myelodysplastic syndrome, unspecified (principal)
CPT/HCPCS: 96413; J9025

== ENCOUNTER 2023-02-05 09:39 | Outpatient (CLI) | payer MEDICARE, SELFPAY ==
[2023-02-05] VITALS (10 sets, daily range): BP systolic 90–116; BP diastolic 43–58; PULSE 88–95; RESP 18; TEMP 37.1–37.4; O2SAT 96–97; BMI 17.4
[2023-02-05 10:08] LABS: Eosinophils % 0.2 % (0.1-12.0); Hematocrit 21.1 % (37.0-47.0); Hemoglobin 7.4 g/dL (12.2-16.2); Lymphocytes # 0.5 K/mm3 (0.7-4.5); Lymphocytes % 75.8 % (10-50); Mean Corpuscular HGB Conc 34.8 g/dL (31.8-35.4); Mean Corpuscular Hemoglobin 28.5 pg (27.0-31.2); Mean Corpuscular Volume 81.8 fl (81-99); Mean Platelet Volume 8.4 fl (7.4-10.4); Monocytes % 7.4 % (1.7-9.3); Neutrophils # 0.1 K/mm3 (1.8-7.8); Neutrophils % 15.6 % (37.0-80.0); Red Blood Count 2.58 M/mm3 (4.20-5.40); Red Cell Distribution Width 14.9 % (11.5-17.5)
--- NOTE | 2023-02-05 10:08 | PC.NURSE ---
1008-kaitlyn encarnacion called rn at 1008 to report critical labs platelet 7 and wbc 0.6. Rn repeated and verified results. RN notified md and no new orders at this time;follow standing order for blood products.
[2023-02-05 10:09] LABS: Chloride 103 mmol/L (98-107); Potassium 3.2 mmoL/L (3.5-5.1); Sodium 134 mmol/L (136-145)
[2023-02-05 10:11] LABS: Platelet Count 7 K/mm3 (142-424); White Blood Count 0.6 K/mm3 (4.8-10.8)
[2023-02-05 10:12] LABS: Alanine Aminotransferase 14 U/L (12-78); Albumin Level 2.7 g/dl (3.5-5.0); Albumin/Globulin Ratio 0.9 (1.1-1.8); Alkaline Phosphatase 51 U/L (38-126); Anion Gap 8.2 mEq/L (5-15); Aspartate Amino Transferase 18 U/L (14-36); Bilirubin,Total 1.4 mg/dl (0.2-1.3); Blood Urea Nitrogen 16 mg/dl (7-17); Calcium 8.1 mg/dl (8.4-10.2); Carbon Dioxide 26 mmol/L (22.0-30.0); Creatinine Clearance Estimated 42 mL/min (50-200); Estimated Glomerular Filt Rate 98 ml/min (>60); GFR (African American) 119 ML/MIN (>60); Globulin 3.1 g/dL (1.3-3.2); Glucose 96 mg/dl (74-100); MANUAL DIFFERENTIAL MANUAL DIFFERENTIAL (MANUAL DIFF); Total Protein,Serum 5.8 g/dl (6.3-8.2)
[2023-02-05 10:41] LABS: Lymphocytes % 70 % (10-50); Monocytes % 10 % (2-9); Neutrophils % 20 % (42-76); Platelet Estimate Marked Decrease; Total Cells Counted 10
[2023-02-05 10:42] LABS: RBC Morphology Normal
--- NOTE | 2023-02-05 15:54 | PC.NURSE ---
1554-platelet post 30 mins
== END 2023-02-05 15:55 | disposition home or self-care (01) ==
LOC: INF 09:40
PROVIDERS: PCP Family Medicine; Visit Provider Internal Medicine Medical Oncology
DX: D46.9 Myelodysplastic syndrome, unspecified (principal)
CPT/HCPCS: 36430; 80053; 85007; 85025; 86850; 86900; 86901; 96413; J9025; P9034

== ENCOUNTER 2023-02-06 09:45 | Outpatient (CLI) | payer MEDICARE, SELFPAY ==
[2023-02-06 10:20] VITALS: BP 108/56; PULSE 76; RESP 18; O2SAT 99
[2023-02-06 10:35] VITALS: BP 100/61; PULSE 84; RESP 18
[2023-02-06 10:50] VITALS: BP 104/59; PULSE 85; RESP 18; O2SAT 98
[2023-02-06 10:58] VITALS: BP 99/59; PULSE 86; RESP 18; O2SAT 97
== END 2023-02-06 10:58 | disposition home or self-care (01) ==
LOC: INF 09:46
PROVIDERS: PCP Family Medicine; Visit Provider Internal Medicine Medical Oncology
DX: D46.9 Myelodysplastic syndrome, unspecified (principal)
CPT/HCPCS: 96413; J9025

== ENCOUNTER 2023-02-07 09:42 | Outpatient (CLI) | payer MEDICARE, SELFPAY ==
[2023-02-07] VITALS (19 sets, daily range): BP systolic 81–133; BP diastolic 34–74; PULSE 85–104; RESP 16–18; TEMP 36.4–37.4; O2SAT 90–94; BMI 16.8
[2023-02-07 10:00] LABS: Basophils % 0.9 % (0.1-2.0); Eosinophils % 0.2 % (0.1-12.0); Lymphocytes # 0.4 K/mm3 (0.7-4.5); Lymphocytes % 78.4 % (10-50); Mean Corpuscular HGB Conc 35.8 g/dL (31.8-35.4); Mean Corpuscular Hemoglobin 29.2 pg (27.0-31.2); Mean Corpuscular Volume 81.6 fl (81-99); Mean Platelet Volume 14.4 fl (7.4-10.4); Monocytes % 3.6 % (1.7-9.3); Neutrophils # 0.1 K/mm3 (1.8-7.8); Neutrophils % 16.9 % (37.0-80.0); Red Blood Count 2.39 M/mm3 (4.20-5.40); Red Cell Distribution Width 14.8 % (11.5-17.5)
[2023-02-07 10:09] LABS: Hematocrit 19.5 % (37.0-47.0); MANUAL DIFFERENTIAL MANUAL DIFFERENTIAL (MANUAL DIFF); Platelet Count 9 K/mm3 (142-424); White Blood Count 0.6 K/mm3 (4.8-10.8)
--- NOTE | 2023-02-07 12:12 | PC.NURSE ---
1209-BLOOD TRANSFUSION STARTED AT 100ML/HR AT THIS TIME.
--- NOTE | 2023-02-07 12:44 | PC.NURSE ---
1239-INCREASED RATE TO 150ML/HR AT THIS TIME.
[2023-02-07 13:06] LABS: Lymphocytes % 70 % (10-50); Neutrophils % 30 % (42-76); Total Cells Counted 10
[2023-02-07 13:07] LABS: Platelet Estimate Marked Decrease; RBC Morphology Normal
--- NOTE | 2023-02-07 13:43 | PC.NURSE ---
1309-INCREASED RATE TO 200 ML/HR AT THIS TIME.
--- NOTE | 2023-02-07 14:02 | PC.NURSE ---
RATE WAS INCREASED TO 250ML/HR AT 1339
== END 2023-02-07 15:25 | disposition home or self-care (01) ==
LOC: INF 09:43
PROVIDERS: PCP Family Medicine; Visit Provider Internal Medicine Medical Oncology
DX: D46.9 Myelodysplastic syndrome, unspecified (principal)
CPT/HCPCS: 36430; 85007; 85025; 96413; J9025; P9016; P9034

== ENCOUNTER 2023-02-08 09:45 | Outpatient (CLI) | payer MEDICARE, SELFPAY ==
[2023-02-08 10:50] VITALS: BP 103/59; PULSE 89; RESP 18; TEMP 37.1; O2SAT 96
[2023-02-08 11:15] VITALS: BP 99/58; PULSE 87; RESP 18
[2023-02-08 11:30] VITALS: BP 100/52; PULSE 88; RESP 18
== END 2023-02-08 11:52 | disposition home or self-care (01) ==
LOC: INF 09:46
PROVIDERS: PCP Family Medicine; Visit Provider Internal Medicine Medical Oncology
DX: D46.9 Myelodysplastic syndrome, unspecified (principal)
CPT/HCPCS: 96413; J9025

== ENCOUNTER 2023-02-09 09:41 | Outpatient (CLI) | payer MEDICARE, SELFPAY ==
[2023-02-09] VITALS (19 sets, daily range): BP systolic 87–127; BP diastolic 54–73; PULSE 92–102; RESP 8–18; TEMP 36.7–37.6; O2SAT 95–97; BMI 17.4
--- NOTE | 2023-02-09 09:58 | PC.NURSE ---
0958-collected labs via left upper arm picc line;will wait on results
[2023-02-09 10:06] LABS: Basophils % 0.6 % (0.1-2.0); Eosinophils % 0.3 % (0.1-12.0); Hematocrit 21.2 % (37.0-47.0); Hemoglobin 7.5 g/dL (12.2-16.2); Lymphocytes # 0.3 K/mm3 (0.7-4.5); Lymphocytes % 74.5 % (10-50); Mean Corpuscular HGB Conc 35.1 g/dL (31.8-35.4); Mean Corpuscular Hemoglobin 28.9 pg (27.0-31.2); Mean Corpuscular Volume 82.2 fl (81-99); Mean Platelet Volume 14.1 fl (7.4-10.4); Monocytes % 5.2 % (1.7-9.3); Neutrophils # 0.1 K/mm3 (1.8-7.8); Neutrophils % 19.5 % (37.0-80.0); Red Blood Count 2.58 M/mm3 (4.20-5.40); Red Cell Distribution Width 15.1 % (11.5-17.5)
[2023-02-09 10:23] LABS: Platelet Count 7 K/mm3 (142-424); White Blood Count 0.4 K/mm3 (4.8-10.8)
[2023-02-09 10:24] LABS: MANUAL DIFFERENTIAL MANUAL DIFFERENTIAL (MANUAL DIFF)
--- NOTE | 2023-02-09 10:37 | PC.NURSE ---
1037-Pt to get 1 unit prbc for symptomatic anemia of weakness and sob;hbg 7.5;one time order per .
--- NOTE | 2023-02-09 10:37 | PC.NURSE ---
1022-Yaritza bateman mlt notified rn about critical lab value wbc 0.4, plt . RN repeated and verified pt name, and lab values. Rn called to notify about lab values; new order for 1 unit prbcs for symptomatic anemia and to follow standing orders for platelets.
--- NOTE | 2023-02-09 10:44 | PC.NURSE ---
1044-jonathon brown, youth support worker here to witness type and screen.
[2023-02-09 12:07] LABS: Lymphocytes % 80 % (10-50); Neutrophils % 20 % (42-76); Platelet Estimate Marked Decrease; RBC Morphology Normal; Total Cells Counted 10
== END 2023-02-09 15:44 | disposition home or self-care (01) ==
PROVIDERS: PCP Family Medicine; Visit Provider Internal Medicine Medical Oncology
DX: D46.9 Myelodysplastic syndrome, unspecified (principal)
CPT/HCPCS: 36430; 85007; 85025; 86850; 96413; J9025; P9016; P9034

== ENCOUNTER 2023-02-13 09:43 | Outpatient (CLI) | payer MEDICARE, SELFPAY ==
[2023-02-13] VITALS (14 sets, daily range): BP systolic 95–115; BP diastolic 50–70; PULSE 88–98; RESP 18; TEMP 36.7–37.1; O2SAT 98–99; BMI 17.3
[2023-02-13 10:09] LABS: Lymphocytes # 0.4 K/mm3 (0.7-4.5); Mean Corpuscular HGB Conc 33.5 g/dL (31.8-35.4); Mean Corpuscular Hemoglobin 27.6 pg (27.0-31.2); Mean Corpuscular Volume 82.3 fl (81-99); Mean Platelet Volume 11.9 fl (7.4-10.4); Monocytes % 3.3 % (1.7-9.3); Neutrophils # 0.1 K/mm3 (1.8-7.8); Neutrophils % 17.7 % (37.0-80.0); Red Blood Count 2.54 M/mm3 (4.20-5.40); Red Cell Distribution Width 14.8 % (11.5-17.5)
[2023-02-13 10:11] LABS: Hematocrit 20.9 % (37.0-47.0); White Blood Count 0.5 K/mm3 (4.8-10.8)
[2023-02-13 10:12] LABS: MANUAL DIFFERENTIAL MANUAL DIFFERENTIAL (MANUAL DIFF); Platelet Count 3 K/mm3 (142-424)
[2023-02-13 10:14] LABS: Chloride 104 mmol/L (98-107); Potassium 3.4 mmoL/L (3.5-5.1); Sodium 138 mmol/L (136-145)
[2023-02-13 10:16] LABS: Blood Urea Nitrogen 20 mg/dl (7-17)
[2023-02-13 10:17] LABS: Alanine Aminotransferase 15 U/L (12-78); Albumin Level 2.8 g/dl (3.5-5.0); Albumin/Globulin Ratio 0.9 (1.1-1.8); Alkaline Phosphatase 46 U/L (38-126); Anion Gap 12.4 mEq/L (5-15); Aspartate Amino Transferase 19 U/L (14-36); Bilirubin,Total 1.2 mg/dl (0.2-1.3); Carbon Dioxide 25 mmol/L (22.0-30.0); Creatinine Clearance Estimated 41 mL/min (50-200); Estimated Glomerular Filt Rate 121 ml/min (>60); GFR (African American) 146 ML/MIN (>60); Globulin 3.1 g/dL (1.3-3.2); Glucose 117 mg/dl (74-100); Total Protein,Serum 5.9 g/dl (6.3-8.2)
[2023-02-13 11:26] LABS: Lymphocytes % 96 % (10-50); Monocytes % 4 % (2-9); Total Cells Counted 25
[2023-02-13 11:27] LABS: Anisocytosis 2+; Hypochromasia 2+; Macrocytosis 1+; Platelet Estimate Marked Decrease
--- NOTE | 2023-02-13 15:55 | PC.NURSE ---
1011- Susana Ellington called RN at 1011 to report critcal lab results. WBC 0.5, Hct 20.9, Plt 3. RN repeated name, and lab results. Pt has standing orders in place for transfusion and will recieve 1 unit platelets and 1 unit PRBC. MD Calvin notified and no new orders.
--- NOTE | 2023-02-13 15:59 | PC.NURSE ---
1015- Pt hgb meets requirement per standing order for 1 unit PRBC to be transfused. Pt also reports being lightheaded, SOA, and extremely fatigued.
== END 2023-02-13 15:00 | disposition home or self-care (01) ==
PROVIDERS: PCP Family Medicine; Visit Provider Internal Medicine Medical Oncology
DX: D46.9 Myelodysplastic syndrome, unspecified (principal)
CPT/HCPCS: 36430; 80053; 85007; 85025; 86850; P9016; P9034

== ENCOUNTER 2023-02-16 09:51 | Outpatient (CLI) | payer MEDICARE, SELFPAY ==
[2023-02-16] VITALS (17 sets, daily range): BP systolic 86–134; BP diastolic 46–73; PULSE 86–96; RESP 16–18; TEMP 36.6–37.2; O2SAT 97; BMI 17.4
[2023-02-16 10:22] LABS: Basophils % 0.6 % (0.1-2.0); Lymphocytes # 0.5 K/mm3 (0.7-4.5); Lymphocytes % 82.4 % (10-50); Mean Corpuscular HGB Conc 34.4 g/dL (31.8-35.4); Mean Corpuscular Hemoglobin 28.8 pg (27.0-31.2); Mean Corpuscular Volume 83.8 fl (81-99); Mean Platelet Volume 9.9 fl (7.4-10.4); Monocytes % 4.6 % (1.7-9.3); Neutrophils # 0.1 K/mm3 (1.8-7.8); Red Blood Count 2.28 M/mm3 (4.20-5.40); Red Cell Distribution Width 14.8 % (11.5-17.5)
[2023-02-16 10:26] LABS: Neutrophils % 12.4 % (37.0-80.0)
[2023-02-16 10:30] LABS: White Blood Count 0.6 K/mm3 (4.8-10.8)
[2023-02-16 10:31] LABS: Hematocrit 19.1 % (37.0-47.0); Hemoglobin 6.6 g/dL (12.2-16.2); MANUAL DIFFERENTIAL MANUAL DIFFERENTIAL (MANUAL DIFF)
[2023-02-16 11:22] LABS: Lymphocytes % 100 % (10-50); Platelet Estimate Marked Decrease; RBC Morphology Normal; Total Cells Counted 10
[2023-02-16 11:25] LABS: Platelet Count 1 K/mm3 (142-424)
--- NOTE | 2023-02-16 13:59 | PC.NURSE ---
1305-INCREASED RATE TO 150 ML/HR AT THIS TIME.
--- NOTE | 2023-02-16 14:05 | PC.NURSE ---
1335-INCREASED RATE TO 200 ML/HR AT THIS TIME.
--- NOTE | 2023-02-16 14:54 | PC.NURSE ---
1405-RATE WAS INCREASED TO 250 ML/HR AT THIS TIME.
== END 2023-02-16 16:10 | disposition home or self-care (01) ==
LOC: INF 09:52
PROVIDERS: PCP Family Medicine; Visit Provider Internal Medicine Medical Oncology
DX: D46.9 Myelodysplastic syndrome, unspecified (principal)
CPT/HCPCS: 36430; 85007; 85025; 86850; P9016; P9034

== ENCOUNTER 2023-02-19 09:43 | Outpatient (CLI) | payer MEDICARE, SELFPAY ==
[2023-02-19] VITALS (16 sets, daily range): BP systolic 97–125; BP diastolic 52–70; PULSE 79–92; RESP 18–20; TEMP 36.8–37.1; O2SAT 97–98; BMI 17.9
[2023-02-19 10:10] LABS: Chloride 106 mmol/L (98-107); Potassium 3.8 mmoL/L (3.5-5.1); Sodium 138 mmol/L (136-145)
[2023-02-19 10:12] LABS: Alanine Aminotransferase 16 U/L (12-78); Aspartate Amino Transferase 19 U/L (14-36); Blood Urea Nitrogen 14 mg/dl (7-17); Creatinine Clearance Estimated 42 mL/min (50-200); Estimated Glomerular Filt Rate 156 ml/min (>60); GFR (African American) 189 ML/MIN (>60)
[2023-02-19 10:13] LABS: Albumin Level 2.8 g/dl (3.5-5.0); Albumin/Globulin Ratio 0.9 (1.1-1.8); Alkaline Phosphatase 56 U/L (38-126); Anion Gap 12.8 mEq/L (5-15); Bilirubin,Total 1.5 mg/dl (0.2-1.3); Calcium 8.1 mg/dl (8.4-10.2); Carbon Dioxide 23 mmol/L (22.0-30.0); Globulin 3.1 g/dL (1.3-3.2); Glucose 129 mg/dl (74-100); Total Protein,Serum 5.9 g/dl (6.3-8.2)
[2023-02-19 10:15] LABS: Basophils % 1.3 % (0.1-2.0); Hemoglobin 7.3 g/dL (12.2-16.2); Lymphocytes # 0.8 K/mm3 (0.7-4.5); Lymphocytes % 85.3 % (10-50); Mean Corpuscular HGB Conc 33.2 g/dL (31.8-35.4); Mean Corpuscular Hemoglobin 28.1 pg (27.0-31.2); Mean Corpuscular Volume 84.6 fl (81-99); Monocytes % 3.6 % (1.7-9.3); Neutrophils # 0.1 K/mm3 (1.8-7.8); Red Cell Distribution Width 14.9 % (11.5-17.5)
[2023-02-19 10:17] LABS: Neutrophils % 9.8 % (37.0-80.0)
[2023-02-19 10:18] LABS: Platelet Count 3 K/mm3 (142-424); White Blood Count 0.9 K/mm3 (4.8-10.8)
[2023-02-19 10:19] LABS: MANUAL DIFFERENTIAL MANUAL DIFFERENTIAL (MANUAL DIFF)
--- NOTE | 2023-02-19 10:25 | PC.NURSE ---
Yaritza Whittington called RN at 1017 to report wbc-0.9, plt-3. RN repeated and verified pt name, , and lab value. Result called to Dr. Simpson, order noted to follow instructions on standing order for platelet transfusion. Pt c/o of fatigue, weakness, and dizziness over the past day or so getting progressively worse-informed md of this and pt hgb-7.3. Order noted to transfuse 1 unit prbc's today.
[2023-02-19 11:27] LABS: Lymphocytes % 90 % (10-50); Neutrophils % 10 % (42-76); Platelet Estimate Marked Decrease; RBC Morphology Normal; Total Cells Counted 10
== END 2023-02-19 15:50 | disposition home or self-care (01) ==
LOC: INF 09:43
PROVIDERS: PCP Family Medicine; Visit Provider Internal Medicine Medical Oncology
DX: D46.9 Myelodysplastic syndrome, unspecified (principal)
CPT/HCPCS: 36430; 80053; 85007; 85025; 86850; P9016; P9034

== ENCOUNTER 2023-02-21 09:33 | Outpatient (CLI) | payer MEDICARE, SELFPAY ==
[2023-02-21] VITALS (7 sets, daily range): BP systolic 108–126; BP diastolic 65–84; PULSE 83–91; RESP 18; TEMP 36.7–36.8; O2SAT 99–100; BMI 17.4
--- NOTE | 2023-02-21 09:52 | PC.NURSE ---
pt here today for blood to be drawn for labs as ordered. picc accessed and blood drawn for labs-specimen sent to lab for analysis. picc to after flushing with saline.
[2023-02-21 10:09] LABS: Basophils % 0.4 % (0.1-2.0); Eosinophils % 0.8 % (0.1-12.0); Hematocrit 24.2 % (37.0-47.0); Lymphocytes # 0.8 K/mm3 (0.7-4.5); Mean Corpuscular HGB Conc 32.9 g/dL (31.8-35.4); Mean Corpuscular Hemoglobin 27.5 pg (27.0-31.2); Mean Corpuscular Volume 83.7 fl (81-99); Mean Platelet Volume 10.9 fl (7.4-10.4); Monocytes % 3.5 % (1.7-9.3); Neutrophils # 0.1 K/mm3 (1.8-7.8); Red Blood Count 2.89 M/mm3 (4.20-5.40); Red Cell Distribution Width 14.6 % (11.5-17.5)
[2023-02-21 10:10] LABS: Neutrophils % 7.4 % (37.0-80.0); Platelet Count 6 K/mm3 (142-424); White Blood Count 0.9 K/mm3 (4.8-10.8)
[2023-02-21 10:11] LABS: MANUAL DIFFERENTIAL MANUAL DIFFERENTIAL (MANUAL DIFF)
--- NOTE | 2023-02-21 10:20 | PC.NURSE ---
Addendum entered by Taran Pérez RN 02/21/23 10:54: nursing staff with lab personnel to obtain blood from picc Original Note: lab staff to draw type and crossmatch for platelet transfusion.
--- NOTE | 2023-02-21 10:56 | PC.NURSE ---
Susana Frances called RN at 0955 to report wbc-0.9, plt-6. RN repeated and verified pt name, , and lab value. Result called to Dr. Simpson, pt has standing orders for platelet transfusion.
[2023-02-21 12:42] LABS: Lymphocytes % 90 % (10-50); Neutrophils % 10 % (42-76); Platelet Estimate Marked Decrease; Total Cells Counted 10
--- NOTE | 2023-02-21 14:33 | PC.NURSE ---
1425-30 min post completion v/s taken post platelet transfusion per protocol.
== END 2023-02-21 14:34 | disposition home or self-care (01) ==
LOC: INF 09:34
PROVIDERS: PCP Family Medicine; Visit Provider Internal Medicine Medical Oncology
DX: D46.9 Myelodysplastic syndrome, unspecified (principal)
CPT/HCPCS: 36430; 85007; 85025; P9034

== ENCOUNTER 2023-02-23 09:38 | Outpatient (CLI) | payer MEDICARE, SELFPAY ==
[2023-02-23] VITALS (17 sets, daily range): BP systolic 99–143; BP diastolic 56–79; PULSE 83–93; RESP 18–19; TEMP 36.4–36.9; O2SAT 100; BMI 17.3
[2023-02-23 10:24] LABS: Basophils % 0.2 % (0.1-2.0); Lymphocytes # 0.7 K/mm3 (0.7-4.5); Lymphocytes % 83.2 % (10-50); Mean Corpuscular HGB Conc 33.4 g/dL (31.8-35.4); Mean Corpuscular Hemoglobin 27.6 pg (27.0-31.2); Mean Corpuscular Volume 82.6 fl (81-99); Mean Platelet Volume 9.6 fl (7.4-10.4); Monocytes # 0.1 K/mm3 (0.1-1.0); Monocytes % 6.6 % (1.7-9.3); Neutrophils # 0.1 K/mm3 (1.8-7.8); Red Blood Count 2.46 M/mm3 (4.20-5.40); Red Cell Distribution Width 14.6 % (11.5-17.5)
[2023-02-23 10:33] LABS: Neutrophils % 9.2 % (37.0-80.0)
--- NOTE | 2023-02-23 10:33 | PC.NURSE ---
1033-yamil bateman notified rn with critical values wbc 0.8, hgb 6.8, hct 20.4, platelet level 4. RN repeated and verified pt name, , lab value. Notified Md with lab results; no new orders follow standing orders for blood products.
[2023-02-23 10:36] LABS: Hemoglobin 6.8 g/dL (12.2-16.2); White Blood Count 0.8 K/mm3 (4.8-10.8)
[2023-02-23 10:37] LABS: Hematocrit 20.4 % (37.0-47.0); MANUAL DIFFERENTIAL MANUAL DIFFERENTIAL (MANUAL DIFF); Platelet Count 4 K/mm3 (142-424)
--- NOTE | 2023-02-23 10:40 | PC.NURSE ---
1040-jonathon brown, linux architect here to witness type and screen.
[2023-02-23 12:48] LABS: Lymphocytes % 80 % (10-50); Monocytes % 10 % (2-9); Neutrophils % 10 % (42-76); Total Cells Counted 10
[2023-02-23 12:49] LABS: Platelet Estimate Marked Decrease; RBC Morphology Normal
== END 2023-02-23 15:25 | disposition home or self-care (01) ==
LOC: INF 09:39
PROVIDERS: PCP Family Medicine; Visit Provider Internal Medicine Medical Oncology
DX: D46.9 Myelodysplastic syndrome, unspecified (principal)
CPT/HCPCS: 36430; 85007; 85025; 86850; P9016; P9034

== ENCOUNTER 2023-02-26 09:42 | Outpatient (CLI) | payer MEDICARE, SELFPAY ==
[2023-02-26] VITALS (16 sets, daily range): BP systolic 100–125; BP diastolic 50–81; PULSE 85–92; RESP 14–18; TEMP 36.7–37; O2SAT 98–100; BMI 17.4
[2023-02-26 10:22] LABS: Basophils % 0.2 % (0.1-2.0); Eosinophils % 0.7 % (0.1-12.0); Hematocrit 22.3 % (37.0-47.0); Hemoglobin 7.3 g/dL (12.2-16.2); Lymphocytes # 0.9 K/mm3 (0.7-4.5); Mean Corpuscular HGB Conc 32.8 g/dL (31.8-35.4); Mean Corpuscular Hemoglobin 28.1 pg (27.0-31.2); Mean Corpuscular Volume 85.8 fl (81-99); Mean Platelet Volume 8.9 fl (7.4-10.4); Monocytes # 0.1 K/mm3 (0.1-1.0); Monocytes % 6.1 % (1.7-9.3); Neutrophils # 0.1 K/mm3 (1.8-7.8); Red Blood Count 2.59 M/mm3 (4.20-5.40); White Blood Count 1.1 K/mm3 (4.8-10.8)
[2023-02-26 10:23] LABS: Chloride 107 mmol/L (98-107); Sodium 137 mmol/L (136-145)
[2023-02-26 10:24] LABS: Potassium 3.8 mmoL/L (3.5-5.1)
[2023-02-26 10:26] LABS: Alanine Aminotransferase 13 U/L (12-78); Alkaline Phosphatase 51 U/L (38-126); Aspartate Amino Transferase 16 U/L (14-36); Bilirubin,Total 0.9 mg/dl (0.2-1.3); Blood Urea Nitrogen 12 mg/dl (7-17); Creatinine Clearance Estimated 41 mL/min (50-200); Estimated Glomerular Filt Rate 121 ml/min (>60); GFR (African American) 146 ML/MIN (>60)
[2023-02-26 10:27] LABS: Albumin/Globulin Ratio 0.9 (1.1-1.8); Anion Gap 11.8 mEq/L (5-15); Calcium 8.2 mg/dl (8.4-10.2); Carbon Dioxide 22 mmol/L (22.0-30.0); Globulin 3.3 g/dL (1.3-3.2); Glucose 116 mg/dl (74-100); Total Protein,Serum 6.3 g/dl (6.3-8.2)
[2023-02-26 10:28] LABS: Platelet Count 3 K/mm3 (142-424)
[2023-02-26 10:32] LABS: MANUAL DIFFERENTIAL MANUAL DIFFERENTIAL (MANUAL DIFF)
--- NOTE | 2023-02-26 11:12 | PC.NURSE ---
1030 Aga Ac called Dominguez Mallory RN at 1023 to report Hgb 7.3, Hct 22.3, platelets 3. RN repeated and verified patient name, date of , and lab value. Results called to Dr. Simpson who was informed patient with symptomatic anemia and complaints of fatigue, weakness, shortness of breath. Order given to type, cross and transfuse one unit PRBC/ patient also to receive one unit platelets per standing order.
[2023-02-26 13:08] LABS: Lymphocytes % 70 % (10-50); Monocytes % 10 % (2-9); Neutrophils % 20 % (42-76); Platelet Estimate Marked Decrease; RBC Morphology Normal; Total Cells Counted 10
== END 2023-02-26 15:25 | disposition home or self-care (01) ==
LOC: INF 09:43
PROVIDERS: PCP Family Medicine; Visit Provider Internal Medicine Medical Oncology
DX: D46.9 Myelodysplastic syndrome, unspecified (principal)
CPT/HCPCS: 36430; 80053; 85007; 85025; 86850; 86900; 86901; P9016; P9034

== ENCOUNTER 2023-02-28 09:37 | Outpatient (CLI) | payer MEDICARE, SELFPAY ==
[2023-02-28] VITALS (7 sets, daily range): BP systolic 95–109; BP diastolic 53–66; PULSE 88–102; RESP 18; TEMP 36.9–37.2; O2SAT 97–98; BMI 17.4
[2023-02-28 09:59] LABS: Basophils % 0.4 % (0.1-2.0); Eosinophils % 0.1 % (0.1-12.0); Hematocrit 23.3 % (37.0-47.0); Hemoglobin 7.8 g/dL (12.2-16.2); Lymphocytes % 80.7 % (10-50); Mean Corpuscular HGB Conc 33.6 g/dL (31.8-35.4); Mean Corpuscular Hemoglobin 28.5 pg (27.0-31.2); Mean Corpuscular Volume 84.7 fl (81-99); Mean Platelet Volume 9.3 fl (7.4-10.4); Monocytes # 0.1 K/mm3 (0.1-1.0); Monocytes % 5.3 % (1.7-9.3); Neutrophils # 0.2 K/mm3 (1.8-7.8); Red Blood Count 2.75 M/mm3 (4.20-5.40); White Blood Count 1.2 K/mm3 (4.8-10.8)
[2023-02-28 10:05] LABS: Neutrophils % 13.5 % (37.0-80.0)
[2023-02-28 10:09] LABS: Platelet Count 3 K/mm3 (142-424)
[2023-02-28 10:10] LABS: MANUAL DIFFERENTIAL MANUAL DIFFERENTIAL (MANUAL DIFF)
--- NOTE | 2023-02-28 10:31 | PC.NURSE ---
Yaritza Whittington called RN at 1005 to report critical lab results. Platelets 3. Pt name, and lab results repeated and read back by RN. Pt has standing orders to be transfused when platelets are less than 10. Platelets ordered. MD notified and no new orders given.
[2023-02-28 11:14] LABS: Lymphocytes % 100 % (10-50); Platelet Estimate Marked Decrease; RBC Morphology Normal; Total Cells Counted 10
== END 2023-02-28 15:37 | disposition home or self-care (01) ==
LOC: INF 09:39
PROVIDERS: PCP Family Medicine; Visit Provider Internal Medicine Medical Oncology
DX: D46.9 Myelodysplastic syndrome, unspecified (principal)
CPT/HCPCS: 36430; 85007; 85025; J1642; P9034

== ENCOUNTER 2023-03-02 09:03 | Outpatient (CLI) | payer MEDICARE, SELFPAY ==
[2023-03-02] VITALS (17 sets, daily range): BP systolic 92–118; BP diastolic 47–89; PULSE 75–91; RESP 20; TEMP 36.4–36.7; O2SAT 98–99; BMI 17.4
--- NOTE | 2023-03-02 09:22 | PC.NURSE ---
0910-pt here today for md appt and labs. picc line accessed and blood drawn for labs as ordered per md. specimen sent to lab for analysis. assisted pt to specialty clinic via for md appt. pt to return after appt if further intervention is needed.
[2023-03-02 09:32] LABS: Eosinophils % 0.6 % (0.1-12.0); Hematocrit 22.8 % (37.0-47.0); Hemoglobin 7.5 g/dL (12.2-16.2); Lymphocytes # 0.9 K/mm3 (0.7-4.5); Lymphocytes % 79.9 % (10-50); Mean Corpuscular HGB Conc 32.8 g/dL (31.8-35.4); Mean Corpuscular Hemoglobin 27.9 pg (27.0-31.2); Mean Corpuscular Volume 85.1 fl (81-99); Monocytes # 0.1 K/mm3 (0.1-1.0); Monocytes % 4.1 % (1.7-9.3); Neutrophils # 0.2 K/mm3 (1.8-7.8); Neutrophils % 15.4 % (37.0-80.0); Red Blood Count 2.67 M/mm3 (4.20-5.40); Red Cell Distribution Width 14.9 % (11.5-17.5); White Blood Count 1.1 K/mm3 (4.8-10.8)
[2023-03-02 09:33] LABS: Platelet Count 5 K/mm3 (142-424)
[2023-03-02 09:35] LABS: MANUAL DIFFERENTIAL MANUAL DIFFERENTIAL (MANUAL DIFF)
--- NOTE | 2023-03-02 09:48 | PC.NURSE ---
Susana Frances called RN at 0950 to report plt 5. RN repeated and verified pt name, , and lab value. Result called to Dr. Simpson in specialty clinic, pt has standing orders for plt's, also ordered 1 unit prbc's to be transfused for pt c/o of weakness, fatigue, and sob.
--- NOTE | 2023-03-02 10:30 | PC.NURSE ---
1020-lab staff at pt chairside to witness blood draw for type and crossmatch.
[2023-03-02 11:12] LABS: Hypochromasia 1+; Lymphocytes % 70 % (10-50); Neutrophils % 30 % (42-76); Platelet Estimate Marked Decrease; Total Cells Counted 10
--- NOTE | 2023-03-02 16:26 | PC.NURSE ---
1625-30 min post completion v/s performed post platelets per protocol.
== END 2023-03-02 16:32 | disposition home or self-care (01) ==
LOC: INF 09:04
PROVIDERS: PCP Family Medicine; Visit Provider Internal Medicine Medical Oncology
DX: D46.9 Myelodysplastic syndrome, unspecified (principal); Z45.2 Encounter for adjustment and management of vascular access device
CPT/HCPCS: 36430; 85007; 85025; 86850; P9016; P9034

== ENCOUNTER 2023-03-05 09:26 | Outpatient (CLI) | payer MEDICARE, SELFPAY ==
[2023-03-05] VITALS (10 sets, daily range): BP systolic 91–99; BP diastolic 47–62; PULSE 84–104; RESP 18–20; TEMP 36.4–36.7; O2SAT 97–98; BMI 16.9
[2023-03-05 09:44] LABS: Basophils % 0.1 % (0.1-2.0); Eosinophils % 0.5 % (0.1-12.0); Hematocrit 23.1 % (37.0-47.0); Hemoglobin 7.9 g/dL (12.2-16.2); Lymphocytes # 0.7 K/mm3 (0.7-4.5); Lymphocytes % 72.4 % (10-50); Mean Corpuscular Hemoglobin 27.1 pg (27.0-31.2); Mean Corpuscular Volume 79.7 fl (81-99); Mean Platelet Volume 11.8 fl (7.4-10.4); Monocytes # 0.1 K/mm3 (0.1-1.0); Neutrophils # 0.2 K/mm3 (1.8-7.8); Red Cell Distribution Width 15.9 % (11.5-17.5)
[2023-03-05 09:47] LABS: Chloride 105 mmol/L (98-107)
[2023-03-05 09:48] LABS: Potassium 3.7 mmoL/L (3.5-5.1); Sodium 138 mmol/L (136-145)
[2023-03-05 09:49] LABS: Platelet Count 8 K/mm3 (142-424)
[2023-03-05 09:50] LABS: Alanine Aminotransferase 15 U/L (12-78); Alkaline Phosphatase 55 U/L (38-126); Anion Gap 13.7 mEq/L (5-15); Aspartate Amino Transferase 18 U/L (14-36); Bilirubin,Total 0.9 mg/dl (0.2-1.3); Blood Urea Nitrogen 18 mg/dl (7-17); Carbon Dioxide 23 mmol/L (22.0-30.0); Creatinine Clearance Estimated 40 mL/min (50-200); Estimated Glomerular Filt Rate 98 ml/min (>60); GFR (African American) 119 ML/MIN (>60)
[2023-03-05 09:51] LABS: Calcium 8.4 mg/dl (8.4-10.2); Glucose 131 mg/dl (74-100); Total Protein,Serum 6.5 g/dl (6.3-8.2)
[2023-03-05 09:52] LABS: MANUAL DIFFERENTIAL MANUAL DIFFERENTIAL (MANUAL DIFF)
[2023-03-05 10:11] LABS: Albumin Level 3.3 g/dl (3.5-5.0); Globulin 3.2 g/dL (1.3-3.2)
--- NOTE | 2023-03-05 10:25 | PC.NURSE ---
09 Yaritza Whittington called Jesica Carson RN at 09 to report WBC 1.0, platelets 8. M.DARA Carson repeated and verified patient name, date of , and lab values. Results called to Dr. Simpson and no new orders given/ patient to receive one unit platelets per standing order
[2023-03-05 10:50] LABS: Lymphocytes % 80 % (10-50); Neutrophils % 20 % (42-76); Total Cells Counted 10
[2023-03-05 10:51] LABS: Microcytosis 1+; Platelet Estimate Marked Decrease
[2023-03-05 10:52] LABS: Hypochromasia 1+
--- NOTE | 2023-03-05 16:34 | PC.NURSE ---
1630-30 min post platelet v/s set taken per protocol.
== END 2023-03-05 16:30 | disposition home or self-care (01) ==
LOC: INF 09:26
PROVIDERS: PCP Family Medicine; Visit Provider Internal Medicine Medical Oncology
DX: D46.9 Myelodysplastic syndrome, unspecified (principal)
CPT/HCPCS: 36415; 36430; 80053; 85007; 85025; 86900; 86901; 96413; J9025; P9034

== ENCOUNTER 2023-03-06 09:40 | Outpatient (CLI) | payer MEDICARE, SELFPAY ==
[2023-03-06 10:30] VITALS: BP 85/54; PULSE 97; RESP 19; O2SAT 97
[2023-03-06 11:30] VITALS: BP 100/49; PULSE 82; RESP 18; O2SAT 97
== END 2023-03-06 11:30 | disposition home or self-care (01) ==
LOC: INF 09:40
PROVIDERS: PCP Family Medicine; Visit Provider Internal Medicine Medical Oncology
DX: D46.9 Myelodysplastic syndrome, unspecified (principal)
CPT/HCPCS: 96413; J9025

== ENCOUNTER 2023-03-07 09:24 | Outpatient (CLI) | payer MEDICARE, SELFPAY ==
[2023-03-07] VITALS (14 sets, daily range): BP systolic 83–107; BP diastolic 45–54; PULSE 82–95; RESP 16–18; TEMP 36.4–37; O2SAT 94–97; BMI 16.9
[2023-03-07 09:53] LABS: Basophils % 0.1 % (0.1-2.0); Eosinophils % 0.5 % (0.1-12.0); Lymphocytes # 0.6 K/mm3 (0.7-4.5); Lymphocytes % 68.6 % (10-50); Mean Corpuscular HGB Conc 34.7 g/dL (31.8-35.4); Mean Corpuscular Hemoglobin 27.4 pg (27.0-31.2); Mean Corpuscular Volume 79.1 fl (81-99); Mean Platelet Volume 15.1 fl (7.4-10.4); Monocytes # 0.1 K/mm3 (0.1-1.0); Monocytes % 8.6 % (1.7-9.3); Neutrophils # 0.2 K/mm3 (1.8-7.8); Neutrophils % 22.1 % (37.0-80.0); Red Cell Distribution Width 15.7 % (11.5-17.5)
[2023-03-07 09:54] LABS: Hematocrit 19.8 % (37.0-47.0); Hemoglobin 6.9 g/dL (12.2-16.2); Platelet Count 10 K/mm3 (142-424); White Blood Count 0.8 K/mm3 (4.8-10.8)
[2023-03-07 09:55] LABS: MANUAL DIFFERENTIAL MANUAL DIFFERENTIAL (MANUAL DIFF)
--- NOTE | 2023-03-07 12:13 | PC.NURSE ---
1210-BLOOD TRANSFUSION STARTED AT 100 ML/HR AT THIS TIME.
[2023-03-07 12:17] LABS: Hypochromasia 1+; Lymphocytes % 70 % (10-50); Microcytosis 1+; Monocytes % 10 % (2-9); Neutrophils % 20 % (42-76); Platelet Estimate Marked Decrease; RBC Morphology KNP; Total Cells Counted 10
--- NOTE | 2023-03-07 13:40 | PC.NURSE ---
1240-INCREASED RATE TO 200 ML/HR AT THIS TIME.
== END 2023-03-07 15:05 | disposition home or self-care (01) ==
LOC: INF 09:25
PROVIDERS: PCP Family Medicine; Visit Provider Internal Medicine Medical Oncology
DX: D46.9 Myelodysplastic syndrome, unspecified (principal)
CPT/HCPCS: 36430; 85007; 85025; 86850; 96413; J9025; P9016

== ENCOUNTER 2023-03-08 09:30 | Outpatient (CLI) | payer MEDICARE, SELFPAY ==
[2023-03-08 10:30] VITALS: BP 96/51; PULSE 84; RESP 16; O2SAT 90
[2023-03-08 10:45] VITALS: BP 96/57; PULSE 81; RESP 16
[2023-03-08 11:00] VITALS: BP 92/57; PULSE 82; RESP 16
[2023-03-08 11:10] VITALS: BP 94/56; PULSE 80; RESP 16
== END 2023-03-08 11:25 | disposition home or self-care (01) ==
LOC: INF 09:30
PROVIDERS: PCP Family Medicine; Visit Provider Internal Medicine Medical Oncology
DX: D46.9 Myelodysplastic syndrome, unspecified (principal)
CPT/HCPCS: 96413; J9025

== ENCOUNTER 2023-03-09 09:34 | Outpatient (CLI) | payer MEDICARE, SELFPAY ==
[2023-03-09] VITALS (19 sets, daily range): BP systolic 90–112; BP diastolic 46–79; PULSE 75–92; RESP 16–18; TEMP 36.5–37.2; O2SAT 93–97; BMI 16.9
[2023-03-09 10:12] LABS: Basophils % 0.4 % (0.1-2.0); Eosinophils % 0.8 % (0.1-12.0); Hematocrit 22.1 % (37.0-47.0); Hemoglobin 7.4 g/dL (12.2-16.2); Lymphocytes # 0.4 K/mm3 (0.7-4.5); Lymphocytes % 65.8 % (10-50); Mean Corpuscular HGB Conc 33.6 g/dL (31.8-35.4); Mean Corpuscular Hemoglobin 27.4 pg (27.0-31.2); Mean Corpuscular Volume 81.7 fl (81-99); Mean Platelet Volume 11.8 fl (7.4-10.4); Monocytes # 0.1 K/mm3 (0.1-1.0); Monocytes % 8.7 % (1.7-9.3); Neutrophils # 0.2 K/mm3 (1.8-7.8); Neutrophils % 24.3 % (37.0-80.0); Red Cell Distribution Width 15.9 % (11.5-17.5)
[2023-03-09 10:19] LABS: White Blood Count 0.6 K/mm3 (4.8-10.8)
[2023-03-09 10:20] LABS: Platelet Count 5 K/mm3 (142-424)
[2023-03-09 10:21] LABS: MANUAL DIFFERENTIAL MANUAL DIFFERENTIAL (MANUAL DIFF)
[2023-03-09 11:53] LABS: Hypochromasia 1+; Lymphocytes % 90 % (10-50); Neutrophils % 10 % (42-76); Platelet Estimate Marked Decrease; Total Cells Counted 10
--- NOTE | 2023-03-09 12:27 | PC.NURSE ---
1223 - BLOOD TRANSFUSION STARTED AT 100 ML/HR AT THIS TIME.
--- NOTE | 2023-03-09 13:46 | PC.NURSE ---
1253-INCREASED RATE TO 150 ML/HR AT THIS TIME.
--- NOTE | 2023-03-09 13:48 | PC.NURSE ---
1323-INCREASED RATE TO 250 ML/HR AT THIS TIME.
== END 2023-03-09 15:50 | disposition home or self-care (01) ==
LOC: INF 09:36
PROVIDERS: PCP Family Medicine; Visit Provider Internal Medicine Medical Oncology
DX: D46.9 Myelodysplastic syndrome, unspecified (principal)
CPT/HCPCS: 36430; 85007; 85025; 96413; J9025; P9016; P9034

== ENCOUNTER 2023-03-10 09:08 | Outpatient (CLI) | payer MEDICARE, SELFPAY ==
[2023-03-10 10:00] VITALS: BP 99/57; PULSE 87; RESP 18; TEMP 36.4; O2SAT 100
[2023-03-10 10:50] VITALS: BP 109/67; PULSE 82; RESP 18; TEMP 36.7; O2SAT 100
== END 2023-03-10 10:50 | disposition home or self-care (01) ==
LOC: INF 09:09
PROVIDERS: PCP Family Medicine; Visit Provider Internal Medicine Medical Oncology
DX: D46.9 Myelodysplastic syndrome, unspecified (principal)
CPT/HCPCS: 96413; J9025

== ENCOUNTER 2023-03-11 09:00 | Outpatient (CLI) | payer MEDICARE, SELFPAY ==
[2023-03-11 09:13] VITALS: BP 83/59; PULSE 86; RESP 20; TEMP 36.6; O2SAT 98
[2023-03-11 09:27] VITALS: BP 91/52; PULSE 82; RESP 20; O2SAT 98
[2023-03-11 10:13] VITALS: BP 98/53; PULSE 83; RESP 20; TEMP 36.8; O2SAT 98
== END 2023-03-11 10:26 | disposition home or self-care (01) ==
LOC: INF 09:02
PROVIDERS: PCP Family Medicine; Visit Provider Internal Medicine Medical Oncology
DX: D46.9 Myelodysplastic syndrome, unspecified (principal)
CPT/HCPCS: 96413; J9025

== ENCOUNTER 2023-03-12 09:43 | Outpatient (CLI) | payer MEDICARE, SELFPAY ==
[2023-03-12] VITALS (8 sets, daily range): BP systolic 90–107; BP diastolic 45–58; PULSE 84–90; RESP 20; TEMP 36.2–36.8; O2SAT 97–98; BMI 16.9
[2023-03-12 10:08] LABS: Basophils % 0.5 % (0.1-2.0); Eosinophils % 0.4 % (0.1-12.0); Hematocrit 24.6 % (37.0-47.0); Hemoglobin 8.2 g/dL (12.2-16.2); Lymphocytes # 0.4 K/mm3 (0.7-4.5); Lymphocytes % 67.6 % (10-50); Mean Corpuscular HGB Conc 33.4 g/dL (31.8-35.4); Mean Corpuscular Hemoglobin 28.3 pg (27.0-31.2); Mean Corpuscular Volume 84.7 fl (81-99); Mean Platelet Volume 8.8 fl (7.4-10.4); Monocytes % 6.5 % (1.7-9.3); Neutrophils # 0.1 K/mm3 (1.8-7.8); Red Blood Count 2.91 M/mm3 (4.20-5.40); Red Cell Distribution Width 16.5 % (11.5-17.5); White Blood Count 0.5 K/mm3 (4.8-10.8)
[2023-03-12 10:09] LABS: MANUAL DIFFERENTIAL MANUAL DIFFERENTIAL (MANUAL DIFF); Platelet Count 4 K/mm3 (142-424)
--- NOTE | 2023-03-12 10:12 | PC.NURSE ---
Susana Frances called RN at 1008 to report WBC-0.5, plt-4. RN repeated and verified pt name, , and lab value. Result called to Dr. Jeaneth Simpson, pt has standing orders for platelet transfusion, follow those orders. No new orders noted.
[2023-03-12 10:23] LABS: Alanine Aminotransferase 11 U/L (12-78); Albumin Level 3.2 g/dl (3.5-5.0); Alkaline Phosphatase 56 U/L (38-126); Aspartate Amino Transferase 15 U/L (14-36); Bilirubin,Total 1.4 mg/dl (0.2-1.3); Blood Urea Nitrogen 22 mg/dl (7-17); Calcium 8.7 mg/dl (8.4-10.2); Carbon Dioxide 23 mmol/L (22.0-30.0); Chloride 103 mmol/L (98-107); Creatinine Clearance Estimated 40 mL/min (50-200); Estimated Glomerular Filt Rate 98 ml/min (>60); GFR (African American) 119 ML/MIN (>60); Globulin 3.3 g/dL (1.3-3.2); Glucose 103 mg/dl (74-100); Sodium 136 mmol/L (136-145); Total Protein,Serum 6.5 g/dl (6.3-8.2)
[2023-03-12 10:36] LABS: Lymphocytes % 70 % (10-50); Monocytes % 10 % (2-9); Neutrophils % 20 % (42-76); Ovalocytes 1+; Platelet Estimate Marked Decrease; RBC Morphology Normal; Total Cells Counted 10
--- NOTE | 2023-03-12 13:32 | PC.NURSE ---
03/12/23 1325 30 min post platelet transfusion completion v/s performed at this time per protocol.
== END 2023-03-12 13:34 | disposition home or self-care (01) ==
LOC: INF 09:44
PROVIDERS: PCP Family Medicine; Visit Provider Internal Medicine Medical Oncology
DX: D46.9 Myelodysplastic syndrome, unspecified (principal)
CPT/HCPCS: 36430; 80053; 85007; 85025; 86900; 86901; P9034

== ENCOUNTER 2023-03-14 09:34 | Outpatient (CLI) | payer MEDICARE, SELFPAY ==
[2023-03-14] VITALS (17 sets, daily range): BP systolic 90–125; BP diastolic 39–74; PULSE 82–98; RESP 18; TEMP 36.7–37; O2SAT 98–99; BMI 16.9
[2023-03-14 09:55] LABS: Eosinophils % 0.7 % (0.1-12.0); Hematocrit 22.7 % (37.0-47.0); Hemoglobin 7.7 g/dL (12.2-16.2); Lymphocytes # 0.5 K/mm3 (0.7-4.5); Lymphocytes % 78.7 % (10-50); Mean Corpuscular Volume 85.3 fl (81-99); Monocytes % 2.5 % (1.7-9.3); Neutrophils # 0.1 K/mm3 (1.8-7.8); Neutrophils % 18.1 % (37.0-80.0); Red Blood Count 2.66 M/mm3 (4.20-5.40); Red Cell Distribution Width 16.2 % (11.5-17.5)
[2023-03-14 09:56] LABS: Platelet Count 5 K/mm3 (142-424); White Blood Count 0.7 K/mm3 (4.8-10.8)
[2023-03-14 09:57] LABS: MANUAL DIFFERENTIAL MANUAL DIFFERENTIAL (MANUAL DIFF)
--- NOTE | 2023-03-14 10:13 | PC.NURSE ---
pt presents today with symptomatic anemia. Hgb 7.7. Pt c/o extreme fatigue, dizziness, pounding heart sounds, weakness. MD notified and ordered one unit PRBC today. no additional orders.
--- NOTE | 2023-03-14 10:16 | PC.NURSE ---
Susana Frances called Rn at 0956 with critical lab results. Plt 5, WBC 0.7. Pt name, and lab results verified and read back by RN. Pt has standing orders in place to transfuse platelets today. MD notified and no additional orders given.
[2023-03-14 10:23] LABS: Lymphocytes % 90 % (10-50); Monocytes % 10 % (2-9); Platelet Estimate Marked Decrease; RBC Morphology Normal; Total Cells Counted 10
== END 2023-03-14 15:25 | disposition home or self-care (01) ==
LOC: INF 09:35
PROVIDERS: PCP Family Medicine; Visit Provider Internal Medicine Medical Oncology
DX: D46.9 Myelodysplastic syndrome, unspecified (principal); R06.02 Shortness of breath; R53.83 Other fatigue
CPT/HCPCS: 36430; 85007; 85025; 86850; P9016; P9034

== ENCOUNTER 2023-03-16 09:18 | Outpatient (CLI) | payer MEDICARE, SELFPAY ==
[2023-03-16] VITALS (7 sets, daily range): BP systolic 95–118; BP diastolic 53–64; PULSE 83–91; RESP 18–19; TEMP 36.2–37.2; O2SAT 98–99; BMI 16.9
[2023-03-16 09:45] LABS: Basophils % 0.3 % (0.1-2.0); Hematocrit 24.5 % (37.0-47.0); Hemoglobin 8.2 g/dL (12.2-16.2); Lymphocytes # 0.6 K/mm3 (0.7-4.5); Lymphocytes % 75.7 % (10-50); Mean Corpuscular HGB Conc 33.3 g/dL (31.8-35.4); Mean Corpuscular Hemoglobin 28.2 pg (27.0-31.2); Mean Corpuscular Volume 84.5 fl (81-99); Mean Platelet Volume 10.9 fl (7.4-10.4); Monocytes % 4.1 % (1.7-9.3); Neutrophils # 0.2 K/mm3 (1.8-7.8); Neutrophils % 17.8 % (37.0-80.0); Red Cell Distribution Width 15.8 % (11.5-17.5)
--- NOTE | 2023-03-16 09:46 | PC.NURSE ---
0946-Yaritza Whittington called rn with critical lab values wbc 0.8 and platelets 5. Rn repeated and verified pt name, , and critical lab values. Rn notified md ;no new orders today ;follow standing orders for platelet transfusion.
[2023-03-16 09:47] LABS: Platelet Count 5 K/mm3 (142-424); White Blood Count 0.8 K/mm3 (4.8-10.8)
[2023-03-16 09:49] LABS: MANUAL DIFFERENTIAL MANUAL DIFFERENTIAL (MANUAL DIFF)
[2023-03-16 10:36] LABS: Lymphocytes % 90 % (10-50); Neutrophils % 10 % (42-76); Platelet Estimate Marked Decrease; RBC Morphology Normal; Total Cells Counted 10
== END 2023-03-16 13:14 | disposition home or self-care (01) ==
LOC: INF 09:19
PROVIDERS: PCP Family Medicine; Visit Provider Internal Medicine Medical Oncology
DX: D46.9 Myelodysplastic syndrome, unspecified (principal)
CPT/HCPCS: 36430; 36592; 85007; 85025; P9034

== ENCOUNTER 2023-03-19 09:52 | Outpatient (CLI) | payer MEDICARE, SELFPAY ==
[2023-03-19] VITALS (15 sets, daily range): BP systolic 84–118; BP diastolic 42–76; PULSE 79–89; RESP 18–20; TEMP 36.6–37; O2SAT 94–97; BMI 16.9
--- NOTE | 2023-03-19 10:10 | PC.NURSE ---
1010-left upper arm picc line flushed with ns;obtained blood return;collected labs;flushed with ns;will wait on results
[2023-03-19 10:21] LABS: Basophils % 0.2 % (0.1-2.0); Eosinophils % 2.2 % (0.1-12.0); Lymphocytes # 0.8 K/mm3 (0.7-4.5); Mean Corpuscular Hemoglobin 27.5 pg (27.0-31.2); Mean Corpuscular Volume 83.1 fl (81-99); Mean Platelet Volume 12.2 fl (7.4-10.4); Monocytes # 0.1 K/mm3 (0.1-1.0); Monocytes % 5.9 % (1.7-9.3); Neutrophils # 0.2 K/mm3 (1.8-7.8); Neutrophils % 16.7 % (37.0-80.0); Red Blood Count 2.53 M/mm3 (4.20-5.40); Red Cell Distribution Width 15.7 % (11.5-17.5); White Blood Count 1.1 K/mm3 (4.8-10.8)
--- NOTE | 2023-03-19 10:22 | PC.NURSE ---
1022-Susana Ellington notified rn at 1022 with critical lab values hct 21.0 and platelet level 7. Rn verified pt name, and critical lab values. RN notified with lab values; new orders for 1 unit prbc for symptomatic anemia ( shortness of breath and weakness); follow standing order for platelet transfusion.
[2023-03-19 10:23] LABS: Chloride 103 mmol/L (98-107); Platelet Count 7 K/mm3 (142-424); Sodium 136 mmol/L (136-145)
[2023-03-19 10:24] LABS: Potassium 4.1 mmoL/L (3.5-5.1)
[2023-03-19 10:25] LABS: MANUAL DIFFERENTIAL MANUAL DIFFERENTIAL (MANUAL DIFF)
[2023-03-19 10:26] LABS: Alanine Aminotransferase 15 U/L (12-78); Albumin Level 3.3 g/dl (3.5-5.0); Alkaline Phosphatase 55 U/L (38-126); Anion Gap 13.1 mEq/L (5-15); Aspartate Amino Transferase 18 U/L (14-36); Bilirubin,Total 0.8 mg/dl (0.2-1.3); Blood Urea Nitrogen 19 mg/dl (7-17); Carbon Dioxide 24 mmol/L (22.0-30.0); Creatinine Clearance Estimated 40 mL/min (50-200); Estimated Glomerular Filt Rate 121 ml/min (>60); GFR (African American) 146 ML/MIN (>60); Globulin 3.2 g/dL (1.3-3.2); Total Protein,Serum 6.5 g/dl (6.3-8.2)
[2023-03-19 10:27] LABS: Calcium 8.6 mg/dl (8.4-10.2); Glucose 122 mg/dl (74-100)
--- NOTE | 2023-03-19 10:35 | PC.NURSE ---
1035-jonathon brown here to witness blood draw for type and screen from left upper arm picc line.
[2023-03-19 12:21] LABS: Lymphocytes % 88 % (10-50); Neutrophils % 12 % (42-76); Platelet Estimate Marked Decrease; RBC Morphology Normal; Total Cells Counted 25
== END 2023-03-19 15:50 | disposition home or self-care (01) ==
LOC: INF 09:54
PROVIDERS: PCP Family Medicine; Visit Provider Internal Medicine Medical Oncology
DX: D46.9 Myelodysplastic syndrome, unspecified (principal)
CPT/HCPCS: 36430; 36592; 80053; 85007; 85025; 86850; P9016; P9034

== ENCOUNTER 2023-03-21 09:47 | Outpatient (CLI) | payer MEDICARE, SELFPAY ==
[2023-03-21] VITALS (16 sets, daily range): BP systolic 82–105; BP diastolic 47–63; PULSE 80–95; RESP 16; TEMP 36.4–37; O2SAT 95–100; BMI 16.9
[2023-03-21 10:11] LABS: Basophils % 0.3 % (0.1-2.0); Eosinophils % 2.1 % (0.1-12.0); Hematocrit 21.9 % (37.0-47.0); Hemoglobin 7.2 g/dL (12.2-16.2); Lymphocytes # 0.9 K/mm3 (0.7-4.5); Lymphocytes % 73.7 % (10-50); Mean Corpuscular HGB Conc 32.7 g/dL (31.8-35.4); Mean Corpuscular Hemoglobin 26.8 pg (27.0-31.2); Mean Platelet Volume 11.3 fl (7.4-10.4); Monocytes # 0.1 K/mm3 (0.1-1.0); Monocytes % 5.7 % (1.7-9.3); Neutrophils # 0.2 K/mm3 (1.8-7.8); Neutrophils % 18.2 % (37.0-80.0); Red Blood Count 2.67 M/mm3 (4.20-5.40); White Blood Count 1.2 K/mm3 (4.8-10.8)
[2023-03-21 10:25] LABS: Platelet Count 3 K/mm3 (142-424)
[2023-03-21 10:26] LABS: MANUAL DIFFERENTIAL MANUAL DIFFERENTIAL (MANUAL DIFF)
[2023-03-21 10:43] LABS: Eosinophils % 4 % (0-3); Lymphocytes % 80 % (10-50); Monocytes % 8 % (2-9); Neutrophils % 8 % (42-76); Total Cells Counted 25
[2023-03-21 10:44] LABS: Platelet Estimate Marked Decrease
[2023-03-21 10:46] LABS: Hypochromasia 1+
--- NOTE | 2023-03-21 11:06 | PC.NURSE ---
1025 - CHRIST WNYN CALLED CLAUDETTE ALAVREZ RN AT 1015 TO REPORT PLATELET LEVEL 3. RN REPEATED AND VERIFIED PT NAME, , AND LAB VALUE. RESULT CALLED TO DR ROBERT CASH. 1 UNIT PLATELETS TO BE GIVEN BASED ON STANDING ORDER. ALSO REPORTED HEMOGLOBIN LEVEL 7.2. ORDERS RECEIVED TO TRANSFUSE 1 UNIT PRBC'S TODAY FOR SYMPTOMATIC ANEMIA INCLUDING FATIGUE, WEAKNESS, AND DYSPNEA.
--- NOTE | 2023-03-21 14:33 | PC.NURSE ---
1329-BLOOD TRANSFUSION INCREASED FROM 100 ML/HR TO 200 ML/HR AT THIS TIME.
--- NOTE | 2023-03-21 14:43 | PC.NURSE ---
1359-INCREASED RATE TO 250 ML/HR AT THIS TIME.
== END 2023-03-21 16:00 | disposition home or self-care (01) ==
LOC: INF 09:48
PROVIDERS: PCP Family Medicine; Visit Provider Internal Medicine Medical Oncology
DX: D46.9 Myelodysplastic syndrome, unspecified (principal)
CPT/HCPCS: 36430; 85007; 85025; P9016; P9034

== ENCOUNTER 2023-03-23 09:51 | Outpatient (CLI) | payer MEDICARE, SELFPAY ==
[2023-03-23] VITALS (17 sets, daily range): BP systolic 89–125; BP diastolic 52–72; PULSE 72–100; RESP 18; TEMP 36.9–37; O2SAT 97–99; BMI 16.9
[2023-03-23 10:14] LABS: Basophils % 0.6 % (0.1-2.0); Eosinophils % 1.2 % (0.1-12.0); Hematocrit 23.6 % (37.0-47.0); Hemoglobin 7.8 g/dL (12.2-16.2); Lymphocytes # 1.1 K/mm3 (0.7-4.5); Lymphocytes % 76.5 % (10-50); Mean Corpuscular HGB Conc 33.2 g/dL (31.8-35.4); Mean Corpuscular Hemoglobin 27.2 pg (27.0-31.2); Mean Corpuscular Volume 82.1 fl (81-99); Mean Platelet Volume 10.8 fl (7.4-10.4); Monocytes # 0.1 K/mm3 (0.1-1.0); Monocytes % 7.7 % (1.7-9.3); Neutrophils # 0.2 K/mm3 (1.8-7.8); Red Blood Count 2.87 M/mm3 (4.20-5.40); Red Cell Distribution Width 16.7 % (11.5-17.5); White Blood Count 1.4 K/mm3 (4.8-10.8)
[2023-03-23 10:33] LABS: Neutrophils % 14.1 % (37.0-80.0)
[2023-03-23 10:35] LABS: Platelet Count 1 K/mm3 (142-424)
[2023-03-23 10:36] LABS: MANUAL DIFFERENTIAL MANUAL DIFFERENTIAL (MANUAL DIFF)
--- NOTE | 2023-03-23 11:35 | PC.NURSE ---
pt presents to clinic with c/o SOA, weakness and racing heart. MD Calvin notified and ordered 1 unit PRBC today for symptomatic anemia.
--- NOTE | 2023-03-23 11:47 | PC.NURSE ---
1004- Yaritza Whittington called RN with critical lab results. Plt of 1. Pt name, and lab result verified and read back by RN. Pt has standing orders for platelet transfusions for value less than 10. Platelets ordered.
[2023-03-23 12:28] LABS: Lymphocytes % 56 % (10-50); Monocytes % 20 % (2-9); Neutrophils % 24 % (42-76); Platelet Estimate Marked Decrease; RBC Morphology Normal; Total Cells Counted 25
== END 2023-03-23 16:02 | disposition home or self-care (01) ==
PROVIDERS: PCP Family Medicine; Visit Provider Internal Medicine Medical Oncology
DX: D46.9 Myelodysplastic syndrome, unspecified (principal)
CPT/HCPCS: 36430; 85007; 85025; 86850; P9016; P9034

== ENCOUNTER 2023-03-26 09:45 | Outpatient (CLI) | payer MEDICARE, SELFPAY ==
[2023-03-26] VITALS (18 sets, daily range): BP systolic 97–121; BP diastolic 53–78; PULSE 68–89; RESP 14–18; TEMP 36.4–36.7; O2SAT 97–99; BMI 16.9
[2023-03-26 10:09] LABS: Basophils % 0.5 % (0.1-2.0); Eosinophils % 0.9 % (0.1-12.0); Hematocrit 22.7 % (37.0-47.0); Hemoglobin 7.3 g/dL (12.2-16.2); Lymphocytes % 73.6 % (10-50); Mean Corpuscular HGB Conc 32.2 g/dL (31.8-35.4); Mean Corpuscular Hemoglobin 27.1 pg (27.0-31.2); Mean Corpuscular Volume 84.2 fl (81-99); Monocytes # 0.1 K/mm3 (0.1-1.0); Monocytes % 8.1 % (1.7-9.3); Neutrophils # 0.2 K/mm3 (1.8-7.8); Neutrophils % 17.1 % (37.0-80.0); Red Blood Count 2.69 M/mm3 (4.20-5.40); Red Cell Distribution Width 17.3 % (11.5-17.5); White Blood Count 1.3 K/mm3 (4.8-10.8)
[2023-03-26 10:11] LABS: Platelet Count 4 K/mm3 (142-424)
[2023-03-26 10:13] LABS: MANUAL DIFFERENTIAL MANUAL DIFFERENTIAL (MANUAL DIFF)
[2023-03-26 10:14] LABS: Alanine Aminotransferase 14 U/L (12-78); Albumin Level 3.2 g/dl (3.5-5.0); Alkaline Phosphatase 54 U/L (38-126); Anion Gap 10.7 mEq/L (5-15); Aspartate Amino Transferase 18 U/L (14-36); Bilirubin,Total 1.2 mg/dl (0.2-1.3); Blood Urea Nitrogen 18 mg/dl (7-17); Calcium 8.8 mg/dl (8.4-10.2); Carbon Dioxide 23 mmol/L (22.0-30.0); Chloride 106 mmol/L (98-107); Creatinine Clearance Estimated 40 mL/min (50-200); Estimated Glomerular Filt Rate 98 ml/min (>60); GFR (African American) 119 ML/MIN (>60); Globulin 3.2 g/dL (1.3-3.2); Glucose 97 mg/dl (74-100); Potassium 3.7 mmoL/L (3.5-5.1); Sodium 136 mmol/L (136-145); Total Protein,Serum 6.4 g/dl (6.3-8.2)
--- NOTE | 2023-03-26 10:59 | PC.NURSE ---
1015 Aga Ac called CHUN Barclay at 1011 to report H&H 7.3/22.7, platelets 4. RN repeated and verified patient name, date of and lab value. Results called to Dr. Simpson and order given to tranfuse one unit PRBC due to patient complaints of fatigue, weakness, shortness of breath. One unit platelets to be transfused per standing order.
[2023-03-26 12:02] LABS: Lymphocytes % 70 % (10-50); Monocytes % 10 % (2-9); Neutrophils % 20 % (42-76); Platelet Estimate Marked Decrease; RBC Morphology Normal; Total Cells Counted 10
--- NOTE | 2023-03-26 16:03 | PC.NURSE ---
1400 platelet 30 minute post transfusion vital sign complete at this time, please refer to TAR
--- NOTE | 2023-03-26 16:09 | PC.NURSE ---
1600 platelets 30 minute post transfusion vital signs obtained at 1600, please refer to TAR
== END 2023-03-26 16:05 | disposition home or self-care (01) ==
LOC: INF 09:45
PROVIDERS: PCP Family Medicine; Visit Provider Internal Medicine Medical Oncology
DX: D46.9 Myelodysplastic syndrome, unspecified (principal)
CPT/HCPCS: 36430; 80053; 85007; 85025; 86850; P9016; P9034

== ENCOUNTER 2023-03-29 10:23 | Outpatient (CLI) | payer MEDICARE, SELFPAY ==
[2023-03-29] VITALS (13 sets, daily range): BP systolic 81–110; BP diastolic 46–63; PULSE 77–86; RESP 18; TEMP 36.4–36.8; O2SAT 99–100; BMI 16.9
[2023-03-29 10:48] LABS: Hematocrit 21.9 % (37.0-47.0)
[2023-03-29 10:50] LABS: Hemoglobin 6.9 g/dL (12.2-16.2)
--- NOTE | 2023-03-29 11:15 | PC.NURSE ---
1050- Brandy patel called rn to report critical lab value hgb 6.9. RN repeated and verified pt name, , and lab value. RN called md to report critical lab value; no new orders today follow standing orders for blood products.
== END 2023-03-29 14:50 | disposition home or self-care (01) ==
LOC: INF 10:24
PROVIDERS: PCP Family Medicine; Visit Provider Internal Medicine Medical Oncology
DX: D46.9 Myelodysplastic syndrome, unspecified (principal); E86.0 Dehydration
CPT/HCPCS: 36430; 85014; 85018; 86850; 96360; P9016

== ENCOUNTER 2023-03-30 09:33 | Outpatient (CLI) | payer MEDICARE, SELFPAY ==
[2023-03-30] VITALS (7 sets, daily range): BP systolic 98–124; BP diastolic 50–64; PULSE 81–88; RESP 18; TEMP 36.4–36.7; O2SAT 100; BMI 16.7
[2023-03-30 10:05] LABS: Basophils % 0.2 % (0.1-2.0); Eosinophils % 0.6 % (0.1-12.0); Hematocrit 24.8 % (37.0-47.0); Lymphocytes # 0.9 K/mm3 (0.7-4.5); Lymphocytes % 73.6 % (10-50); Mean Corpuscular HGB Conc 32.9 g/dL (31.8-35.4); Mean Corpuscular Hemoglobin 28.4 pg (27.0-31.2); Mean Corpuscular Volume 86.4 fl (81-99); Mean Platelet Volume 10.1 fl (7.4-10.4); Monocytes # 0.1 K/mm3 (0.1-1.0); Monocytes % 10.6 % (1.7-9.3); Neutrophils # 0.2 K/mm3 (1.8-7.8); Neutrophils % 15.1 % (37.0-80.0); Red Blood Count 2.87 M/mm3 (4.20-5.40); Red Cell Distribution Width 17.3 % (11.5-17.5); White Blood Count 1.2 K/mm3 (4.8-10.8)
[2023-03-30 10:09] LABS: Platelet Count 4 K/mm3 (142-424)
[2023-03-30 10:11] LABS: MANUAL DIFFERENTIAL MANUAL DIFFERENTIAL (MANUAL DIFF)
[2023-03-30 10:23] LABS: Hemoglobin 8.2 g/dL (12.2-16.2)
[2023-03-30 11:28] LABS: Lymphocytes % 70 % (10-50); Monocytes % 10 % (2-9); Neutrophils % 20 % (42-76); Total Cells Counted 10
[2023-03-30 11:29] LABS: Platelet Estimate Marked Decrease; RBC Morphology Normal
--- NOTE | 2023-03-30 14:36 | PC.NURSE ---
1006- Yaritza Chicas called critical lab result of plt of 4. name, and lab results verified and read back by RN. Pt has standing orders to transfuse platelets when less than 10. Platelets ordered.
== END 2023-03-30 16:04 | disposition home or self-care (01) ==
LOC: INF 09:33
PROVIDERS: PCP Family Medicine; Visit Provider Internal Medicine Medical Oncology
DX: D46.9 Myelodysplastic syndrome, unspecified (principal)
CPT/HCPCS: 36430; 85007; 85025; P9034

== ENCOUNTER 2023-04-02 09:52 | Outpatient (CLI) | payer MEDICARE, SELFPAY ==
--- NOTE | 2023-04-02 09:43 | PC.NURSE ---
0943-Susana Ellington notified rn with critical lab value of platelet level 12. RN repeated and verified pt name, , and critical lab value;rn notified md with labs; no new orders received follow standing orders.
[2023-04-02 10:02] VITALS: BMI 16.9
--- NOTE | 2023-04-02 10:10 | PC.NURSE ---
1010-collected labs via left upper arm picc line
[2023-04-02 10:27] LABS: Alanine Aminotransferase 13 U/L (12-78); Albumin Level 3.2 g/dl (3.5-5.0); Alkaline Phosphatase 59 U/L (38-126); Aspartate Amino Transferase 16 U/L (14-36); Blood Urea Nitrogen 16 mg/dl (7-17); Calcium 8.8 mg/dl (8.4-10.2); Carbon Dioxide 25 mmol/L (22.0-30.0); Chloride 108 mmol/L (98-107); Creatinine Clearance Estimated 40 mL/min (50-200); Estimated Glomerular Filt Rate 98 ml/min (>60); GFR (African American) 119 ML/MIN (>60); Globulin 3.1 g/dL (1.3-3.2); Glucose 93 mg/dl (74-100); Sodium 138 mmol/L (136-145); Total Protein,Serum 6.3 g/dl (6.3-8.2)
[2023-04-02 10:35] LABS: Basophils % 0.3 % (0.1-2.0); Eosinophils % 1.2 % (0.1-12.0); Hematocrit 22.8 % (37.0-47.0); Hemoglobin 7.4 g/dL (12.2-16.2); Lymphocytes # 0.8 K/mm3 (0.7-4.5); Lymphocytes % 69.8 % (10-50); Mean Corpuscular HGB Conc 32.5 g/dL (31.8-35.4); Mean Corpuscular Hemoglobin 28.3 pg (27.0-31.2); Mean Corpuscular Volume 87.2 fl (81-99); Mean Platelet Volume 11.6 fl (7.4-10.4); Monocytes # 0.1 K/mm3 (0.1-1.0); Monocytes % 9.9 % (1.7-9.3); Neutrophils # 0.2 K/mm3 (1.8-7.8); Neutrophils % 18.9 % (37.0-80.0); Red Blood Count 2.61 M/mm3 (4.20-5.40); Red Cell Distribution Width 17.5 % (11.5-17.5); White Blood Count 1.2 K/mm3 (4.8-10.8)
[2023-04-02 10:36] LABS: Platelet Count 12 K/mm3 (142-424)
[2023-04-02 10:37] LABS: MANUAL DIFFERENTIAL MANUAL DIFFERENTIAL (MANUAL DIFF)
[2023-04-02 11:51] LABS: Lymphocytes % 60 % (10-50); Neutrophils % 40 % (42-76); Platelet Estimate Moderate Decrease; RBC Morphology Normal; Total Cells Counted 10
== END 2023-04-02 11:10 | disposition home or self-care (01) ==
LOC: INF 09:53
PROVIDERS: PCP Family Medicine; Visit Provider Internal Medicine Medical Oncology
DX: D46.9 Myelodysplastic syndrome, unspecified (principal)
CPT/HCPCS: 36592; 80053; 85007; 85025

== ENCOUNTER 2023-04-04 09:25 | Outpatient (CLI) | payer MEDICARE, SELFPAY ==
[2023-04-04] VITALS (10 sets, daily range): BP systolic 102–120; BP diastolic 50–74; PULSE 75–87; RESP 16–17; TEMP 36.3–36.6; O2SAT 99; BMI 17.2
[2023-04-04 09:54] LABS: Basophils % 0.3 % (0.1-2.0); Eosinophils % 1.4 % (0.1-12.0); Lymphocytes # 0.8 K/mm3 (0.7-4.5); Lymphocytes % 71.3 % (10-50); Mean Corpuscular HGB Conc 33.5 g/dL (31.8-35.4); Mean Corpuscular Volume 86.5 fl (81-99); Mean Platelet Volume 12.1 fl (7.4-10.4); Monocytes # 0.1 K/mm3 (0.1-1.0); Monocytes % 8.2 % (1.7-9.3); Neutrophils # 0.2 K/mm3 (1.8-7.8); Neutrophils % 18.8 % (37.0-80.0); Red Blood Count 2.37 M/mm3 (4.20-5.40); Red Cell Distribution Width 17.2 % (11.5-17.5); White Blood Count 1.2 K/mm3 (4.8-10.8)
[2023-04-04 10:03] LABS: Platelet Count 12 K/mm3 (142-424)
[2023-04-04 10:06] LABS: Hematocrit 20.5 % (37.0-47.0); Hemoglobin 6.9 g/dL (12.2-16.2)
[2023-04-04 10:07] LABS: MANUAL DIFFERENTIAL MANUAL DIFFERENTIAL (MANUAL DIFF)
[2023-04-04 10:20] LABS: Anisocytosis 2+; Hypochromasia 2+; Lymphocytes % 68 % (10-50); Microcytosis 1+; Monocytes % 8 % (2-9); Neutrophils % 24 % (42-76); Platelet Estimate Marked Decrease; Total Cells Counted 25
--- NOTE | 2023-04-04 12:07 | PC.NURSE ---
1158 - INCREASED BLOOD TRANSFUSION RATE FROM 100 TO 200 ML/HR.
== END 2023-04-04 14:25 | disposition home or self-care (01) ==
PROVIDERS: PCP Family Medicine; Visit Provider Internal Medicine Medical Oncology
DX: D46.9 Myelodysplastic syndrome, unspecified (principal)
CPT/HCPCS: 36430; 85007; 85025; 86850; P9016

== ENCOUNTER 2023-04-06 09:38 | Outpatient (CLI) | payer MEDICARE, SELFPAY ==
[2023-04-06] VITALS (11 sets, daily range): BP systolic 105–149; BP diastolic 61–80; PULSE 78–98; RESP 18; TEMP 36.7–37.2; O2SAT 97–98; BMI 16.7
--- NOTE | 2023-04-06 09:58 | PC.NURSE ---
0958-collected labs via left upper arm picc line;flushed with ns;will wait on results;for possible blood products
[2023-04-06 11:42] LABS: Basophils % 0.8 % (0.1-2.0); Hematocrit 21.8 % (37.0-47.0); Hemoglobin 7.4 g/dL (12.2-16.2); Lymphocytes % 54.5 % (10-50); Mean Corpuscular HGB Conc 33.9 g/dL (31.8-35.4); Mean Corpuscular Hemoglobin 29.2 pg (27.0-31.2); Mean Corpuscular Volume 86.2 fl (81-99); Neutrophils % 20.7 % (37.0-80.0); Platelet Count 14 K/mm3 (142-424); Red Blood Count 2.53 M/mm3 (4.20-5.40); White Blood Count 1.2 K/mm3 (4.8-10.8)
--- NOTE | 2023-04-06 11:42 | PC.NURSE ---
1142-k.Rakel notified rn with critical lab values platelet count 14. RN repeated and verified pt name, , and lab value.Notified no new orders today for platelets; give 1 unit prbc for symptomatic anemia ( weakness, fatigue, shortness of breath).
[2023-04-06 11:43] LABS: Lymphocytes # 0.7 K/mm3 (0.7-4.5); MANUAL DIFFERENTIAL MANUAL DIFFERENTIAL (MANUAL DIFF); Monocytes # 0.3 K/mm3 (0.1-1.0); Neutrophils # 0.3 K/mm3 (1.8-7.8)
[2023-04-06 11:47] LABS: Band Neutrophils % 55 (0-8); Lymphocytes % 21 % (10-50); Neutrophils % 24 % (42-76); Platelet Estimate Marked Decrease; RBC Morphology Normal; Total Cells Counted 100
== END 2023-04-06 15:30 | disposition home or self-care (01) ==
LOC: INF 09:40
PROVIDERS: PCP Family Medicine; Visit Provider Internal Medicine Medical Oncology
DX: D46.9 Myelodysplastic syndrome, unspecified (principal)
CPT/HCPCS: 36430; 36592; 85007; 85025; P9016

== ENCOUNTER 2023-04-09 09:46 | Outpatient (CLI) | payer MEDICARE, SELFPAY ==
--- NOTE | 2023-04-09 09:55 | PC.NURSE ---
0955-Susana Ellington called rn to report critical lab values platelet level 10. RN repeated and verified pt name, , and lab value. Rn notified md with plt level; no new orders received;follow standing orders; pt does not need blood products per standing order.
[2023-04-09 10:00] VITALS: BMI 17.2
--- NOTE | 2023-04-09 10:05 | PC.NURSE ---
1005-collected labs via picc line flushed with ns; obtained blood return;flushed with ns
[2023-04-09 10:18] LABS: Chloride 104 mmol/L (98-107); Sodium 136 mmol/L (136-145)
[2023-04-09 10:21] LABS: Alanine Aminotransferase 12 U/L (12-78); Albumin Level 3.3 g/dl (3.5-5.0); Alkaline Phosphatase 71 U/L (38-126); Aspartate Amino Transferase 16 U/L (14-36); Bilirubin,Total 1.2 mg/dl (0.2-1.3); Blood Urea Nitrogen 18 mg/dl (7-17); Carbon Dioxide 22 mmol/L (22.0-30.0); Creatinine Clearance Estimated 41 mL/min (50-200); Estimated Glomerular Filt Rate 98 ml/min (>60); GFR (African American) 119 ML/MIN (>60); Globulin 3.2 g/dL (1.3-3.2); Total Protein,Serum 6.5 g/dl (6.3-8.2)
[2023-04-09 10:22] LABS: Calcium 9.3 mg/dl (8.4-10.2); Glucose 80 mg/dl (74-100)
[2023-04-09 10:24] LABS: Basophils % 0.5 % (0.1-2.0); Eosinophils % 0.5 % (0.1-12.0); Hematocrit 24.7 % (37.0-47.0); Hemoglobin 8.2 g/dL (12.2-16.2); Lymphocytes # 0.7 K/mm3 (0.7-4.5); Lymphocytes % 63.8 % (10-50); Mean Corpuscular Hemoglobin 27.8 pg (27.0-31.2); Mean Corpuscular Volume 84.3 fl (81-99); Mean Platelet Volume 11.4 fl (7.4-10.4); Monocytes # 0.1 K/mm3 (0.1-1.0); Monocytes % 11.9 % (1.7-9.3); Neutrophils # 0.3 K/mm3 (1.8-7.8); Neutrophils % 23.2 % (37.0-80.0); Red Blood Count 2.93 M/mm3 (4.20-5.40); Red Cell Distribution Width 16.3 % (11.5-17.5); White Blood Count 1.1 K/mm3 (4.8-10.8)
[2023-04-09 10:25] LABS: Platelet Count 10 K/mm3 (142-424)
[2023-04-09 10:27] LABS: MANUAL DIFFERENTIAL MANUAL DIFFERENTIAL (MANUAL DIFF)
[2023-04-09 10:47] LABS: Lymphocytes % 48 % (10-50); Monocytes % 8 % (2-9); Neutrophils % 44 % (42-76); Platelet Estimate Marked Decrease; RBC Morphology Normal; Total Cells Counted 25
== END 2023-04-09 11:00 | disposition home or self-care (01) ==
LOC: INF 09:47
PROVIDERS: PCP Family Medicine; Visit Provider Internal Medicine Medical Oncology
DX: D46.9 Myelodysplastic syndrome, unspecified (principal)
CPT/HCPCS: 36592; 80053; 85007; 85025

== ENCOUNTER 2023-04-11 09:30 | Outpatient (CLI) | payer MEDICARE, SELFPAY ==
[2023-04-11] VITALS (10 sets, daily range): BP systolic 105–128; BP diastolic 58–70; PULSE 78–88; RESP 18; TEMP 36.3–36.7; O2SAT 98–99; BMI 17.6
[2023-04-11 09:51] LABS: Basophils % 0.7 % (0.1-2.0); Eosinophils % 0.6 % (0.1-12.0); Hematocrit 22.3 % (37.0-47.0); Hemoglobin 7.4 g/dL (12.2-16.2); Lymphocytes # 0.8 K/mm3 (0.7-4.5); Lymphocytes % 68.6 % (10-50); Mean Corpuscular HGB Conc 33.4 g/dL (31.8-35.4); Mean Corpuscular Hemoglobin 28.3 pg (27.0-31.2); Mean Corpuscular Volume 84.7 fl (81-99); Mean Platelet Volume 11.5 fl (7.4-10.4); Monocytes # 0.1 K/mm3 (0.1-1.0); Monocytes % 8.4 % (1.7-9.3); Neutrophils # 0.2 K/mm3 (1.8-7.8); Neutrophils % 21.7 % (37.0-80.0); Red Blood Count 2.63 M/mm3 (4.20-5.40); Red Cell Distribution Width 16.3 % (11.5-17.5); White Blood Count 1.1 K/mm3 (4.8-10.8)
[2023-04-11 09:52] LABS: Platelet Count 10 K/mm3 (142-424)
[2023-04-11 09:54] LABS: MANUAL DIFFERENTIAL MANUAL DIFFERENTIAL (MANUAL DIFF)
[2023-04-11 10:09] LABS: Lymphocytes % 64 % (10-50); Monocytes % 4 % (2-9); Neutrophils % 32 % (42-76); Platelet Estimate Marked Decrease; RBC Morphology Normal; Total Cells Counted 25
--- NOTE | 2023-04-11 10:14 | PC.NURSE ---
Addendum entered by Taran Pérez RN 04/11/23 13:44: Pt's Hgb-7.4, pt reports symptoms of anemia (ie fatigue and sob). Contacted Dr. Simpson concerning pt symptoms and order noted for transfusion of 1 unit prbc's today due to symptomatic anemia. Original Note: Susana Frances called RN at 0952 to report platelet count 10. RN repeated and verified pt name, , and lab value. Result called to Dr. Simpson and no new orders noted. pt has standing orders for platelet transfusion if less than 10.
== END 2023-04-11 14:20 | disposition home or self-care (01) ==
LOC: INF 09:31
PROVIDERS: PCP Family Medicine; Visit Provider Internal Medicine Medical Oncology
DX: D46.9 Myelodysplastic syndrome, unspecified (principal)
CPT/HCPCS: 36430; 85007; 85025; 86850; P9016

== ENCOUNTER 2023-04-13 09:32 | Outpatient (CLI) | payer MEDICARE, SELFPAY ==
[2023-04-13 09:42] VITALS: BMI 17.2
[2023-04-13 10:00] LABS: Basophils % 0.8 % (0.1-2.0); Eosinophils % 0.6 % (0.1-12.0); Hemoglobin 8.1 g/dL (12.2-16.2); Lymphocytes # 0.8 K/mm3 (0.7-4.5); Lymphocytes % 64.2 % (10-50); Mean Corpuscular HGB Conc 32.5 g/dL (31.8-35.4); Mean Corpuscular Hemoglobin 28.2 pg (27.0-31.2); Mean Corpuscular Volume 86.8 fl (81-99); Mean Platelet Volume 11.5 fl (7.4-10.4); Monocytes # 0.1 K/mm3 (0.1-1.0); Monocytes % 9.6 % (1.7-9.3); Neutrophils # 0.3 K/mm3 (1.8-7.8); Neutrophils % 24.7 % (37.0-80.0); Red Blood Count 2.89 M/mm3 (4.20-5.40); Red Cell Distribution Width 16.2 % (11.5-17.5); White Blood Count 1.2 K/mm3 (4.8-10.8)
[2023-04-13 10:07] LABS: Platelet Count 10 K/mm3 (142-424)
[2023-04-13 10:09] LABS: MANUAL DIFFERENTIAL MANUAL DIFFERENTIAL (MANUAL DIFF)
[2023-04-13 11:11] LABS: Eosinophils % 4 % (0-3); Lymphocytes % 64 % (10-50); Monocytes % 8 % (2-9); Neutrophils % 24 % (42-76); Platelet Estimate Marked Decrease; RBC Morphology Normal; Total Cells Counted 25
== END 2023-04-13 10:25 | disposition home or self-care (01) ==
LOC: INF 09:34
PROVIDERS: PCP Family Medicine; Visit Provider Internal Medicine Medical Oncology
DX: D46.9 Myelodysplastic syndrome, unspecified (principal)
CPT/HCPCS: 36592; 85007; 85025

== ENCOUNTER 2023-04-16 09:33 | Outpatient (CLI) | payer MEDICARE, SELFPAY ==
[2023-04-16 09:41] VITALS: BMI 17.6
--- NOTE | 2023-04-16 09:46 | PC.NURSE ---
0946-collected labs via left upper arm picc line;will wait for labs
[2023-04-16 10:01] LABS: Chloride 105 mmol/L (98-107); Potassium 3.5 mmoL/L (3.5-5.1); Sodium 137 mmol/L (136-145)
[2023-04-16 10:02] LABS: Eosinophils % 0.6 % (0.1-12.0); Hematocrit 23.6 % (37.0-47.0); Hemoglobin 7.7 g/dL (12.2-16.2); Lymphocytes # 0.8 K/mm3 (0.7-4.5); Lymphocytes % 61.9 % (10-50); Mean Corpuscular HGB Conc 32.5 g/dL (31.8-35.4); Mean Corpuscular Volume 86.2 fl (81-99); Monocytes # 0.1 K/mm3 (0.1-1.0); Monocytes % 10.9 % (1.7-9.3); Neutrophils # 0.3 K/mm3 (1.8-7.8); Neutrophils % 26.5 % (37.0-80.0); Red Blood Count 2.74 M/mm3 (4.20-5.40); White Blood Count 1.2 K/mm3 (4.8-10.8)
[2023-04-16 10:04] LABS: Alanine Aminotransferase 14 U/L (12-78); Albumin Level 3.3 g/dl (3.5-5.0); Alkaline Phosphatase 64 U/L (38-126); Anion Gap 10.5 mEq/L (5-15); Aspartate Amino Transferase 16 U/L (14-36); Bilirubin,Total 0.8 mg/dl (0.2-1.3); Blood Urea Nitrogen 17 mg/dl (7-17); Calcium 9.2 mg/dl (8.4-10.2); Carbon Dioxide 25 mmol/L (22.0-30.0); Creatinine Clearance Estimated 41 mL/min (50-200); Estimated Glomerular Filt Rate 98 ml/min (>60); GFR (African American) 119 ML/MIN (>60); Globulin 3.2 g/dL (1.3-3.2); Glucose 131 mg/dl (74-100); Total Protein,Serum 6.5 g/dl (6.3-8.2)
[2023-04-16 10:11] LABS: Platelet Count 12 K/mm3 (142-424)
--- NOTE | 2023-04-16 10:11 | PC.NURSE ---
1011-Yaritza Whittington called RN with lab value platelet level 12. RN repeated and verified pt name, date of , and critical lab value. RN called md with critical lab value; no new orders at this time follow standing orders for blood products.
[2023-04-16 10:13] LABS: MANUAL DIFFERENTIAL MANUAL DIFFERENTIAL (MANUAL DIFF)
[2023-04-16 10:55] LABS: Lymphocytes % 60 % (10-50); Monocytes % 7 % (2-9); Neutrophils % 33 % (42-76); Platelet Estimate Marked Decrease; RBC Morphology Normal; Total Cells Counted 15
== END 2023-04-16 10:45 | disposition home or self-care (01) ==
LOC: INF 09:34
PROVIDERS: PCP Family Medicine; Visit Provider Internal Medicine Medical Oncology
DX: D46.9 Myelodysplastic syndrome, unspecified (principal); Z45.2 Encounter for adjustment and management of vascular access device
CPT/HCPCS: 36592; 80053; 85007; 85025

== ENCOUNTER 2023-04-18 09:31 | Outpatient (CLI) | payer MEDICARE, SELFPAY ==
[2023-04-18] VITALS (11 sets, daily range): BP systolic 87–127; BP diastolic 34–68; PULSE 90–106; RESP 18; TEMP 36.6–36.8; O2SAT 98–99; BMI 17.6
[2023-04-18 09:57] LABS: Basophils % 0.2 % (0.1-2.0); Eosinophils % 0.4 % (0.1-12.0); Hematocrit 22.7 % (37.0-47.0); Hemoglobin 7.3 g/dL (12.2-16.2); Lymphocytes # 0.9 K/mm3 (0.7-4.5); Lymphocytes % 66.7 % (10-50); Mean Corpuscular HGB Conc 32.1 g/dL (31.8-35.4); Mean Corpuscular Hemoglobin 27.3 pg (27.0-31.2); Mean Platelet Volume 11.8 fl (7.4-10.4); Monocytes # 0.1 K/mm3 (0.1-1.0); Monocytes % 8.4 % (1.7-9.3); Neutrophils # 0.3 K/mm3 (1.8-7.8); Neutrophils % 24.3 % (37.0-80.0); Red Blood Count 2.67 M/mm3 (4.20-5.40); White Blood Count 1.4 K/mm3 (4.8-10.8)
[2023-04-18 09:59] LABS: Platelet Count 10 K/mm3 (142-424)
[2023-04-18 10:00] LABS: MANUAL DIFFERENTIAL MANUAL DIFFERENTIAL (MANUAL DIFF)
--- NOTE | 2023-04-18 10:03 | PC.NURSE ---
0959- Susana Frances in lab called critical lab results of Plt 10 to this RN. Pt name, , and lab result repeated and verified by RN. Pt has standing orders and does not meet criteria for platelet transfusions at this time. MD notified and no new orders given.
--- NOTE | 2023-04-18 10:20 | PC.NURSE ---
Pt Hgb 7.3 on AM labs. Pt c/o fatigue, SOA, weakness and pounding heart sounds. MD Calvin notified and ordered one unit PRBC to be given today.
[2023-04-18 10:24] LABS: Lymphocytes % 80 % (10-50); Monocytes % 7 % (2-9); Neutrophils % 13 % (42-76); Nucleated Red Blood Cells 1; Platelet Estimate Marked Decrease; RBC Morphology Normal; Total Cells Counted 15
== END 2023-04-18 15:35 | disposition home or self-care (01) ==
LOC: INF 09:32
PROVIDERS: PCP Family Medicine; Visit Provider Internal Medicine Medical Oncology
DX: D46.9 Myelodysplastic syndrome, unspecified (principal)
CPT/HCPCS: 36430; 85007; 85025; 86850; P9016

== ENCOUNTER 2023-04-20 09:42 | Outpatient (CLI) | payer MEDICARE, SELFPAY ==
[2023-04-20 09:51] VITALS: BMI 16.7; BMI 17.3
[2023-04-20 10:10] LABS: Basophils % 0.5 % (0.1-2.0); Eosinophils % 0.6 % (0.1-12.0); Hematocrit 25.2 % (37.0-47.0); Hemoglobin 8.4 g/dL (12.2-16.2); Lymphocytes % 65.7 % (10-50); Mean Corpuscular HGB Conc 33.3 g/dL (31.8-35.4); Mean Corpuscular Hemoglobin 28.4 pg (27.0-31.2); Mean Corpuscular Volume 85.2 fl (81-99); Mean Platelet Volume 15.2 fl (7.4-10.4); Monocytes # 0.2 K/mm3 (0.1-1.0); Monocytes % 9.3 % (1.7-9.3); Neutrophils # 0.4 K/mm3 (1.8-7.8); Neutrophils % 23.9 % (37.0-80.0); Red Blood Count 2.96 M/mm3 (4.20-5.40); White Blood Count 1.6 K/mm3 (4.8-10.8)
[2023-04-20 10:12] LABS: MANUAL DIFFERENTIAL MANUAL DIFFERENTIAL (MANUAL DIFF); Platelet Count 11 K/mm3 (142-424)
[2023-04-20 10:26] LABS: Lymphocytes % 44 % (10-50); Monocytes % 36 % (2-9); Neutrophils % 20 % (42-76); Total Cells Counted 25
[2023-04-20 10:27] LABS: Platelet Estimate Marked Decrease; RBC Morphology Normal
--- NOTE | 2023-04-20 11:36 | PC.NURSE ---
1011- Susana Frances from lab called critical lab result to RN. Plt 11. Pt name, and lab result verified and read back by RN. Pt has standing orders in place for transfusions and does not meet criteria at this time. notified and no new orders at this time.
== END 2023-04-20 10:30 | disposition home or self-care (01) ==
LOC: INF 09:43
PROVIDERS: PCP Family Medicine; Visit Provider Internal Medicine Medical Oncology
DX: D46.9 Myelodysplastic syndrome, unspecified (principal); Z45.2 Encounter for adjustment and management of vascular access device
CPT/HCPCS: 36592; 85007; 85025

== ENCOUNTER 2023-04-23 09:42 | Outpatient (CLI) | payer MEDICARE, SELFPAY ==
[2023-04-23 09:46] VITALS: BMI 17.6
[2023-04-23 09:59] LABS: Basophils % 0.5 % (0.1-2.0); Eosinophils % 0.9 % (0.1-12.0); Hematocrit 23.8 % (37.0-47.0); Hemoglobin 7.7 g/dL (12.2-16.2); Lymphocytes % 63.3 % (10-50); Mean Corpuscular HGB Conc 32.4 g/dL (31.8-35.4); Mean Corpuscular Hemoglobin 27.8 pg (27.0-31.2); Mean Corpuscular Volume 85.9 fl (81-99); Monocytes # 0.1 K/mm3 (0.1-1.0); Monocytes % 7.9 % (1.7-9.3); Neutrophils # 0.4 K/mm3 (1.8-7.8); Neutrophils % 27.3 % (37.0-80.0); Red Blood Count 2.77 M/mm3 (4.20-5.40); Red Cell Distribution Width 16.3 % (11.5-17.5); White Blood Count 1.6 K/mm3 (4.8-10.8)
[2023-04-23 10:00] LABS: Platelet Count 12 K/mm3 (142-424)
[2023-04-23 10:02] LABS: MANUAL DIFFERENTIAL MANUAL DIFFERENTIAL (MANUAL DIFF)
--- NOTE | 2023-04-23 10:02 | PC.NURSE ---
Yaritza Whittington in lab called critical lab results to RN. Pt of 12. Pt name, and lab results verified and read back by RN. Pt has standing orders in place for transfusions and does not meet criteria at this time. Pt will have labs Sunday for recheck.
[2023-04-23 10:10] LABS: Alanine Aminotransferase 15 U/L (12-78); Albumin Level 3.4 g/dl (3.5-5.0); Alkaline Phosphatase 62 U/L (38-126); Aspartate Amino Transferase 17 U/L (14-36); Bilirubin,Total 0.7 mg/dl (0.2-1.3); Blood Urea Nitrogen 20 mg/dl (7-17); Calcium 9.1 mg/dl (8.4-10.2); Carbon Dioxide 21 mmol/L (22.0-30.0); Chloride 108 mmol/L (98-107); Creatinine Clearance Estimated 41 mL/min (50-200); Estimated Glomerular Filt Rate 82 ml/min (>60); GFR (African American) 99 ML/MIN (>60); Globulin 3.3 g/dL (1.3-3.2); Glucose 161 mg/dl (74-100); Sodium 138 mmol/L (136-145); Total Protein,Serum 6.7 g/dl (6.3-8.2)
[2023-04-23 10:55] LABS: Lymphocytes % 70 % (10-50); Neutrophils % 30 % (42-76); Platelet Estimate Marked Decrease; RBC Morphology Normal; Total Cells Counted 10
== END 2023-04-23 10:20 | disposition home or self-care (01) ==
LOC: INF 09:43
PROVIDERS: PCP Family Medicine; Visit Provider Internal Medicine Medical Oncology
DX: D46.9 Myelodysplastic syndrome, unspecified (principal); Z45.2 Encounter for adjustment and management of vascular access device
CPT/HCPCS: 36592; 80053; 85007; 85025

== ENCOUNTER 2023-04-25 09:43 | Outpatient (CLI) | payer MEDICARE, SELFPAY ==
[2023-04-25] VITALS (11 sets, daily range): BP systolic 115–136; BP diastolic 44–75; PULSE 78–89; RESP 18; TEMP 36.7–37.2; O2SAT 95–98; BMI 16.7
[2023-04-25 10:05] LABS: Basophils % 0.2 % (0.1-2.0); Eosinophils % 0.9 % (0.1-12.0); Hematocrit 22.1 % (37.0-47.0); Hemoglobin 7.1 g/dL (12.2-16.2); Lymphocytes # 0.9 K/mm3 (0.7-4.5); Lymphocytes % 61.9 % (10-50); Mean Corpuscular HGB Conc 32.3 g/dL (31.8-35.4); Mean Corpuscular Hemoglobin 28.3 pg (27.0-31.2); Mean Corpuscular Volume 87.7 fl (81-99); Mean Platelet Volume 13.4 fl (7.4-10.4); Monocytes # 0.2 K/mm3 (0.1-1.0); Monocytes % 10.7 % (1.7-9.3); Neutrophils # 0.4 K/mm3 (1.8-7.8); Neutrophils % 26.2 % (37.0-80.0); Platelet Count 10 K/mm3 (142-424); Red Blood Count 2.52 M/mm3 (4.20-5.40); Red Cell Distribution Width 16.4 % (11.5-17.5); White Blood Count 1.4 K/mm3 (4.8-10.8)
--- NOTE | 2023-04-25 10:05 | PC.NURSE ---
1005-Susana Ellington called rn with lab value plt level 10. Rn repeated and verified pt name,, and lab value. RN notified md with critical lab value no new orders for plt level just follow standing order;pt states she is feeling weak and fatigued;new order for type and cross and transfuse 1 unit prbcs for symptomatic anemia.
[2023-04-25 10:07] LABS: MANUAL DIFFERENTIAL MANUAL DIFFERENTIAL (MANUAL DIFF)
--- NOTE | 2023-04-25 10:30 | PC.NURSE ---
1030-jonathon brown, bi report developer here to witness type and cross;rn collected labs from left upper arm picc line.
[2023-04-25 11:03] LABS: Lymphocytes % 57 % (10-50); Monocytes % 11 % (2-9); Neutrophils % 25 % (42-76); Total Cells Counted 100
[2023-04-25 11:04] LABS: Rouleaux 1+
[2023-04-25 11:06] LABS: Anisocytosis 2+; Platelet Estimate Marked Decrease
== END 2023-04-25 14:35 | disposition home or self-care (01) ==
LOC: INF 09:43
PROVIDERS: PCP Family Medicine; Visit Provider Internal Medicine Medical Oncology
DX: D46.9 Myelodysplastic syndrome, unspecified (principal)
CPT/HCPCS: 36430; 85007; 85025; 86850; P9016

== ENCOUNTER 2023-04-27 09:35 | Outpatient (CLI) | payer MEDICARE, SELFPAY ==
[2023-04-27 09:44] VITALS: BMI 16.7
[2023-04-27 09:59] LABS: Basophils % 0.2 % (0.1-2.0); Eosinophils % 0.3 % (0.1-12.0); Hematocrit 26.2 % (37.0-47.0); Hemoglobin 8.6 g/dL (12.2-16.2); Lymphocytes % 65.9 % (10-50); Mean Corpuscular HGB Conc 32.8 g/dL (31.8-35.4); Mean Corpuscular Hemoglobin 28.5 pg (27.0-31.2); Mean Corpuscular Volume 86.8 fl (81-99); Mean Platelet Volume 10.9 fl (7.4-10.4); Monocytes # 0.2 K/mm3 (0.1-1.0); Monocytes % 10.2 % (1.7-9.3); Neutrophils # 0.4 K/mm3 (1.8-7.8); Neutrophils % 23.4 % (37.0-80.0); Red Blood Count 3.01 M/mm3 (4.20-5.40); Red Cell Distribution Width 16.4 % (11.5-17.5); White Blood Count 1.5 K/mm3 (4.8-10.8)
[2023-04-27 10:00] LABS: Platelet Count 14 K/mm3 (142-424)
[2023-04-27 10:01] LABS: MANUAL DIFFERENTIAL MANUAL DIFFERENTIAL (MANUAL DIFF)
--- NOTE | 2023-04-27 10:23 | PC.NURSE ---
0950-PICC FLUSHED EASILY WITH NS AND BLOOD COLLECTED FOR CBC PRIOR TO APPT WITH DR CASH.
[2023-04-27 11:13] LABS: Lymphocytes % 73 % (10-50); Monocytes % 7 % (2-9); Neutrophils % 20 % (42-76); Platelet Estimate Marked Decrease; RBC Morphology Normal; Total Cells Counted 15
== END 2023-04-27 10:35 | disposition home or self-care (01) ==
LOC: INF 09:36
PROVIDERS: PCP Family Medicine; Visit Provider Internal Medicine Medical Oncology
DX: D46.9 Myelodysplastic syndrome, unspecified (principal); Z45.2 Encounter for adjustment and management of vascular access device
CPT/HCPCS: 36592; 85007; 85025

== ENCOUNTER 2023-04-30 09:24 | Outpatient (CLI) | payer MEDICARE, SELFPAY ==
[2023-04-30 09:33] VITALS: BMI 16.7
[2023-04-30 09:56] LABS: Alanine Aminotransferase 16 U/L (12-78); Albumin Level 3.6 g/dl (3.5-5.0); Albumin/Globulin Ratio 1.1 (1.1-1.8); Alkaline Phosphatase 62 U/L (38-126); Aspartate Amino Transferase 19 U/L (14-36); Bilirubin,Total 0.6 mg/dl (0.2-1.3); Blood Urea Nitrogen 22 mg/dl (7-17); Calcium 9.2 mg/dl (8.4-10.2); Carbon Dioxide 20 mmol/L (22.0-30.0); Chloride 109 mmol/L (98-107); Creatinine Clearance Estimated 39 mL/min (50-200); Estimated Glomerular Filt Rate 82 ml/min (>60); GFR (African American) 99 ML/MIN (>60); Globulin 3.3 g/dL (1.3-3.2); Glucose 121 mg/dl (74-100); Sodium 140 mmol/L (136-145); Total Protein,Serum 6.9 g/dl (6.3-8.2)
[2023-04-30 10:02] LABS: Basophils % 0.3 % (0.1-2.0); Eosinophils % 0.4 % (0.1-12.0); Hematocrit 25.6 % (37.0-47.0); Hemoglobin 8.3 g/dL (12.2-16.2); Lymphocytes # 1.1 K/mm3 (0.7-4.5); Lymphocytes % 58.6 % (10-50); Mean Corpuscular HGB Conc 32.4 g/dL (31.8-35.4); Mean Corpuscular Hemoglobin 28.4 pg (27.0-31.2); Mean Corpuscular Volume 87.4 fl (81-99); Mean Platelet Volume 11.6 fl (7.4-10.4); Monocytes # 0.2 K/mm3 (0.1-1.0); Monocytes % 7.6 % (1.7-9.3); Neutrophils # 0.7 K/mm3 (1.8-7.8); Neutrophils % 33.2 % (37.0-80.0); Red Blood Count 2.93 M/mm3 (4.20-5.40); Red Cell Distribution Width 16.4 % (11.5-17.5)
[2023-04-30 10:08] LABS: Platelet Count 18 K/mm3 (142-424)
[2023-04-30 10:12] LABS: MANUAL DIFFERENTIAL MANUAL DIFFERENTIAL (MANUAL DIFF)
--- NOTE | 2023-04-30 10:13 | PC.NURSE ---
Delisa- yamil bateman called critical lab results of plt 18 to RN. pt name, and lab results verified and read back by RN. Pt has standing orders in place for transfusions and does not meet criteria at this time. pt will return for lab recheck.
[2023-04-30 10:42] LABS: Lymphocytes % 50 % (10-50); Monocytes % 8 % (2-9); Neutrophils % 42 % (42-76); RBC Morphology Normal; Total Cells Counted 100
[2023-04-30 10:51] LABS: Platelet Estimate Marked Decrease
== END 2023-04-30 10:29 | disposition home or self-care (01) ==
LOC: INF 09:25
PROVIDERS: PCP Family Medicine; Visit Provider Internal Medicine Medical Oncology
DX: D46.9 Myelodysplastic syndrome, unspecified (principal); Z45.2 Encounter for adjustment and management of vascular access device
CPT/HCPCS: 36592; 80053; 85007; 85025

== ENCOUNTER → 2023-05-03 09:33 | Outpatient (CLI) | payer MEDICARE, SELFPAY ==
[2023-05-03 09:41] VITALS: BMI 16.5
[2023-05-03 09:51] LABS: Basophils % 0.3 % (0.1-2.0); Eosinophils % 0.7 % (0.1-12.0); Hematocrit 25.4 % (37.0-47.0); Hemoglobin 8.4 g/dL (12.2-16.2); Lymphocytes # 1.5 K/mm3 (0.7-4.5); Lymphocytes % 63.8 % (10-50); Mean Corpuscular Hemoglobin 28.9 pg (27.0-31.2); Mean Corpuscular Volume 87.6 fl (81-99); Mean Platelet Volume 11.8 fl (7.4-10.4); Monocytes # 0.2 K/mm3 (0.1-1.0); Monocytes % 9.8 % (1.7-9.3); Neutrophils # 0.6 K/mm3 (1.8-7.8); Neutrophils % 25.4 % (37.0-80.0); Red Cell Distribution Width 16.5 % (11.5-17.5); White Blood Count 2.3 K/mm3 (4.8-10.8)
[2023-05-03 09:52] LABS: Platelet Count 29 K/mm3 (142-424)
[2023-05-03 09:54] LABS: MANUAL DIFFERENTIAL MANUAL DIFFERENTIAL (MANUAL DIFF)
--- NOTE | 2023-05-03 09:55 | PC.NURSE ---
0951- Susana Frances called critical lab results to this RN. Plt are 29. Pt name, and lab result verified and read back by RN. pt has standing orders in place for transfusions but does not meet criteria at this time. pt will follow up here sunday for repeat labs.
[2023-05-03 10:25] LABS: Lymphocytes % 56 % (10-50); Monocytes % 8 % (2-9); Neutrophils % 28 % (42-76); Platelet Estimate Moderate Decrease; RBC Morphology Normal; Total Cells Counted 25
== END ==
PROVIDERS: PCP Family Medicine; Visit Provider Internal Medicine Medical Oncology
DX: D46.9 Myelodysplastic syndrome, unspecified (principal); Z45.2 Encounter for adjustment and management of vascular access device
CPT/HCPCS: 36592; 85007; 85025

== ENCOUNTER 2023-05-07 09:40 | Outpatient (CLI) | payer MEDICARE, SELFPAY ==
[2023-05-07 09:45] VITALS: BMI 17.6
[2023-05-07 09:57] LABS: Basophils % 0.6 % (0.1-2.0); Eosinophils % 0.5 % (0.1-12.0); Hematocrit 25.3 % (37.0-47.0); Hemoglobin 8.1 g/dL (12.2-16.2); Lymphocytes # 1.3 K/mm3 (0.7-4.5); Lymphocytes % 54.2 % (10-50); Mean Corpuscular HGB Conc 31.9 g/dL (31.8-35.4); Mean Corpuscular Hemoglobin 28.5 pg (27.0-31.2); Mean Corpuscular Volume 89.5 fl (81-99); Mean Platelet Volume 10.7 fl (7.4-10.4); Monocytes # 0.3 K/mm3 (0.1-1.0); Monocytes % 12.5 % (1.7-9.3); Neutrophils # 0.8 K/mm3 (1.8-7.8); Neutrophils % 32.2 % (37.0-80.0); Red Blood Count 2.83 M/mm3 (4.20-5.40); Red Cell Distribution Width 16.9 % (11.5-17.5); White Blood Count 2.4 K/mm3 (4.8-10.8)
[2023-05-07 09:58] LABS: Platelet Count 38 K/mm3 (142-424)
--- NOTE | 2023-05-07 09:58 | PC.NURSE ---
0958-Susana mckeon called rn with critical lab value platelet level 38. RN repeated and verified pt name,,lab value. Rn notified with results; no new orders at this time.
[2023-05-07 10:00] LABS: MANUAL DIFFERENTIAL MANUAL DIFFERENTIAL (MANUAL DIFF)
[2023-05-07 10:23] LABS: Lymphocytes % 50 % (10-50); Monocytes % 19 % (2-9); Neutrophils % 31 % (42-76); Total Cells Counted 100
[2023-05-07 10:24] LABS: Platelet Estimate Marked Decrease; RBC Morphology Normal
[2023-05-07 10:39] LABS: Chloride 107 mmol/L (98-107); Potassium 4.1 mmoL/L (3.5-5.1); Sodium 140 mmol/L (136-145)
[2023-05-07 10:41] LABS: Blood Urea Nitrogen 19 mg/dl (7-17); Creatinine Clearance Estimated 42 mL/min (50-200); Estimated Glomerular Filt Rate 82 ml/min (>60); GFR (African American) 99 ML/MIN (>60)
[2023-05-07 10:42] LABS: Alanine Aminotransferase 14 U/L (12-78); Albumin Level 3.4 g/dl (3.5-5.0); Albumin/Globulin Ratio 1.1 (1.1-1.8); Alkaline Phosphatase 66 U/L (38-126); Anion Gap 15.1 mEq/L (5-15); Aspartate Amino Transferase 17 U/L (14-36); Bilirubin,Total 0.6 mg/dl (0.2-1.3); Calcium 9.8 mg/dl (8.4-10.2); Carbon Dioxide 22 mmol/L (22.0-30.0); Globulin 3.1 g/dL (1.3-3.2); Glucose 98 mg/dl (74-100); Total Protein,Serum 6.5 g/dl (6.3-8.2)
== END 2023-05-07 10:38 | disposition home or self-care (01) ==
LOC: INF 09:42
PROVIDERS: PCP Family Medicine; Visit Provider Internal Medicine Medical Oncology
DX: D46.9 Myelodysplastic syndrome, unspecified (principal); Z45.2 Encounter for adjustment and management of vascular access device
CPT/HCPCS: 36592; 80053; 85007; 85025

== ENCOUNTER 2023-05-10 09:32 | Outpatient (CLI) | payer MEDICARE, SELFPAY ==
[2023-05-10 09:35] VITALS: BMI 16.7
[2023-05-10 09:46] LABS: Basophils % 0.3 % (0.1-2.0); Eosinophils % 0.6 % (0.1-12.0); Hematocrit 25.2 % (37.0-47.0); Hemoglobin 8.2 g/dL (12.2-16.2); Lymphocytes # 1.5 K/mm3 (0.7-4.5); Lymphocytes % 60.1 % (10-50); Mean Corpuscular HGB Conc 32.4 g/dL (31.8-35.4); Mean Corpuscular Hemoglobin 28.8 pg (27.0-31.2); Mean Corpuscular Volume 88.8 fl (81-99); Monocytes # 0.2 K/mm3 (0.1-1.0); Neutrophils # 0.8 K/mm3 (1.8-7.8); Neutrophils % 30.1 % (37.0-80.0); Red Blood Count 2.84 M/mm3 (4.20-5.40); White Blood Count 2.5 K/mm3 (4.8-10.8)
[2023-05-10 09:47] LABS: Platelet Count 38 K/mm3 (142-424)
[2023-05-10 09:49] LABS: MANUAL DIFFERENTIAL MANUAL DIFFERENTIAL (MANUAL DIFF)
--- NOTE | 2023-05-10 09:57 | PC.NURSE ---
0947- Susana Ellington called critical lab result of plt 38. Pt name, and lab results verified and read back by RN. pt has standing orders in place for transfusions and does not meet criteria at this time. pt will f/u sunday for repeat labs.
[2023-05-10 10:10] LABS: Lymphocytes % 54 % (10-50); Monocytes % 13 % (2-9); Neutrophils % 33 % (42-76); Platelet Estimate Marked Decrease; RBC Morphology Normal; Total Cells Counted 100
== END 2023-05-10 10:03 | disposition home or self-care (01) ==
LOC: INF 09:32
PROVIDERS: PCP Family Medicine; Visit Provider Internal Medicine Medical Oncology
DX: D46.9 Myelodysplastic syndrome, unspecified (principal); Z45.2 Encounter for adjustment and management of vascular access device
CPT/HCPCS: 36592; 85007; 85025

== ENCOUNTER 2023-05-14 09:44 | Outpatient (CLI) | payer MEDICARE, SELFPAY ==
[2023-05-14] VITALS (10 sets, daily range): BP systolic 96–116; BP diastolic 42–60; PULSE 73–79; RESP 18; TEMP 36.4–36.8; O2SAT 96–97; BMI 17.2
[2023-05-14 10:03] LABS: Basophils % 0.2 % (0.1-2.0); Eosinophils % 0.9 % (0.1-12.0); Hemoglobin 7.7 g/dL (12.2-16.2); Lymphocytes # 1.3 K/mm3 (0.7-4.5); Lymphocytes % 56.3 % (10-50); Mean Corpuscular HGB Conc 33.6 g/dL (31.8-35.4); Mean Corpuscular Hemoglobin 29.6 pg (27.0-31.2); Mean Corpuscular Volume 88.3 fl (81-99); Monocytes # 0.3 K/mm3 (0.1-1.0); Monocytes % 12.8 % (1.7-9.3); Neutrophils # 0.7 K/mm3 (1.8-7.8); Neutrophils % 29.9 % (37.0-80.0); Red Cell Distribution Width 17.2 % (11.5-17.5); White Blood Count 2.4 K/mm3 (4.8-10.8)
[2023-05-14 10:04] LABS: Platelet Count 41 K/mm3 (142-424)
[2023-05-14 10:06] LABS: MANUAL DIFFERENTIAL MANUAL DIFFERENTIAL (MANUAL DIFF)
[2023-05-14 10:07] LABS: Chloride 106 mmol/L (98-107); Potassium 3.9 mmoL/L (3.5-5.1); Sodium 140 mmol/L (136-145)
[2023-05-14 10:10] LABS: Alanine Aminotransferase 17 U/L (12-78); Albumin Level 3.5 g/dl (3.5-5.0); Albumin/Globulin Ratio 1.1 (1.1-1.8); Alkaline Phosphatase 64 U/L (38-126); Anion Gap 16.9 mEq/L (5-15); Aspartate Amino Transferase 20 U/L (14-36); Bilirubin,Total 0.6 mg/dl (0.2-1.3); Blood Urea Nitrogen 20 mg/dl (7-17); Calcium 9.8 mg/dl (8.4-10.2); Carbon Dioxide 21 mmol/L (22.0-30.0); Creatinine Clearance Estimated 41 mL/min (50-200); Estimated Glomerular Filt Rate 61 ml/min (>60); GFR (African American) 74 ML/MIN (>60); Globulin 3.2 g/dL (1.3-3.2); Glucose 153 mg/dl (74-100); Total Protein,Serum 6.7 g/dl (6.3-8.2)
--- NOTE | 2023-05-14 10:31 | PC.NURSE ---
Susana Frances called RN at 1004 to report platelet count 41. Pt's HGB noted at 7.7/HCT 23.0 today and pt reports feeling symptoms from the anemia. Pt reports feeling dizzy, fatigued and sob with activity. RN repeated pt name, , and lab value. Result called to Dr. Jeaneth Simpson and order noted to transfuse 1 unit prbc's today for pt c/o of symptomatic anemia.
[2023-05-14 10:35] LABS: Lymphocytes % 57 % (10-50); Monocytes % 10 % (2-9); Neutrophils % 33 % (42-76); Platelet Estimate Marked Decrease; RBC Morphology Normal; Total Cells Counted 100
== END 2023-05-14 15:04 | disposition home or self-care (01) ==
LOC: INF 09:44
PROVIDERS: PCP Family Medicine; Visit Provider Internal Medicine Medical Oncology
DX: D46.9 Myelodysplastic syndrome, unspecified (principal)
CPT/HCPCS: 36430; 80053; 85007; 85025; 86850; P9016

== ENCOUNTER 2023-05-18 09:27 | Outpatient (CLI) | payer MEDICARE, SELFPAY ==
--- NOTE | 2023-05-18 09:40 | PC.NURSE ---
0940-left upper arm picc line flushed with ns;obtained blood return;collected labs;flushed with ns;pt will wait on labs
[2023-05-18 09:42] VITALS: BMI 16.7
[2023-05-18 10:08] LABS: Basophils % 0.4 % (0.1-2.0); Eosinophils % 0.5 % (0.1-12.0); Hematocrit 27.6 % (37.0-47.0); Lymphocytes # 1.3 K/mm3 (0.7-4.5); Lymphocytes % 55.8 % (10-50); Mean Corpuscular HGB Conc 32.7 g/dL (31.8-35.4); Mean Corpuscular Volume 88.7 fl (81-99); Mean Platelet Volume 10.8 fl (7.4-10.4); Monocytes # 0.3 K/mm3 (0.1-1.0); Monocytes % 14.6 % (1.7-9.3); Neutrophils # 0.7 K/mm3 (1.8-7.8); Neutrophils % 28.6 % (37.0-80.0); Red Blood Count 3.11 M/mm3 (4.20-5.40); Red Cell Distribution Width 16.5 % (11.5-17.5); White Blood Count 2.3 K/mm3 (4.8-10.8)
[2023-05-18 10:09] LABS: Platelet Count 34 K/mm3 (142-424)
--- NOTE | 2023-05-18 10:09 | PC.NURSE ---
1009-Susana Rivero notified rn with critical lab value platelet count 34. RN repeated and verified pt name,, and critical lab value. Rn notified with critical no new orders at this time follow standing blood product orders.
[2023-05-18 10:10] LABS: MANUAL DIFFERENTIAL MANUAL DIFFERENTIAL (MANUAL DIFF)
[2023-05-18 10:42] LABS: Lymphocytes % 42 % (10-50); Monocytes % 15 % (2-9); Neutrophils % 43 % (42-76); Platelet Estimate Marked Decrease; RBC Morphology Normal; Total Cells Counted 100
--- NOTE | 2023-05-18 12:30 | XR_ITS ---
FINAL REPORT CLINICAL HISTORY: BRONCHITIS COMPARISON: 01/22/2023 FINDINGS: TWO-VIEW CHEST The heart size is normal. The mediastinum is normal. Right PICC line tip terminates in the SVC. The lungs are hyperinflated with mild chronic changes. There is no pneumothorax. IMPRESSION: No acute cardiopulmonary process. Reviewed, Interpreted and Dictated by Harrison Burton MD Transcribed by Leonila Chandler Authenticated and [facility]
== END 2023-05-18 10:45 | disposition home or self-care (01) ==
PROVIDERS: PCP Family Medicine; Referring Provider Family Medicine; Visit Provider Internal Medicine Medical Oncology
DX: D46.9 Myelodysplastic syndrome, unspecified (principal); J40 Bronchitis, not specified as acute or chronic; Z45.2 Encounter for adjustment and management of vascular access device
CPT/HCPCS: 36592; 71046; 85007; 85025

== ENCOUNTER 2023-05-22 09:35 | Outpatient (CLI) | payer MEDICARE, SELFPAY ==
[2023-05-22 09:39] VITALS: BMI 16.7
[2023-05-22 09:56] LABS: Basophils % 0.6 % (0.1-2.0); Eosinophils % 0.7 % (0.1-12.0); Hematocrit 24.7 % (37.0-47.0); Hemoglobin 8.3 g/dL (12.2-16.2); Lymphocytes % 49.8 % (10-50); Mean Corpuscular HGB Conc 33.5 g/dL (31.8-35.4); Mean Corpuscular Hemoglobin 29.3 pg (27.0-31.2); Mean Corpuscular Volume 87.5 fl (81-99); Mean Platelet Volume 11.7 fl (7.4-10.4); Monocytes # 0.4 K/mm3 (0.1-1.0); Neutrophils # 0.6 K/mm3 (1.8-7.8); Neutrophils % 29.9 % (37.0-80.0); Red Blood Count 2.82 M/mm3 (4.20-5.40); Red Cell Distribution Width 16.5 % (11.5-17.5)
[2023-05-22 09:59] LABS: Chloride 109 mmol/L (98-107); Potassium 3.5 mmoL/L (3.5-5.1); Sodium 141 mmol/L (136-145)
[2023-05-22 10:01] LABS: Blood Urea Nitrogen 18 mg/dl (7-17); Creatinine Clearance Estimated 39 mL/min (50-200); Estimated Glomerular Filt Rate 82 ml/min (>60); GFR (African American) 99 ML/MIN (>60)
[2023-05-22 10:02] LABS: Alanine Aminotransferase 16 U/L (12-78); Albumin Level 3.4 g/dl (3.5-5.0); Albumin/Globulin Ratio 1.1 (1.1-1.8); Alkaline Phosphatase 63 U/L (38-126); Anion Gap 14.5 mEq/L (5-15); Aspartate Amino Transferase 20 U/L (14-36); Bilirubin,Total 0.7 mg/dl (0.2-1.3); Calcium 9.1 mg/dl (8.4-10.2); Carbon Dioxide 21 mmol/L (22.0-30.0); Glucose 124 mg/dl (74-100); Total Protein,Serum 6.4 g/dl (6.3-8.2)
[2023-05-22 10:05] LABS: Platelet Count 35 K/mm3 (142-424)
== END 2023-05-22 10:22 | disposition home or self-care (01) ==
LOC: INF 09:36
PROVIDERS: PCP Family Medicine; Visit Provider Internal Medicine Medical Oncology
DX: D46.9 Myelodysplastic syndrome, unspecified (principal)
CPT/HCPCS: 36592; 80053; 85025

== ENCOUNTER → 2023-05-22 15:19 | Outpatient (CLI) | payer MEDICARE, SELFPAY ==
--- NOTE | 2023-05-22 15:21 | CA_ITS ---
APPROVED REPORT EXAM: Comprehensive 2D, Doppler, and color-flow Echocardiogram Film Processing Utility Worker: DARRIN Roberts, RVS Ht: 5 ft 8 in Wt: 109lbs BSA: 1.58 BP: 114/67 mmHg Indications: Palpitstions, Smoker, Cancer patient discontinuing chemotherapy. HTN, HLD Echo Enhancing Agent Comments: Poor acoustic windows throughout exam due to body habitus and lung impedance. 2D Dimensions IVSd 0.81 cm F: 0.6-1.0 LVEF (Visual) 66.40 % PWd 1.03 cm F: 0.6 - 1.0 LA Volume 36.70 mL LVDd 5.28 cm F: 3.9 - 5.3 LA Volume Index 23.23 mL/m2 (M/F) 16-34 LVDs 3.33 cm F: 2.2 - 3.5 Aortic Root 3.06 cm F: 2.7 - 3.3 Left Atrium 2.56 cm F: 2.7 - 3.8 LVOT 2.18 cm (M/F) 1.5-2.5 M-Mode Dimensions RVDd 1.40 cm (0.9-2.6) LA Diam 2.48 cm (1.9-4.0) LVDd 4.27 cm (3.5-5.7) Ao Diam 3.06 cm (2.0-3.7) LVDs 3.28 cm (3.5-5.7) IVSd 1.05 cm (0.6-1.1) PWd 0.96 cm (0.6-1.1) EF (Teich) 46.80% EPSs 0.64 cm FS 23.20% EDV (Teich) 81.70 mL TAPSE 1.98 (<1.7) ESV (Teich) 43.50 mL LV Diastology E Decel Time 213.00 (160-240 msec) E/A Ratio 1.37 MED E' 12.40 (< 7 cm/sec) MED A' 13.20 cm/s E'/MED E' Ratio 8.31 (>14) LAT E' 14.40 (<10 cm/sec) LAT A' 15.10 cm/s E/LAT E' Ratio 7.16 (>14) Aortic Valve LVOT Max 105.00 (70-110 cm/s) LVOT VTI 22.63 cm AoV Peak Young. 126.00 (50-130 cm/s) AO Peak GR. 6.30 mmHg AO Mean GR. 3.10 (<5 mmHg) AO VTI 24.64 (18-25 cm) WANDA (VTI) 3.43 (2.5-4.5 cm2) Mitral Valve MV A Velocity 76.00 (40-130 cm/s) E/A Ratio 1.37 MV Decel. Time 213.00 (160-240 ms) Pulmonary Valve PV Peak Velocity 84.00 (50-150 cm/s) Tricuspid Valve TR P. Velocity 244.00 cm/s RAP Estimate 10.00 mmHg RVSP 33.80 mmHg Left Ventricle The left ventricle is normal size. The left ventricular systolic function is normal. The left ventricular ejection fraction is within the normal range. There is normal left ventricular wall thickness. There is normal LV segmental wall motion. The left ventricular diastolic function is normal. LVEF is 55%. Right Ventricle The right ventricle is normal size. The right ventricular systolic function is normal. Atria The left atrium size is normal. The right atrium size is normal. There is no Doppler evidence of interatrial shunt. Aortic Valve The aortic valve is normal in structure. There is no aortic valvular stenosis. No aortic regurgitation is present. Mitral Valve There is mild mitral valve prolapse of the posterior mitral valve leaflet. No evidence of mitral valve stenosis. Trace mitral regurgitation. Tricuspid Valve The tricuspid valve leaflets are thin and pliable. Trace tricuspid regurgitation. RVSP is 25-30 mmHg. Pulmonic Valve The pulmonary valve is normal in structure. Trace pulmonic regurgitation. Great Vessels The aortic root is normal in size. The ascending aorta is not well visualized. IVC is normal in size and collapses >50% with inspiration. Pericardium There is no pericardial effusion. Other Information Study Quality: Technically Difficult Conclusion Technically difficult study due to poor accoustic windows. Normal biventricular systolic function (LVEF 55%) Mild prolapse of the posterior MV leaflet No significant valvular stenosis or regurgitation RVSP 25-30 mmHg Electronically signed by : Maggie De Oliveira, 05/24/2023 00:30:23
== END ==
PROVIDERS: PCP Family Medicine; Visit Provider Internal Medicine
DX: D46.9 Myelodysplastic syndrome, unspecified (principal); I27.20 Pulmonary hypertension, unspecified; R42 Dizziness and giddiness; D69.6 Thrombocytopenia, unspecified; E78.5 Hyperlipidemia, unspecified; I10 Essential (primary) hypertension
CPT/HCPCS: 36592; 80053; 85025; 93306

== ENCOUNTER 2023-05-24 09:27 | Outpatient (CLI) | payer MEDICARE, SELFPAY ==
--- NOTE | 2023-05-24 09:32 | PC.NURSE ---
0932-flushed left upper arm picc flushed with ns;obtained blood return;collected labs;flushed with ns;will wait on labs.
[2023-05-24 09:34] VITALS: BMI 16.7
[2023-05-24 09:42] LABS: Basophils % 0.3 % (0.1-2.0); Eosinophils % 0.5 % (0.1-12.0); Hematocrit 26.1 % (37.0-47.0); Hemoglobin 8.5 g/dL (12.2-16.2); Lymphocytes # 1.3 K/mm3 (0.7-4.5); Lymphocytes % 54.2 % (10-50); Mean Corpuscular HGB Conc 32.7 g/dL (31.8-35.4); Mean Corpuscular Hemoglobin 28.8 pg (27.0-31.2); Mean Corpuscular Volume 88.3 fl (81-99); Mean Platelet Volume 11.1 fl (7.4-10.4); Monocytes # 0.3 K/mm3 (0.1-1.0); Monocytes % 13.3 % (1.7-9.3); Neutrophils # 0.8 K/mm3 (1.8-7.8); Neutrophils % 31.6 % (37.0-80.0); Platelet Count 54 K/mm3 (142-424); Red Blood Count 2.95 M/mm3 (4.20-5.40); Red Cell Distribution Width 16.6 % (11.5-17.5); White Blood Count 2.5 K/mm3 (4.8-10.8)
[2023-05-24 09:47] LABS: MANUAL DIFFERENTIAL MANUAL DIFFERENTIAL (MANUAL DIFF)
[2023-05-24 10:00] LABS: Eosinophils % 1 % (0-3); Lymphocytes % 38 % (10-50); Monocytes % 13 % (2-9); Neutrophils % 46 % (42-76); Platelet Estimate Marked Decrease; RBC Morphology Normal; Total Cells Counted 100
--- NOTE | 2023-05-24 10:00 | PC.NURSE ---
1000-pt d/c to md appointment;no blood products needed today see labs.
== END 2023-05-24 10:00 | disposition home or self-care (01) ==
LOC: INF 09:27
PROVIDERS: PCP Family Medicine; Visit Provider Internal Medicine Medical Oncology
DX: D46.9 Myelodysplastic syndrome, unspecified (principal)
CPT/HCPCS: 36592; 85007; 85025

== ENCOUNTER 2023-05-28 09:11 | Outpatient (CLI) | payer MEDICARE, SELFPAY ==
[2023-05-28 09:15] VITALS: BMI 17.0
[2023-05-28 09:30] LABS: Basophils % 0.4 % (0.1-2.0); Eosinophils % 0.7 % (0.1-12.0); Hematocrit 25.9 % (37.0-47.0); Hemoglobin 8.4 g/dL (12.2-16.2); Lymphocytes # 1.8 K/mm3 (0.7-4.5); Lymphocytes % 53.7 % (10-50); Mean Corpuscular HGB Conc 32.7 g/dL (31.8-35.4); Mean Corpuscular Hemoglobin 28.9 pg (27.0-31.2); Mean Corpuscular Volume 88.5 fl (81-99); Mean Platelet Volume 10.6 fl (7.4-10.4); Monocytes # 0.4 K/mm3 (0.1-1.0); Monocytes % 12.5 % (1.7-9.3); Neutrophils # 1.1 K/mm3 (1.8-7.8); Neutrophils % 32.7 % (37.0-80.0); Platelet Count 59 K/mm3 (142-424); Red Blood Count 2.92 M/mm3 (4.20-5.40); Red Cell Distribution Width 16.8 % (11.5-17.5); White Blood Count 3.4 K/mm3 (4.8-10.8)
[2023-05-28 09:32] LABS: Chloride 111 mmol/L (98-107); MANUAL DIFFERENTIAL MANUAL DIFFERENTIAL (MANUAL DIFF); Potassium 3.8 mmoL/L (3.5-5.1); Sodium 142 mmol/L (136-145)
[2023-05-28 09:34] LABS: Alanine Aminotransferase 15 U/L (12-78); Alkaline Phosphatase 60 U/L (38-126); Anion Gap 13.8 mEq/L (5-15); Aspartate Amino Transferase 22 U/L (14-36); Bilirubin,Total 0.6 mg/dl (0.2-1.3); Blood Urea Nitrogen 17 mg/dl (7-17); Carbon Dioxide 21 mmol/L (22.0-30.0); Creatinine Clearance Estimated 40 mL/min (50-200); Estimated Glomerular Filt Rate 70 ml/min (>60); GFR (African American) 85 ML/MIN (>60)
[2023-05-28 09:35] LABS: Albumin Level 3.4 g/dl (3.5-5.0); Albumin/Globulin Ratio 1.1 (1.1-1.8); Calcium 9.4 mg/dl (8.4-10.2); Globulin 3.1 g/dL (1.3-3.2); Glucose 121 mg/dl (74-100); Total Protein,Serum 6.5 g/dl (6.3-8.2)
[2023-05-28 10:29] LABS: Lymphocytes % 56 % (10-50); Monocytes % 8 % (2-9); Neutrophils % 36 % (42-76); Nucleated Red Blood Cells 1; Platelet Estimate Moderate Decrease; RBC Morphology Normal; Total Cells Counted 50
== END 2023-05-28 09:25 | disposition home or self-care (01) ==
LOC: INF 09:12
PROVIDERS: PCP Family Medicine; Visit Provider Internal Medicine Medical Oncology
DX: D46.9 Myelodysplastic syndrome, unspecified (principal); Z45.2 Encounter for adjustment and management of vascular access device
CPT/HCPCS: 36592; 80053; 85007; 85025

== ENCOUNTER 2023-05-31 09:22 | Outpatient (CLI) | payer MEDICARE, SELFPAY ==
[2023-05-31 09:28] VITALS: BMI 17.0
[2023-05-31 10:04] LABS: Basophils % 0.3 % (0.1-2.0); Eosinophils % 0.5 % (0.1-12.0); Hematocrit 26.6 % (37.0-47.0); Hemoglobin 8.5 g/dL (12.2-16.2); Lymphocytes % 56.3 % (10-50); Mean Corpuscular HGB Conc 31.9 g/dL (31.8-35.4); Mean Corpuscular Hemoglobin 28.4 pg (27.0-31.2); Mean Corpuscular Volume 89.2 fl (81-99); Mean Platelet Volume 10.4 fl (7.4-10.4); Monocytes # 0.5 K/mm3 (0.1-1.0); Monocytes % 12.5 % (1.7-9.3); Neutrophils # 1.1 K/mm3 (1.8-7.8); Neutrophils % 30.5 % (37.0-80.0); Platelet Count 56 K/mm3 (142-424); Red Blood Count 2.99 M/mm3 (4.20-5.40); Red Cell Distribution Width 17.1 % (11.5-17.5); White Blood Count 3.6 K/mm3 (4.8-10.8)
[2023-05-31 10:13] LABS: MANUAL DIFFERENTIAL MANUAL DIFFERENTIAL (MANUAL DIFF)
[2023-05-31 10:29] LABS: Lymphocytes % 51 % (10-50); Monocytes % 4 % (2-9); Myelocytes % 3 (0-1); Neutrophils % 34 % (42-76); Nucleated Red Blood Cells 1; Total Cells Counted 100
[2023-05-31 10:30] LABS: Anisocytosis 1+; Platelet Estimate Marked Decrease
== END 2023-05-31 10:00 | disposition home or self-care (01) ==
LOC: INF 09:23
PROVIDERS: PCP Family Medicine; Visit Provider Internal Medicine Medical Oncology
DX: D46.9 Myelodysplastic syndrome, unspecified (principal)
CPT/HCPCS: 36592; 85007; 85025

== ENCOUNTER 2023-06-01 10:24 | Outpatient (CLI) | payer MEDICARE, SELFPAY ==
[2023-06-01 10:29] VITALS: BMI 17.0
[2023-06-01 10:40] LABS: Basophils % 0.2 % (0.1-2.0); Eosinophils % 0.3 % (0.1-12.0); Hematocrit 26.5 % (37.0-47.0); Hemoglobin 8.6 g/dL (12.2-16.2); Lymphocytes # 2.2 K/mm3 (0.7-4.5); Lymphocytes % 54.1 % (10-50); Mean Corpuscular HGB Conc 32.5 g/dL (31.8-35.4); Mean Corpuscular Hemoglobin 28.5 pg (27.0-31.2); Mean Corpuscular Volume 87.7 fl (81-99); Mean Platelet Volume 10.9 fl (7.4-10.4); Monocytes # 0.5 K/mm3 (0.1-1.0); Monocytes % 11.2 % (1.7-9.3); Neutrophils # 1.4 K/mm3 (1.8-7.8); Neutrophils % 34.2 % (37.0-80.0); Platelet Count 54 K/mm3 (142-424); Red Blood Count 3.02 M/mm3 (4.20-5.40); Red Cell Distribution Width 17.1 % (11.5-17.5); White Blood Count 4.1 K/mm3 (4.8-10.8)
[2023-06-01 10:42] LABS: MANUAL DIFFERENTIAL MANUAL DIFFERENTIAL (MANUAL DIFF)
[2023-06-01 11:07] LABS: Anisocytosis 1+; Eosinophils % 1 % (0-3); Lymphocytes % 48 % (10-50); Monocytes % 20 % (2-9); Neutrophils % 31 % (42-76); Platelet Estimate Marked Decrease; RBC Morphology Normal; Total Cells Counted 100
== END 2023-06-01 11:06 | disposition home or self-care (01) ==
LOC: INF 10:25
PROVIDERS: PCP Family Medicine; Visit Provider Internal Medicine Medical Oncology
DX: D46.9 Myelodysplastic syndrome, unspecified (principal)
CPT/HCPCS: 36592; 85007; 85025

== ENCOUNTER 2023-06-06 09:50 | Outpatient (CLI) | payer MEDICARE, SELFPAY ==
[2023-06-06 09:54] VITALS: BMI 16.7
[2023-06-06 10:10] LABS: Basophils % 0.2 % (0.1-2.0); Eosinophils % 0.6 % (0.1-12.0); Hematocrit 23.9 % (37.0-47.0); Hemoglobin 7.6 g/dL (12.2-16.2); Lymphocytes # 1.6 K/mm3 (0.7-4.5); Lymphocytes % 55.5 % (10-50); Mean Corpuscular HGB Conc 31.9 g/dL (31.8-35.4); Mean Corpuscular Volume 87.7 fl (81-99); Mean Platelet Volume 10.4 fl (7.4-10.4); Monocytes # 0.4 K/mm3 (0.1-1.0); Monocytes % 12.8 % (1.7-9.3); Neutrophils # 0.9 K/mm3 (1.8-7.8); Red Blood Count 2.73 M/mm3 (4.20-5.40); Red Cell Distribution Width 17.2 % (11.5-17.5); White Blood Count 2.8 K/mm3 (4.8-10.8)
[2023-06-06 10:15] LABS: Platelet Count 43 K/mm3 (142-424)
[2023-06-06 10:17] LABS: MANUAL DIFFERENTIAL MANUAL DIFFERENTIAL (MANUAL DIFF)
[2023-06-06 10:22] LABS: Chloride 107 mmol/L (98-107)
[2023-06-06 10:23] LABS: Potassium 3.6 mmoL/L (3.5-5.1); Sodium 141 mmol/L (136-145)
[2023-06-06 10:25] LABS: Alanine Aminotransferase 15 U/L (12-78); Albumin Level 3.5 g/dl (3.5-5.0); Albumin/Globulin Ratio 1.3 (1.1-1.8); Alkaline Phosphatase 55 U/L (38-126); Anion Gap 13.6 mEq/L (5-15); Aspartate Amino Transferase 20 U/L (14-36); Bilirubin,Total 0.6 mg/dl (0.2-1.3); Blood Urea Nitrogen 13 mg/dl (7-17); Carbon Dioxide 24 mmol/L (22.0-30.0); Creatinine Clearance Estimated 39 mL/min (50-200); Estimated Glomerular Filt Rate 82 ml/min (>60); GFR (African American) 99 ML/MIN (>60); Globulin 2.8 g/dL (1.3-3.2); Total Protein,Serum 6.3 g/dl (6.3-8.2)
[2023-06-06 10:26] LABS: Calcium 8.6 mg/dl (8.4-10.2); Glucose 126 mg/dl (74-100)
[2023-06-06 10:58] LABS: Lymphocytes % 60 % (10-50); Monocytes % 6 % (2-9); Neutrophils % 24 % (42-76); Platelet Estimate Marked Decrease; Total Cells Counted 50
[2023-06-06 11:00] LABS: Helmet Cells 1+; Tear Drop Cells 1+
[2023-06-06 11:01] LABS: Anisocytosis 2+
== END 2023-06-06 10:55 | disposition home or self-care (01) ==
LOC: INF 09:50
PROVIDERS: PCP Family Medicine; Visit Provider Internal Medicine Medical Oncology
DX: D46.9 Myelodysplastic syndrome, unspecified (principal)
CPT/HCPCS: 36592; 80053; 85007; 85025

== ENCOUNTER 2023-06-08 09:16 | Outpatient (CLI) | payer MEDICARE, SELFPAY ==
[2023-06-08] VITALS (11 sets, daily range): BP systolic 95–112; BP diastolic 46–64; PULSE 69–86; RESP 19–21; TEMP 36.8–36.9; O2SAT 96–98; BMI 17.0
[2023-06-08 09:35] LABS: Basophils % 0.4 % (0.1-2.0); Eosinophils % 0.5 % (0.1-12.0); Hematocrit 23.6 % (37.0-47.0); Hemoglobin 7.3 g/dL (12.2-16.2); Lymphocytes # 1.5 K/mm3 (0.7-4.5); Lymphocytes % 58.3 % (10-50); Mean Corpuscular HGB Conc 31.1 g/dL (31.8-35.4); Mean Corpuscular Hemoglobin 27.7 pg (27.0-31.2); Mean Platelet Volume 11.5 fl (7.4-10.4); Monocytes # 0.3 K/mm3 (0.1-1.0); Neutrophils # 0.7 K/mm3 (1.8-7.8); Neutrophils % 27.8 % (37.0-80.0); Red Blood Count 2.65 M/mm3 (4.20-5.40); Red Cell Distribution Width 17.3 % (11.5-17.5); White Blood Count 2.6 K/mm3 (4.8-10.8)
[2023-06-08 09:36] LABS: Platelet Count 47 K/mm3 (142-424)
[2023-06-08 09:37] LABS: MANUAL DIFFERENTIAL MANUAL DIFFERENTIAL (MANUAL DIFF)
[2023-06-08 11:07] LABS: Lymphocytes % 62 % (10-50); Monocytes % 4 % (2-9); Neutrophils % 34 % (42-76); Platelet Estimate Marked Decrease; RBC Morphology Normal; Total Cells Counted 50
--- NOTE | 2023-06-08 13:18 | PC.NURSE ---
0936- Susana Rivero called critical lab result of plt 47 to this RN. Pt name, and lab value verified and read back by RN. Pt has standing orders in place for transfusions and does not meet criteria for platelet transfusion at this time. Dr. Simpson notified and no additional orders given.
--- NOTE | 2023-06-08 13:23 | PC.NURSE ---
0950- Pt presents to clinic with c/o fatigue, SOA and weakness. Hgb on todays labs was 7.3. Dr. Simpson notified and ordered one unit PRBC for symptomatic anemia to be given today.
== END 2023-06-08 14:53 | disposition home or self-care (01) ==
LOC: INF 09:17
PROVIDERS: PCP Family Medicine; Visit Provider Internal Medicine Medical Oncology
DX: D46.9 Myelodysplastic syndrome, unspecified (principal)
CPT/HCPCS: 36430; 85007; 85025; 86850; P9016

== ENCOUNTER 2023-06-11 09:45 | Outpatient (CLI) | payer MEDICARE, SELFPAY ==
[2023-06-11 09:46] VITALS: BMI 17.0
--- NOTE | 2023-06-11 09:50 | PC.NURSE ---
0950-collected labs via left upper arm picc line;pt to wait on results.
[2023-06-11 10:00] LABS: Basophils % 0.5 % (0.1-2.0); Eosinophils % 0.5 % (0.1-12.0); Hematocrit 28.8 % (37.0-47.0); Hemoglobin 9.1 g/dL (12.2-16.2); Lymphocytes # 1.7 K/mm3 (0.7-4.5); Lymphocytes % 58.8 % (10-50); Mean Corpuscular HGB Conc 31.5 g/dL (31.8-35.4); Mean Corpuscular Volume 85.6 fl (81-99); Mean Platelet Volume 11.4 fl (7.4-10.4); Monocytes # 0.5 K/mm3 (0.1-1.0); Monocytes % 15.5 % (1.7-9.3); Neutrophils # 0.7 K/mm3 (1.8-7.8); Neutrophils % 24.7 % (37.0-80.0); Red Blood Count 3.37 M/mm3 (4.20-5.40); Red Cell Distribution Width 17.8 % (11.5-17.5); White Blood Count 2.9 K/mm3 (4.8-10.8)
[2023-06-11 10:05] LABS: Chloride 109 mmol/L (98-107); Potassium 3.6 mmoL/L (3.5-5.1); Sodium 141 mmol/L (136-145)
[2023-06-11 10:08] LABS: Alanine Aminotransferase 15 U/L (12-78); Albumin Level 3.5 g/dl (3.5-5.0); Albumin/Globulin Ratio 1.3 (1.1-1.8); Alkaline Phosphatase 55 U/L (38-126); Anion Gap 12.6 mEq/L (5-15); Aspartate Amino Transferase 20 U/L (14-36); Bilirubin,Total 0.6 mg/dl (0.2-1.3); Blood Urea Nitrogen 13 mg/dl (7-17); Carbon Dioxide 23 mmol/L (22.0-30.0); Creatinine Clearance Estimated 40 mL/min (50-200); Estimated Glomerular Filt Rate 70 ml/min (>60); GFR (African American) 85 ML/MIN (>60); Globulin 2.7 g/dL (1.3-3.2); Total Protein,Serum 6.2 g/dl (6.3-8.2)
[2023-06-11 10:09] LABS: Calcium 8.6 mg/dl (8.4-10.2); Glucose 149 mg/dl (74-100)
--- NOTE | 2023-06-11 10:27 | PC.NURSE ---
1027-Yaritza Whittington called critical lab value platelet level 43. Rn repeated and verified pt name, pt , and critical lab value. Rn notified shirin monsalve for dr. hernandez no new orders at this time follow pt standing orders for blood products.
[2023-06-11 10:28] LABS: Platelet Count 43 K/mm3 (142-424)
[2023-06-11 10:29] LABS: MANUAL DIFFERENTIAL MANUAL DIFFERENTIAL (MANUAL DIFF)
[2023-06-11 11:14] LABS: Lymphocytes % 68 % (10-50); Monocytes % 4 % (2-9); Neutrophils % 28 % (42-76); Total Cells Counted 50
[2023-06-11 11:31] LABS: Platelet Estimate Marked Decrease; RBC Morphology Normal
== END 2023-06-11 10:55 | disposition home or self-care (01) ==
LOC: INF 09:46
PROVIDERS: PCP Family Medicine; Visit Provider Internal Medicine Medical Oncology
DX: D46.9 Myelodysplastic syndrome, unspecified (principal)
CPT/HCPCS: 36592; 80053; 85007; 85025

== ENCOUNTER 2023-06-14 09:48 | Outpatient (CLI) | payer MEDICARE, SELFPAY ==
--- NOTE | 2023-06-14 09:56 | PC.NURSE ---
0956-collected labs via left upper arm picc line;will wait on lab results for possible blood products per standing order if HGB<7 or symptomatic and plt <10.
[2023-06-14 10:20] VITALS: BMI 17.0
[2023-06-14 10:32] LABS: Basophils % 0.5 % (0.1-2.0); Eosinophils % 0.5 % (0.1-12.0); Hematocrit 29.5 % (37.0-47.0); Hemoglobin 9.2 g/dL (12.2-16.2); Lymphocytes # 1.8 K/mm3 (0.7-4.5); Lymphocytes % 60.3 % (10-50); Mean Corpuscular HGB Conc 31.2 g/dL (31.8-35.4); Mean Corpuscular Hemoglobin 27.4 pg (27.0-31.2); Mean Corpuscular Volume 87.7 fl (81-99); Monocytes # 0.4 K/mm3 (0.1-1.0); Monocytes % 12.2 % (1.7-9.3); Neutrophils # 0.8 K/mm3 (1.8-7.8); Neutrophils % 26.4 % (37.0-80.0); Red Blood Count 3.36 M/mm3 (4.20-5.40); Red Cell Distribution Width 17.8 % (11.5-17.5)
--- NOTE | 2023-06-14 10:36 | PC.NURSE ---
1036-Yaritza Whittington called rn with critical lab value platelet 42.RN verified pt name, , and critical lab value. Notified md no new orders today;follow standing orders for blood products.
[2023-06-14 10:37] LABS: Platelet Count 42 K/mm3 (142-424)
[2023-06-14 10:38] LABS: MANUAL DIFFERENTIAL MANUAL DIFFERENTIAL (MANUAL DIFF)
[2023-06-14 11:56] LABS: Lymphocytes % 74 % (10-50); Monocytes % 6 % (2-9); Neutrophils % 20 % (42-76); Platelet Estimate Marked Decrease; RBC Morphology Normal; Total Cells Counted 50
== END 2023-06-14 10:36 | disposition home or self-care (01) ==
LOC: INF 09:49
PROVIDERS: PCP Family Medicine; Visit Provider Internal Medicine Medical Oncology
DX: D46.9 Myelodysplastic syndrome, unspecified (principal); Z45.2 Encounter for adjustment and management of vascular access device
CPT/HCPCS: 36592; 85007; 85025

== ENCOUNTER 2023-06-18 09:36 | Outpatient (CLI) | payer MEDICARE, SELFPAY ==
[2023-06-18 09:46] VITALS: BMI 17.0
[2023-06-18 10:14] LABS: Basophils % 0.2 % (0.1-2.0); Eosinophils % 0.5 % (0.1-12.0); Hemoglobin 8.5 g/dL (12.2-16.2); Lymphocytes # 1.6 K/mm3 (0.7-4.5); Lymphocytes % 57.7 % (10-50); Mean Corpuscular HGB Conc 32.4 g/dL (31.8-35.4); Mean Corpuscular Hemoglobin 27.7 pg (27.0-31.2); Mean Corpuscular Volume 85.5 fl (81-99); Mean Platelet Volume 11.1 fl (7.4-10.4); Monocytes # 0.5 K/mm3 (0.1-1.0); Monocytes % 17.2 % (1.7-9.3); Neutrophils # 0.7 K/mm3 (1.8-7.8); Neutrophils % 24.3 % (37.0-80.0); Platelet Count 52 K/mm3 (142-424); Red Blood Count 3.05 M/mm3 (4.20-5.40); Red Cell Distribution Width 17.8 % (11.5-17.5); White Blood Count 2.7 K/mm3 (4.8-10.8)
[2023-06-18 10:26] LABS: Chloride 110 mmol/L (98-107); Potassium 3.5 mmoL/L (3.5-5.1); Sodium 141 mmol/L (136-145)
[2023-06-18 10:29] LABS: Alanine Aminotransferase 15 U/L (12-78); Albumin Level 3.5 g/dl (3.5-5.0); Albumin/Globulin Ratio 1.3 (1.1-1.8); Alkaline Phosphatase 55 U/L (38-126); Anion Gap 10.5 mEq/L (5-15); Aspartate Amino Transferase 23 U/L (14-36); Bilirubin,Total 0.5 mg/dl (0.2-1.3); Blood Urea Nitrogen 11 mg/dl (7-17); Calcium 8.4 mg/dl (8.4-10.2); Carbon Dioxide 24 mmol/L (22.0-30.0); Creatinine Clearance Estimated 40 mL/min (50-200); Estimated Glomerular Filt Rate 98 ml/min (>60); GFR (African American) 119 ML/MIN (>60); Globulin 2.6 g/dL (1.3-3.2); Glucose 138 mg/dl (74-100); Hematocrit 26.1 % (37.0-47.0); Total Protein,Serum 6.1 g/dl (6.3-8.2)
[2023-06-18 10:30] LABS: MANUAL DIFFERENTIAL MANUAL DIFFERENTIAL (MANUAL DIFF)
[2023-06-18 11:49] LABS: Lymphocytes % 49 % (10-50); Monocytes % 19 % (2-9); Neutrophils % 31 % (42-76); Nucleated Red Blood Cells 1; Total Cells Counted 100
[2023-06-18 11:50] LABS: Platelet Estimate Moderate Decrease
[2023-06-18 11:51] LABS: Anisocytosis 1+; Macrocytosis 2+; Microcytosis 1+; Ovalocytes 2+
== END 2023-06-18 10:30 | disposition home or self-care (01) ==
LOC: INF 09:37
PROVIDERS: PCP Family Medicine; Visit Provider Internal Medicine Medical Oncology
DX: D46.9 Myelodysplastic syndrome, unspecified (principal)
CPT/HCPCS: 36592; 80053; 85007; 85025

== ENCOUNTER 2023-06-21 10:30 | Outpatient (CLI) | payer MEDICARE, SELFPAY ==
[2023-06-21 10:34] VITALS: BMI 16.9
[2023-06-21 10:45] LABS: Basophils % 0.3 % (0.1-2.0); Eosinophils % 0.4 % (0.1-12.0); Hematocrit 25.2 % (37.0-47.0); Lymphocytes # 1.8 K/mm3 (0.7-4.5); Lymphocytes % 53.2 % (10-50); Mean Corpuscular HGB Conc 31.8 g/dL (31.8-35.4); Mean Corpuscular Hemoglobin 27.4 pg (27.0-31.2); Mean Corpuscular Volume 86.2 fl (81-99); Mean Platelet Volume 11.9 fl (7.4-10.4); Monocytes # 0.4 K/mm3 (0.1-1.0); Monocytes % 10.8 % (1.7-9.3); Neutrophils # 1.2 K/mm3 (1.8-7.8); Neutrophils % 35.3 % (37.0-80.0); Red Blood Count 2.92 M/mm3 (4.20-5.40); White Blood Count 3.4 K/mm3 (4.8-10.8)
--- NOTE | 2023-06-21 10:49 | PC.NURSE ---
Yaritza from lab called with critical result platelets noted at 45. rn repeated and verified pt name, , and lab value. result called to dr hernandez. no new orders received.
[2023-06-21 10:50] LABS: Platelet Count 45 K/mm3 (142-424)
[2023-06-21 10:51] LABS: MANUAL DIFFERENTIAL MANUAL DIFFERENTIAL (MANUAL DIFF)
[2023-06-21 12:11] LABS: Lymphocytes % 66 % (10-50); Monocytes % 2 % (2-9); Neutrophils % 32 % (42-76); Nucleated Red Blood Cells 1; Platelet Estimate Marked Decrease; RBC Morphology Normal; Total Cells Counted 50
== END 2023-06-21 11:05 | disposition home or self-care (01) ==
LOC: INF 10:31
PROVIDERS: PCP Family Medicine; Visit Provider Internal Medicine Medical Oncology
DX: D46.9 Myelodysplastic syndrome, unspecified (principal)
CPT/HCPCS: 36592; 85007; 85025

== ENCOUNTER 2023-06-26 09:45 | Outpatient (CLI) | payer MEDICARE, SELFPAY ==
[2023-06-26 09:52] VITALS: BMI 17.0
[2023-06-26 10:03] LABS: Basophils % 0.3 % (0.1-2.0); Eosinophils % 0.5 % (0.1-12.0); Hematocrit 26.6 % (37.0-47.0); Hemoglobin 8.6 g/dL (12.2-16.2); Lymphocytes # 2.2 K/mm3 (0.7-4.5); Lymphocytes % 48.4 % (10-50); Mean Corpuscular HGB Conc 32.3 g/dL (31.8-35.4); Mean Corpuscular Hemoglobin 28.7 pg (27.0-31.2); Monocytes # 0.5 K/mm3 (0.1-1.0); Monocytes % 10.9 % (1.7-9.3); Neutrophils # 1.8 K/mm3 (1.8-7.8); Neutrophils % 39.9 % (37.0-80.0); Red Blood Count 2.99 M/mm3 (4.20-5.40); White Blood Count 4.5 K/mm3 (4.8-10.8)
[2023-06-26 10:05] LABS: Platelet Count 44 K/mm3 (142-424)
[2023-06-26 10:12] LABS: Chloride 107 mmol/L (98-107)
[2023-06-26 10:13] LABS: Potassium 3.9 mmoL/L (3.5-5.1); Sodium 141 mmol/L (136-145)
[2023-06-26 10:15] LABS: Alanine Aminotransferase 14 U/L (12-78); Albumin Level 3.7 g/dl (3.5-5.0); Albumin/Globulin Ratio 1.3 (1.1-1.8); Alkaline Phosphatase 57 U/L (38-126); Anion Gap 13.9 mEq/L (5-15); Aspartate Amino Transferase 20 U/L (14-36); Bilirubin,Total 0.6 mg/dl (0.2-1.3); Blood Urea Nitrogen 19 mg/dl (7-17); Carbon Dioxide 24 mmol/L (22.0-30.0); Creatinine Clearance Estimated 40 mL/min (50-200); Estimated Glomerular Filt Rate 82 ml/min (>60); GFR (African American) 99 ML/MIN (>60); Globulin 2.8 g/dL (1.3-3.2); Total Protein,Serum 6.5 g/dl (6.3-8.2)
[2023-06-26 10:16] LABS: Calcium 8.9 mg/dl (8.4-10.2); Glucose 133 mg/dl (74-100)
--- NOTE | 2023-06-26 10:20 | PC.NURSE ---
1005- Susana Ellington from lab called critical lab results to CHUN Antunez. Platelets of 44. pt name, and lab results were read back and verified by RN. pt has standing orders in place for transfusions prn and does not meet criteria at this time. Calvin MD notified and no new orders given.
== END 2023-06-26 10:24 | disposition home or self-care (01) ==
LOC: INF 09:47
PROVIDERS: PCP Family Medicine; Visit Provider Internal Medicine Medical Oncology
DX: D46.9 Myelodysplastic syndrome, unspecified (principal)
CPT/HCPCS: 36592; 80053; 85025

== ENCOUNTER 2023-07-05 10:06 | Outpatient (CLI) | payer MEDICARE, SELFPAY ==
[2023-07-05 10:09] VITALS: BMI 16.7
[2023-07-05 10:21] LABS: Basophils % 0.4 % (0.1-2.0); Eosinophils % 0.3 % (0.1-12.0); Lymphocytes # 2.1 K/mm3 (0.7-4.5); Lymphocytes % 43.8 % (10-50); Mean Corpuscular Hemoglobin 29.8 pg (27.0-31.2); Mean Corpuscular Volume 87.7 fl (81-99); Mean Platelet Volume 10.6 fl (7.4-10.4); Monocytes # 0.7 K/mm3 (0.1-1.0); Monocytes % 13.8 % (1.7-9.3); Neutrophils % 41.7 % (37.0-80.0); Red Blood Count 2.69 M/mm3 (4.20-5.40); White Blood Count 4.8 K/mm3 (4.8-10.8)
[2023-07-05 10:29] LABS: Chloride 109 mmol/L (98-107); Potassium 3.8 mmoL/L (3.5-5.1); Sodium 142 mmol/L (136-145)
[2023-07-05 10:32] LABS: Alanine Aminotransferase 15 U/L (12-78); Albumin/Globulin Ratio 1.4 (1.1-1.8); Alkaline Phosphatase 59 U/L (38-126); Anion Gap 13.8 mEq/L (5-15); Aspartate Amino Transferase 27 U/L (14-36); Bilirubin,Total 0.5 mg/dl (0.2-1.3); Blood Urea Nitrogen 15 mg/dl (7-17); Calcium 8.5 mg/dl (8.4-10.2); Carbon Dioxide 23 mmol/L (22.0-30.0); Creatinine Clearance Estimated 39 mL/min (50-200); Estimated Glomerular Filt Rate 98 ml/min (>60); GFR (African American) 119 ML/MIN (>60); Globulin 2.8 g/dL (1.3-3.2); Glucose 112 mg/dl (74-100); Total Protein,Serum 6.8 g/dl (6.3-8.2)
[2023-07-05 10:36] LABS: Hematocrit 23.5 % (37.0-47.0)
--- NOTE | 2023-07-05 10:36 | PC.NURSE ---
1036-Sandra Cooper notifed rn with critical lab result platelet count 42. Rn repeated and verified pt name , , and lab value.Rn notified Dr. hernandez's rn Khloe; no new orders follow standing orders for blood products.
[2023-07-05 10:38] LABS: Platelet Count 42 K/mm3 (142-424)
== END 2023-07-05 10:43 | disposition home or self-care (01) ==
LOC: INF 10:07
PROVIDERS: PCP Family Medicine; Visit Provider Internal Medicine Medical Oncology
DX: D46.9 Myelodysplastic syndrome, unspecified (principal)
CPT/HCPCS: 36592; 80053; 85025; 96523

== ENCOUNTER 2023-07-12 10:10 | Outpatient (CLI) | payer MEDICARE, SELFPAY ==
[2023-07-12 10:17] VITALS: BMI 17.0
[2023-07-12 10:32] LABS: Basophils % 0.4 % (0.1-2.0); Eosinophils % 0.3 % (0.1-12.0); Hematocrit 23.9 % (37.0-47.0); Hemoglobin 8.4 g/dL (12.2-16.2); Lymphocytes # 2.5 K/mm3 (0.7-4.5); Lymphocytes % 53.7 % (10-50); Mean Corpuscular HGB Conc 34.9 g/dL (31.8-35.4); Mean Corpuscular Hemoglobin 30.3 pg (27.0-31.2); Mean Corpuscular Volume 86.9 fl (81-99); Mean Platelet Volume 11.7 fl (7.4-10.4); Monocytes # 0.6 K/mm3 (0.1-1.0); Monocytes % 12.5 % (1.7-9.3); Neutrophils # 1.5 K/mm3 (1.8-7.8); Neutrophils % 33.2 % (37.0-80.0); Red Blood Count 2.76 M/mm3 (4.20-5.40); Red Cell Distribution Width 19.1 % (11.5-17.5); White Blood Count 4.6 K/mm3 (4.8-10.8)
[2023-07-12 10:33] LABS: Platelet Count 29 K/mm3 (142-424)
[2023-07-12 10:34] LABS: MANUAL DIFFERENTIAL MANUAL DIFFERENTIAL (MANUAL DIFF)
[2023-07-12 10:53] LABS: Chloride 107 mmol/L (98-107); Potassium 4.1 mmoL/L (3.5-5.1); Sodium 140 mmol/L (136-145)
[2023-07-12 10:55] LABS: Blood Urea Nitrogen 15 mg/dl (7-17); Creatinine Clearance Estimated 40 mL/min (50-200); Estimated Glomerular Filt Rate 82 ml/min (>60); GFR (African American) 99 ML/MIN (>60)
[2023-07-12 10:56] LABS: Alanine Aminotransferase 17 U/L (12-78); Albumin Level 4.1 g/dl (3.5-5.0); Albumin/Globulin Ratio 1.5 (1.1-1.8); Alkaline Phosphatase 67 U/L (38-126); Aspartate Amino Transferase 23 U/L (14-36); Bilirubin,Total 0.6 mg/dl (0.2-1.3); Calcium 8.9 mg/dl (8.4-10.2); Globulin 2.8 g/dL (1.3-3.2); Glucose 100 mg/dl (74-100); Total Protein,Serum 6.9 g/dl (6.3-8.2)
[2023-07-12 10:58] LABS: Anisocytosis 1+; Lymphocytes % 48 % (10-50); Microcytosis 2+; Monocytes % 14 % (2-9); Neutrophils % 38 % (42-76); Tear Drop Cells 2+; Total Cells Counted 100
[2023-07-12 10:59] LABS: Ovalocytes 1+; Platelet Estimate Marked Decrease
[2023-07-12 13:00] LABS: Anion Gap 13.1 mEq/L (5-15); Carbon Dioxide 24 mmol/L (22.0-30.0)
== END 2023-07-12 10:45 | disposition home or self-care (01) ==
PROVIDERS: PCP Family Medicine; Visit Provider Internal Medicine Medical Oncology
DX: D46.9 Myelodysplastic syndrome, unspecified (principal)
CPT/HCPCS: 36592; 80053; 85007; 85025

== ENCOUNTER 2023-07-19 10:00 | Outpatient (CLI) | payer MEDICARE, SELFPAY ==
[2023-07-19 10:07] VITALS: BMI 16.4
[2023-07-19 10:33] LABS: Basophils % 0.4 % (0.1-2.0); Eosinophils % 0.4 % (0.1-12.0); Hemoglobin 8.2 g/dL (12.2-16.2); Lymphocytes # 2.2 K/mm3 (0.7-4.5); Lymphocytes % 52.4 % (10-50); Mean Corpuscular HGB Conc 33.8 g/dL (31.8-35.4); Mean Corpuscular Hemoglobin 29.9 pg (27.0-31.2); Mean Corpuscular Volume 88.4 fl (81-99); Mean Platelet Volume 11.4 fl (7.4-10.4); Monocytes # 0.5 K/mm3 (0.1-1.0); Monocytes % 13.1 % (1.7-9.3); Neutrophils # 1.4 K/mm3 (1.8-7.8); Neutrophils % 33.7 % (37.0-80.0); Red Blood Count 2.76 M/mm3 (4.20-5.40); Red Cell Distribution Width 19.7 % (11.5-17.5); White Blood Count 4.1 K/mm3 (4.8-10.8)
[2023-07-19 10:40] LABS: Alanine Aminotransferase 18 U/L (12-78); Albumin/Globulin Ratio 1.4 (1.1-1.8); Alkaline Phosphatase 61 U/L (38-126); Aspartate Amino Transferase 23 U/L (14-36); Bilirubin,Total 0.7 mg/dl (0.2-1.3); Blood Urea Nitrogen 11 mg/dl (7-17); Calcium 9.1 mg/dl (8.4-10.2); Carbon Dioxide 23 mmol/L (22.0-30.0); Chloride 107 mmol/L (98-107); Creatinine Clearance Estimated 39 mL/min (50-200); Estimated Glomerular Filt Rate 82 ml/min (>60); GFR (African American) 99 ML/MIN (>60); Globulin 2.8 g/dL (1.3-3.2); Glucose 109 mg/dl (74-100); Sodium 141 mmol/L (136-145); Total Protein,Serum 6.8 g/dl (6.3-8.2)
[2023-07-19 10:42] LABS: Hematocrit 24.4 % (37.0-47.0); Platelet Count 29 K/mm3 (142-424)
[2023-07-19 10:43] LABS: MANUAL DIFFERENTIAL MANUAL DIFFERENTIAL (MANUAL DIFF)
[2023-07-19 11:01] LABS: Acanthocytes 1+; Anisocytosis 2+; Lymphocytes % 42 % (10-50); Macrocytosis 2+; Microcytosis 1+; Monocytes % 17 % (2-9); Neutrophils % 36 % (42-76); Ovalocytes 1+; Platelet Estimate Moderate Decrease; Promyelocytes % 2 %; Tear Drop Cells 1+; Total Cells Counted 100
== END 2023-07-19 10:45 | disposition home or self-care (01) ==
LOC: INF 10:02
PROVIDERS: PCP Family Medicine; Visit Provider Internal Medicine Medical Oncology
DX: D46.9 Myelodysplastic syndrome, unspecified (principal)
CPT/HCPCS: 36592; 80053; 85007; 85025

== ENCOUNTER 2023-07-26 09:18 | Outpatient (CLI) | payer MEDICARE, SELFPAY ==
[2023-07-26 09:22] VITALS: BMI 16.4
[2023-07-26 09:39] LABS: Basophils % 0.4 % (0.1-2.0); Eosinophils % 0.3 % (0.1-12.0); Hemoglobin 7.8 g/dL (12.2-16.2); Lymphocytes # 2.2 K/mm3 (0.7-4.5); Lymphocytes % 48.2 % (10-50); Mean Corpuscular Hemoglobin 30.7 pg (27.0-31.2); Mean Corpuscular Volume 87.7 fl (81-99); Mean Platelet Volume 11.9 fl (7.4-10.4); Monocytes # 0.6 K/mm3 (0.1-1.0); Monocytes % 13.8 % (1.7-9.3); Neutrophils # 1.7 K/mm3 (1.8-7.8); Neutrophils % 37.2 % (37.0-80.0); Red Blood Count 2.53 M/mm3 (4.20-5.40); Red Cell Distribution Width 19.8 % (11.5-17.5); White Blood Count 4.6 K/mm3 (4.8-10.8)
[2023-07-26 09:46] LABS: Alanine Aminotransferase 16 U/L (12-78); Albumin Level 3.8 g/dl (3.5-5.0); Albumin/Globulin Ratio 1.4 (1.1-1.8); Alkaline Phosphatase 54 U/L (38-126); Anion Gap 13.8 mEq/L (5-15); Aspartate Amino Transferase 21 U/L (14-36); Bilirubin,Total 0.7 mg/dl (0.2-1.3); Blood Urea Nitrogen 13 mg/dl (7-17); Calcium 8.7 mg/dl (8.4-10.2); Carbon Dioxide 22 mmol/L (22.0-30.0); Chloride 106 mmol/L (98-107); Creatinine Clearance Estimated 39 mL/min (50-200); Estimated Glomerular Filt Rate 82 ml/min (>60); GFR (African American) 99 ML/MIN (>60); Globulin 2.7 g/dL (1.3-3.2); Glucose 135 mg/dl (74-100); Hematocrit 22.2 % (37.0-47.0); Potassium 3.8 mmoL/L (3.5-5.1); Sodium 138 mmol/L (136-145); Total Protein,Serum 6.5 g/dl (6.3-8.2)
[2023-07-26 09:47] LABS: Platelet Count 23 K/mm3 (142-424)
== END 2023-07-26 09:55 | disposition home or self-care (01) ==
LOC: INF 09:20
PROVIDERS: Internal Medicine Medical Oncology; PCP Family Medicine; Visit Provider Internal Medicine Medical Oncology
DX: D46.Z Other myelodysplastic syndromes (principal)
CPT/HCPCS: 36592; 80053; 85025; 96523

== ENCOUNTER 2023-07-30 09:40 | Outpatient (CLI) | payer MEDICARE, SELFPAY ==
[2023-07-30] VITALS (10 sets, daily range): BP systolic 83–106; BP diastolic 50–59; PULSE 77–83; RESP 17–18; TEMP 36.5–36.9; O2SAT 96–97; BMI 17.0
--- NOTE | 2023-07-30 09:52 | PC.NURSE ---
0952-collected labs via left picc line; pt to wait for results for possible blood products.
[2023-07-30 10:00] LABS: Basophils % 0.3 % (0.1-2.0); Eosinophils % 0.5 % (0.1-12.0); Hematocrit 22.4 % (37.0-47.0); Hemoglobin 7.6 g/dL (12.2-16.2); Lymphocytes # 2.1 K/mm3 (0.7-4.5); Lymphocytes % 43.7 % (10-50); Mean Corpuscular HGB Conc 33.9 g/dL (31.8-35.4); Mean Corpuscular Hemoglobin 30.4 pg (27.0-31.2); Mean Corpuscular Volume 89.8 fl (81-99); Mean Platelet Volume 10.8 fl (7.4-10.4); Monocytes # 0.6 K/mm3 (0.1-1.0); Monocytes % 12.2 % (1.7-9.3); Neutrophils # 2.1 K/mm3 (1.8-7.8); Neutrophils % 43.4 % (37.0-80.0); Red Blood Count 2.49 M/mm3 (4.20-5.40); Red Cell Distribution Width 20.3 % (11.5-17.5); White Blood Count 4.9 K/mm3 (4.8-10.8)
[2023-07-30 10:04] LABS: Platelet Count 25 K/mm3 (142-424)
[2023-07-30 10:08] LABS: Chloride 106 mmol/L (98-107); Potassium 3.8 mmoL/L (3.5-5.1); Sodium 140 mmol/L (136-145)
[2023-07-30 10:10] LABS: Blood Urea Nitrogen 16 mg/dl (7-17); Creatinine Clearance Estimated 40 mL/min (50-200); Estimated Glomerular Filt Rate 82 ml/min (>60); GFR (African American) 99 ML/MIN (>60)
[2023-07-30 10:11] LABS: Alanine Aminotransferase 16 U/L (12-78); Albumin Level 3.8 g/dl (3.5-5.0); Albumin/Globulin Ratio 1.4 (1.1-1.8); Alkaline Phosphatase 62 U/L (38-126); Anion Gap 12.8 mEq/L (5-15); Aspartate Amino Transferase 20 U/L (14-36); Bilirubin,Total 0.6 mg/dl (0.2-1.3); Calcium 8.6 mg/dl (8.4-10.2); Carbon Dioxide 25 mmol/L (22.0-30.0); Globulin 2.8 g/dL (1.3-3.2); Glucose 142 mg/dl (74-100); Total Protein,Serum 6.6 g/dl (6.3-8.2)
--- NOTE | 2023-07-30 10:20 | PC.NURSE ---
1020-Yolande from lab here to witness type and screen collected from left upper arm picc per rn
== END 2023-07-30 14:05 | disposition home or self-care (01) ==
LOC: INF 09:41
PROVIDERS: PCP Family Medicine; Visit Provider Internal Medicine Medical Oncology
DX: Z45.2 Encounter for adjustment and management of vascular access device; D46.Z Other myelodysplastic syndromes
CPT/HCPCS: 36430; 36592; 80053; 85025; 86850; P9016

== ENCOUNTER → 2023-07-31 11:53 | Outpatient (CLI) | payer MEDICARE, SELFPAY ==
--- NOTE | 2023-07-31 12:07 | XR_ITS ---
FINAL REPORT CLINICAL HISTORY: RT SHOULDER PAIN FINDINGS: Right shoulder Three views were obtained. There is no acute fracture or dislocation. There are mild hypertrophic changes of the AC joint. PICC line tip terminates in the SVC. No soft tissue abnormality is identified. IMPRESSION: Mild hypertrophic changes of the AC joint. Reviewed, Interpreted and Dictated by Harrison Burton MD Transcribed by Leonila Chandler Authenticated and [facility]
--- NOTE | 2023-07-31 12:07 | XR_ITS ---
FINAL REPORT CLINICAL HISTORY: COUGH,SOA COMPARISON: 05/18/2023 FINDINGS: TWO-VIEW CHEST The heart size is normal. The mediastinum is normal. The lungs are hyperinflated with mild chronic changes. PICC line tip terminates in the SVC. There is no pneumothorax. IMPRESSION: No acute cardiopulmonary process. Reviewed, Interpreted and Dictated by Harriosn Burton MD Transcribed by Leonila Chandler Authenticated and [facility][1]
[2023-07-31 12:16] LABS: Adenovirus,PCR Not Detected (NotDetected); Coronavirus 19, PCR Not Detected (NotDetected); Coronavirus 229E Not Detected (NotDetected); Coronavirus NL63 Not Detected (NotDetected); Coronavirus OC43 Not Detected (NotDetected); Coronovirus HKU1,PCR Not Detected (NotDetected); Human Metapneumovirus Not Detected (NotDetected); Influenza A, PCR Not Detected (NotDetected); Influenza AH1, 2009 Not Detected (NotDetected); Influenza AH1, PCR Not Detected (NotDetected); Influenza AH3,PCR Not Detected (NotDetected); Influenza B, PCR Not Detected (NotDetected); Parainfluenza 1, PCR Not Detected (NotDetected); Parainfluenza 2, PCR Not Detected (NotDetected); Parainfluenza 3, PCR Not Detected (NotDetected); Parainfluenza 4, PCR Not Detected (NotDetected); Respiratory Syncytial Virus Not Detected (NotDetected); Rhinovirus/Enterovirus Not Detected (NotDetected)
== END ==
PROVIDERS: PCP Family Medicine; Visit Provider Family Medicine
DX: R06.02 Shortness of breath (principal); R05.1 Acute cough; M25.511 Pain in right shoulder
CPT/HCPCS: 71046; 73030; 87632; 87635

== ENCOUNTER 2023-08-06 09:50 | Outpatient (CLI) | payer MEDICARE, SELFPAY ==
[2023-08-06 09:55] VITALS: BMI 16.4
[2023-08-06 10:16] LABS: Basophils % 0.3 % (0.1-2.0); Eosinophils % 0.4 % (0.1-12.0); Hemoglobin 8.5 g/dL (12.2-16.2); Lymphocytes # 1.6 K/mm3 (0.7-4.5); Lymphocytes % 43.2 % (10-50); Mean Corpuscular HGB Conc 33.8 g/dL (31.8-35.4); Mean Corpuscular Hemoglobin 29.3 pg (27.0-31.2); Mean Corpuscular Volume 86.8 fl (81-99); Mean Platelet Volume 13.1 fl (7.4-10.4); Monocytes # 0.5 K/mm3 (0.1-1.0); Neutrophils # 1.5 K/mm3 (1.8-7.8); Red Blood Count 2.88 M/mm3 (4.20-5.40); Red Cell Distribution Width 19.2 % (11.5-17.5); White Blood Count 3.6 K/mm3 (4.8-10.8)
[2023-08-06 10:24] LABS: Platelet Count 21 K/mm3 (142-424)
[2023-08-06 10:44] LABS: Alanine Aminotransferase 15 U/L (12-78); Albumin Level 3.8 g/dl (3.5-5.0); Albumin/Globulin Ratio 1.4 (1.1-1.8); Alkaline Phosphatase 54 U/L (38-126); Anion Gap 13.5 mEq/L (5-15); Aspartate Amino Transferase 21 U/L (14-36); Bilirubin,Total 0.7 mg/dl (0.2-1.3); Blood Urea Nitrogen 14 mg/dl (7-17); Calcium 8.7 mg/dl (8.4-10.2); Carbon Dioxide 24 mmol/L (22.0-30.0); Chloride 106 mmol/L (98-107); Creatinine Clearance Estimated 39 mL/min (50-200); Estimated Glomerular Filt Rate 82 ml/min (>60); GFR (African American) 99 ML/MIN (>60); Globulin 2.8 g/dL (1.3-3.2); Glucose 126 mg/dl (74-100); Potassium 3.5 mmoL/L (3.5-5.1); Sodium 140 mmol/L (136-145); Total Protein,Serum 6.6 g/dl (6.3-8.2)
== END 2023-08-06 10:30 | disposition home or self-care (01) ==
LOC: INF 09:51
PROVIDERS: Internal Medicine Medical Oncology; PCP Family Medicine; Visit Provider Internal Medicine Medical Oncology
DX: D46.Z Other myelodysplastic syndromes (principal); Z45.2 Encounter for adjustment and management of vascular access device
CPT/HCPCS: 36592; 80053; 85025; 96523

== ENCOUNTER 2023-08-13 09:36 | Outpatient (CLI) | payer MEDICARE, SELFPAY ==
--- NOTE | 2023-08-13 09:52 | PC.NURSE ---
0925-collected labs via left upper arm picc line;flushed with ns;pt to wait on labs.
[2023-08-13 09:54] VITALS: BMI 17.0
[2023-08-13 10:11] LABS: Basophils % 0.2 % (0.1-2.0); Eosinophils % 0.2 % (0.1-12.0); Hematocrit 23.2 % (37.0-47.0); Hemoglobin 7.8 g/dL (12.2-16.2); Lymphocytes # 1.5 K/mm3 (0.7-4.5); Lymphocytes % 36.8 % (10-50); Mean Corpuscular HGB Conc 33.6 g/dL (31.8-35.4); Mean Corpuscular Hemoglobin 29.1 pg (27.0-31.2); Mean Corpuscular Volume 86.6 fl (81-99); Mean Platelet Volume 12.3 fl (7.4-10.4); Monocytes # 0.6 K/mm3 (0.1-1.0); Neutrophils # 1.9 K/mm3 (1.8-7.8); Neutrophils % 47.8 % (37.0-80.0); Red Blood Count 2.67 M/mm3 (4.20-5.40); Red Cell Distribution Width 19.4 % (11.5-17.5)
[2023-08-13 10:14] LABS: Platelet Count 19 K/mm3 (142-424)
[2023-08-13 10:15] LABS: Alanine Aminotransferase 16 U/L (12-78); Alkaline Phosphatase 70 U/L (38-126); Aspartate Amino Transferase 22 U/L (14-36); Bilirubin,Total 0.6 mg/dl (0.2-1.3); Blood Urea Nitrogen 15 mg/dl (7-17); Carbon Dioxide 25 mmol/L (22.0-30.0); Chloride 105 mmol/L (98-107); Creatinine Clearance Estimated 40 mL/min (50-200); Estimated Glomerular Filt Rate 70 ml/min (>60); GFR (African American) 85 ML/MIN (>60)
[2023-08-13 10:16] LABS: Albumin Level 3.8 g/dl (3.5-5.0); Albumin/Globulin Ratio 1.4 (1.1-1.8); Anion Gap 11.9 mEq/L (5-15); Calcium 8.6 mg/dl (8.4-10.2); Globulin 2.7 g/dL (1.3-3.2); Glucose 91 mg/dl (74-100); Potassium 3.9 mmoL/L (3.5-5.1); Sodium 138 mmol/L (136-145); Total Protein,Serum 6.5 g/dl (6.3-8.2)
--- NOTE | 2023-08-13 10:20 | PC.NURSE ---
1000-pt to d/c home hgb 7.8 and plt 19.
== END 2023-08-13 10:20 | disposition home or self-care (01) ==
LOC: INF 09:37
PROVIDERS: PCP Family Medicine; Visit Provider Internal Medicine Medical Oncology
DX: D46.Z Other myelodysplastic syndromes (principal); Z45.2 Encounter for adjustment and management of vascular access device
CPT/HCPCS: 36592; 80053; 85025; 96523

== ENCOUNTER → 2023-08-15 11:54 | Outpatient (CLI) | payer MEDICARE, SELFPAY ==
[2023-08-15 12:00] LABS: Adenovirus,PCR Not Detected (NotDetected); Coronavirus 229E Not Detected (NotDetected); Coronavirus NL63 Not Detected (NotDetected); Coronavirus OC43 Not Detected (NotDetected); Coronovirus HKU1,PCR Not Detected (NotDetected); Human Metapneumovirus Not Detected (NotDetected); Influenza A, PCR Not Detected (NotDetected); Influenza AH1, 2009 Not Detected (NotDetected); Influenza AH1, PCR Not Detected (NotDetected); Influenza AH3,PCR Not Detected (NotDetected); Influenza B, PCR Not Detected (NotDetected); Parainfluenza 1, PCR Not Detected (NotDetected); Parainfluenza 2, PCR Not Detected (NotDetected); Parainfluenza 3, PCR Not Detected (NotDetected); Parainfluenza 4, PCR Not Detected (NotDetected); Respiratory Syncytial Virus Not Detected (NotDetected); Rhinovirus/Enterovirus Not Detected (NotDetected)
[2023-08-15 14:08] LABS: Coronavirus 19, PCR Detected (NotDetected)
== END ==
PROVIDERS: PCP Family Medicine; Visit Provider Physician Assistant
DX: J06.9 Acute upper respiratory infection, unspecified (principal); U07.1 COVID-19
CPT/HCPCS: 87632; 87635

== ENCOUNTER 2023-08-16 08:53 | Outpatient (CLI) | payer MEDICARE, SELFPAY ==
[2023-08-16] VITALS (11 sets, daily range): BP systolic 101–140; BP diastolic 54–77; PULSE 88–105; RESP 18; TEMP 36.7–37.2; O2SAT 96–98; BMI 17.0
[2023-08-16 10:20] LABS: Hemoglobin 7.4 g/dL (12.2-16.2)
[2023-08-16 10:27] LABS: Hematocrit 21.7 % (37.0-47.0)
== END 2023-08-16 14:45 | disposition home or self-care (01) ==
LOC: INF 08:55
PROVIDERS: Internal Medicine Medical Oncology; PCP Family Medicine; Visit Provider Family Medicine
DX: D46.Z Other myelodysplastic syndromes (principal)
CPT/HCPCS: 36430; 85014; 85018; 86850; P9016

== ENCOUNTER 2023-08-23 09:32 | Outpatient (CLI) | payer MEDICARE, SELFPAY ==
[2023-08-23 09:36] VITALS: BMI 16.4
[2023-08-23 09:55] LABS: Basophils % 0.2 % (0.1-2.0); Eosinophils % 0.3 % (0.1-12.0); Hematocrit 25.9 % (37.0-47.0); Hemoglobin 8.7 g/dL (12.2-16.2); Lymphocytes % 46.2 % (10-50); Mean Corpuscular HGB Conc 33.4 g/dL (31.8-35.4); Mean Corpuscular Volume 86.8 fl (81-99); Mean Platelet Volume 11.8 fl (7.4-10.4); Monocytes # 0.5 K/mm3 (0.1-1.0); Monocytes % 11.9 % (1.7-9.3); Neutrophils # 1.8 K/mm3 (1.8-7.8); Neutrophils % 41.4 % (37.0-80.0); Red Blood Count 2.99 M/mm3 (4.20-5.40); Red Cell Distribution Width 18.1 % (11.5-17.5); White Blood Count 4.3 K/mm3 (4.8-10.8)
[2023-08-23 09:57] LABS: Platelet Count 23 K/mm3 (142-424)
[2023-08-23 10:00] LABS: Chloride 106 mmol/L (98-107)
[2023-08-23 10:01] LABS: Sodium 139 mmol/L (136-145)
[2023-08-23 10:03] LABS: Alanine Aminotransferase 20 U/L (12-78); Albumin Level 3.9 g/dl (3.5-5.0); Alkaline Phosphatase 60 U/L (38-126); Aspartate Amino Transferase 23 U/L (14-36); Bilirubin,Total 0.6 mg/dl (0.2-1.3); Blood Urea Nitrogen 15 mg/dl (7-17); Creatinine Clearance Estimated 39 mL/min (50-200); Estimated Glomerular Filt Rate 82 ml/min (>60); GFR (African American) 99 ML/MIN (>60)
[2023-08-23 10:04] LABS: Albumin/Globulin Ratio 1.3 (1.1-1.8); Calcium 8.6 mg/dl (8.4-10.2); Carbon Dioxide 27 mmol/L (22.0-30.0); Globulin 2.9 g/dL (1.3-3.2); Glucose 155 mg/dl (74-100); Total Protein,Serum 6.8 g/dl (6.3-8.2)
== END 2023-08-23 10:08 | disposition home or self-care (01) ==
LOC: INF 09:33
PROVIDERS: PCP Family Medicine; Visit Provider Internal Medicine Medical Oncology
DX: D46.Z Other myelodysplastic syndromes (principal); Z45.2 Encounter for adjustment and management of vascular access device
CPT/HCPCS: 36592; 80053; 85025; 96523

== ENCOUNTER 2023-08-30 09:39 | Outpatient (CLI) | payer MEDICARE, SELFPAY ==
[2023-08-30 09:47] VITALS: BMI 16.4
[2023-08-30 10:12] LABS: Basophils % 0.4 % (0.1-2.0); Eosinophils % 0.1 % (0.1-12.0); Hematocrit 23.6 % (37.0-47.0); Lymphocytes # 1.8 K/mm3 (0.7-4.5); Lymphocytes % 42.9 % (10-50); Mean Corpuscular HGB Conc 33.9 g/dL (31.8-35.4); Mean Corpuscular Hemoglobin 29.5 pg (27.0-31.2); Mean Corpuscular Volume 87.1 fl (81-99); Mean Platelet Volume 12.9 fl (7.4-10.4); Monocytes # 0.5 K/mm3 (0.1-1.0); Monocytes % 12.9 % (1.7-9.3); Neutrophils # 1.8 K/mm3 (1.8-7.8); Neutrophils % 43.7 % (37.0-80.0); Red Blood Count 2.71 M/mm3 (4.20-5.40); Red Cell Distribution Width 18.7 % (11.5-17.5); White Blood Count 4.2 K/mm3 (4.8-10.8)
[2023-08-30 10:18] LABS: Platelet Count 22 K/mm3 (142-424)
[2023-08-30 11:02] LABS: Alanine Aminotransferase 15 U/L (12-78); Albumin Level 3.8 g/dl (3.5-5.0); Albumin/Globulin Ratio 1.3 (1.1-1.8); Alkaline Phosphatase 61 U/L (38-126); Anion Gap 9.2 mEq/L (5-15); Aspartate Amino Transferase 22 U/L (14-36); Bilirubin,Total 0.5 mg/dl (0.2-1.3); Blood Urea Nitrogen 16 mg/dl (7-17); Calcium 8.4 mg/dl (8.4-10.2); Carbon Dioxide 26 mmol/L (22.0-30.0); Chloride 106 mmol/L (98-107); Creatinine Clearance Estimated 39 mL/min (50-200); Estimated Glomerular Filt Rate 98 ml/min (>60); GFR (African American) 119 ML/MIN (>60); Glucose 100 mg/dl (74-100); Potassium 4.2 mmoL/L (3.5-5.1); Sodium 137 mmol/L (136-145); Total Protein,Serum 6.8 g/dl (6.3-8.2)
== END 2023-08-30 10:10 | disposition home or self-care (01) ==
LOC: INF 09:41
PROVIDERS: PCP Family Medicine; Visit Provider Internal Medicine Medical Oncology
DX: D46.Z Other myelodysplastic syndromes (principal); Z45.2 Encounter for adjustment and management of vascular access device
CPT/HCPCS: 36592; 80053; 85025; 96523

== ENCOUNTER 2023-09-06 09:52 | Outpatient (CLI) | payer MEDICARE, SELFPAY ==
[2023-09-06 09:56] VITALS: BMI 17.0
--- NOTE | 2023-09-06 09:58 | PC.NURSE ---
0958-collected labs via left upper arm picc line;flushed with ns;obtained blood return;collected labs;flushed with ns;pt to wait on results.
[2023-09-06 10:09] LABS: Basophils % 0.3 % (0.1-2.0); Eosinophils % 0.3 % (0.1-12.0); Hematocrit 24.7 % (37.0-47.0); Hemoglobin 8.2 g/dL (12.2-16.2); Lymphocytes % 42.4 % (10-50); Mean Corpuscular HGB Conc 33.1 g/dL (31.8-35.4); Mean Corpuscular Hemoglobin 29.3 pg (27.0-31.2); Mean Corpuscular Volume 88.5 fl (81-99); Mean Platelet Volume 11.6 fl (7.4-10.4); Monocytes # 0.5 K/mm3 (0.1-1.0); Monocytes % 11.2 % (1.7-9.3); Neutrophils # 2.2 K/mm3 (1.8-7.8); Neutrophils % 45.8 % (37.0-80.0); Red Blood Count 2.79 M/mm3 (4.20-5.40); Red Cell Distribution Width 19.6 % (11.5-17.5); White Blood Count 4.7 K/mm3 (4.8-10.8)
[2023-09-06 10:13] LABS: Platelet Count 19 K/mm3 (142-424)
[2023-09-06 10:14] LABS: Chloride 105 mmol/L (98-107); Sodium 140 mmol/L (136-145)
[2023-09-06 10:15] LABS: Potassium 3.9 mmoL/L (3.5-5.1)
[2023-09-06 10:17] LABS: Alanine Aminotransferase 14 U/L (12-78); Albumin Level 4.2 g/dl (3.5-5.0); Albumin/Globulin Ratio 1.6 (1.1-1.8); Alkaline Phosphatase 65 U/L (38-126); Anion Gap 11.9 mEq/L (5-15); Aspartate Amino Transferase 21 U/L (14-36); Bilirubin,Total 0.8 mg/dl (0.2-1.3); Blood Urea Nitrogen 15 mg/dl (7-17); Carbon Dioxide 27 mmol/L (22.0-30.0); Creatinine Clearance Estimated 40 mL/min (50-200); Estimated Glomerular Filt Rate 82 ml/min (>60); GFR (African American) 99 ML/MIN (>60); Globulin 2.6 g/dL (1.3-3.2); Total Protein,Serum 6.8 g/dl (6.3-8.2)
[2023-09-06 10:18] LABS: Calcium 8.6 mg/dl (8.4-10.2); Glucose 142 mg/dl (74-100)
== END 2023-09-06 10:35 | disposition home or self-care (01) ==
LOC: INF 09:53
PROVIDERS: PCP Family Medicine; Visit Provider Internal Medicine Medical Oncology
DX: D46.Z Other myelodysplastic syndromes (principal); Z45.2 Encounter for adjustment and management of vascular access device
CPT/HCPCS: 36592; 80053; 85025; 96523

== ENCOUNTER 2023-09-13 09:55 | Outpatient (CLI) | payer MEDICARE, SELFPAY ==
[2023-09-13] VITALS (10 sets, daily range): BP systolic 104–125; BP diastolic 57–70; PULSE 81–89; RESP 15–17; TEMP 36.4–36.9; O2SAT 98–99; BMI 16.4
[2023-09-13 10:22] LABS: Basophils % 0.2 % (0.1-2.0); Eosinophils % 0.2 % (0.1-12.0); Hemoglobin 7.4 g/dL (12.2-16.2); Lymphocytes # 1.7 K/mm3 (0.7-4.5); Lymphocytes % 49.2 % (10-50); Mean Corpuscular HGB Conc 33.6 g/dL (31.8-35.4); Mean Corpuscular Hemoglobin 29.3 pg (27.0-31.2); Mean Corpuscular Volume 87.4 fl (81-99); Mean Platelet Volume 11.3 fl (7.4-10.4); Monocytes # 0.4 K/mm3 (0.1-1.0); Monocytes % 10.5 % (1.7-9.3); Neutrophils # 1.3 K/mm3 (1.8-7.8); Neutrophils % 39.8 % (37.0-80.0); Red Blood Count 2.52 M/mm3 (4.20-5.40); Red Cell Distribution Width 19.9 % (11.5-17.5); White Blood Count 3.4 K/mm3 (4.8-10.8)
[2023-09-13 10:29] LABS: Chloride 106 mmol/L (98-107); Sodium 140 mmol/L (136-145)
[2023-09-13 10:30] LABS: Potassium 3.6 mmoL/L (3.5-5.1)
[2023-09-13 10:32] LABS: Alanine Aminotransferase 17 U/L (12-78); Alkaline Phosphatase 57 U/L (38-126); Aspartate Amino Transferase 22 U/L (14-36); Bilirubin,Total 0.7 mg/dl (0.2-1.3); Blood Urea Nitrogen 15 mg/dl (7-17); Creatinine Clearance Estimated 39 mL/min (50-200); Estimated Glomerular Filt Rate 82 ml/min (>60); GFR (African American) 99 ML/MIN (>60)
[2023-09-13 10:33] LABS: Albumin Level 3.9 g/dl (3.5-5.0); Albumin/Globulin Ratio 1.5 (1.1-1.8); Anion Gap 12.6 mEq/L (5-15); Carbon Dioxide 25 mmol/L (22.0-30.0); Globulin 2.6 g/dL (1.3-3.2); Total Protein,Serum 6.5 g/dl (6.3-8.2)
[2023-09-13 10:36] LABS: Platelet Count 17 K/mm3 (142-424)
[2023-09-13 10:42] LABS: Calcium 8.7 mg/dl (8.4-10.2); Glucose 164 mg/dl (74-100)
[2023-09-13] MEDS: 0.9 % SODIUM CHLORIDE 250 ML 25 ML IV (12:45)
--- NOTE | 2023-09-13 12:51 | PC.NURSE ---
1248-BLOOD TRANSFUSION STARTED AT 100 ML/HR AT THIS TIME.
--- NOTE | 2023-09-13 13:28 | PC.NURSE ---
1318-INCREASED RATE TO 150 ML/HR AT THIS TIME.
--- NOTE | 2023-09-13 14:13 | PC.NURSE ---
1348-INCREASED RATE TO 200 ML/HR AT THIS TIME.
--- NOTE | 2023-09-13 15:00 | PC.NURSE ---
1420 - INCREASED RATE TO 250 ML/HR AT THIS TIME.
== END 2023-09-13 15:34 | disposition home or self-care (01) ==
LOC: INF 09:56
PROVIDERS: PCP Family Medicine; Visit Provider Internal Medicine Medical Oncology
DX: D46.Z Other myelodysplastic syndromes (principal)
CPT/HCPCS: 36430; 36592; 80053; 85025; 86850; P9016

== ENCOUNTER 2023-09-20 10:18 | Outpatient (CLI) | payer MEDICARE, SELFPAY ==
[2023-09-20 10:49] VITALS: BMI 16.2
[2023-09-20 10:55] LABS: Basophils % 0.5 % (0.1-2.0); Chloride 106 mmol/L (98-107); Eosinophils % 0.3 % (0.1-12.0); Hematocrit 26.4 % (37.0-47.0); Hemoglobin 8.7 g/dL (12.2-16.2); Lymphocytes # 2.2 K/mm3 (0.7-4.5); Lymphocytes % 46.7 % (10-50); Mean Corpuscular Hemoglobin 29.7 pg (27.0-31.2); Mean Corpuscular Volume 90.1 fl (81-99); Mean Platelet Volume 13.5 fl (7.4-10.4); Monocytes # 0.5 K/mm3 (0.1-1.0); Monocytes % 11.4 % (1.7-9.3); Neutrophils # 1.9 K/mm3 (1.8-7.8); Red Blood Count 2.93 M/mm3 (4.20-5.40); Red Cell Distribution Width 19.1 % (11.5-17.5); Sodium 141 mmol/L (136-145); White Blood Count 4.7 K/mm3 (4.8-10.8)
[2023-09-20 10:58] LABS: Alanine Aminotransferase 17 U/L (12-78); Albumin Level 3.9 g/dl (3.5-5.0); Albumin/Globulin Ratio 1.4 (1.1-1.8); Alkaline Phosphatase 64 U/L (38-126); Aspartate Amino Transferase 22 U/L (14-36); Bilirubin,Total 0.8 mg/dl (0.2-1.3); Blood Urea Nitrogen 16 mg/dl (7-17); Carbon Dioxide 27 mmol/L (22.0-30.0); Creatinine Clearance Estimated 39 mL/min (50-200); Estimated Glomerular Filt Rate 82 ml/min (>60); GFR (African American) 99 ML/MIN (>60); Globulin 2.7 g/dL (1.3-3.2); Total Protein,Serum 6.6 g/dl (6.3-8.2)
[2023-09-20 10:59] LABS: Calcium 8.7 mg/dl (8.4-10.2); Glucose 117 mg/dl (74-100)
[2023-09-20 11:15] LABS: Platelet Count 15 K/mm3 (142-424)
== END 2023-09-20 11:23 | disposition home or self-care (01) ==
LOC: INF 10:19
PROVIDERS: PCP Family Medicine; Visit Provider Internal Medicine Medical Oncology
DX: D46.9 Myelodysplastic syndrome, unspecified (principal)
CPT/HCPCS: 36592; 80053; 85025

== ENCOUNTER 2023-09-25 10:36 | Outpatient (CLI) | payer MEDICARE, SELFPAY ==
[2023-09-25 10:40] VITALS: BMI 16.5
[2023-09-25 10:53] LABS: Basophils % 0.1 % (0.1-2.0); Eosinophils % 0.3 % (0.1-12.0); Hemoglobin 7.9 g/dL (12.2-16.2); Lymphocytes # 1.6 K/mm3 (0.7-4.5); Lymphocytes % 44.2 % (10-50); Mean Corpuscular HGB Conc 32.9 g/dL (31.8-35.4); Mean Corpuscular Hemoglobin 29.2 pg (27.0-31.2); Mean Corpuscular Volume 88.6 fl (81-99); Monocytes # 0.4 K/mm3 (0.1-1.0); Monocytes % 10.5 % (1.7-9.3); Neutrophils # 1.6 K/mm3 (1.8-7.8); Neutrophils % 44.9 % (37.0-80.0); Red Blood Count 2.71 M/mm3 (4.20-5.40); White Blood Count 3.6 K/mm3 (4.8-10.8)
--- NOTE | 2023-09-25 10:57 | PC.NURSE ---
09/25/2023 1050 pt here today for blood draw from picc for labs as ordered per oncologist and strip picker. Picc accessed and blood drawn for labs. Picc line flushed with saline. Specimens sent to lab for analysis. Pt reports having an appt with pcp this am and pt instructed to attend md appt and return for picc line drsg change. Lab results will be discussed with pt on return.
[2023-09-25 11:02] LABS: Platelet Count 16 K/mm3 (142-424)
== END 2023-09-25 13:13 | disposition home or self-care (01) ==
LOC: INF 10:36
PROVIDERS: Internal Medicine; PCP Family Medicine; Visit Provider Internal Medicine Medical Oncology
DX: D46.9 Myelodysplastic syndrome, unspecified (principal); D69.6 Thrombocytopenia, unspecified; E87.6 Hypokalemia; I27.20 Pulmonary hypertension, unspecified; R42 Dizziness and giddiness; Z45.2 Encounter for adjustment and management of vascular access device
CPT/HCPCS: 36592; 80162; 85025; 96523

== ENCOUNTER 2023-09-26 08:41 | Outpatient (CLI) | payer MEDICARE, SELFPAY ==
--- NOTE | 2023-09-26 08:42 | CT_ITS ---
FINAL REPORT TECHNIQUE: Then section axial CT images of the chest were obtained with contrast. Three-D reformatted images were also obtained.This study was performed with techniques to keep radiation doses as low as reasonably achievable (ALARA). Individualized dose reduction techniques using automated exposure control or adjustment of mA and/or kV according to the patient''s size were employed. CLINICAL HISTORY: Shortness of breath, tachycardia COMPARISON: CT low-dose 05/20/2021 FINDINGS: Left-sided PICC line is new. There is no evidence of pulmonary embolism. There is no evidence of thoracic aortic aneurysm or dissection. There is no evidence of mediastinal or hilar mass or adenopathy. There are several small right lower lobe nodules, worse compared to prior. There is mild emphysema. Worsening left lung opacities are favored to represent scarring. Worsening right lower lobe nodular and alveolar opacities are likely inflammatory and may represent pneumonia or mycobacterial/fungal disease. Limited images of the upper abdomen demonstrate a small cyst in the left kidney. IMPRESSION: No pulmonary embolism. Worsening presumed scarring in the left upper lobe. Worsening right lower lobe opacities, likely inflammatory. Recommend follow-up chest CT in 3 to 6 months to evaluate for stability. Reviewed, Interpreted and Dictated by Darryl Gutierrez III, MD Transcribed by Kavitha Trujillo Authenticated and [facility]
--- NOTE | 2023-09-26 09:47 | CA_ITS ---
FINAL REPORT TECHNIQUE: Color Doppler, duplex Doppler and compression sonography of the left lower extremity deep venous systems was performed. CLINICAL HISTORY: edema of left LE, Chemo, bone marrow cancer COMPARISON: None FINDINGS: There is no evidence of deep venous thrombosis from the level of the groin to the calf. The veins are patent and compressible. IMPRESSION: No evidence of deep venous thrombosis left lower extremity. Reviewed, Interpreted and Dictated by Darryl Gutierrez III, MD Transcribed by Kavitha Trujillo Authenticated and [facility]
[2023-09-26] MEDS: IOPAMIDOL-370 (76%);100ML BOTTLE 75 ML IV (09:48)
[2023-09-26] MEDS: SODIUM CHLORIDE 0.9% 10ML SYR (RAD ONLY) 10 ML IV (09:48)
[2023-09-26] MEDS: 0.9 % SODIUM CHLORIDE 50 ML VIAL IV (09:48)
== END 2023-09-26 23:59 ==
PROVIDERS: PCP Family Medicine; Visit Provider Internal Medicine
DX: R42 Dizziness and giddiness; R60.0 Localized edema; D46.9 Myelodysplastic syndrome, unspecified; D69.6 Thrombocytopenia, unspecified; E78.5 Hyperlipidemia, unspecified; I10 Essential (primary) hypertension; I27.20 Pulmonary hypertension, unspecified
CPT/HCPCS: 71275; 93971; Q9967

== ENCOUNTER 2023-09-28 12:05 | Outpatient (CLI) | payer MEDICARE, SELFPAY ==
[2023-09-28] VITALS (10 sets, daily range): BP systolic 106–125; BP diastolic 52–66; PULSE 85–94; RESP 15–18; TEMP 36.7–37.2; O2SAT 95; BMI 16.5
[2023-09-28] MEDS: SODIUM CHLORIDE 0.9% 250ML BAG 250 ML IV (13:08)
--- NOTE | 2023-09-28 14:42 | PC.NURSE ---
1435-INCREASED RATE FROM 100 ML/HR TO 150 ML/HR AT THIS TIME.
--- NOTE | 2023-09-28 15:18 | PC.NURSE ---
1505-INCREASED RATE TO 200 ML/HR AT THIS TIME.
--- NOTE | 2023-09-28 15:33 | PC.NURSE ---
1210-PT ARRIVED FROM [facility] WITH LAB RESULTS SHOWING HGB 7.3 AND HCT 22.2, STATING THAT THEY WANTED HER TO GET A UNIT OF BLOOD. STATED THAT SHE HAS BEEN MORE WEAK, TIRED, AND DYSPNEIC WITH MINIMAL EXERTION. CALLED 'S OFFICE AND RECEIVED VERBAL ORDER TO TYPE AND CROSSMATCH FOR 1 UNIT PRBC'S AND TRANSFUSE 1 UNIT TODAY, PER ALISIA CLIFFORD PA-C. ORDER READ BACK AND VERIFIED.
--- NOTE | 2023-09-28 16:09 | PC.NURSE ---
1520-RATE INCREASED TO 250 ML/HR AT THIS TIME.
== END 2023-09-28 16:59 | disposition home or self-care (01) ==
LOC: INF 12:06
PROVIDERS: PCP Family Medicine; Visit Provider Internal Medicine Medical Oncology
DX: D64.9 Anemia, unspecified (principal)
CPT/HCPCS: 36430; 86850; P9016

== ENCOUNTER 2023-10-04 10:14 | Outpatient (CLI) | payer MEDICARE, SELFPAY ==
[2023-10-04 10:19] VITALS: BMI 16.5
[2023-10-04 10:37] LABS: Basophils % 0.3 % (0.1-2.0); Eosinophils % 0.6 % (0.1-12.0); Hematocrit 25.8 % (37.0-47.0); Hemoglobin 8.7 g/dL (12.2-16.2); Lymphocytes # 1.7 K/mm3 (0.7-4.5); Lymphocytes % 45.8 % (10-50); Mean Corpuscular HGB Conc 33.9 g/dL (31.8-35.4); Mean Corpuscular Hemoglobin 29.8 pg (27.0-31.2); Mean Corpuscular Volume 87.8 fl (81-99); Mean Platelet Volume 12.7 fl (7.4-10.4); Monocytes # 0.4 K/mm3 (0.1-1.0); Monocytes % 11.6 % (1.7-9.3); Neutrophils # 1.5 K/mm3 (1.8-7.8); Neutrophils % 41.8 % (37.0-80.0); Red Blood Count 2.93 M/mm3 (4.20-5.40); Red Cell Distribution Width 18.1 % (11.5-17.5); White Blood Count 3.7 K/mm3 (4.8-10.8)
[2023-10-04 10:47] LABS: Platelet Count 11 K/mm3 (142-424)
== END 2023-10-04 10:55 | disposition home or self-care (01) ==
LOC: INF 10:15
PROVIDERS: PCP Family Medicine; Visit Provider Internal Medicine Medical Oncology
DX: D46.9 Myelodysplastic syndrome, unspecified (principal); Z45.2 Encounter for adjustment and management of vascular access device
CPT/HCPCS: 36592; 85025; 96523

== ENCOUNTER 2023-10-11 08:55 | Outpatient (CLI) | payer MEDICARE, SELFPAY ==
[2023-10-11 09:03] VITALS: BMI 16.7
[2023-10-11 09:29] LABS: Basophils % 0.3 % (0.1-2.0); Eosinophils % 0.2 % (0.1-12.0); Hematocrit 22.5 % (37.0-47.0); Hemoglobin 7.9 g/dL (12.2-16.2); Lymphocytes % 51.8 % (10-50); Mean Corpuscular HGB Conc 35.2 g/dL (31.8-35.4); Mean Corpuscular Hemoglobin 30.7 pg (27.0-31.2); Mean Corpuscular Volume 87.2 fl (81-99); Mean Platelet Volume 13.8 fl (7.4-10.4); Monocytes # 0.5 K/mm3 (0.1-1.0); Monocytes % 12.2 % (1.7-9.3); Neutrophils # 1.4 K/mm3 (1.8-7.8); Neutrophils % 35.5 % (37.0-80.0); Red Blood Count 2.59 M/mm3 (4.20-5.40); Red Cell Distribution Width 18.3 % (11.5-17.5); White Blood Count 3.9 K/mm3 (4.8-10.8)
[2023-10-11 09:31] LABS: Platelet Count 14 K/mm3 (142-424)
[2023-10-11 09:32] LABS: MANUAL DIFFERENTIAL MANUAL DIFFERENTIAL (MANUAL DIFF)
[2023-10-11 09:35] LABS: Chloride 105 mmol/L (98-107)
[2023-10-11 09:36] LABS: Sodium 140 mmol/L (136-145)
[2023-10-11 09:39] LABS: Alanine Aminotransferase 15 U/L (12-78); Albumin Level 3.7 g/dl (3.5-5.0); Albumin/Globulin Ratio 1.4 (1.1-1.8); Alkaline Phosphatase 70 U/L (38-126); Aspartate Amino Transferase 27 U/L (14-36); Bilirubin,Total 0.8 mg/dl (0.2-1.3); Blood Urea Nitrogen 11 mg/dl (7-17); Calcium 8.5 mg/dl (8.4-10.2); Carbon Dioxide 27 mmol/L (22.0-30.0); Creatinine Clearance Estimated 39 mL/min (50-200); Estimated Glomerular Filt Rate 98 ml/min (>60); GFR (African American) 119 ML/MIN (>60); Globulin 2.7 g/dL (1.3-3.2); Glucose 96 mg/dl (74-100); Total Protein,Serum 6.4 g/dl (6.3-8.2)
[2023-10-11 10:07] LABS: Lymphocytes % 53 % (10-50); Monocytes % 9 % (2-9); Neutrophils % 38 % (42-76); Total Cells Counted 100
[2023-10-11 10:10] LABS: Microcytosis 1+; Platelet Estimate Marked Decrease
[2023-10-11 10:11] LABS: Hypochromasia 1+
== END 2023-10-11 10:00 | disposition home or self-care (01) ==
LOC: INF 08:56
PROVIDERS: PCP Family Medicine; Visit Provider Internal Medicine Medical Oncology
DX: D46.9 Myelodysplastic syndrome, unspecified (principal); Z79.899 Other long term (current) drug therapy
CPT/HCPCS: 36592; 80053; 85007; 85025; 96523

== ENCOUNTER 2023-10-18 15:16 | Outpatient (CLI) | payer MEDICARE, SELFPAY | END 2023-10-18 15:39 | disposition home or self-care (01) | PROVIDERS: PCP Family Medicine; Visit Provider Internal Medicine Medical Oncology | DX: D46.Z Other myelodysplastic syndromes (principal); Z45.2 Encounter for adjustment and management of vascular access device | CPT/HCPCS: 36592; 96523; G0463 ==

== ENCOUNTER 2023-10-23 10:43 | Observation (INO) | payer MEDICARE, SELFPAY ==
[2023-10-23] VITALS (23 sets, daily range): BP systolic 115–150; BP diastolic 57–78; PULSE 50–94; RESP 17–26; TEMP 36.5–36.8; O2SAT 92–99; BMI 16.4; BMI 15.5
[2023-10-23 09:28] LABS: Basophils % 0.4 % (0.1-2.0); Eosinophils % 0.1 % (0.1-12.0); Hematocrit 21.7 % (37.0-47.0); Hemoglobin 7.1 g/dL (12.2-16.2); Lymphocytes # 1.7 K/mm3 (0.7-4.5); Mean Corpuscular HGB Conc 32.6 g/dL (31.8-35.4); Mean Platelet Volume 12.3 fl (7.4-10.4); Monocytes # 0.6 K/mm3 (0.1-1.0); Monocytes % 13.8 % (1.7-9.3); Neutrophils # 1.9 K/mm3 (1.8-7.8); Neutrophils % 45.8 % (37.0-80.0); Red Blood Count 2.44 M/mm3 (4.20-5.40); Red Cell Distribution Width 19.6 % (11.5-17.5); White Blood Count 4.2 K/mm3 (4.8-10.8)
[2023-10-23 09:29] LABS: Platelet Count 11 K/mm3 (142-424)
[2023-10-23 09:37] LABS: Alanine Aminotransferase 13 U/L (12-78); Albumin Level 3.9 g/dl (3.5-5.0); Albumin/Globulin Ratio 1.4 (1.1-1.8); Alkaline Phosphatase 48 U/L (38-126); Anion Gap 9.6 mEq/L (5-15); Aspartate Amino Transferase 17 U/L (14-36); Bilirubin,Total 0.7 mg/dl (0.2-1.3); Blood Urea Nitrogen 18 mg/dl (7-17); Carbon Dioxide 28 mmol/L (22.0-30.0); Chloride 107 mmol/L (98-107); Creatinine Clearance Estimated 39 mL/min (50-200); Estimated Glomerular Filt Rate 98 ml/min (>60); GFR (African American) 119 ML/MIN (>60); Globulin 2.7 g/dL (1.3-3.2); Glucose 114 mg/dl (74-100); Potassium 4.6 mmoL/L (3.5-5.1); Sodium 140 mmol/L (136-145); Total Protein,Serum 6.6 g/dl (6.3-8.2)
--- NOTE | 2023-10-23 10:36 | XR_ITS ---
FINAL REPORT CLINICAL HISTORY: POSSIBLE PNUEMNIA,SOA hx of bone cancer COMPARISON: 07/31/2023 FINDINGS: TWO-VIEW CHEST The heart size is normal. The mediastinum is normal. The lungs are clear. Left PICC line is in place. There is no pneumothorax. IMPRESSION: No acute cardiopulmonary process. Reviewed, Interpreted and Dictated by Darryl Gutierrez III, MD Transcribed by Leonila Chandler Authenticated and . [facility]
--- NOTE | 2023-10-23 11:38 | PC.NURSE ---
report given and care handed off to Ange Gaffney RN at 1130.
--- NOTE | 2023-10-23 11:59 | HMH.PHAINT1 ---
Pharmacy Intervention Comments: MEDICATION RECONCILIATION COMPLETE USING LIST FROM MOST RECENT MD OFFICE VISIT AND EXTERNAL PHARMACY FILL HISTORY.
[2023-10-23] MEDS: 0.9 % SODIUM CHLORIDE 250 ML 25 ML IV (12:25)
--- NOTE | 2023-10-23 14:10 | EXP.HP ---
History of Present Illness *Admission Date: 10/23/23 *History of present illness: Notes as per Dr. Whittaker, oncologist today 10/23/2023: HPI Comments Details: Ms. 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 She was initially diagnosed with this disease in April 2022 with MDS?EB 1 and was followed with observation until September 2022. Just prior to this she was admitted to [facility] with hemoglobin of 4, white blood cell count of 2 and platelet count of 6000. Bone marrow biopsy that showed time showed 10-15% percent blast. Recommendation was for initiation of decitabine and she began that here at [facility]. However, she was admitted again for neutropenic fever at the [facility] in December 2022 and repeat bone marrow showed 10% blast. She was not tolerating chemotherapy well either at that point and ultimately recommendation was to switch to a azacitidine. She did initiate this but continued to do very poorly with weight loss and cytopenias that were not improving. Repeat bone marrow biopsy in March 2023 at [facility] noted less than 5% blasts and a hypercellular bone marrow. Given poor performance status it was recommended to move towards treatment holiday with transfusions as needed. If blood counts improved significantly off of azacitidine and performance improved, as well, there could be consideration at some point of reinitiating this treatment. Most recently, white count has been approximately 4.0 with an ANC above 1000. Hemoglobin has been 8.0 and platelet count has been 10-20,000 but without signs/symptoms of bleeding. There have been no infectious complications. In this setting, she presents today between scheduled visits with increasing fatigue and noting significant shortness of air with any exertion. She is in day repeat blood counts which show hemoglobin down to 7.1 and platelet count 11,000. White count remains adequate with an ANC well above 1000. She has had a cough that has been nonproductive. There have been no fevers or other signs/symptoms of infection. Oxygen saturation was 82% today on room air though monitor had a hard time picking up due to what appeared to be some vasoconstriction in the nailbeds. Due to the possibility of potential infection with a new cough, admission was recommended for transfusion of packed red blood cells and infectious workup. Oxygen was to be continued only as needed. Admission laboratory data showed normal electrolytes with a BUN of 18 and creatinine of 0.6. As previously noted hemoglobin was 7.1 hematocrit 21.7. Platelet count was at 11.Chest x-ray showed no acute cardiopulmonary process [facility] Disclaimer: The information contained in this section may have been updated after the patient was seen, as this information can be updated by other users. Medical History Ankle sprain and strain COPD (chronic obstructive pulmonary disease) Degenerative disc disease Dizziness History of CVA (cerebrovascular accident) History of palpitations Hyperlipidemia Hypertensive disorder MDS (myelodysplastic syndrome) Myelodysplastic syndrome Nocturnal hypoxia Primary cancer of bone marrow Raynauds disease Supraventricular tachycardia Surgical History History of carpal tunnel release History of cholecystectomy History of colonoscopy History of laparoscopy Family History Other No significant family history Social History Smoking Status: Unknown if ever smoked alcohol intake: current substance use type: denies use current occupational status: employed Travel in the last 8 weeks: None caffeine: Yes Review of Systems Constitutional Constitutional: Denies fever(s), Denies frequent falls, Denies headache(s), Reports poor appetite, Reports lethargy, Reports weakness and Reports weight loss Eyes Eyes: Denies change in vision ENT Ears, Nose, Mouth, and Throat: Denies otalgia, Denies headache(s) and Denies sore throat *Cardiovascular Cardiovascular: Denies chest pain, Reports dyspnea, Reports dyspnea on exertion, Denies edema, Denies irregular heart rhythm and Denies palpitations *Respiratory Respiratory: Reports cough (Sometimes productive of yellow sputum), Reports dyspnea, Reports dyspnea on exertion, Denies hemoptysis and Reports wheezing (at night) *Gastrointestinal Gastrointestinal: Reports diarrhea, Denies dyspepsia, Denies heartburn, Denies hematemesis, Denies melena, Denies nausea and Denies vomiting *Genitourinary Genitourinary: Denies difficulty voiding *Musculoskeletal Musculoskeletal: Reports abnormal gait (Uses a sona walker) and Reports muscle weakness *Neurologic Neurologic: Reports abnormal gait (Uses a sona walker), Denies convulsions, Denies frequent falls, Denies headache(s) and Reports weakness Endocrine Endocrine: Denies palpitations Allergic/Immunologic Allergic/Immunologic: Reports wheezing (at night) Meds Home Medications and Allergies Home Medications Medication Instructions Recorded Confirmed Type pravastatin 40 mg tablet 40 mg PO HS Cholesterol 05/06/18 10/23/23 History gabapentin 600 mg tablet 1,200 mg PO BID Pain 06/16/19 10/23/23 History acyclovir 800 mg tablet 800 mg PO BID viral 09/28/22 10/23/23 History infection/preventative levofloxacin 500 mg tablet 500 mg PO DAILY INFECTION 07/19/23 10/23/23 History PREVENTION digoxin 250 mcg (0.25 mg) tablet 250 mcg PO DAILY Heart Rhythm 10/23/23 10/23/23 History fluconazole 200 mg tablet 400 mg PO DAILY INFECTION 10/23/23 10/23/23 History PREVENTION megestrol 400 mg/10 mL (40 mg/mL) 400 mg PO BID Appetite STIMULANT 10/23/23 10/23/23 History oral suspension potassium chloride 20 mEq 20 meq PO DAILY Supplement 10/23/23 10/23/23 History tablet,extended release(part/cryst) New Prescriptions to Start Prescriptions: Allergies Allergy/AdvReac Type Severity Reaction Status Date / Time codeine AdvReac Intermediate Verified 10/23/23 09:27 Exam Data for Last 24 hours Vital signs and Labs for Last 24 Hours: Temp Pulse Resp BP Pulse Ox O2 Del Method 98.3 F 78 18 123/74 95 Room Air 10/23/23 12:40 10/23/23 12:40 10/23/23 12:40 10/23/23 12:40 10/23/23 12:40 10/23/23 13:00 Laboratory Results - last 24 hr 10/23/23 09:10: WBC 4.2 L, RBC 2.44 L, Hgb 7.1 L, Hct 21.7 L, MCV 89.0, MCH 29.0, MCHC 32.6, RDW 19.6 H, Plt Count 11 L*, MPV 12.3 H, Neut % (Auto) 45.8, Lymph % (Auto) 40.0, [place] % (Auto) 13.8 H, Eos % (Auto) 0.1, Baso % (Auto) 0.4, Neut # (Auto) 1.9, Lymph # (Auto) 1.7, [place] # (Auto) 0.6, Eos # (Auto) 0.0, Baso # (Auto) 0.0, Sodium 140, Potassium 4.6, Chloride 107, Carbon Dioxide 28, Anion Gap 9.6, BUN 18 H, Creatinine 0.60, Estimated Creat Clear 39, Estimated GFR 98, Est GFR ( Amer) 119, Glucose 114 H, Calcium 9.0, Total Bilirubin 0.7, AST 17, ALT 13, Alkaline Phosphatase 48, Total Protein 6.6, Albumin 3.9, Globulin 2.7, Albumin/Globulin Ratio 1.4 10/23/23 10:15: Blood Type O Positive, Antibody Screen Negative, Crossmatch ([facility]) See Detail I & O for Last 24 hours: Intake & Output 10/21/23 10/22/23 10/23/23 10/24/23 11:59 11:59 11:59 11:59 Intake Total 240 / 240 Output Total 0 / 0 Balance 240 / 240 Weight 102 lb 4 oz Constitutional Constitutional: no acute distress, thin and cooperative *Routine HEENT Exam Head: Present normocephalic and atraumatic Eye: Present PERRL; Absent conjunctival icterus, scleral injection or conjunctivae pink ENT: Present mucous membranes moist, oropharynx clear and dentition normal *Routine Neck Exam Neck: Present supple and full ROM; Absent carotid bruit, lymphadenopathy, thyromegaly or tenderness *Routine Respiratory Exam Respiratory: Present accessory muscle use (With talking), CTA bilaterally (Anteriorly and posteriorly) and able to speak in complete sentences *Routine Cardiovascular Exam Cardiovascular: Present RRR *Routine Abdominal Exam Abdominal: Present soft and normoactive bowel sounds; Absent tenderness, distended or guarding *Routine Rectal Exam Rectal:: deferred *Routine Genitalia Exam Genitalia:: deferred *Routine Extremities Exam Extremities: Present full ROM and pulses intact; Absent edema or calf tenderness *Routine Neurological Exam Neurological: Present alert, oriented X3 and normal speech Assessment and Plan *Assessment and plan (1) Anemia: Status: Acute Qualifiers: Anemia type: unspecified type Qualified Code(s): D64.9 - Anemia, unspecified Category: Medical Code(s): D64.9 - Anemia, unspecified (2) Thrombocytopenia: Status: Acute Category: Medical Code(s): D69.6 - Thrombocytopenia, unspecified (3) Myelodysplastic syndrome: Status: Acute Category: Medical Code(s): D46.9 - Myelodysplastic syndrome, unspecified (4) Hyperlipidemia: Status: Chronic Qualifiers: Hyperlipidemia type: mixed hyperlipidemia Qualified Code(s): E78.2 - Mixed hyperlipidemia Category: Medical Code(s): E78.5 - Hyperlipidemia, unspecified (5) Severe protein-calorie malnutrition: Status: Acute Category: Medical Code(s): E43 - Unspecified severe protein-calorie malnutrition (6) Cough in adult: Status: Acute Category: Medical Code(s): R05.9 - Cough, unspecified (7) Bronchitis: Status: Acute Category: Medical Code(s): J40 - Bronchitis, not specified as acute or chronic (8) Hypoxia: Status: Acute Category: Medical Code(s): R09.02 - Hypoxemia Plan Patient is currently receiving #2 packed red blood cells. She has been started on Levaquin. Will add Combivent for her cough as well as cough medicine. Dr. Samayoa entry - Saw patient, agree with above note.
[2023-10-23] MEDS: GUAIFENESIN/DEXTROMETHORPHAN 200MG/20MG 10ML UDC 5 ML PO (16:54)
--- NOTE | 2023-10-23 18:31 | PC.NURSE ---
A&OX4. TOLERATING RA WELL. HAS RECEIVED 2 UNITS OF PRBC THIS SHIFT, TOLERATED WELL. PT IS UP TO THE BATHROOM X1 ASSIST. CONTINUES TO BE VERY WINDED WITH EXERSION. NO OTHER NEEDS OR C/O NOTED THUS FAR. HAS GOOD APPETITE. VSS.
[2023-10-23 18:49] LABS: Hematocrit 27.9 % (37.0-47.0)
[2023-10-23 19:11] LABS: Hemoglobin 9.6 g/dL (12.2-16.2)
[2023-10-23] MEDS: ACYCLOVIR 400MG TAB 800 MG PO (20:24)
[2023-10-23] MEDS: PRAVASTATIN 40MG TAB 40 MG PO (20:24)
[2023-10-23] MEDS: GABAPENTIN 600MG TABLET 1200 MG PO (20:24)
[2023-10-23] MEDS: COMBIVENT 20MCG/100MCG RESPIMAT INHALER 1 PUFF IH (20:50)
[2023-10-24 04:00] VITALS: BP 111/62; PULSE 67; RESP 22; TEMP 36.8; O2SAT 98; BMI 16.6
[2023-10-24] MEDS: COMBIVENT 20MCG/100MCG RESPIMAT INHALER 1 PUFF IH ×2 (06:06→10:07)
[2023-10-24 06:39] LABS: Basophils % 0.2 % (0.1-2.0); Eosinophils % 0.3 % (0.1-12.0); Hematocrit 28.1 % (37.0-47.0); Hemoglobin 9.3 g/dL (12.2-16.2); Lymphocytes # 1.6 K/mm3 (0.7-4.5); Lymphocytes % 45.4 % (10-50); Mean Corpuscular HGB Conc 33.1 g/dL (31.8-35.4); Mean Corpuscular Hemoglobin 30.3 pg (27.0-31.2); Mean Corpuscular Volume 91.4 fl (81-99); Monocytes # 0.5 K/mm3 (0.1-1.0); Monocytes % 12.6 % (1.7-9.3); Neutrophils # 1.5 K/mm3 (1.8-7.8); Neutrophils % 41.5 % (37.0-80.0); Red Blood Count 3.07 M/mm3 (4.20-5.40); Red Cell Distribution Width 18.4 % (11.5-17.5); White Blood Count 3.5 K/mm3 (4.8-10.8)
[2023-10-24 06:44] LABS: Platelet Count 6 K/mm3 (142-424)
[2023-10-24 08:00] VITALS: BP 101/56; PULSE 74; RESP 16; TEMP 36.6; O2SAT 94
--- NOTE | 2023-10-24 08:45 | PC.NURSE ---
pt stating at 98 on room air. pt walked one lap around the unit with no issues.
[2023-10-24 08:46] VITALS: O2SAT 98
--- NOTE | 2023-10-24 08:51 | P.PN_ITS ---
Subjective *Date: 10/24/23 *Time: 09:10 Interval history: Patient is feeling better this morning. She denies any pain and has much more energy. Her cough and wheezing have improved. Medical Exam Vital signs and Labs for Last 24 Hours: Vital Signs Temp Pulse Pulse Resp BP BP Pulse Ox 10/24/23 08:46 98 10/24/23 08:00 97.8 F 74 16 101/56 L 94 L 10/24/23 06:25 10/24/23 05:00 10/24/23 04:00 98.2 F 67 22 111/62 98 10/24/23 03:00 10/24/23 00:27 10/23/23 22:55 10/23/23 21:00 10/23/23 20:00 10/23/23 19:58 98.3 F 62 26 H 131/63 94 L 10/23/23 18:20 98.3 F 86 19 139/69 95 10/23/23 18:37 10/23/23 17:00 10/23/23 17:20 98.3 F 83 18 150/78 H 99 10/23/23 16:30 98.0 F 82 20 119/61 95 10/23/23 16:15 97.9 F 72 18 126/60 94 L 10/23/23 16:00 98.1 F 82 18 129/68 95 10/23/23 15:45 97.7 F 78 18 120/63 97 10/23/23 15:40 98.1 F 79 20 127/68 98 10/23/23 15:35 98.2 F 94 H 20 133/65 96 10/23/23 15:30 98.3 F 76 20 124/71 99 10/23/23 15:25 98.3 F 50 L 19 126/72 92 L 10/23/23 14:55 10/23/23 14:22 98.2 F 83 17 125/74 96 10/23/23 14:15 98.1 F 72 17 135/72 95 10/23/23 13:15 98.2 F 75 18 121/68 96 10/23/23 13:00 98.2 F 82 18 126/74 94 L 10/23/23 12:45 98.3 F 88 18 143/70 H 96 10/23/23 13:00 10/23/23 12:40 98.3 F 78 18 123/74 95 10/23/23 12:35 98.0 F 86 18 115/75 95 10/23/23 12:30 98.0 F 77 17 135/71 96 10/23/23 12:25 98.1 F 78 17 121/72 92 L 10/23/23 12:15 98.1 F 78 18 127/57 L 93 L 10/23/23 11:35 97.9 F 76 18 115/62 10/23/23 11:47 92 L 10/23/23 11:44 O2 Del Method O2 Flow Rate 10/24/23 08:46 Room Air 10/24/23 08:00 Nasal Cannula 3 10/24/23 06:25 Nasal Cannula 3 10/24/23 05:00 Nasal Cannula 3 10/24/23 04:00 Nasal Cannula 3 10/24/23 03:00 Nasal Cannula 3 10/24/23 00:27 Nasal Cannula 3 10/23/23 22:55 Nasal Cannula 3 10/23/23 21:00 Nasal Cannula 3 10/23/23 20:00 Room Air, Nasal Cannula 3 10/23/23 19:58 Nasal Cannula 3 10/23/23 18:20 10/23/23 18:37 Room Air 10/23/23 17:00 Room Air 10/23/23 17:20 10/23/23 16:30 10/23/23 16:15 10/23/23 16:00 10/23/23 15:45 10/23/23 15:40 10/23/23 15:35 10/23/23 15:30 10/23/23 15:25 10/23/23 14:55 Room Air 10/23/23 14:22 10/23/23 14:15 10/23/23 13:15 10/23/23 13:00 10/23/23 12:45 10/23/23 13:00 Room Air 10/23/23 12:40 10/23/23 12:35 10/23/23 12:30 10/23/23 12:25 10/23/23 12:15 10/23/23 11:35 Room Air 10/23/23 11:47 Room Air 10/23/23 11:44 Room Air Intake and Output 10/23/23 10/24/23 10/24/23 19:59 03:59 11:59 Intake Total 480 / 1190 240 / 1190 470 / 1190 Output Total 0 / 0 0 / 0 Balance 480 / 1190 240 / 1190 470 / 1190 Intake: Intake, Oral Amount 480 / 1190 240 / 1190 470 / 1190 Intake (Blood Product) Amt 0 / 0 Red Blood Cells Unit 0 / 0 [id number] Red Blood Cells Unit 0 / 0 [id number] Output: Output, Urine Amount 0 / 0 0 / 0 Other: Number of Unmeasured Voids 3 1 Weight 109 lb 9.6 oz Patient Weight 10/24/23 11:59 Weight 109 lb 9.6 oz Laboratory Results - last 24 hr 10/23/23 09:10: WBC 4.2 L, RBC 2.44 L, Hgb 7.1 L, Hct 21.7 L, MCV 89.0, MCH 29.0, MCHC 32.6, RDW 19.6 H, Plt Count 11 L*, MPV 12.3 H, Neut % (Auto) 45.8, Lymph % (Auto) 40.0, [place] % (Auto) 13.8 H, Eos % (Auto) 0.1, Baso % (Auto) 0.4, Neut # (Auto) 1.9, Lymph # (Auto) 1.7, [place] # (Auto) 0.6, Eos # (Auto) 0.0, Baso # (Auto) 0.0, Sodium 140, Potassium 4.6, Chloride 107, Carbon Dioxide 28, Anion Gap 9.6, BUN 18 H, Creatinine 0.60, Estimated Creat Clear 39, Estimated GFR 98, Est GFR ( Amer) 119, Glucose 114 H, Calcium 9.0, Total Bilirubin 0.7, AST 17, ALT 13, Alkaline Phosphatase 48, Total Protein 6.6, Albumin 3.9, Globulin 2.7, Albumin/Globulin Ratio 1.4 10/23/23 10:15: Blood Type O Positive, Antibody Screen Negative, Crossmatch ([facility]) See Detail 10/23/23 18:43: Hgb 9.6 L D, Hct 27.9 L 10/24/23 06:09: WBC 3.5 L, RBC 3.07 L D, Hgb 9.3 L, Hct 28.1 L, MCV 91.4, MCH 30.3, MCHC 33.1, RDW 18.4 H, Plt Count 6 L* D, MPV 14.0 H, Neut % (Auto) 41.5, Lymph % (Auto) 45.4, [place] % (Auto) 12.6 H, Eos % (Auto) 0.3, Baso % (Auto) 0.2, Neut # (Auto) 1.5 L, Lymph # (Auto) 1.6, [place] # (Auto) 0.5, Eos # (Auto) 0.0, Baso # (Auto) 0.0 I & O for Labs for Last 24 Hours: Intake & Output 10/21/23 10/22/23 10/23/23 10/24/23 11:59 11:59 11:59 11:59 Intake Total 1190 / 1190 Output Total 0 / 0 Balance 1190 / 1190 Weight 102 lb 4 oz 109 lb 9.6 oz Constitutional: Present no acute distress Respiratory: Present CTA bilaterally Cardiac: Present Reg Rate and Rhythm GI: Present soft and normal bowel sounds; Absent distention or tenderness Extremities: Absent edema, clubbing or cyanosis Skin: Present intact Neuro: Present alert and awake Assessment and Plan *Assessment and plan (1) Anemia: Status: Acute Qualifiers: Anemia type: unspecified type Qualified Code(s): D64.9 - Anemia, unspecified Category: Medical Code(s): D64.9 - Anemia, unspecified (2) Thrombocytopenia: Status: Acute Category: Medical Code(s): D69.6 - Thrombocytopenia, unspecified (3) Myelodysplastic syndrome: Status: Acute Category: Medical Code(s): D46.9 - Myelodysplastic syndrome, unspecified (4) Hyperlipidemia: Status: Chronic Qualifiers: Hyperlipidemia type: mixed hyperlipidemia Qualified Code(s): E78.2 - Mixed hyperlipidemia Category: Medical Code(s): E78.5 - Hyperlipidemia, unspecified (5) Severe protein-calorie malnutrition: Status: Acute Category: Medical Code(s): E43 - Unspecified severe protein-calorie malnutrition (6) Cough in adult: Status: Acute Category: Medical Code(s): R05.9 - Cough, unspecified (7) Bronchitis: Status: Acute Category: Medical Code(s): J40 - Bronchitis, not specified as acute or chronic (8) Hypoxia: Status: Acute Category: Medical Code(s): R09.02 - Hypoxemia Plan Patient received 2 units of packed red blood cells and her hemoglobin went up to 9.6. It is 9.3 this morning. Platelets are low at 6. She is feeling better and thinks the neb treatments have helped. The cough medicine helped as well. She is stable to be discharged home. Will likely need a nebulizer at home. Will discuss with Dr. Samayoa. She will need to follow-up with hematology. Dr. Samayoa entry - OK for discharge today.
[2023-10-24] MEDS: levoFLOXacin 500MG TAB 500 MG PO (09:44)
[2023-10-24] MEDS: FLUCONAZOLE 200MG TABLET 400 MG PO (09:44)
[2023-10-24] MEDS: GABAPENTIN 600MG TABLET 1200 MG PO (09:44)
[2023-10-24] MEDS: ACYCLOVIR 400MG TAB 800 MG PO (09:45)
--- NOTE | 2023-10-25 15:21 | CARE MANAGER ---
Contacted patient related to hospital discharge. She states she continues to feel bad but she has for the past year and she doesn't feel worse than she did. She denies any questions or concerns. She is seeing Dr. Brooks for hematology. She is going to discuss with Dr. Samayoa at follow up if a pulmonology consult would be warranted. We discussed reaching out to the MD to schedule appt sooner if she doesn't feel better soon. Patient verbalized understanding. CHUN Lopez
--- NOTE | 2023-10-28 23:23 | P.DS_ITS ---
General Admission date:: 10/23/23 Discharge date: 10/24/23 HPI HPI HPI: Notes as per Dr. Brooks, oncologist today 10/23/2023: HPI Comments Details: Ms. 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 She was initially diagnosed with this disease in April 2022 with MDS?EB 1 and was followed with observation until September 2022. Just prior to this she was admitted to [facility] with hemoglobin of 4, white blood cell count of 2 and platelet count of 6000. Bone marrow biopsy that showed time showed 10-15% percent blast. Recommendation was for initiation of decitabine and she began that here at [facility]. However, she was admitted again for neutropenic fever at the [facility] in December 2022 and repeat bone marrow showed 10% blast. She was not tolerating chemotherapy well either at that point and ultimately recommendation was to switch to a azacitidine. She did initiate this but continued to do very poorly with weight loss and cytopenias that were not i mproving. Repeat bone marrow biopsy in March 2023 at [facility] noted less than 5% blasts and a hypercellular bone marrow. Given poor performance status it was recommended to move towards treatment holiday with transfusions as needed. If blood counts improved significantly off of azacitidine and performance improved, as well, there could be consideration at some point of reinitiating this treatment. Most recently, white count has been approximately 4.0 with an ANC above 1000. Hemoglobin has been 8.0 and platelet count has been 10-20,000 but without signs/symptoms of bleeding. There have been no infectious complications. In this setting, she presents today between scheduled visits with increasing fatigue and noting significant shortness of air with any exertion. She is in d ay repeat blood counts which show hemoglobin down to 7.1 and platelet count 11,000. White count remains adequate with an ANC well above 1000. She has had a cough that has been nonproductive. There have been no fevers or other signs/symptoms of infection. Oxygen saturation was 82% today on room air though monitor had a hard time picking up due to what appeared to be some vasoconstriction in the nailbeds. Due to the possibility of potential infection with a new cough, admission was recommended for transfusion of packed red blood cells and infectious workup. Oxygen was to be continued only as needed. Admission laboratory data showed normal electrolytes with a BUN of 18 and creatinine of 0.6. As previously noted hemoglobin was 7.1 hematocrit 21.7. Platelet count was at 11.Chest x-ray showed no acute cardiopulmonary process Hospital Course Hospital Course Hospital Course: The patient was admitted and transfused with 2 units of packed red blood cells. She was also started on Levaquin, and Combivent was added for cough. She was also given cough medicine. By 10/24/2023 she felt much better. She denied any pain and had much more energy. Her cough and wheezing had improved. Her hemoglobin had improved, but her platelets remained low at 6. She was stable to be discharged home and will follow-up with hematology. Exam Data for Last 24 hours Vital signs and Labs for Last 24 Hours: Temp Pulse Resp BP Pulse Ox O2 Del Method O2 Flow Rate 97.8 F 74 16 101/56 L 98 Room Air 3 10/24/23 08:00 10/24/23 08:00 10/24/23 08:00 10/24/23 08:00 10/24/23 08:46 10/24/23 08:46 10/24/23 08:00 Narrative: Constitutional Constitutional: no acute distress, thin and cooperative *Routine HEENT Exam Head: Present normocephalic and atraumatic Eye: Present PERRL; Absent conjunctival icterus, scleral injection or conjunctivae pink ENT: Present mucous membranes moist, oropharynx clear and dentition normal *Routine Neck Exam Neck: Present supple and full ROM; Absent carotid bruit, lymphadenopathy, thyromegaly or tenderness *Routine Respiratory Exam Respiratory: Present accessory muscle use (With talking), CTA bilaterally (Anteriorly and posteriorly) and able to speak in complete sentences *Routine Cardiovascular Exam Cardiovascular: Present RRR *Routine Abdominal Exam Abdominal: Present soft and normoactive bowel sounds; Absent tenderness, distended or guarding *Routine Rectal Exam Rectal:: deferred *Routine Genitalia Exam Genitalia:: deferred *Routine Extremities Exam Extremities: Present full ROM and pulses intact; Absent edema or calf tenderness *Routine Neurological Exam Neurological: Present alert, oriented X3 and normal speech DS: Diagnosis Discharge Diagnosis (1) Anemia: Status: Acute Code(s): D64.9 - Anemia, unspecified Qualifiers: Anemia type: unspecified type Qualified Code(s): D64.9 - Anemia, unspecified (2) Thrombocytopenia: Status: Acute Code(s): D69.6 - Thrombocytopenia, unspecified (3) Myelodysplastic syndrome: Status: Acute Code(s): D46.9 - Myelodysplastic syndrome, unspecified (4) Hyperlipidemia: Status: Chronic Code(s): E78.5 - Hyperlipidemia, unspecified Qualifiers: Hyperlipidemia type: mixed hyperlipidemia Qualified Code(s): E78.2 - Mixed hyperlipidemia (5) Severe protein-calorie malnutrition: Status: Acute Code(s): E43 - Unspecified severe protein-calorie malnutrition (6) Cough in adult: Status: Acute Code(s): R05.9 - Cough, unspecified (7) Bronchitis: Status: Acute Code(s): J40 - Bronchitis, not specified as acute or chronic (8) Hypoxia: Status: Acute Code(s): R09.02 - Hypoxemia Meds Home Medications and Allergies Home Medications Medication Instructions Recorded Confirmed Type pravastatin 40 mg tablet 40 mg PO HS Cholesterol 05/06/18 10/23/23 History gabapentin 600 mg tablet 1,200 mg PO BID Pain 06/16/19 10/23/23 History acyclovir 800 mg tablet 800 mg PO BID viral 09/28/22 10/23/23 History infection/preventative levofloxacin 500 mg tablet 500 mg PO DAILY INFECTION 07/19/23 10/23/23 History PREVENTION digoxin 250 mcg (0.25 mg) tablet 250 mcg PO DAILY Heart Rhythm 10/23/23 10/23/23 History fluconazole 200 mg tablet 400 mg PO DAILY INFECTION 10/23/23 10/23/23 History PREVENTION megestrol 400 mg/10 mL (40 mg/mL) 400 mg PO BID Appetite STIMULANT 10/23/23 10/23/23 History oral suspension potassium chloride 20 mEq 20 meq PO DAILY Supplement 10/23/23 10/23/23 History tablet,extended release(part/cryst) New Prescriptions to Start Prescriptions: Allergies Allergy/AdvReac Type Severity Reaction Status Date / Time codeine AdvReac Intermediate Verified 10/23/23 09:27 Discharge Plan Disposition Patient Disposition: Home, Self-Care Condition: Fair Follow up Plan Follow up with: Prosper Samayoa MD [Primary Care Provider] - 10/31/23 9:45 am Prescriptions/Medication Reconciliation: Continued pravastatin 40 mg tablet 40 mg PO HS gabapentin 600 mg tablet 1,200 mg PO BID acyclovir 800 mg tablet 800 mg PO BID levofloxacin 500 mg tablet 500 mg PO DAILY Patient Comments: TAKE ONE TABLET BY MOUTH EVERY DAY megestrol 400 mg/10 mL (40 mg/mL) suspension 400 mg PO BID Patient Comments: TAKE 2 TEASPOONSFUL (10 ML) BY MOUTH TWICE DAILY --SHAKE WELL BEFORE USE-- fluconazole 200 mg tablet 400 mg PO DAILY digoxin 250 mcg (0.25 mg) tablet 250 mcg PO DAILY potassium chloride 20 mEq tablet,ER particles/crystals 20 meq PO DAILY Problem Reconciliation Problems Reviewed?: Yes Patient Discharge Instructions ACTIVITY: Continue current activity DIET: continue same diet Patient Instructions: Anemia, DI for Acute Bronchitis, Peripherally Inserted Central Catheter Infections, DI for Malnutrition - Older Adults, DI for Myelodysplastic Syndrome Providers Primary Care Provider: Prosper Samayoa Admit Provider: Prosper Samayoa Attending Provider: Prosper Samyaoa
== END 2023-10-24 11:02 | disposition home or self-care (01) ==
LOC: 2ND 10:44
PROVIDERS: Internal Medicine Medical Oncology; Admitting Provider Family Medicine; PCP Family Medicine; Visit Provider Family Medicine
DX: D46.9 Myelodysplastic syndrome, unspecified (principal); D69.6 Thrombocytopenia, unspecified; E78.2 Mixed hyperlipidemia; E43 Unspecified severe protein-calorie malnutrition; R05.9 Cough, unspecified; J40 Bronchitis, not specified as acute or chronic; R09.02 Hypoxemia; Z68.1 Body mass index [BMI] 19.9 or less, adult
CPT/HCPCS: G0379; 36415; 36430; 36592; 71046; 80053; 85014; 85018; 85025; 86850; 94640; G0378; P9016

== ENCOUNTER 2023-11-01 10:01 | Outpatient (CLI) | payer MEDICARE, SELFPAY ==
[2023-11-01] VITALS (18 sets, daily range): BP systolic 98–128; BP diastolic 40–65; PULSE 71–93; RESP 18–20; TEMP 36.7–37.1; O2SAT 97–98; BMI 15.6
[2023-11-01 10:24] LABS: Basophils % 0.2 % (0.1-2.0); Eosinophils % 0.3 % (0.1-12.0); Lymphocytes # 1.8 K/mm3 (0.7-4.5); Lymphocytes % 47.6 % (10-50); Mean Corpuscular HGB Conc 33.8 g/dL (31.8-35.4); Mean Corpuscular Hemoglobin 30.8 pg (27.0-31.2); Mean Corpuscular Volume 91.2 fl (81-99); Mean Platelet Volume 13.3 fl (7.4-10.4); Monocytes # 0.5 K/mm3 (0.1-1.0); Monocytes % 13.2 % (1.7-9.3); Neutrophils # 1.4 K/mm3 (1.8-7.8); Neutrophils % 38.7 % (37.0-80.0); Red Blood Count 2.22 M/mm3 (4.20-5.40); Red Cell Distribution Width 18.8 % (11.5-17.5); White Blood Count 3.7 K/mm3 (4.8-10.8)
[2023-11-01 10:26] LABS: Hematocrit 20.2 % (37.0-47.0); Hemoglobin 6.8 g/dL (12.2-16.2); Platelet Count 6 K/mm3 (142-424)
[2023-11-01 10:54] LABS: Alanine Aminotransferase 12 U/L (12-78); Albumin Level 3.6 g/dl (3.5-5.0); Albumin/Globulin Ratio 1.3 (1.1-1.8); Alkaline Phosphatase 52 U/L (38-126); Aspartate Amino Transferase 15 U/L (14-36); Bilirubin,Total 0.8 mg/dl (0.2-1.3); Blood Urea Nitrogen 19 mg/dl (7-17); Calcium 8.8 mg/dl (8.4-10.2); Carbon Dioxide 25 mmol/L (22.0-30.0); Creatinine Clearance Estimated 37 mL/min (50-200); Estimated Glomerular Filt Rate 98 ml/min (>60); GFR (African American) 119 ML/MIN (>60); Globulin 2.7 g/dL (1.3-3.2); Glucose 71 mg/dl (74-100); Potassium 4.3 mmoL/L (3.5-5.1); Sodium 139 mmol/L (136-145); Total Protein,Serum 6.3 g/dl (6.3-8.2)
[2023-11-01 11:42] LABS: Anion Gap 11.3 mEq/L (5-15); Chloride 107 mmol/L (98-107)
[2023-11-01] MEDS: 0.9 % SODIUM CHLORIDE 250 ML 25 ML IV (11:55)
== END 2023-11-01 17:02 | disposition home or self-care (01) ==
PROVIDERS: PCP Family Medicine; Visit Provider Internal Medicine Medical Oncology
DX: D46.9 Myelodysplastic syndrome, unspecified (principal); R06.09 Other forms of dyspnea; R53.83 Other fatigue
CPT/HCPCS: 36430; 80053; 85025; 86850; P9016

== ENCOUNTER 2023-11-05 11:44 | Outpatient (CLI) | payer MEDICARE, SELFPAY | END 2023-11-05 11:49 | disposition home or self-care (01) | LOC: INF 11:46 | PROVIDERS: PCP Family Medicine; Visit Provider Internal Medicine Medical Oncology | DX: D64.9 Anemia, unspecified (principal); Z45.2 Encounter for adjustment and management of vascular access device | CPT/HCPCS: 96523 ==

== ENCOUNTER 2023-11-15 10:08 | Outpatient (CLI) | payer MEDICARE, SELFPAY ==
[2023-11-15 10:12] VITALS: BMI 15.6
[2023-11-15 10:37] LABS: Basophils % 0.4 % (0.1-2.0); Eosinophils % 0.4 % (0.1-12.0); Hematocrit 22.5 % (37.0-47.0); Hemoglobin 7.5 g/dL (12.2-16.2); Lymphocytes # 1.1 K/mm3 (0.7-4.5); Lymphocytes % 53.9 % (10-50); Mean Corpuscular HGB Conc 33.3 g/dL (31.8-35.4); Mean Corpuscular Hemoglobin 29.3 pg (27.0-31.2); Mean Corpuscular Volume 87.9 fl (81-99); Monocytes # 0.3 K/mm3 (0.1-1.0); Monocytes % 13.3 % (1.7-9.3); Neutrophils # 0.6 K/mm3 (1.8-7.8); Neutrophils % 31.9 % (37.0-80.0); Red Blood Count 2.56 M/mm3 (4.20-5.40); Red Cell Distribution Width 17.9 % (11.5-17.5)
[2023-11-15 10:44] LABS: Alanine Aminotransferase 13 U/L (12-78); Albumin Level 3.7 g/dl (3.5-5.0); Albumin/Globulin Ratio 1.4 (1.1-1.8); Alkaline Phosphatase 61 U/L (38-126); Anion Gap 10.1 mEq/L (5-15); Aspartate Amino Transferase 17 U/L (14-36); Bilirubin,Total 0.8 mg/dl (0.2-1.3); Blood Urea Nitrogen 12 mg/dl (7-17); Calcium 8.7 mg/dl (8.4-10.2); Carbon Dioxide 24 mmol/L (22.0-30.0); Chloride 110 mmol/L (98-107); Creatinine Clearance Estimated 37 mL/min (50-200); Estimated Glomerular Filt Rate 121 ml/min (>60); GFR (African American) 146 ML/MIN (>60); Globulin 2.7 g/dL (1.3-3.2); Glucose 71 mg/dl (74-100); Platelet Count 9 K/mm3 (142-424); Potassium 4.1 mmoL/L (3.5-5.1); Sodium 140 mmol/L (136-145); Total Protein,Serum 6.4 g/dl (6.3-8.2)
[2023-11-15 10:45] LABS: MANUAL DIFFERENTIAL MANUAL DIFFERENTIAL (MANUAL DIFF)
[2023-11-15 12:06] LABS: Lymphocytes % 68 % (10-50); Monocytes % 2 % (2-9); Neutrophils % 30 % (42-76); Nucleated Red Blood Cells 1; Platelet Estimate Marked Decrease; RBC Morphology Normal; Total Cells Counted 50
== END 2023-11-15 11:08 | disposition home or self-care (01) ==
LOC: INF 10:09
PROVIDERS: PCP Family Medicine; Visit Provider Internal Medicine Medical Oncology
DX: D64.9 Anemia, unspecified (principal); Z45.2 Encounter for adjustment and management of vascular access device; Z79.899 Other long term (current) drug therapy
CPT/HCPCS: 36592; 80053; 85007; 85025; 96523

== ENCOUNTER 2023-11-21 09:19 | Outpatient (CLI) | payer MEDICARE, SELFPAY ==
[2023-11-21] VITALS (18 sets, daily range): BP systolic 93–121; BP diastolic 36–57; PULSE 73–83; RESP 16–18; TEMP 36.6–37.1; O2SAT 97–99; BMI 16.7
[2023-11-21 09:34] LABS: Basophils % 0.6 % (0.1-2.0); Eosinophils % 0.3 % (0.1-12.0); Mean Corpuscular HGB Conc 33.3 g/dL (31.8-35.4); Mean Corpuscular Hemoglobin 29.6 pg (27.0-31.2); Mean Platelet Volume 12.7 fl (7.4-10.4); Monocytes # 0.2 K/mm3 (0.1-1.0); Monocytes % 13.3 % (1.7-9.3); Neutrophils # 0.5 K/mm3 (1.8-7.8); Neutrophils % 28.8 % (37.0-80.0); Red Blood Count 2.17 M/mm3 (4.20-5.40); Red Cell Distribution Width 18.8 % (11.5-17.5); White Blood Count 1.8 K/mm3 (4.8-10.8)
[2023-11-21 09:46] LABS: Hematocrit 19.3 % (37.0-47.0); Hemoglobin 6.4 g/dL (12.2-16.2)
[2023-11-21 09:47] LABS: MANUAL DIFFERENTIAL MANUAL DIFFERENTIAL (MANUAL DIFF); Platelet Count 11 K/mm3 (142-424)
[2023-11-21 10:44] LABS: Lymphocytes % 72 % (10-50); Monocytes % 4 % (2-9); Neutrophils % 24 % (42-76); RBC Morphology Normal; Total Cells Counted 25
[2023-11-21 10:45] LABS: Platelet Estimate Marked Decrease
== END 2023-11-21 23:59 ==
LOC: INF 09:20
PROVIDERS: PCP Family Medicine; Visit Provider Internal Medicine Medical Oncology
DX: D46.22 Refractory anemia with excess of blasts 2 (principal); R53.83 Other fatigue; R06.09 Other forms of dyspnea
CPT/HCPCS: 36430; 85007; 85025; 86850; P9016

== ENCOUNTER 2023-11-29 09:39 | Outpatient (CLI) | payer MEDICARE, SELFPAY ==
[2023-11-29 09:44] VITALS: BMI 16.7
[2023-11-29 10:01] LABS: Basophils % 0.3 % (0.1-2.0); Eosinophils % 0.1 % (0.1-12.0); Hematocrit 23.6 % (37.0-47.0); Hemoglobin 7.8 g/dL (12.2-16.2); Lymphocytes % 55.7 % (10-50); Mean Corpuscular HGB Conc 33.1 g/dL (31.8-35.4); Mean Corpuscular Hemoglobin 29.8 pg (27.0-31.2); Mean Corpuscular Volume 90.2 fl (81-99); Mean Platelet Volume 13.7 fl (7.4-10.4); Monocytes # 0.2 K/mm3 (0.1-1.0); Monocytes % 12.4 % (1.7-9.3); Neutrophils # 0.6 K/mm3 (1.8-7.8); Neutrophils % 31.6 % (37.0-80.0); Red Blood Count 2.62 M/mm3 (4.20-5.40); Red Cell Distribution Width 18.2 % (11.5-17.5); White Blood Count 1.9 K/mm3 (4.8-10.8)
[2023-11-29 10:09] LABS: Platelet Count 10 K/mm3 (142-424)
[2023-11-29 10:10] LABS: MANUAL DIFFERENTIAL MANUAL DIFFERENTIAL (MANUAL DIFF)
[2023-11-29 14:58] LABS: Hypochromasia 1+; Lymphocytes % 60 % (10-50); Monocytes % 16 % (2-9); Neutrophils % 24 % (42-76); Total Cells Counted 25
[2023-11-29 14:59] LABS: Anisocytosis 1+; Ovalocytes 1+; Platelet Estimate Marked Decrease; Poikilocytosis 1+
== END 2023-11-29 10:25 | disposition home or self-care (01) ==
LOC: INF 09:40
PROVIDERS: PCP Family Medicine; Visit Provider Internal Medicine Medical Oncology
DX: D46.Z Other myelodysplastic syndromes (principal); Z45.2 Encounter for adjustment and management of vascular access device; Z79.899 Other long term (current) drug therapy
CPT/HCPCS: 36592; 85007; 85025; 96523

== ENCOUNTER 2023-12-06 09:59 | Outpatient (CLI) | payer MEDICARE, SELFPAY ==
[2023-12-06] VITALS (19 sets, daily range): BP systolic 98–126; BP diastolic 48–63; PULSE 80–90; RESP 16–18; TEMP 36.6–37.2; O2SAT 97–99; BMI 15.6
[2023-12-06 10:40] LABS: Basophils % 0.1 % (0.1-2.0); Eosinophils % 0.2 % (0.1-12.0); Lymphocytes # 1.3 K/mm3 (0.7-4.5); Mean Corpuscular HGB Conc 32.7 g/dL (31.8-35.4); Mean Corpuscular Hemoglobin 29.4 pg (27.0-31.2); Mean Corpuscular Volume 90.1 fl (81-99); Mean Platelet Volume 15.1 fl (7.4-10.4); Monocytes # 0.3 K/mm3 (0.1-1.0); Monocytes % 10.8 % (1.7-9.3); Neutrophils # 0.8 K/mm3 (1.8-7.8); Neutrophils % 34.8 % (37.0-80.0); Red Blood Count 2.31 M/mm3 (4.20-5.40); Red Cell Distribution Width 18.8 % (11.5-17.5); White Blood Count 2.4 K/mm3 (4.8-10.8)
[2023-12-06 10:41] LABS: Hemoglobin 6.8 g/dL (12.2-16.2)
[2023-12-06 10:42] LABS: Hematocrit 20.8 % (37.0-47.0); Platelet Count 10 K/mm3 (142-424)
[2023-12-06 10:44] LABS: MANUAL DIFFERENTIAL MANUAL DIFFERENTIAL (MANUAL DIFF)
[2023-12-06] MEDS: 0.9 % SODIUM CHLORIDE 250 ML 25 ML IV (10:45)
[2023-12-06 13:52] LABS: Eosinophils % 1 % (0-3); Lymphocytes % 54 % (10-50); Monocytes % 27 % (2-9); Neutrophils % 14 % (42-76); Nucleated Red Blood Cells 1; Total Cells Counted 100
[2023-12-06 14:06] LABS: Anisocytosis 2+; Platelet Estimate Marked Decrease
[2023-12-06 14:08] LABS: Macrocytosis 1+; Poikilocytosis 1+; Tear Drop Cells 1+
[2023-12-06 14:09] LABS: Basophilic Stippling 1+; Hypochromasia 1+
== END 2023-12-06 16:27 | disposition home or self-care (01) ==
LOC: INF 10:00
PROVIDERS: PCP Family Medicine; Visit Provider Internal Medicine Medical Oncology
DX: D46.9 Myelodysplastic syndrome, unspecified (principal)
CPT/HCPCS: 36430; 85007; 85025; 86850; P9016

== ENCOUNTER 2023-12-13 09:49 | Outpatient (CLI) | payer MEDICARE, SELFPAY | END 2023-12-13 10:05 | disposition home or self-care (01) | LOC: INF 09:50 | PROVIDERS: PCP Family Medicine; Visit Provider Internal Medicine Medical Oncology | DX: D46.9 Myelodysplastic syndrome, unspecified (principal); Z45.2 Encounter for adjustment and management of vascular access device | CPT/HCPCS: 96523 ==

== ENCOUNTER 2023-12-20 09:43 | Outpatient (CLI) | payer MEDICARE, SELFPAY ==
[2023-12-20 09:48] VITALS: BMI 15.6
[2023-12-20 10:08] LABS: Basophils % 0.5 % (0.1-2.0); Eosinophils % 0.2 % (0.1-12.0); Hemoglobin 7.5 g/dL (12.2-16.2); Lymphocytes # 1.7 K/mm3 (0.7-4.5); Lymphocytes % 44.1 % (10-50); Mean Corpuscular HGB Conc 32.5 g/dL (31.8-35.4); Mean Corpuscular Hemoglobin 29.1 pg (27.0-31.2); Mean Corpuscular Volume 89.5 fl (81-99); Monocytes # 0.4 K/mm3 (0.1-1.0); Monocytes % 11.2 % (1.7-9.3); Neutrophils # 1.7 K/mm3 (1.8-7.8); Neutrophils % 44.1 % (37.0-80.0); Red Blood Count 2.57 M/mm3 (4.20-5.40); Red Cell Distribution Width 18.8 % (11.5-17.5); White Blood Count 3.8 K/mm3 (4.8-10.8)
[2023-12-20 10:13] LABS: Platelet Count 11 K/mm3 (142-424)
== END 2023-12-20 10:20 | disposition home or self-care (01) ==
LOC: INF 09:44
PROVIDERS: PCP Family Medicine; Visit Provider Internal Medicine Medical Oncology
DX: D46.9 Myelodysplastic syndrome, unspecified (principal); Z45.2 Encounter for adjustment and management of vascular access device
CPT/HCPCS: 36592; 85025; 96523

== ENCOUNTER 2023-12-24 14:59 | Outpatient (CLI) | payer MEDICARE, SELFPAY ==
--- NOTE | 2023-12-24 15:06 | XR_ITS ---
FINAL REPORT CLINICAL HISTORY: SHORTNESS OF BREATH FINDINGS: TWO-VIEW CHEST The heart size is normal. The mediastinum is normal. The lungs are hyperinflated consistent with COPD. Left PICC line remains in place. There is no pneumothorax. IMPRESSION: COPD. Reviewed, Interpreted and Dictated by Darryl Gutierrez III, MD Transcribed by Leonila Chandler Authenticated and [facility]
[2023-12-24 15:21] VITALS: BMI 16.5
[2023-12-24 15:43] LABS: Basophils % 0.3 % (0.1-2.0); Eosinophils % 0.5 % (0.1-12.0); Lymphocytes # 1.3 K/mm3 (0.7-4.5); Lymphocytes % 46.7 % (10-50); Mean Corpuscular HGB Conc 33.4 g/dL (31.8-35.4); Mean Corpuscular Hemoglobin 29.2 pg (27.0-31.2); Mean Corpuscular Volume 87.5 fl (81-99); Mean Platelet Volume 10.5 fl (7.4-10.4); Monocytes # 0.4 K/mm3 (0.1-1.0); Monocytes % 13.1 % (1.7-9.3); Neutrophils # 1.1 K/mm3 (1.8-7.8); Neutrophils % 39.4 % (37.0-80.0); Red Blood Count 2.32 M/mm3 (4.20-5.40); Red Cell Distribution Width 19.7 % (11.5-17.5); White Blood Count 2.8 K/mm3 (4.8-10.8)
[2023-12-24 15:47] LABS: Chloride 108 mmol/L (98-107); Potassium 4.5 mmoL/L (3.5-5.1); Sodium 136 mmol/L (136-145)
[2023-12-24 15:48] LABS: Hematocrit 20.3 % (37.0-47.0); Hemoglobin 6.8 g/dL (12.2-16.2)
[2023-12-24 15:49] LABS: Amylase 75 U/L (30-110); Blood Urea Nitrogen 23 mg/dl (7-17); Creatinine Clearance Estimated 39 mL/min (50-200); Estimated Glomerular Filt Rate 98 ml/min (>60); GFR (African American) 119 ML/MIN (>60); Platelet Count 8 K/mm3 (142-424)
[2023-12-24 15:50] LABS: Alanine Aminotransferase 14 U/L (12-78); Albumin Level 3.7 g/dl (3.5-5.0); Albumin/Globulin Ratio 1.4 (1.1-1.8); Alkaline Phosphatase 59 U/L (38-126); Anion Gap 10.5 mEq/L (5-15); Aspartate Amino Transferase 22 U/L (14-36); Bilirubin,Total 0.8 mg/dl (0.2-1.3); Calcium 8.9 mg/dl (8.4-10.2); Carbon Dioxide 22 mmol/L (22.0-30.0); Globulin 2.6 g/dL (1.3-3.2); Glucose 92 mg/dl (74-100); Lipase 82 U/L (23-300); Total Protein,Serum 6.3 g/dl (6.3-8.2)
[2023-12-24 15:59] LABS: NT Pro Brain Natriuretic Pep. 306 pg/mL (0-125)
== END 2023-12-24 15:27 | disposition home or self-care (01) ==
LOC: LAB 15:00 → INF 15:04
PROVIDERS: PCP Family Medicine; Visit Provider Family Medicine
DX: R06.02 Shortness of breath (principal); R10.13 Epigastric pain
CPT/HCPCS: 36592; 71046; 80053; 82150; 83690; 83880; 85025

== ENCOUNTER 2023-12-25 09:27 | Outpatient (CLI) | payer MEDICARE, SELFPAY ==
[2023-12-25] VITALS (19 sets, daily range): BP systolic 98–121; BP diastolic 42–63; PULSE 82–95; RESP 18–20; TEMP 36.6–36.8; O2SAT 96–100; BMI 15.6
== END 2023-12-25 15:37 | disposition home or self-care (01) ==
LOC: INF 09:28
PROVIDERS: PCP Family Medicine; Visit Provider Family Medicine
DX: D64.9 Anemia, unspecified
CPT/HCPCS: 36415; 36430; 86850; P9016

== ENCOUNTER 2024-01-03 09:54 | Outpatient (CLI) | payer MEDICARE, SELFPAY ==
[2024-01-03 10:17] VITALS: BMI 16.7
[2024-01-03 10:28] LABS: Basophils % 0.6 % (0.1-2.0); Eosinophils % 0.8 % (0.1-12.0); Hematocrit 22.5 % (37.0-47.0); Hemoglobin 7.6 g/dL (12.2-16.2); Lymphocytes % 52.4 % (10-50); Mean Corpuscular HGB Conc 33.8 g/dL (31.8-35.4); Mean Corpuscular Hemoglobin 29.1 pg (27.0-31.2); Mean Corpuscular Volume 86.2 fl (81-99); Mean Platelet Volume 11.8 fl (7.4-10.4); Monocytes # 0.2 K/mm3 (0.1-1.0); Monocytes % 12.2 % (1.7-9.3); Neutrophils # 0.6 K/mm3 (1.8-7.8); Red Cell Distribution Width 19.6 % (11.5-17.5); White Blood Count 1.9 K/mm3 (4.8-10.8)
[2024-01-03 10:46] LABS: Platelet Count 10 K/mm3 (142-424)
[2024-01-03 10:48] LABS: MANUAL DIFFERENTIAL MANUAL DIFFERENTIAL (MANUAL DIFF)
[2024-01-03 12:15] LABS: Anisocytosis 1+; Lymphocytes % 48 % (10-50); Microcytosis 1+; Monocytes % 6 % (2-9); Neutrophils % 40 % (42-76); Total Cells Counted 50
[2024-01-03 12:16] LABS: Hypochromasia 1+; Platelet Estimate Marked Decrease
== END 2024-01-03 11:00 | disposition home or self-care (01) ==
LOC: INF 09:54
PROVIDERS: PCP Family Medicine; Visit Provider Internal Medicine Medical Oncology
DX: D46.9 Myelodysplastic syndrome, unspecified (principal); Z45.2 Encounter for adjustment and management of vascular access device
CPT/HCPCS: 36592; 85007; 85025; 96523

== ENCOUNTER 2024-01-10 09:29 | Outpatient (CLI) | payer MEDICARE, SELFPAY ==
[2024-01-10] VITALS (10 sets, daily range): BP systolic 103–110; BP diastolic 46–58; PULSE 74–91; RESP 20; TEMP 36.5–36.7; O2SAT 99–100; BMI 16.5
[2024-01-10 09:48] LABS: Basophils % 0.1 % (0.1-2.0); Eosinophils % 0.4 % (0.1-12.0); Lymphocytes # 1.1 K/mm3 (0.7-4.5); Lymphocytes % 58.5 % (10-50); Mean Corpuscular HGB Conc 32.1 g/dL (31.8-35.4); Mean Corpuscular Volume 87.1 fl (81-99); Mean Platelet Volume 15.7 fl (7.4-10.4); Monocytes # 0.2 K/mm3 (0.1-1.0); Neutrophils # 0.6 K/mm3 (1.8-7.8); Red Blood Count 2.31 M/mm3 (4.20-5.40); White Blood Count 1.9 K/mm3 (4.8-10.8)
[2024-01-10 09:50] LABS: Hematocrit 20.2 % (37.0-47.0); Hemoglobin 6.5 g/dL (12.2-16.2); Platelet Count 12 K/mm3 (142-424)
[2024-01-10 09:52] LABS: MANUAL DIFFERENTIAL MANUAL DIFFERENTIAL (MANUAL DIFF)
[2024-01-10 10:18] LABS: Lymphocytes % 68 % (10-50); Monocytes % 6 % (2-9); Neutrophils % 26 % (42-76); Total Cells Counted 50
[2024-01-10 10:21] LABS: Platelet Estimate Marked Decrease; RBC Morphology Normal
[2024-01-10] MEDS: 0.9 % SODIUM CHLORIDE 250 ML 25 ML IV (11:08)
== END 2024-01-10 14:34 | disposition home or self-care (01) ==
LOC: INF 09:29
PROVIDERS: PCP Family Medicine; Visit Provider Internal Medicine Medical Oncology
DX: D46.22 Refractory anemia with excess of blasts 2 (principal); D46.9 Myelodysplastic syndrome, unspecified
CPT/HCPCS: 36430; 85007; 85025; 86850; P9016

== ENCOUNTER 2024-01-17 09:54 | Outpatient (CLI) | payer MEDICARE, SELFPAY ==
[2024-01-17] VITALS (10 sets, daily range): BP systolic 82–113; BP diastolic 41–71; PULSE 69–90; RESP 16–18; TEMP 36.4–36.9; O2SAT 96–98; BMI 16.7
[2024-01-17 10:49] LABS: Chloride 109 mmol/L (98-107); Sodium 135 mmol/L (136-145)
[2024-01-17 10:50] LABS: Basophils % 0.5 % (0.1-2.0); Eosinophils % 0.8 % (0.1-12.0); Lymphocytes % 60.1 % (10-50); Mean Corpuscular HGB Conc 33.4 g/dL (31.8-35.4); Mean Corpuscular Hemoglobin 28.7 pg (27.0-31.2); Mean Corpuscular Volume 85.9 fl (81-99); Mean Platelet Volume 13.6 fl (7.4-10.4); Monocytes # 0.3 K/mm3 (0.1-1.0); Monocytes % 16.2 % (1.7-9.3); Neutrophils # 0.4 K/mm3 (1.8-7.8); Neutrophils % 22.3 % (37.0-80.0); Red Blood Count 2.26 M/mm3 (4.20-5.40); Red Cell Distribution Width 19.3 % (11.5-17.5); White Blood Count 1.6 K/mm3 (4.8-10.8)
[2024-01-17 10:52] LABS: Alanine Aminotransferase 14 U/L (12-78); Albumin Level 3.2 g/dl (3.5-5.0); Albumin/Globulin Ratio 1.2 (1.1-1.8); Alkaline Phosphatase 77 U/L (38-126); Aspartate Amino Transferase 21 U/L (14-36); Blood Urea Nitrogen 10 mg/dl (7-17); Carbon Dioxide 21 mmol/L (22.0-30.0); Creatinine Clearance Estimated 39 mL/min (50-200); Estimated Glomerular Filt Rate 98 ml/min (>60); GFR (African American) 119 ML/MIN (>60); Globulin 2.6 g/dL (1.3-3.2); Total Protein,Serum 5.8 g/dl (6.3-8.2)
[2024-01-17 10:53] LABS: Calcium 8.5 mg/dl (8.4-10.2); Glucose 98 mg/dl (74-100)
[2024-01-17 11:00] LABS: Hematocrit 19.4 % (37.0-47.0); Hemoglobin 6.5 g/dL (12.2-16.2); Platelet Count 12 K/mm3 (142-424)
[2024-01-17 11:01] LABS: MANUAL DIFFERENTIAL MANUAL DIFFERENTIAL (MANUAL DIFF)
[2024-01-17 12:31] LABS: Lymphocytes % 60 % (10-50); Monocytes % 24 % (2-9); Neutrophils % 16 % (42-76); Platelet Estimate Marked Decrease; RBC Morphology Normal; Total Cells Counted 25
[2024-01-17] MEDS: 0.9 % SODIUM CHLORIDE 250 ML 25 ML IV (13:40)
[2024-01-19 12:56] LABS: Peripheral Smear Review Scanned Result
== END 2024-01-17 16:20 | disposition home or self-care (01) ==
LOC: INF 09:55
PROVIDERS: PCP Family Medicine; Visit Provider Internal Medicine Medical Oncology
DX: D46.9 Myelodysplastic syndrome, unspecified (principal)
CPT/HCPCS: 36430; 36592; 80053; 85007; 85025; 86850; P9016

== ENCOUNTER 2024-01-24 10:11 | Outpatient (CLI) | payer MEDICARE, SELFPAY ==
[2024-01-24] VITALS (10 sets, daily range): BP systolic 94–103; BP diastolic 44–52; PULSE 77–83; RESP 14–18; TEMP 36.4–36.8; O2SAT 92–98; BMI 16.9
[2024-01-24 10:39] LABS: Basophils % 0.2 % (0.1-2.0); Eosinophils % 0.7 % (0.1-12.0); Lymphocytes # 0.9 K/mm3 (0.7-4.5); Lymphocytes % 59.1 % (10-50); Mean Corpuscular HGB Conc 33.8 g/dL (31.8-35.4); Mean Corpuscular Hemoglobin 28.7 pg (27.0-31.2); Mean Corpuscular Volume 85.1 fl (81-99); Mean Platelet Volume 13.8 fl (7.4-10.4); Monocytes # 0.2 K/mm3 (0.1-1.0); Monocytes % 12.3 % (1.7-9.3); Neutrophils # 0.4 K/mm3 (1.8-7.8); Neutrophils % 27.6 % (37.0-80.0); Red Cell Distribution Width 18.2 % (11.5-17.5); White Blood Count 1.5 K/mm3 (4.8-10.8)
[2024-01-24 10:49] LABS: Hematocrit 19.6 % (37.0-47.0); Hemoglobin 6.6 g/dL (12.2-16.2); Platelet Count 10 K/mm3 (142-424)
[2024-01-24 10:50] LABS: MANUAL DIFFERENTIAL MANUAL DIFFERENTIAL (MANUAL DIFF)
[2024-01-24 11:29] LABS: Lymphocytes % 72 % (10-50); Monocytes % 4 % (2-9); Neutrophils % 24 % (42-76); Total Cells Counted 25
[2024-01-24 11:33] LABS: Hypochromasia 1+; Platelet Estimate Marked Decrease
[2024-01-24] MEDS: 0.9 % SODIUM CHLORIDE 250 ML 25 ML IV (12:48)
== END 2024-01-24 15:00 | disposition home or self-care (01) ==
LOC: INF 10:13
PROVIDERS: PCP Family Medicine; Visit Provider Internal Medicine Medical Oncology
DX: D46.9 Myelodysplastic syndrome, unspecified (principal)
CPT/HCPCS: 36430; 85007; 85025; 86850; P9016

== ENCOUNTER 2024-01-25 09:15 | Outpatient (CLI) | payer MEDICARE, SELFPAY ==
[2024-01-25] VITALS (10 sets, daily range): BP systolic 92–100; BP diastolic 52–76; PULSE 79–91; RESP 18; TEMP 36.7–36.8; O2SAT 96–99
[2024-01-25] MEDS: 0.9 % SODIUM CHLORIDE 250 ML 25 ML IV (09:50)
== END 2024-01-25 12:35 | disposition home or self-care (01) ==
LOC: INF 09:16
PROVIDERS: PCP Family Medicine; Visit Provider Internal Medicine Medical Oncology
DX: D46.21 Refractory anemia with excess of blasts 1 (principal)
CPT/HCPCS: 36430; P9016

== ENCOUNTER 2024-01-31 09:11 | Outpatient (CLI) | payer MEDICARE, SELFPAY ==
[2024-01-31] VITALS (11 sets, daily range): BP systolic 93–113; BP diastolic 45–58; PULSE 73–86; RESP 18; TEMP 36.6–36.7; O2SAT 95–97; BMI 16.9
[2024-01-31 09:55] LABS: Basophils % 0.4 % (0.1-2.0); Eosinophils % 0.2 % (0.1-12.0); Hematocrit 22.2 % (37.0-47.0); Hemoglobin 7.3 g/dL (12.2-16.2); Lymphocytes # 1.4 K/mm3 (0.7-4.5); Lymphocytes % 36.3 % (10-50); Mean Corpuscular HGB Conc 32.8 g/dL (31.8-35.4); Mean Corpuscular Hemoglobin 29.1 pg (27.0-31.2); Mean Corpuscular Volume 88.8 fl (81-99); Monocytes # 0.5 K/mm3 (0.1-1.0); Monocytes % 14.2 % (1.7-9.3); Neutrophils # 1.8 K/mm3 (1.8-7.8); Neutrophils % 48.9 % (37.0-80.0); Red Cell Distribution Width 17.2 % (11.5-17.5); White Blood Count 3.7 K/mm3 (4.8-10.8)
[2024-01-31 10:01] LABS: Platelet Count 10 K/mm3 (142-424)
[2024-01-31] MEDS: 0.9 % SODIUM CHLORIDE 250 ML 25 ML IV (12:13)
== END 2024-01-31 14:58 | disposition home or self-care (01) ==
LOC: INF 09:12
PROVIDERS: PCP Family Medicine; Visit Provider Internal Medicine Medical Oncology
DX: D46.9 Myelodysplastic syndrome, unspecified (principal)
CPT/HCPCS: 36430; 85025; 86850; P9016

== ENCOUNTER 2024-02-01 12:52 | Outpatient (CLI) | payer MEDICARE, SELFPAY ==
--- NOTE | 2024-02-01 12:55 | MM_ITS ---
PROCEDURE INFORMATION: Exam: MG Bilateral Screening 3D Mammography Exam date and time: 02/01/2024 12:50 PM Age: 73 years old Clinical indication: Screening examination TECHNIQUE: Imaging protocol: Bilateral Screening tomosynthesis and 2D mammography including computer-aided detection (CAD) when performed. COMPARISON: 1. MG MM DIG SCREENING MAMM BI W/CAD 11/30/2022 8:47 AM 2. MG MM DIG SCREENING MAMM BI W/CAD 05/20/2021 8:06 AM FINDINGS: MAMMOGRAPHY: Breast composition: The breasts are heterogeneously dense, which may obscure small masses. Mass: None. Architectural distortion: None. Calcifications: No suspicious calcifications. Asymmetric density: None. Skin thickening: None. Axillary adenopathy: None. IMPRESSION: No mammographic evidence of malignancy. Annual screening is recommended unless otherwise clinically indicated. ASSESSMENT: BI-RADS Category 1: Negative
== END 2024-02-01 23:59 | disposition home or self-care (01) ==
LOC: RAD 12:52
PROVIDERS: PCP Family Medicine; Visit Provider Family Medicine
DX: Z12.31 Encounter for screening mammogram for malignant neoplasm of breast (principal)
CPT/HCPCS: 77063; 77067

== ENCOUNTER 2024-02-07 09:35 | Outpatient (CLI) | payer MEDICARE, SELFPAY ==
[2024-02-07 09:45] VITALS: BMI 15.6
[2024-02-07 09:55] LABS: Basophils % 0.8 % (0.1-2.0); Eosinophils % 0.3 % (0.1-12.0); Hematocrit 22.8 % (37.0-47.0); Hemoglobin 7.7 g/dL (12.2-16.2); Lymphocytes # 1.2 K/mm3 (0.7-4.5); Lymphocytes % 49.6 % (10-50); Mean Corpuscular HGB Conc 33.9 g/dL (31.8-35.4); Mean Corpuscular Volume 88.5 fl (81-99); Mean Platelet Volume 13.3 fl (7.4-10.4); Monocytes # 0.3 K/mm3 (0.1-1.0); Monocytes % 11.9 % (1.7-9.3); Neutrophils # 0.9 K/mm3 (1.8-7.8); Neutrophils % 37.4 % (37.0-80.0); Red Blood Count 2.58 M/mm3 (4.20-5.40); Red Cell Distribution Width 16.5 % (11.5-17.5); White Blood Count 2.4 K/mm3 (4.8-10.8)
[2024-02-07 09:58] LABS: Platelet Count 15 K/mm3 (142-424)
== END 2024-02-07 12:45 | disposition home or self-care (01) ==
LOC: INF 09:35
PROVIDERS: PCP Family Medicine; Visit Provider Internal Medicine Medical Oncology
DX: D46.9 Myelodysplastic syndrome, unspecified (principal)
CPT/HCPCS: 36592; 85025

== ENCOUNTER 2024-02-14 12:12 | Outpatient (CLI) | payer MEDICARE, SELFPAY | END 2024-02-14 12:50 | disposition home or self-care (01) | LOC: INF 12:12 | PROVIDERS: PCP Family Medicine; Visit Provider Internal Medicine Medical Oncology | DX: Z45.2 Encounter for adjustment and management of vascular access device (principal) | CPT/HCPCS: 96523 ==

== ENCOUNTER 2024-03-04 16:07 | Outpatient (CLI) | payer MEDICARE, SELFPAY ==
[2024-03-04 17:20] LABS: Eosinophils % 0.4 % (0.1-12.0); Lymphocytes # 1.5 K/mm3 (0.7-4.5); Lymphocytes % 45.8 % (10-50); Mean Corpuscular HGB Conc 32.7 g/dL (31.8-35.4); Mean Corpuscular Hemoglobin 28.4 pg (27.0-31.2); Mean Platelet Volume 26.1 fl (7.4-10.4); Monocytes # 0.4 K/mm3 (0.1-1.0); Monocytes % 13.5 % (1.7-9.3); Neutrophils # 1.3 K/mm3 (1.8-7.8); Neutrophils % 39.3 % (37.0-80.0); Red Cell Distribution Width 20.7 % (11.5-17.5); White Blood Count 3.2 K/mm3 (4.8-10.8)
[2024-03-04 17:54] LABS: Red Blood Count 1.14 M/mm3 (4.20-5.40)
[2024-03-04 17:56] LABS: Hemoglobin 3.2 g/dL (12.2-16.2)
[2024-03-04 17:57] LABS: Hematocrit 9.9 % (37.0-47.0); Platelet Count 9 K/mm3 (142-424)
== END 2024-03-04 23:59 | disposition home or self-care (01) ==
LOC: LAB.DROPOF 16:43
PROVIDERS: PCP Family Medicine Hospice and Palliative Medicine; Visit Provider Family Medicine Hospice and Palliative Medicine
DX: D46.9 Myelodysplastic syndrome, unspecified (principal)
CPT/HCPCS: 85025

== ENCOUNTER 2024-03-05 10:17 | Emergency (ER) | payer MEDICARE, SELFPAY ==
--- NOTE | 2024-03-05 09:48 | ECG_ITS ---
APPROVED REPORT Exam: Resting ECG HR:55 bpm ECG Measurements Heart Rate 55 AXES NJ 160 P 81 QRSd 102 QRS 71 QT 420 T 76 QTc 409 Conclusion SINUS BRADYCARDIA WITH MARKED SINUS ARRHYTHMIA BORDERLINE ECG Peaked T waves. Electronically signed by : RONALD MOORE, 03/05/2024 15:17:44
[2024-03-05 10:00] VITALS: RESP 20; RESP 29
--- NOTE | 2024-03-05 10:07 | HMH.EDGENADL ---
Discharge Plan Disposition Patient Disposition: Chief Complaint: Weakness Prescriptions Prescriptions: No Action pravastatin 40 mg tablet 40 mg PO HS gabapentin 600 mg tablet 1,200 mg PO BID fluconazole 200 mg tablet See Rx Instructions .ROUTE .COMPLEX Qty: 60 0RF Dose Instruction: TAKE TWO TABLETS BY MOUTH EVERY DAY Rx Instructions: TAKE TWO TABLETS BY MOUTH EVERY DAY acyclovir 800 mg tablet See Rx Instructions .ROUTE .COMPLEX Qty: 60 5RF Dose Instruction: TAKE ONE TABLET BY MOUTH TWICE DAILY Rx Instructions: TAKE ONE TABLET BY MOUTH TWICE DAILY megestrol 400 mg/10 mL (40 mg/mL) suspension 400 mg PO BID Patient Comments: TAKE 2 TEASPOONSFUL (10 ML) BY MOUTH TWICE DAILY --SHAKE WELL BEFORE USE-- potassium chloride 20 mEq tablet,ER particles/crystals 20 meq PO DAILY Referrals Follow up/Referrals: Prosper Samayoa MD [Primary Care Provider] - See instructions Clinical Impressions Clinical Impression: Myelodysplastic syndrome, Cardiac arrest Discharge ED Provider: Monico Castaneda General Adult HPI General Chief complaint: Weakness Stated complaint: Unresponsive Time Seen by Provider: 03/05/24 10:17 History of Present Illness HPI narrative: Patient is a 74-year-old female with past medical history of myelodysplastic syndrome, worsening pancytopenia is despite previous therapy who presents the emergency department in extremis. History is largely obtained by EMS. Over the last 7 days patient has become progressively unresponsive at home ultimately causing him to come here for continued evaluation. No fingerstick prior to arrival, patient was breathing however is not interacting with her environment. Patient is reportedly on hospice however it is yet to be confirmed. No other history is able to be obtained at this time. Related Data Home Medications Medication Instructions Recorded Confirmed pravastatin 40 mg tablet 40 mg PO HS Cholesterol 05/06/18 02/07/24 gabapentin 600 mg tablet 1,200 mg PO BID Pain 06/16/19 02/07/24 megestrol 400 mg/10 mL (40 mg/mL) 400 mg PO BID Appetite STIMULANT 10/23/23 02/07/24 oral suspension potassium chloride 20 mEq 20 meq PO DAILY Supplement 10/23/23 02/07/24 tablet,extended release(part/cryst) Previous Rx's Medication Instructions Recorded fluconazole 200 mg tablet See Rx Instructions .Route 02/07/24 .COMPLEX #60 tabs acyclovir 800 mg tablet See Rx Instructions .Route 02/19/24 .COMPLEX #60 tabs Allergies Allergy/AdvReac Type Severity Reaction Status Date / Time codeine AdvReac Intermediate Verified 02/07/24 13:09 [facility] Disclaimer: The information contained in this section may have been updated after the patient was seen, as this information can be updated by other users. Medical History Dizziness Primary cancer of bone marrow MDS (myelodysplastic syndrome) Transfusion reaction Nocturnal hypoxia Supraventricular tachycardia Injury of left shoulder Forehead laceration Fall at home Raynauds disease Degenerative disc disease COPD (chronic obstructive pulmonary disease) Myelodysplastic syndrome History of palpitations History of CVA (cerebrovascular accident) Hypertensive disorder Hyperlipidemia Ankle sprain and strain Surgical History History of cholecystectomy History of laparoscopy History of carpal tunnel release History of colonoscopy Family History Other No significant family history Social History Smoking Status: Unknown if ever smoked alcohol intake: current alcohol intake frequency: holidays/special occasions only substance use type: denies use current occupational status: employed Travel in the last 8 weeks: None caffeine: Yes ROS Obtained: Yes unobtainable due to mental status Physical Exam General General appearance: other (In extremis) Eye Eye exam: Present other (Mildly mydriatic and minimally reactive) Respiratory Respiratory exam: Absent normal lung sounds bilaterally (Diffuse coarse breath sounds, no tachypnea) Cardiovascular Cardiovascular exam: Present bradycardia Neurological Exam Neurological exam: Present other (Eyes open, no movement to noxious stimuli.) Medical Decision Making Morales Inquiry Pt receiving controlled substance: No Vital Signs: 03/05/24 10:17 Pulse Rate [Radial] 48 L Respiratory Rate 4 L Blood Pressure [Right Arm] 69/45 L Blood Pressure Mean [Right Arm] 53 Blood Pressure Source [Right Arm] Automatic Cuff Blood Pressure Position [Right Arm] Supine 02 Sat by Pulse Oximetry 64 L Oxygen Delivery Method Non-Rebreather Lab Data Lab Results 03/05/24 09:58: WBC 6.9 D, RBC 0.90 L*, Hgb 2.7 L*, Hct 9.8 L*, MCV 108.7 H, MCH 29.6, MCHC 27.3 L, RDW 18.7 H, Plt Count 8 L*, MPV 19.2 H, Neut % (Auto) 51.7, Lymph % (Auto) 32.6, Owsley % (Auto) 13.6 H, Eos % (Auto) 0.1, Baso % (Auto) 2.0, Neut # (Auto) 3.6, Lymph # (Auto) 2.2, Owsley # (Auto) 0.9, Eos # (Auto) 0.0, Baso # (Auto) 0.1, Sodium 136, Potassium 6.7 H*, Chloride 104, Carbon Dioxide < 5 L*, Anion Gap 33.7 H, BUN 28 H, Creatinine 1.50 H, Estimated GFR 34 L, Est GFR ( Amer) 41 L, Glucose 709 H*, Calcium 8.7, Magnesium 2.9 H, Total Bilirubin 4.3 H, AST 1422 H*, ALT 609 H*, Alkaline Phosphatase 66, Troponin I 0.05 H, Total Protein 4.7 L, Albumin 2.6 L, Globulin 2.1, Albumin/Globulin Ratio 1.2 03/05/24 09:58 03/05/24 09:58 Orders (Tests/Meds): ED MEDICATIONS Discontinued Medications Generic Name Dose Route Start Last Admin Trade Name Freq PRN Reason Stop Dose Admin Lactated Ringer's 1,000 mls @ 999 mls/hr 03/05/24 10:00 03/05/24 10:32 Lactated Ringer's 1000 Ml Bag IV 03/05/24 11:00 Not Given .Q1H1M ONE ORDERS Category Date Time Status CBC w/Auto Diff [Complete Blood Count Auto Diff] Stat Lab 03/05/24 09:58 Completed CMP [Comprehensive Metabolic Panel] Stat Lab 03/05/24 09:58 Completed MG [Magnesium] Stat Lab 03/05/24 09:58 Completed Trop I [Troponin I] Stat Lab 03/05/24 09:58 Completed Troponin I Q3H Lab 03/05/24 13:00 Ordered Troponin I Q3H Lab 03/05/24 16:00 Ordered VBG [Venous Blood Gas] Stat RT 03/05/24 09:57 Ordered ECG Data Tracing #1: Independently interpreted by me rate is 55, rhythm is irregular, sinus bradycardia with sinus arrhythmia, QTc 409. Medical Decision Narrative: In summary patient is a 74-year-old female past medical history described above who presents emergency department in extremis in the setting of myelodysplastic syndrome. Patient is hemodynamically unstable upon arrival, hypoxic with an unknown SpO2 as it is unable to be obtained. Fingerstick blood glucose is low for which D50 will be administered. Patient will be placed on BiPAP given that she has documentation that she is a DNI at this institution. Spouse will attempt to be contacted immediately. Until then IV access will be obtained fluids will be administered and patient will be placed on the ZOLL. I had discussion with over the phone, it is her wishes that she does not have any heroic measures, does not have shocks, does not have compressions, could does not have a life saving medications with CPR, is not placed on a ventilator. She is a hospice patient and wants to be placed on comfort care. I will honor this as I do believe it is in the patient's best interest and it is her wishes as well given the severity of her condition it is unlikely that she will have any meaningful recovery. The case was discussed with [facility] navigators 10:12 AM. Who will contact cigar head perforator to help facilitate this comfort care and will give me a call back. [facility] care navigators arrived at bedside and we were arranging transport as spouse at bedside believes patient will want to at home. Shortly after spouse arrival patient at 10:47 AM. Critical Care Critical Care Time Critical Care Time: Yes Attestation: On 03/05/24, the high probability of a clinically significant, sudden or life threatening deterioration of the following system(s) required my full and direct attention, intervention and personal management. The time I documented below is in addition to time spent performing reported procedures but includes the following listed in this critical care notation. Total Time Total Critical Care Time: 40
--- NOTE | 2024-03-05 10:10 | PC.NURSE ---
at states he spoke with Pt Luis Antonio who does not want any intervention to sustain life at this time. orders to stop fluids, levophed, and bipap per request
[2024-03-05 10:13] LABS: Basophils # 0.1 K/mm3 (0-0.2); Eosinophils % 0.1 % (0.1-12.0); Lymphocytes # 2.2 K/mm3 (0.7-4.5); Lymphocytes % 32.6 % (10-50); Mean Corpuscular HGB Conc 27.3 g/dL (31.8-35.4); Mean Corpuscular Hemoglobin 29.6 pg (27.0-31.2); Mean Corpuscular Volume 108.7 fl (81-99); Mean Platelet Volume 19.2 fl (7.4-10.4); Monocytes # 0.9 K/mm3 (0.1-1.0); Monocytes % 13.6 % (1.7-9.3); Neutrophils # 3.6 K/mm3 (1.8-7.8); Neutrophils % 51.7 % (37.0-80.0); Red Cell Distribution Width 18.7 % (11.5-17.5); White Blood Count 6.9 K/mm3 (4.8-10.8)
[2024-03-05 10:17] VITALS: BP 69/45; PULSE 48; RESP 4; O2SAT 64; BMI 14.6
[2024-03-05 10:17] LABS: Chloride 104 mmol/L (98-107)
[2024-03-05 10:18] LABS: Sodium 136 mmol/L (136-145)
[2024-03-05 10:20] LABS: Magnesium 2.9 mg/dl (1.6-2.3)
[2024-03-05 10:21] LABS: Alanine Aminotransferase 609 U/L (12-78); Albumin Level 2.6 g/dl (3.5-5.0); Albumin/Globulin Ratio 1.2 (1.1-1.8); Alkaline Phosphatase 66 U/L (38-126); Bilirubin,Total 4.3 mg/dl (0.2-1.3); Blood Urea Nitrogen 28 mg/dl (7-17); Calcium 8.7 mg/dl (8.4-10.2); Estimated Glomerular Filt Rate 34 ml/min (>60); GFR (African American) 41 ML/MIN (>60); Globulin 2.1 g/dL (1.3-3.2); Total Protein,Serum 4.7 g/dl (6.3-8.2)
[2024-03-05 10:29] LABS: Anion Gap 33.7 mEq/L (5-15); Potassium 6.7 mmoL/L (3.5-5.1)
[2024-03-05 10:31] LABS: Aspartate Amino Transferase 1422 U/L (14-36); Carbon Dioxide < 5 mmol/L (22.0-30.0)
[2024-03-05 10:33] LABS: Troponin I 0.05 ng/ml (0.00-0.034)
--- NOTE | 2024-03-05 10:33 | PC.NURSE ---
Critical labs notified to Dr. Castaneda. Potassium 6.7 CO2 <5
[2024-03-05 10:38] LABS: Glucose 709 mg/dl (74-100)
--- NOTE | 2024-03-05 10:38 | PC.NURSE ---
Critical Glucose of [address] Castaneda.
[2024-03-05 10:40] LABS: Hematocrit 9.8 % (37.0-47.0); Platelet Count 8 K/mm3 (142-424)
[2024-03-05 10:41] LABS: Hemoglobin 2.7 g/dL (12.2-16.2)
--- NOTE | 2024-03-05 10:41 | PC.NURSE ---
Dr. Castaneda was notified of critical labs. Hgb 2.7 Hct 9.8 Platelet 8
--- NOTE | 2024-03-05 10:59 | PC.NURSE ---
calling MICHAEL at this time
--- NOTE | 2024-03-05 11:18 | PC.NURSE ---
pt released by [employer] representative: Susan Fuller;
--- NOTE | 2024-03-05 11:33 | P.DN_ITS ---
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 Wishes were confirmed with spouse multiple times by phone and in person, patient is on hospice and wants no life- saving measures. Patient was transition to comfort measures and at 10:47 AM with [facility] navigators and spouse at bedside. Additional Data Confirmation of : no pulse Family: at bedside Additional persons at bedside: other (Hospice) Attending/PCP notified?: No Attending physician: Monico Castaneda Was code activated?: No Autopsy should be considered if:: Unknown or unanticipated medical complications Cause is not known with certainty on clinical grounds Would allay concerns of the public/family regarding Unexplained/unexpected apparently natural and not subject to a forensic medical jurisdiction DOA Within 24 hours of admission Sustained or apparently sustained injury while in the hospital Result of high risk, infectious and contagious disease Obstetric and pediatric arising from environmental or occupational hazard Unexplained/unexpected from dental, medical, or surgical diagnostic procedures and/or therapies Would disclose a known or suspected illness which also may have a bearing on survivors or recipients of transplanted organs Autopsy requested?: No Does not meet criteria lens examiner notified?: Yes Organ bank notified?: Yes Advance directives: Yes
[2024-03-05 14:48] VITALS: BP 0/0; PULSE 0; RESP 0; TEMP -17.7; TEMP 0; O2SAT 0
== END 2024-03-05 15:10 | disposition expired ==
PROVIDERS: Emergency Provider Emergency Medicine; PCP Family Medicine
DX: I46.9 Cardiac arrest, cause unspecified (principal); D46.9 Myelodysplastic syndrome, unspecified; E87.5 Hyperkalemia; R73.9 Hyperglycemia, unspecified; I10 Essential (primary) hypertension; E78.5 Hyperlipidemia, unspecified; D63.0 Anemia in neoplastic disease; Z51.5 Encounter for palliative care
CPT/HCPCS: 80053; 83735; 84484; 85025; 93005; 96360; 99291